=== PATIENT | male | born 1980 | race Caucasian/White ===

== ENCOUNTER 2017-09-12 00:04 | Emergency (ER) | payer MEDICAID, SELFPAY ==
[2017-09-12 00:05] VITALS: BP 145/100; PULSE 90; RESP 15; TEMP 36.8; O2SAT 97; BMI 29.5
--- NOTE | 2017-09-12 00:30 | CT_ITS ---
STUDY: CT ABDOMEN AND PELVIS WITHOUT CONTRAST REASON FOR EXAM: Male, 37 years old. Abdominal pain RADIATION DOSAGE (If Supplied By Facility): CTDIvol = ( . Syncopal episode. ) mGy, DLP = ( 422.67 ) mGycm TECHNIQUE: Transaxial images were obtained from the dome of the diaphragm to the symphysis pubis without oral contrast, and without intravenous contrast. Sagittal and coronal images were reconstructed. Individualized dose optimization techniques were used for this CT. COMPARISON: None. FINDINGS: The visualized lung bases are unremarkable. The visualized portions of the heart are within normal limits. Normal liver. Normal gallbladder and extrahepatic biliary system. Normal spleen. Normal pancreas. Normal bilateral adrenal glands. Normal right kidney. Normal right ureter.. Normal left kidney and ureter. Normal visualized stomach. Normal small intestine. Normal colon. The appendix is visualized and appears normal. Normal abdominal aorta. Normal inferior vena cava. Normal retroperitoneum. Normal urinary bladder. Normal abdominal wall. Normal osseous structures. CT/Abdomen/Pelvis without Cont IMPRESSION: No evidence of an acute intra-abdominal abnormality. Electronically Signed: Tobi Ellis MD at 2:10 EDT Tel , Service support ,
--- NOTE | 2017-09-12 00:30 | EKG12_ITS ---
Test Reason : POSSIBLE SEIZURE Blood Pressure : / mmHG Vent. Rate : 076 BPM Atrial Rate : 076 BPM P-R Int : 134 ms QRS Dur : 078 ms QT Int : 398 ms P-R-T Axes : 007 -22 031 degrees QTc Int : 447 ms Normal sinus rhythm Normal ECG Confirmed by DARRYN SHELDON ([id number]), editorial clerk SRAVAN SORIANO ([id number]) on 09/13/2017 2:15:19 PM Referred By: GENEVIEVE Confirmed By:DARRYN SHELDON
--- NOTE | 2017-09-12 00:35 | ED.VISSUMM ---
- ER Visit Summary Date of Service: 09/12/17 Chief Complaint: Blacked out History of Present Illness: The patient is a 37 M with history of binge drinking and GERD who presents for an episode of blacking out tonight. Patient states for the last 4 days he has been binge drinking a 12 pack a day. He had his last drink at 11 AM yesterday. He has been watching television all day and woke up on the floor. He thinks he was only there approximately 5 minutes as he remembers the beginning of the basketball game he started to watch. He denies any injuries from rolling off the couch. He does not know if he had a seizure. He denies any seizure history. He states he gets shaky if he does not drink and usually will come to the emergency department to get some Ativan which helps it. He denies any urinary incontinence or biting his tongue. He denies drug use. Uses oral tobacco. Physical Examination: Vital signs: afebrile, hemodynamically stable, no hypoxia on room air General: well nourished, well developed, in no distress Skin: warm, dry, no rash, no pallor HEENT: normocephalic and atraumatic; PERRL, EOMI, moist mucous membranes, no bite ortega on the tongue Cardiovascular: Borderline tachycardic rate and rhythm without murmurs, no peripheral edema, 2+ pulses all distal extremities Respiratory: No increased work of breathing, lungs are clear to auscultation bilaterally, no rales, rhonchi or wheezing Abdominal: Abdomen is soft, diffusely tender to light palpation with rebound tenderness, with normoactive bowel sounds, no guarding,, no masses MSK: Moves all extremities, no deformities, normal strength Neuro: Awake and alert, oriented ?4. No facial droop, sensation and motor function intact and symmetric Test Results: Abnormal Lab Results 09/12/17 09/12/17 09/12/17 00:40 00:40 00:40 WBC 6.6 RBC 5.19 Hgb 15.9 Hct 45.1 MCV 86.9 MCH 30.6 MCHC 35.3 RDW 12.1 RDW Differential 38.6 Plt Count 327 MPV 9.4 Immature Gran % (Auto) 0.300 Neut % (Auto) 38.8 L Lymph % (Auto) 52.3 H [place] % (Auto) 7.4 Eos % (Auto) 0.9 Baso % (Auto) 0.3 Absolute Neuts (auto) 2.6 Absolute Lymphs (auto) 3.45 Total Counted Not Reportable Sodium 138 Potassium 3.8 Chloride 100 Carbon Dioxide 24.0 Anion Gap 14 BUN 7 Creatinine 0.99 Estim Creat Clear Calc 87.14 Est GFR (MDRD) Af Amer 108 Est GFR (MDRD) Non-Af 90 BUN/Creatinine Ratio 7.1 L Glucose 100 Calcium 7.9 L Total Bilirubin 0.40 AST 29 ALT 40 Alkaline Phosphatase 79 Troponin I < 0.02 Total Protein 7.5 Albumin 3.7 Globulin 3.8 Albumin/Globulin Ratio 1.0 Lipase 153 Urine Color Urine Clarity Urine pH Ur Specific [place] Urine Protein Urine Glucose (UA) Urine Ketones Urine Occult Blood Urine Nitrite Urine Bilirubin Urine Urobilinogen Ur Leukocyte Esterase Urine RBC Urine WBC Ur Squamous Epith Cells Urine Bacteria Urine Mucus Urine Opiates Screen Urine Methadone Screen Ur Barbiturates Screen Ur Phencyclidine Scrn Ur Amphetamines Screen U Methamphetamin-MDMA U Benzodiazepines Scrn Urine Cocaine Screen U Cannabinoids Screen Ur Drug Screen Comment Ethyl Alcohol 253.0 09/12/17 09/12/17 00:45 00:45 WBC RBC Hgb Hct MCV MCH MCHC RDW RDW Differential Plt Count MPV Immature Gran % (Auto) Neut % (Auto) Lymph % (Auto) [place] % (Auto) Eos % (Auto) Baso % (Auto) Absolute Neuts (auto) Absolute Lymphs (auto) Total Counted Sodium Potassium Chloride Carbon Dioxide Anion Gap BUN Creatinine Estim Creat Clear Calc Est GFR (MDRD) Af Amer Est GFR (MDRD) Non-Af BUN/Creatinine Ratio Glucose Calcium Total Bilirubin AST ALT Alkaline Phosphatase Troponin I Total Protein Albumin Globulin Albumin/Globulin Ratio Lipase Urine Color Yellow Urine Clarity Clear Urine pH 6.5 Ur Specific [place] 1.010 Urine Protein Negative Urine Glucose (UA) Normal Urine Ketones Negative Urine Occult Blood Negative Urine Nitrite Negative Urine Bilirubin Negative Urine Urobilinogen Normal Ur Leukocyte Esterase Negative Urine RBC 0 SEEN Urine WBC 0 SEEN Ur Squamous Epith Cells 0-5 SEEN Urine Bacteria 0 SEEN Urine Mucus RARE Urine Opiates Screen NEGATIVE Urine Methadone Screen NEGATIVE Ur Barbiturates Screen NEGATIVE Ur Phencyclidine Scrn NEGATIVE Ur Amphetamines Screen NEGATIVE U Methamphetamin-MDMA NEGATIVE U Benzodiazepines Scrn NEGATIVE Urine Cocaine Screen NEGATIVE U Cannabinoids Screen NEGATIVE Ur Drug Screen Comment Ethyl Alcohol Clinical Impression(s) from Imaging Studies Abdomen/Pelvis CT 09/12/17 00:30 IMPRESSION: No evidence of an acute intra-abdominal abnormality. Emergency Department Course and Treatment: When discussing goals of patient's care at this visit, he was not interested in being admitted for alcohol detox. He was very tender on abdominal examination, and had the episode of blacking out. Workup was performed showing no derangements on CBC or CMP. Troponin negative. Tox screen negative. Urine negative for infection. Patient had elevated ethanol level at 253, consistent with acute intoxication. This is likely patient's because of blacking out. CT of the abdomen and pelvis had been performed given how tender patient was and it showed no acute process. Patient has a history of gastritis from drinking, and we discussed that since he is actively intoxicated and is having the abdominal pain, it is likely secondary to his heavy alcohol use and he needs to stop drinking. When patient was reevaluated he was sleeping and had no further tremors or complaints upon waking. He had received hydroxyzine and Zofran for symptomatically relief in the beginning and then a GI cocktail for his gastritis once surgical pathology was ruled out by CT and the remainder of his workup. Patient is to continue his home medications for gastritis and a follow-up with his doctor for further management of this condition. Patient agreed and was discharged home with a sober ride. Treatment Plan: [] Disposition: [] Impression: Alcohol intoxication This note was generated with [employer] dictation software. It may contain incorrect words, spelling, and punctuation that were not noted in review of the chart prior to signing ED Disposition - Plan for ED Patient: Disposition: Home or Assisted Living Chief Complaint: Seizure Instructions: ED Alcohol Intoxication Referrals: Wilbert Quiroz MD [Primary Care Provider] - 3-5 Days if not improving Additional Instructions: You blacked out most likely because of alcohol intoxication. Your workup was normal for any injuries or illnesses that would require admission or further treatment. Please do not drink heavily as it will continue to upset your stomach. Take your stomach medicine as prescribed by your doctor.
[2017-09-12] MEDS: hydrOXYzine PAM 25 MG Capsule 50 MG PO (00:46)
[2017-09-12] MEDS: 0.9% Normal Saline 1,000 ML 1000 ML IV (00:46)
[2017-09-12] MEDS: Ondansetron 4 MG/2 ML Vial IV (00:46)
[2017-09-12 00:49] LABS: Absolute Lymphocyte Count 3.45 X10^3/ul (0.83-4.51); Absolute Neutrophil Count 2.6 X10^3/uL (2.0-7.7); Basophil# 0.02 X10^3/uL; Basophil% 0.3 % (0-1); Eosinophil# 0.06 X10^3/uL; Eosinophils% 0.9 % (0-5); Hematocrit 45.1 % (40-54); Hemoglobin 15.9 g/dl (13.0-16.5); Lymphocyte # 3.45 X10^3/ul (4.0); Lymphocyte % 52.3 % (19-41); Mean Corp Hgb Conc 35.3 g/gl (32-36); Mean Corpuscular Hgb 30.6 pg (27.0-32.0); Mean Corpuscular Volume 86.9 fL (80-94); Mean Platelet Vol. 9.4 fl (6.2-12.0); Monocyte# 0.49 X10^3/uL; Monocyte% 7.4 % (0-10); Neutrophil # 2.56 X10^3/uL (2.7-7.7); Neutrophil % 38.8 % (47-70); POSITIVE COUNT NO; POSITIVE DIFFERENTIAL NO; POSITIVE MORPHOLOGY NO; Platelet Count 327 K/mm3 (150-450); RBC Distribution Width CV 12.1 % (11.6-14.6); RBC Distribution Width SD 38.6 fl (35.1-43.9); Red Blood Count 5.19 M/mm3 (4.6-6.2); White Blood Count 6.6 K/mm3 (4.4-11.0)
[2017-09-12 00:56] LABS: Bacteria 0 SEEN /hpf (None Seen); Red Blood Cells-Urine 0 SEEN /hpf (0-5); White Blood Cells 0 SEEN /hpf (0-5)
[2017-09-12 01:13] LABS: Color, Urine Yellow (Yellow); Glucose, Dipstick Normal (Normal); Ketone-Dipstick Negative (Negative); Nitrite-Dipstick Negative (Negative); Protein-Dipstick Negative (Negative); Urine Bilirubin Dipstick Negative (Negative); Urine Clarity Clear (Clear); Urine Urobilinogen Normal (Normal); Urine pH 6.5 (5.0 - 8.0)
[2017-09-12 01:14] LABS: Leukocyte Esterase-Dipstick Negative /ul (Negative); Occult Blood-Urine Negative /ul (Negative)
[2017-09-12 01:21] LABS: Mucous, Urine RARE /hpf (<or=2+); Squamous Epithelial Cells - UA 0-5 SEEN /hpf (0-5)
[2017-09-12 01:23] LABS: Amphetamine Urine VISTA NEGATIVE (<1000 ng/mL); Barbiturate Urine VISTA NEGATIVE (< 200 ng/mL); Benzodiazepine Urine VISTA NEGATIVE (< 200 ng/mL); Cocaine Urine VISTA NEGATIVE (< 300 ng/mL); Ecstacy Urine VISTA NEGATIVE (< 500 ng/mL); Methadone Urine VISTA NEGATIVE (< 300 ng/mL); PCP Urine VISTA NEGATIVE (< 25 ng/mL); THC Urine VISTA NEGATIVE (< 50 ng/mL)
[2017-09-12 01:23] LABS: AST(SGOT) 29 U/L (15-37); Alanine Aminotransfer ALT/SGPT 40 U/L (16-61); Albumin, Serum 3.7 g/dL (3.2-5.0); Alkaline Phosphatase 79 U/L (45-117); Anion Gap 14 (5-15); BUN 7 mg/dL (7-18); BUN/Creat Ratio 7.1 RATIO (10-20); Calcium,Total 7.9 mg/dL (8.5-10.1); Chloride 100 mmol/L (98-107); Creatinine, Serum 0.99 mg/dL (0.70-1.30); EST Glomerular Filtration Rate 90 mL/min (>60); Est Glom Filt Rate - Afr Amer 108 mL/min (>60); Estimated Creatinine Clearance 87.14 ml/min; Globulin 3.8 g/dL (2.2-4.2); Glucose 100 mg/dL (74-106); Lipase 153 U/L (73-393); Potassium 3.8 mmol/L (3.5-5.1); Protein, Total 7.5 g/dL (6.4-8.2); Sodium Level 138 mmol/L (136-145)
[2017-09-12 01:59] LABS: Vista UDS pH Range 6
[2017-09-12 02:14] VITALS: BP 112/81; PULSE 79; RESP 12; O2SAT 97
--- NOTE | 2017-09-12 03:29 | ED.DEP ---
ED Disposition - Plan for ED Patient: Disposition: Home or Assisted Living Chief Complaint: Seizure Instructions: ED Alcohol Intoxication Referrals: Wilbert Quiroz MD [Primary Care Provider] - 3-5 Days if not improving Additional Instructions: You blacked out most likely because of alcohol intoxication. Your workup was normal for any injuries or illnesses that would require admission or further treatment. Please do not drink heavily as it will continue to upset your stomach. Take your stomach medicine as prescribed by your doctor.
[2017-09-12 03:37] VITALS: BP 123/93; PULSE 74; RESP 14; O2SAT 95
== END 2017-09-12 03:38 | disposition home or self-care (01) ==
PROVIDERS: Emergency Provider Emergency Medicine; Family Provider Internal Medicine; PCP Internal Medicine
DX: F10.129 Alcohol abuse with intoxication, unspecified (principal); Y90.8 Blood alcohol level of 240 mg/100 ml or more; K21.9 Gastro-esophageal reflux disease without esophagitis; Z72.0 Tobacco use
CPT/HCPCS: 74176; 80053; 80307; 80320; 81001; 83690; 84484; 85025; 93005; 96361; 96374; 99285; J7030; A4216; G0480; J2405

== ENCOUNTER → 2017-12-18 16:30 | Outpatient (CLI) | payer MEDICAID, SELFPAY ==
--- NOTE | 2017-12-18 16:34 | RAD_ITS ---
STUDY: X-RAY - SACRUM/COCCYX REASON FOR EXAM: Male, 37 years old. Trauma TECHNIQUE: 3 view(s) of the sacrum and coccyx were obtained. COMPARISON: None. FINDINGS: Normal bilateral sacroiliac joints. Normal visualized sacral ala and fused sacral bodies. Normal sacrococcygeal junction with a normal angulation. Normal coccygeal segments. The presacral soft tissue structures are unremarkable. RAD/Sacrum-Coccyx min 2 Views IMPRESSION: Normal x-rays of the sacrum and coccyx. Electronically Signed: Yuan Aguillon MD at 16:50 EDT , Service support ,
== END ==
PROVIDERS: Family Provider Internal Medicine; PCP Internal Medicine; Visit Provider Physician Assistant Surgical
DX: S30.0XXA Contusion of lower back and pelvis, initial encounter (principal)
CPT/HCPCS: 72220

== ENCOUNTER → 2018-05-31 09:32 | Outpatient (CLI) | payer MEDICAID, SELFPAY ==
--- NOTE | 2018-05-31 09:39 | RAD_ITS ---
STUDY: AIR-CONTRAST UPPER GI SERIES. REASON FOR EXAM: Male, 38 years old. History of gastroesophageal reflux disease. FLUOROSCOPY TIME (if supplied): (1:09) minutes/seconds. 22 images were obtained. TECHNIQUE: The patient ingested barium. Multiple images of esophagus, stomach and duodenum were obtained. COMPARISON: None. FINDINGS: The esophagus is unremarkable. There is no evidence of obstruction. No mass lesion is seen. The stomach and duodenum are unremarkable. RAD/Upper GI Series Only IMPRESSION: Unremarkable air-contrast upper GI series. Electronically Signed: Harmeet Rodriguez MD at 8:56 EST Tel [phone], Service support ,
== END ==
PROVIDERS: Family Provider Internal Medicine; PCP Internal Medicine; Referring Provider Nurse Practitioner Adult Health; Visit Provider Nurse Practitioner Adult Health
DX: K21.9 Gastro-esophageal reflux disease without esophagitis (principal); R10.13 Epigastric pain
CPT/HCPCS: 74246

== ENCOUNTER 2019-07-23 22:41 | Emergency (ER) | payer MEDICAID, SELFPAY ==
[2019-07-23 22:44] VITALS: BP 142/110; PULSE 111; RESP 20; TEMP 36.4; O2SAT 96; BMI 31.8
--- NOTE | 2019-07-23 22:48 | EKG12_ITS ---
Test Reason : HR Blood Pressure : / mmHG Vent. Rate : 107 BPM Atrial Rate : 107 BPM P-R Int : 144 ms QRS Dur : 072 ms QT Int : 332 ms P-R-T Axes : 042 -13 054 degrees QTc Int : 443 ms Sinus tachycardia Possible Inferior infarct , age undetermined Abnormal ECG Confirmed by DOMENICO HARDEN, ROSMERY ([id number]), electronic news gathering editor SRAVAN SORIANO ([id number]) on 07/28/2019 10:29:44 AM Referred By: JAXSON Confirmed By:YIN ACUÑA MD
--- NOTE | 2019-07-23 22:58 | ED.DCSUM_ITS ---
History of Present Illness Chief Complaint: Palpitations Informant: Patient Narrative: Stated he started having tachycardia this evening. He stated he felt palpitations. 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 He was seen in the emergency department for that yesterday and started on that medication. Today he has had a 12 pack of beer and is unsure if that is the cause of his symptoms. He drinks beer on the weekends. Denies any fevers or chills or chest pain or shortness of breath. Current severity is mild. States he does have tachycardia and is on a medication to slow his heart rate at baseline. He does not know what medication that is. His medication list shows that he is on propranolol 60 mg daily - Past Medical History (1) Contusion of coccyx Status: Acute Past Medical History - Allergies and Home Meds Allergies/Adverse Reactions: Allergies No Known Allergies Allergy (Verified 07/23/19 22:43) Primary Care Physician: Wilbert Quiroz MD [Primary Care Provider] - Prior records reviewed: Yes Past Medical History: - - See problem list, tachycardia Surgical History: noncontributory Lives: With Family Smoking Status: Current every day smoker Alcohol: Occasional Drugs: None Review of Systems General: Denies: Chills, Fever, Sweats Eyes: Denies: Visual changes - bilaterally, Diplopia ENT: Denies: Rhinorrhea, Sore throat Cardiovascular: Reports: Palpitations, Heart racing. Denies: Chest pain Respiratory: Denies: Dyspnea, Cough, Dyspnea on exertion Gastrointestinal: Denies: Abdominal pain, Nausea, Vomiting, Diarrhea, Melena, H ematochezia Genitourinary: Denies: Dysuria, Hematuria, Frequency Musculoskeletal: Denies: Back pain, Extremity Pain Skin: Denies: Rash, Wounds Neurological: Denies: Headache, Weakness, Numbness Physical Exam Vital Signs/Narrative: Vital Signs Temp Pulse Resp BP Pulse Ox 07/23/19 22:44 97.6 F L 111 H 20 H 142/110 H 96 General: Well nourished, Well developed, No Acute Distress Head: Normocephalic, Atraumatic Eyes: Perrl, EOMI ENT: Moist mucous membranes, No rhinorrhea Neck: Supple, Nontender Cardiovascular: Regular rhythm, No murmurs, Tachycardia. Negative for: Regular rate Respiratory: No distress, CTA bilaterally, Chest nontender Abdomen: Soft, Nontender, Nondistended, Normal bowel sounds Back: Nontender, Normal Inspection Extremities: Nontender, No edema Skin: Normal color, No rash Neurological: Alert, Oriented x3, Cranial nerves II-XII grossly intact, Normal Strength, Normal Sensation Psychological: Normal affect, Normal Mood Diagnostic/Tx/Re-eval - Medical Decision Making Patient resting comfortably. EKG shows sinus tachycardia at a rate of 107. No acute ischemia. Patient reassured. At this time he has a history of tachycardia on propranolol. This could be also related to alcohol and prednisone combination. He was watched on the monitor. Remains in sinus rhythm resting comfortably. Ambulate to the restroom. I suspect the combination is causing him worsening tachycardia. He will avoid alcohol while taking prednisone. Given dose of Benadryl to help him sleep tonight and calm his nerves. I do not feel he needs lab work or imaging. He is nontoxic. Remains in sinus tach ED Disposition - Plan for ED Patient: Disposition: Home or Assisted Living Diagnosis: Sinus tachycardia Instructions: Palpitations Referrals: Wilbert Quiroz MD [Primary Care Provider] -
[2019-07-23 23:47] VITALS: BP 138/103; PULSE 109; RESP 15; O2SAT 98
[2019-07-23] MEDS: DiphenhydrAMINE 25 MG Capsule 50 MG PO (23:48)
[2019-07-24 00:19] VITALS: BP 142/87; PULSE 105; RESP 18; O2SAT 97
== END 2019-07-24 00:19 | disposition home or self-care (01) ==
PROVIDERS: Emergency Provider Emergency Medicine; PCP Internal Medicine
DX: R00.0 Tachycardia, unspecified (principal); F17.200 Nicotine dependence, unspecified, uncomplicated; Z79.899 Other long term (current) drug therapy
CPT/HCPCS: 93005; 99284

== ENCOUNTER 2019-09-20 16:45 | Emergency (ER) | payer MEDICAID, SELFPAY ==
[2019-09-20 16:46] VITALS: BP 136/89; PULSE 125; RESP 18; TEMP 37.2; O2SAT 96; BMI 29.9
[2019-09-20] MEDS: LORazepam 1 MG Tablet PO (17:09)
--- NOTE | 2019-09-20 17:13 | RAD_ITS ---
STUDY: X-RAY CHEST REASON FOR EXAM: Male, 39 years old. fever, cough, SOB x5 days. feels like heart is racing, has history of anxiety but is out of ativan TECHNIQUE: Single AP portable view of the chest. COMPARISON: 08/11/2016. FINDINGS: The lungs are clear and expanded. There is no demonstrated pleural abnormality. Normal size heart. Normal mediastinum and maikel. Normal visualized pulmonary arteries. Normal visualized aortic arch and descending thoracic aorta. Normal visualized thoracic spine. Normal visualized ribs, clavicles, and shoulders. There is no demonstrated abnormality of the visualized soft tissue structures of the upper abdomen. RAD/Chest 1 View (Portable) IMPRESSION: Normal x-ray examination of the chest. Electronically Signed: Brittanie Antonio MD at 17:42 EDT Tel , Service support ,
--- NOTE | 2019-09-20 17:16 | ED.DCSUM_ITS ---
- ER Visit Summary Date of Service: 09/20/19 Chief Complaint: Anxiety and out of his Ativan. Also a cough. History of Present Illness: The patient is a 39 M history of anxiety and asthma. States that he has been out of his Ativan for a while. He has had worse anxiety lately. He is also had a subjective fever and a cough the last several days. Nonproductive. Denies abdominal pain. No dysuria. No rash. No obvious exposure to COVID-19. Physical Examination: Middle-aged male no acute distress vital signs stable afebrile. Pulse ox 96% on room air no signs hypoxia. He is anxious and tachycardic. H EENT exam unremarkable. Posterior pharynx normal. Moist with membranes. Neck nontender no lymphadenopathy. Lungs clear to auscultation bilaterally. Heart tachycardic no murmur. Abdomen soft nontender. Remedies moves all 4. Calves are nontender without edema or cords. Neurologically is awake alert with no focal motor deficits. Test Results: This x-ray portable 1 view read by myself shows no acute abnormality. Normal cardiac silhouette mediastinum. Emergency Department Course and Treatment: Patient treated with 1 p.o. Ativan. Treatment Plan: Follow-up with his primary care physician. Disposition: Discharge Impression: Acute on chronic anxiety with panic attacks Viral URI This note was generated with [employer] dictation software. It may contain incorrect words, spelling, and punctuation that were not noted in review of the chart prior to signing ED Disposition - Plan for ED Patient: Referrals: Wilbert Quiroz MD [Primary Care Provider] -
--- NOTE | 2019-09-20 17:34 | ED.DEP ---
ED Disposition - Plan for ED Patient: Disposition: Home or Assisted Living Instructions: ED URI Viral, ED Panic Attack Prescriptions: Lorazepam [Ativan] 1 mg PO DAILY PRN PRN #7 tab PRN Reason: Anxiety Prescription Printed Referrals: Wilbert Quiroz MD [Primary Care Provider] - As soon as possible Additional Instructions: Use your Ativan sparingly. Follow-up with your doctor for a longer prescription.
[2019-09-20 17:45] VITALS: BP 125/98; PULSE 106; RESP 16; O2SAT 97
== END 2019-09-20 17:45 | disposition home or self-care (01) ==
PROVIDERS: Emergency Provider Emergency Medicine; PCP Internal Medicine
DX: F41.0 Panic disorder [episodic paroxysmal anxiety] (principal); J06.9 Acute upper respiratory infection, unspecified; J45.909 Unspecified asthma, uncomplicated
CPT/HCPCS: 71045; 99283

== ENCOUNTER 2020-07-07 15:26 | Emergency (ER) | payer MEDICAID, SELFPAY ==
[2020-07-07 15:26] VITALS: BP 121/82; PULSE 113; RESP 18; TEMP 35.6; O2SAT 97
[2020-07-07 15:27] VITALS: BP 121/82; PULSE 118; RESP 18; TEMP 35.6; O2SAT 99; BMI 28.9
--- NOTE | 2020-07-07 15:53 | EKG12_ITS ---
Test Reason : WITHDRAWL Blood Pressure : / mmHG Vent. Rate : 098 BPM Atrial Rate : 098 BPM P-R Int : 146 ms QRS Dur : 076 ms QT Int : 368 ms P-R-T Axes : 026 -12 026 degrees QTc Int : 469 ms Normal sinus rhythm Possible Inferior infarct , age undetermined Abnormal ECG Confirmed by DOMENICO HARDEN, ROSMERY ([id number]), technical writer and editor CELIA GAGNON ([id number]) on 07/09/2020 8:44:11 AM Referred By: JOSE L Confirmed By:YIN ACUÑA MD
[2020-07-07] MEDS: 0.9% Normal Saline 1,000 ML 1000 ML IV (16:06)
[2020-07-07] MEDS: LORazepam 2 MG/ML Syringe 1 MG IV (16:06)
--- NOTE | 2020-07-07 16:06 | ED.VIS.GEN ---
History of Present Illness Chief Complaint: ETOH Intox Informant: Patient Narrative: 40-year-old male presenting with epigastric pain. He states this is been a problem on and off. He states he drinks about a sixpack a day but when he tries to cut back he gets the shakes. He denies any seizure activity. He states in order to stop shaking he has to drink but when he drinks he gets epigastric pain. He denies black or bloody stools. He states he is concerned he might be having a heart attack due to his epigastric pain. Patient states he does not want to detox from alcohol. Patient states he vomited today so he decided to drink a few beers before coming in. Past Medical History - Allergies and Home Meds Allergies/Adverse Reactions: Allergies No Known Allergies Allergy (Verified 09/20/19 16:46) Primary Care Physician: Wilbert Quiroz MD [STAFF PHYSICIAN] - Prior records reviewed: Yes Past Medical History: - - Gastric ulcer, anxiety, EtOH abuse Surgical History: noncontributory Smoking Status: Current some day smoker Alcohol: Heavy Drugs: None Review of Systems General: Denies: Chills, Fever, Sweats Eyes: Denies: Visual changes - bilaterally, Diplopia ENT: Denies: Rhinorrhea, Sore throat Cardiovascular: Denies: Chest pain, Palpitations Physical Exam Vital Signs/Narrative: Vital Signs Temp Pulse Resp BP Pulse Ox 07/07/20 15:27 96.0 F L 118 H 18 121/82 H 99 07/07/20 15:26 96.0 F L 113 H 18 121/82 H 97 Diagnostic/Tx/Re-eval Clinical Impression(s) from Imaging Studies Chest X-Ray 07/07/20 16:10 IMPRESSION: Normal x-ray examination of the chest. Electronically Signed: Tai Cali MD at 16:41 EST , Service support , Laboratory Data 07/07/20 07/07/20 07/07/20 16:00 16:00 16:00 WBC 8.4 RBC 5.19 Hgb 15.7 Hct 45.0 MCV 86.7 MCH 30.3 MCHC 34.9 RDW Std Deviation 37.3 RDW Coeff of Lilian 11.7 Plt Count 337 MPV 8.6 Immature Gran % (Auto) 0.400 Neut % (Auto) 54.5 Lymph % (Auto) 36.7 [place] % (Auto) 7.0 Eos % (Auto) 0.7 Baso % (Auto) 0.7 Absolute Neuts (auto) 4.6 Absolute Lymphs (auto) 3.07 Nucleated RBC % 0 Sodium 130 L Potassium 3.3 L Chloride 95 L Carbon Dioxide 28.0 Anion Gap 7 BUN 12 Creatinine 1.18 Estim Creat Clear Calc 70.94 Est GFR (MDRD) Af Amer 87 Est GFR (MDRD) Non-Af 72 BUN/Creatinine Ratio 10.2 Glucose 105 Calcium 8.8 Total Bilirubin 0.80 AST 91 H ALT 84 H Alkaline Phosphatase 71 Troponin I < 0.015 Total Protein 7.5 Albumin 3.7 Globulin 3.8 Albumin/Globulin Ratio 1.0 Lipase 166 Ethyl Alcohol 129.0 - Rhythm Strip Rhythm Strip: Sinus Rhythm Rate: 98 - EKG Initial EKG Interpretation: Sinus Rhythm, No Acute Injury Pattern - Medical Decision Making 40-year-old male presenting for epigastric pain. He states this is an ongoing issue and when he drinks too much it makes it hurt. If he stops drinking he states I get the shakes. He had to leave work today due to his symptoms. Patient states he does have a history of a gastric ulcer. He also wants to make sure this is in his heart. He does not have any cardiac issues that he knows of. EKG performed on arrival shows a sinus rhythm at 98 bpm without signs of ischemic changes or other abnormalities interpreted by myself. Chest x-ray interpreted by myself shows no acute cardiopulmonary process. Lab work is unremarkable. I do believe it is likely that this pain is coming from his ulcer. Patient felt improved after Ativan. I did ask him again if he wanted to stay for detox and he states he does not. He will be discharged home with return precautions. Impression: 1. EtOH abuse 2. EtOH withdrawal 3. Epigastric pain ED Disposition - Plan for ED Patient: Disposition: Home or Assisted Living Instructions: ED Withdrawal Alcohol, ED Alcohol Intoxication, ED Epigastric Pain (Uncertain Cause) Prescriptions: Famotidine [Pepcid] 20 mg PO BID #28 tab Prescription Printed Referrals: Wilbert Quiroz MD [STAFF PHYSICIAN] -
[2020-07-07] MEDS: Famotidine 200 MG/20 ML MDV 20 MG in 0.9% Normal Saline (Pres. free 8 ML 300 MG IV (16:08)
--- NOTE | 2020-07-07 16:10 | RAD_ITS ---
STUDY: X-RAY CHEST REASON FOR EXAM: Male, 40 years old. TRIED TO STOP DRINKING ETOH AND STARTED WITH WITHDRAWAL. TECHNIQUE: Single AP portable view of the chest. COMPARISON: 09/20/2019. FINDINGS: The lungs are clear and expanded. There is no demonstrated pleural abnormality. Normal size heart. Normal mediastinum and maikel. Normal visualized pulmonary arteries. Normal visualized aortic arch and descending thoracic aorta. Normal visualized thoracic spine. Normal visualized ribs, clavicles, and shoulders. There is no demonstrated abnormality of the visualized soft tissue structures of the upper abdomen. RAD/Chest 1 View (Portable) IMPRESSION: Normal x-ray examination of the chest. Electronically Signed: Tai Cali MD at 16:41 EST , Service support ,
[2020-07-07 16:31] LABS: Absolute Lymphocyte Count 3.07 X10^3/uL (0.83-4.51); Absolute Neutrophil Count 4.6 X10^3/uL (2.0-7.7); Basophil# 0.06 X10^3/uL; Basophil% 0.7 % (0-1); Eosinophil# 0.06 X10^3/uL; Eosinophils% 0.7 % (0-5); Hemoglobin 15.7 g/dL (13.0-16.5); Lymphocyte # 3.07 X10^3/ul (4.0); Lymphocyte % 36.7 % (19-41); Mean Corp Hgb Conc 34.9 g/dL (32-36); Mean Corpuscular Hgb 30.3 pg (27.0-32.0); Mean Corpuscular Volume 86.7 fL (80-94); Mean Platelet Vol. 8.6 fl (6.2-12.0); Monocyte# 0.59 X10^3/uL; NRBC Flagged by Analyzer 0 % (0-5); Neutrophil # 4.56 X10^3/uL (2.7-7.7); Neutrophil % 54.5 % (47-70); Platelet Count 337 K/mm3 (150-450); RBC Distribution Width CV 11.7 % (11.6-14.6); RBC Distribution Width SD 37.3 fl (35.1-43.9); Red Blood Count 5.19 M/mm3 (4.6-6.2); White Blood Count 8.4 K/mm3 (4.4-11.0)
[2020-07-07 16:45] LABS: AST(SGOT) 91 U/L (15-37); Alanine Aminotransfer ALT/SGPT 84 U/L (16-61); Albumin, Serum 3.7 g/dL (3.2-5.0); Alkaline Phosphatase 71 U/L (45-117); Anion Gap 7 (5-15); BUN 12 mg/dL (7-18); BUN/Creat Ratio 10.2 RATIO (10-20); Calcium,Total 8.8 mg/dL (8.5-10.1); Chloride 95 mmol/L (98-107); Creatinine, Serum 1.18 mg/dL (0.70-1.30); EST Glomerular Filtration Rate 72 mL/min (>60); Est Glom Filt Rate - Afr Amer 87 mL/min (>60); Estimated Creatinine Clearance 70.94 ml/min; Globulin 3.8 g/dL (2.2-4.2); Glucose 105 mg/dL (74-106); Lipase 166 U/L (73-393); Potassium 3.3 mmol/L (3.5-5.1); Protein, Total 7.5 g/dL (6.4-8.2); Sodium Level 130 mmol/L (136-145)
[2020-07-07 17:09] VITALS: PULSE 81; RESP 16; O2SAT 99
== END 2020-07-07 17:11 | disposition home or self-care (01) ==
PROVIDERS: Emergency Provider Student in an Organized Health Care Education/Training Program
DX: F10.239 Alcohol dependence with withdrawal, unspecified (principal); F10.229 Alcohol dependence with intoxication, unspecified; R10.13 Epigastric pain; Y90.6 Blood alcohol level of 120-199 mg/100 ml
CPT/HCPCS: 71045; 80053; 82077; 83690; 84484; 85025; 93005; 99283; J7030; A4216; J3490

== ENCOUNTER 2020-08-30 16:01 | Emergency (ER) | payer MEDICAID, SELFPAY ==
[2020-08-30 16:02] VITALS: BP 96/48; PULSE 136; RESP 16; TEMP 37.1; O2SAT 97; BMI 29.7
--- NOTE | 2020-08-30 16:13 | CT_ITS ---
INDICATION: RLQ pain EXAMINATION: CT Abdomen And Pelvis W/ Contrast Injection TECHNIQUE: Helically acquired images were obtained of the abdomen and pelvis after IV contrast. A radiation dose optimization technique was used for this scan. IV Contrast dosage and agent: 100 cc [id number] Oral contrast: Yes COMPARISON: None. FINDINGS: Visualized lung bases: Unremarkable Liver: Scattered subcentimeter hypodensities are too small characterize. Gallbladder: Unremarkable Spleen: Unremarkable Pancreas: There is a focal hypodense region within the body of the pancreas with peripancreatic inflammatory changes around the body of the pancreas. Adrenal Glands: Unremarkable Kidneys: Unremarkable GI Tract: Unremarkable Vasculature: Mild scattered aortoiliac atherosclerotic calcifications. Lymphadenopathy: None Peritoneum: No ascites. 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 No focal fluid collection. Electronically Signed: Myron King MD at 18:01 EDT Tel , Service support ,
--- NOTE | 2020-08-30 16:15 | ED.DCSUM_ITS ---
- ER Visit Summary Date of Service: 08/30/20 Chief Complaint: Abdominal pain History of Present Illness: The patient is a 40 M presenting with abdominal pain. Patient states this started on Sunday. He states this has been persistent throughout the weekend. He states the pain is in different areas of his abdomen. It is a sharp stabbing pain. He denies nausea or vomiting. Denies diarrhea or constipation. Denies urinary complaints. Denies fever. He states he also has anxiety and has palpitations. He denies chest pain or shortness of breath. Denies other complaints. Physical Examination: Vitals are stable. Patient is afebrile. Heart rate 130. Alert no acute distress. HEENT exam is unremarkable. Neck is supple. Lungs are clear and equal bilaterally. Heart is regular tachycardic Abdomen is soft right lower quadrant tenderness with no guarding or rebound. Mid abdominal abrasion Extremities are unremarkable. Skin is warm and dry. Remainder of exam is unremarkable. Emergency Department Course and Treatment: Patient was given IV fluids, morphine, Zofran. CBC shows hemoglobin 12.8. Chemistries show sodium 135. ALT 80, AST 51, lipase 537. CT abdomen pelvis shows focal necrotizing pancreatitis involving the body of the pancreas. No focal fluid collection. Blood cultures were sent. Patient given meropenem IV. Discussed Dr. Perez who recommends transfer to tertiary care center. Discussed with Judy dunn for transfer. Disposition: Transfer Impression: Necrotizing pancreatitis This note was generated with [employer] dictation software. It may contain incorrect words, spelling, and punctuation that were not noted in review of the chart prior to signing ED Disposition - Plan for ED Patient: Referrals: Care Physician,No Primary [NON-STAFF] -
[2020-08-30] MEDS: Ondansetron 4 MG/2 ML Vial IV (16:25)
[2020-08-30] MEDS: 0.9% Normal Saline 1,000 ML 1000 ML IV (16:25)
[2020-08-30] MEDS: Morphine 4 MG/ML Syringe IV ×3 (16:26→21:25)
[2020-08-30 16:57] LABS: Absolute Lymphocyte Count 1.49 X10^3/uL (0.83-4.51); Absolute Neutrophil Count 8.4 X10^3/uL (2.0-7.7); Basophil# 0.05 X10^3/uL; Basophil% 0.5 % (0-1); Eosinophil# 0.03 X10^3/uL; Eosinophils% 0.3 % (0-5); Hematocrit 36.2 % (40-54); Hemoglobin 12.8 g/dL (13.0-16.5); Lymphocyte # 1.49 X10^3/ul (4.0); Lymphocyte % 13.9 % (19-41); Mean Corp Hgb Conc 35.4 g/dL (32-36); Mean Corpuscular Hgb 32.1 pg (27.0-32.0); Mean Corpuscular Volume 90.7 fL (80-94); Mean Platelet Vol. 9.8 fl (6.2-12.0); Monocyte# 0.64 X10^3/uL; NRBC Flagged by Analyzer 0 % (0-5); Neutrophil % 78.6 % (47-70); Platelet Count 224 K/mm3 (150-450); RBC Distribution Width CV 13.8 % (11.6-14.6); RBC Distribution Width SD 46.8 fl (35.1-43.9); Red Blood Count 3.99 M/mm3 (4.6-6.2); White Blood Count 10.7 K/mm3 (4.4-11.0)
[2020-08-30 17:08] VITALS: BP 123/74; PULSE 119; RESP 16; O2SAT 96
[2020-08-30 17:17] LABS: ALB/GLOB Ratio 0.7 RATIO (0.9-2.4); AST(SGOT) 51 U/L (15-37); Alanine Aminotransfer ALT/SGPT 80 U/L (16-61); Alkaline Phosphatase 75 U/L (45-117); Anion Gap 7 (5-15); BUN 9 mg/dL (7-18); Calcium,Total 8.9 mg/dL (8.5-10.1); Chloride 100 mmol/L (98-107); Creatinine, Serum 1.28 mg/dL (0.70-1.30); EST Glomerular Filtration Rate 65 mL/min (>60); Est Glom Filt Rate - Afr Amer 79 mL/min (>60); Globulin 4.5 g/dL (2.2-4.2); Glucose 105 mg/dL (74-106); Lipase 537 U/L (73-393); Potassium 3.5 mmol/L (3.5-5.1); Protein, Total 7.5 g/dL (6.4-8.2); Sodium Level 135 mmol/L (136-145)
[2020-08-30 18:42] LABS: Bacteria 0 SEEN /hpf (None Seen); Mucous, Urine 0 SEEN /hpf (<or=2+); Red Blood Cells-Urine 0 SEEN /hpf (0-5); Squamous Epithelial Cells - UA 0 SEEN /hpf (0-5); White Blood Cells 0 SEEN /hpf (0-5)
[2020-08-30 18:43] LABS: Color, Urine Yellow (Yellow); Glucose, Dipstick Normal (Normal); Ketone-Dipstick Negative (Negative); Leukocyte Esterase-Dipstick Negative /ul (Negative); Nitrite-Dipstick Negative (Negative); Occult Blood-Urine Negative /ul (Negative); Protein-Dipstick Negative (Negative); Specific Gravity, Urine 1.005 (1.002-1.030); Urine Bilirubin Dipstick Negative (Negative); Urine Clarity Clear (Clear); Urine Urobilinogen Normal (Normal); Urine pH 6.5 (5.0 - 8.0)
[2020-08-30 19:00] VITALS: BP 125/79; PULSE 97; RESP 18; TEMP 37.4; O2SAT 98
[2020-08-30 20:00] VITALS: BP 126/70; PULSE 98; RESP 18; TEMP 37.4; O2SAT 97
[2020-08-30 21:00] VITALS: BP 130/89; PULSE 97; RESP 18; TEMP 37.3; O2SAT 98
== END 2020-08-30 21:33 | disposition short-term general hospital (02) ==
LOC: ED 16:37
PROVIDERS: Emergency Provider Emergency Medicine; PCP Internal Medicine
DX: K85.91 Acute pancreatitis with uninfected necrosis, unspecified (principal); F41.9 Anxiety disorder, unspecified; S30.811A Abrasion of abdominal wall, initial encounter; X58.XXXA Exposure to other specified factors, initial encounter; Y93.89 Activity, other specified; Y92.9 Unspecified place or not applicable; Y99.9 Unspecified external cause status
CPT/HCPCS: 74177; 80053; 81001; 83690; 85025; 87040; 96361; 96374; 96375; 96376; 99285; J2185; J7030; J7050; Q9967; A4216; J2405

== ENCOUNTER 2020-11-15 17:13 | Emergency (ER) | payer MEDICAID, SELFPAY ==
[2020-11-15 17:14] VITALS: BP 130/77; PULSE 134; RESP 18; TEMP 37.1; O2SAT 97; BMI 29.7
[2020-11-15 17:16] VITALS: O2SAT 98
--- NOTE | 2020-11-15 17:16 | EKG12_ITS ---
Test Reason : CP Blood Pressure : / mmHG Vent. Rate : 128 BPM Atrial Rate : 128 BPM P-R Int : 132 ms QRS Dur : 070 ms QT Int : 310 ms P-R-T Axes : 041 -17 064 degrees QTc Int : 452 ms Sinus tachycardia Possible Inferior infarct , age undetermined Abnormal ECG Confirmed by ELENA HARDEN, SPENCER ([id number]), order editor CELIA GAGNON ([id number]) on 11/17/2020 9:26:02 AM Referred By: JAYASHREE Confirmed By:SPENCER PARKER MD
[2020-11-15 17:39] LABS: Absolute Lymphocyte Count 2.16 X10^3/uL (0.83-4.51); Absolute Neutrophil Count 6.6 X10^3/uL (2.0-7.7); Basophil# 0.06 X10^3/uL; Basophil% 0.6 % (0-1); Eosinophil# 0.03 X10^3/uL; Eosinophils% 0.3 % (0-5); Hematocrit 47.3 % (40-54); Lymphocyte # 2.16 X10^3/ul (0.83-4.51); Lymphocyte % 22.7 % (19-41); Mean Corp Hgb Conc 33.8 g/dL (32-36); Mean Corpuscular Hgb 29.6 pg (27.0-32.0); Mean Corpuscular Volume 87.4 fL (80-94); Mean Platelet Vol. 9.3 fl (6.2-12.0); Monocyte# 0.61 X10^3/uL; Monocyte% 6.4 % (0-10); NRBC Flagged by Analyzer 0 % (0-5); Neutrophil # 6.61 X10^3/uL (2.7-7.7); Neutrophil % 69.5 % (47-70); Platelet Count 337 K/mm3 (150-450); RBC Distribution Width CV 11.6 % (11.6-14.6); RBC Distribution Width SD 37.3 fl (35.1-43.9); Red Blood Count 5.41 M/mm3 (4.6-6.2); White Blood Count 9.5 K/mm3 (4.4-11.0)
--- NOTE | 2020-11-15 17:39 | RAD_ITS ---
INDICATION: chest pain EXAMINATION/TECHNIQUE: X-RAY - XR Chest 1 View COMPARISON: None. FINDINGS: The lungs are clear. The cardiomediastinal silhouette is unremarkable. No pleural effusion or pneumothorax. No acute osseous abnormalities. RAD/Chest 1 View (Portable) IMPRESSION: No acute radiographic abnormalities. Electronically Signed: Myron King MD at 17:47 EDT Tel , Service support ,
[2020-11-15 18:01] LABS: Anion Gap 14 (5-15); BUN 6 mg/dL (7-18); BUN/Creat Ratio 5.2 RATIO (10-20); Calcium,Total 8.8 mg/dL (8.5-10.1); Chloride 99 mmol/L (98-107); Creatinine, Serum 1.16 mg/dL (0.70-1.30); EST Glomerular Filtration Rate 73 mL/min (>60); Est Glom Filt Rate - Afr Amer 88 mL/min (>60); Estimated Creatinine Clearance 72.16 ml/min; Glucose 171 mg/dL (74-106); Potassium 3.5 mmol/L (3.5-5.1); Sodium Level 138 mmol/L (136-145)
--- NOTE | 2020-11-15 18:20 | CT_ITS ---
STUDY: CTA CHEST REASON FOR EXAM: Male, 40 years old. cp, tachycardia RADIATION DOSAGE (If Supplied By Facility): CTDIvol = ( 9.93 ) mGy, DLP = ( 432.09 ) mGycm TECHNIQUE: The examination was performed with the intravenous administration of IV 100mL Isovue-370. Post-processing of the angiographic images was performed, with multiplanar reformation and 3D reconstruction. Individualized dose optimization techniques were used for this CT. COMPARISON: None. FINDINGS: Normal enhancement of the main pulmonary artery and right and left pulmonary arteries. Normal enhancement of the bilateral peripheral pulmonary arteries. There is no demonstrated pulmonary embolism. Normal thoracic aorta and visualized great vessels. There is no demonstrated aortic dissection. Normal heart and pericardium. Normal mediastinum. Normal hilar regions. Normal visualized trachea and bronchi. The lungs are well expanded. Normal pulmonary parenchyma. Normal pleura. Normal chest wall structures. Normal osseous structures. Normal visualized upper abdomen. CT/CTA Chest W/WO Contrast IMPRESSION: Normal CTA chest examination, without a demonstrated pulmonary embolism or arterial dissection. Electronically Signed: Heron Wyatt MD at 19:05 EDT Tel , Service support ,
--- NOTE | 2020-11-15 18:21 | EDS_ITS ---
HPI History of Present Illness Chief Complaint: Chest Pain Informant: patient Onset/Context/Timing Onset: Days Context: Gradual Onset Current Severity: Moderate Maximum Severity: Moderate Narrative Narrative: Patient presents with chest and upper abdominal pain for the past couple days. Patient believes he has pancreatitis. He has a history of the same. He does drink on a regular basis. Patient states he did vomit this morning. PFSH PFS Medical History Abnormal bruising Arthritis Asthma Back pain Bimalleolar ankle fracture Bloody stool Fatigue Generalized anxiety disorder with panic attacks History of patellar fracture Shoulder pain SOB (shortness of breath) Stomach ulcer Home Medications NK 08/30/20 [History Last Taken Unknown] Allergy/AdvReac Type Severity Reaction Status Date / Time No Known Allergies Allergy Verified 11/15/20 17:15 Family History Other Diabetes Heart disease Surgical History History of hernia surgery Social History Smoking Status: Current some day smoker tobacco type: cigarettes alcohol intake: current alcohol intake frequency: 3 or more drinks per day Alcohol type: beer ROS ROS ED Constitutional Constitutional ED: Denies chills or fever(s) Eyes Eyes: Denies change in vision ENT ENT ED: Denies sore throat Cardiovascular Cardiovascular: Reports chest pain Respiratory/Chest Respiratory/Chest: Reports cough and dyspnea Gastrointestinal Gastrointestinal: Reports abdominal pain, nausea and vomiting; Denies diarrhea Genitourinary Genitourinary ED: Denies dysuria Musculoskeletal Musculoskeletal: Denies back pain Integumentary Denies rash Neurologic Neurologic: Denies headache(s) or weakness Psychiatric Psychiatric: Denies anxiety or depression Endocrine Endocrinology: Denies polydipsia or polyuria Allergic/Immunologic Allergic/Immunologic ED: Denies urticaria EXAM Physical Exam Const Vital Signs: 11/15/20 17:14 11/15/20 17:16 11/15/20 18:38 Temperature 98.7 F Temperature Source Temporal Pulse Rate 134 H Respiratory Rate 18 Respiratory Effort Normal Non-Labored Respiratory Pattern Normal Blood Pressure 130/77 H Blood Pressure Mean 94 Pulse Ox 97 98 Oxygen Delivery Method Room Air Room Air 11/15/20 19:05 11/15/20 20:10 11/15/20 21:00 Temperature Temperature Source Pulse Rate 123 H 124 H 119 H Respiratory Rate 15 20 H 18 Respiratory Effort Respiratory Pattern Blood Pressure 123/69 H 123/74 H 125/85 H Blood Pressure Mean 87 90 98 Pulse Ox 90 95 94 Oxygen Delivery Method Room Air Room Air Room Air Positive well nourished and well developed General Appearance ED: well developed HEENT Reports normocephalic and head/scalp atraumatic Eyes PERRL and EOMs intact bilaterally Neck supple Chest Wall inspection of chest normal and palpation of chest normal Resp normal respiratory effort and clear to auscultation bilaterally Cardio regular rhythm Rate: tachycardic GI Auscultation: hypoactive bowel sounds Palpation: tender epigastric; Negative for guarding or rebound tenderness present Extremity normal to inspection Neuro oriented x3 and no sensory deficits noted Sensorium / Orientation: alert Motor Exam: strength 5/5 throughout Psych mental status grossly normal Skin no rashes or lesions noted MDM MDM MDM Narrative Medical decision making narrative: Lab work, EKG, chest x-ray, CTA of the chest are obtained. Lab Data Attestation: I reviewed the patient's lab results. Labs: Laboratory Results - last 24 hr 11/15/20 11/15/20 11/15/20 17:23 17:23 17:23 WBC 9.5 RBC 5.41 Hgb 16.0 Hct 47.3 MCV 87.4 MCH 29.6 MCHC 33.8 RDW Std Deviation 37.3 RDW Coeff of Lilian 11.6 Plt Count 337 MPV 9.3 Immature Gran % (Auto) 0.500 Neut % (Auto) 69.5 Lymph % (Auto) 22.7 [place] % (Auto) 6.4 Eos % (Auto) 0.3 Baso % (Auto) 0.6 Absolute Neuts (auto) 6.6 Absolute Lymphs (auto) 2.16 Nucleated RBC % 0 Sodium 138 Potassium 3.5 Chloride 99 Carbon Dioxide 25.0 Anion Gap 14 BUN 6 L Creatinine 1.16 Estim Creat Clear Calc 72.16 Est GFR (MDRD) Af Amer 88 Est GFR (MDRD) Non-Af 73 BUN/Creatinine Ratio 5.2 L Glucose 171 H Calcium 8.8 Total Bilirubin 0.50 Direct Bilirubin 0.05 AST 55 H ALT 55 Alkaline Phosphatase 86 Troponin I < 0.015 Total Protein 8.2 Albumin 4.0 Globulin 4.2 Lipase 141 Radiography Chest X-Ray - ED: 1 View, Read by ED Physician, Heart, Lungs and Mediastinum Diagnostic Testing: Radiology Impression Chest X-Ray 11/15/20 17:39 IMPRESSION: No acute radiographic abnormalities. Electronically Signed: Myron King MD at 17:47 EDT Tel , Service support , Chest CTA 11/15/20 18:20 IMPRESSION: Normal CTA chest examination, without a demonstrated pulmonary embolism or arterial dissection. Electronically Signed: Heron Wyatt MD at 19:05 EDT Tel , Service support , EKG Initial EKG: Attestation: I personally reviewed and interpreted this EKG as follows: Interpretation: Sinus Tachycardia (Sinus tach at 128. No acute ST change.) Treatment and Re-Evaluation Comments:: Blood work is largely unremarkable. No evidence of pancreatitis. Troponin is negative. Patient did have a CTA obtained secondary to tachycardia and complaints of chest and upper abdominal pain. This reveals no evidence of PE or dissection. On repeat evaluation patient remained tachycardic and sweaty. He states in the past he has had to have Ativan when he gets like this. I asked multiple times i f he felt like he might be withdrawing from alcohol. He states he was drinking today but maybe not as much as normal. He denies having seizures with withdrawal in the past. He states he will tend to get shaky and sweaty. He was offered rehab or detox and he declines at this time. He was given 1 mg of IV Ativan. On repeat evaluation heart rate is between 105 and 110. At this time patient be discharged to home. Encouraged to follow-up with primary care physician as well as 180 if he desires detox. Discharge Plan Triage Chief Complaint: Chest Pain ED Provider: Yusra Castellano Dx/Rx/DC Orders Clinical Impression: Chest pain Instructions: ED Chest Pain, Uncertain Cause Prescriptions: No Action NK RF: 0 Primary Care Provider: Wilbert Quiroz Referrals: Wilbert Quiroz MD [Primary Care Provider] - As soon as possible Disposition Disposition: Home, self care
[2020-11-15 18:51] LABS: AST(SGOT) 55 U/L (15-37); Alanine Aminotransfer ALT/SGPT 55 U/L (16-61); Alkaline Phosphatase 86 U/L (45-117); Bilirubin, Direct 0.05 mg/dL (0.00-0.30); Globulin 4.2 g/dL (2.2-4.2); Lipase 141 U/L (73-393); Protein, Total 8.2 g/dL (6.4-8.2)
[2020-11-15] MEDS: HYDROmorphone 1 MG/ML Syringe 0.5 MG IV (19:02)
[2020-11-15] MEDS: Ondansetron 4 MG/2 ML Vial IV (19:02)
[2020-11-15] MEDS: 0.9% Normal Saline 1,000 ML 1000 ML IV (19:02)
[2020-11-15 19:05] VITALS: BP 123/69; PULSE 123; RESP 15; O2SAT 90
[2020-11-15] MEDS: 0.9% Normal Saline 1,000 ML 150 ML IV (20:09)
[2020-11-15 20:10] VITALS: BP 123/74; PULSE 124; RESP 20; O2SAT 95
[2020-11-15] MEDS: LORazepam 2 MG/ML Syringe 1 MG IV (20:20)
[2020-11-15 21:00] VITALS: BP 125/85; PULSE 119; RESP 18; O2SAT 94
[2020-11-15 22:14] VITALS: BP 129/80; PULSE 112; RESP 15; O2SAT 95
== END 2020-11-15 22:19 | disposition home or self-care (01) ==
PROVIDERS: Emergency Provider Emergency Medicine; PCP Internal Medicine
DX: R07.9 Chest pain, unspecified (principal); J45.909 Unspecified asthma, uncomplicated; F41.1 Generalized anxiety disorder; F17.210 Nicotine dependence, cigarettes, uncomplicated
CPT/HCPCS: 71045; 71275; 80048; 80076; 83690; 84484; 85025; 93005; 96361; 96374; 96375; 99283; J7030; Q9967; A4216; J2405

== ENCOUNTER 2020-12-05 21:09 | Emergency (ER) | payer MEDICAID, SELFPAY ==
[2020-12-05 21:10] VITALS: BP 129/90; PULSE 113; RESP 18; TEMP 37.1; O2SAT 98; BMI 29.1
--- NOTE | 2020-12-05 22:06 | RAD_ITS ---
STUDY: X-RAY - LUMBAR SPINE REASON FOR EXAM: Male, 40 years old. Back pain TECHNIQUE: 3 view(s) of the lumbar spine were obtained. COMPARISON: None FINDINGS: Normal lumbar lordosis. There is no substantial scoliosis. There is a normal alignment of the vertebrae. Normal vertebral bodies with minimal spurring of the endplates. Normal disc space heights. The soft tissue structures are unremarkable. RAD/Lumbar Spine 2 or 3 Views IMPRESSION: Minimal degenerative changes of the lumbar spine. Electronically Signed: Taye Wilkes DO at 23:38 EDT Tel [phone], Service support ,
[2020-12-05] MEDS: Morphine 4 MG/ML Syringe IM (22:28)
[2020-12-05] MEDS: Ketorolac 15 MG/ML Vial IM (22:28)
[2020-12-05] MEDS: oxyCODONE 5 MG Tablet PO (23:42)
[2020-12-05] MEDS: predniSONE 20 MG Tablet 60 MG PO (23:42)
--- NOTE | 2020-12-05 23:42 | EDS_ITS ---
HPI History of Present Illness Chief Complaint: Back Narrative Narrative: Patient presenting with nontraumatic back pain. He states he bent over and started having pain in the right lumbar paraspinal musculature down his leg. He states he can ambulate but it hurts. He denies any loss of bladder or bowel control. He denies urinary retention. He denies saddle paresthesias. Patient has history of back problems but he states he is never had it this bad. PFSH PFS Medical History Abnormal bruising Arthritis Asthma Back pain Bimalleolar ankle fracture Bloody stool Fatigue Generalized anxiety disorder with panic attacks History of patellar fracture Shoulder pain SOB (shortness of breath) Stomach ulcer Home Medications oxycodone-acetaminophen [Percocet] 1 tab PO Q6H PRN 3 Days #12 tab 12/05/20 [Rx Last Taken Unknown] prednisone 50 mg PO DAILY #3 tab 12/05/20 [Rx Last Taken Unknown] Allergy/AdvReac Type Severity Reaction Status Date / Time No Known Allergies Allergy Verified 11/15/20 17:15 Family History Other Diabetes Heart disease Surgical History History of hernia surgery Social History Smoking Status: Current some day smoker tobacco type: cigarettes alcohol intake: current alcohol intake frequency: 3 or more drinks per day Alcohol type: beer ROS ROS ED Constitutional Constitutional ED: Denies chills, fever(s) or sweats Eyes Eyes: Denies blurry vision or change in vision ENT ENT ED: Denies ear pain, rhinorrhea or sore throat Cardiovascular Cardiovascular: Denies chest pain, palpitations or racing heartbeat Respiratory/Chest Respiratory/Chest: Denies cough, dyspnea or sputum Gastrointestinal Gastrointestinal: Denies abdominal pain, constipation, diarrhea or vomiting Genitourinary Genitourinary ED: Denies dysuria, hematuria or urinary frequency Musculoskeletal Musculoskeletal: Reports back pain; Denies arthralgias, myalgias or neck pain Integumentary Denies abscess, Abrasions or rash Neurologic Neurologic: Denies headache(s), paresthesias or weakness Psychiatric Psychiatric: Denies anxiety, depression, suicidal ideation or suicidal thoughts Endocrine Endocrinology: Denies polydipsia or polyuria EXAM Physical Exam Const Vital Signs: 12/05/20 21:10 Temperature 98.7 F Temperature Source Temporal Pulse Rate 113 H Respiratory Rate 18 Blood Pressure 129/90 H Blood Pressure Mean 103 Pulse Ox 98 Oxygen Delivery Method Room Air Positive well nourished General Appearance ED: NAD; Negative for pallor HEENT Reports normocephalic, head/scalp atraumatic and moist mucous membranes atraumatic Eyes PERRL and EOMs intact bilaterally Neck no lymphadenopathy and supple Chest Wall inspection of chest normal and palpation of chest normal Resp normal respiratory effort and clear to auscultation bilaterally Auscultation: Negative for rales, rhonchi or wheezes Cardio regular rate and regular rhythm GI normal to inspection, nondistended, normoactive bowel sounds and non-distended Auscultation: normoactive bowel sounds Palpation: soft Narrative: Deferred Back/Spine no CVA tenderness General Back: Negative for CVA tenderness Cervical Spine: Negative for cervical spine tenderness Extremity normal to inspection General Extremety ED: Yes edema and tenderness General Extremity: edema Neuro oriented x3 and CN's II-XII intact bilaterally Sensorium / Orientation: alert Motor Exam: strength 5/5 throughout Psych mental status grossly normal Attitude: No agitated Skin no rashes or lesions noted and no wounds General Skin Exam: Negative for jaundice or pallor MDM MDM MDM Narrative Medical decision making narrative: Patient presenting with nontraumatic back pain. He states it started hurting after he bent over. He does have radiculopathy symptoms. I obtained an x-ray of the lumbar spine which shows min imal degenerative changes. He was given IM morphine and Toradol in the ED and still complained of pain at this point I gave him oxycodone. X-ray of the lumbar spine on my impression shows mild degenerative changes without acute pathology. Patient states he was having trouble getting follow-up with his primary care provider and I tried to call him prior to coming. I will refer him to Dr. Arrieta. He was given a prescription for Percocet and prednisone. Patient amenable to this plan. Impression: 1. Lumbar radiculopathy Radiography Diagnostic Testing: Radiology Impression Lumbar Spine X-Ray 12/05/20 22:06 IMPRESSION: Minimal degenerative changes of the lumbar spine. Electronically Signed: Taye Wilkes DO at 23:38 EDT Tel [phone], Service support , Discharge Plan Triage Chief Complaint: Back ED Provider: Edi Hassan Dx/Rx/DC Orders Instructions: ED Back Sprain/Strain Prescriptions: New prednisone 50 mg tablet 50 mg PO DAILY Qty: 3 RF: 0 oxycodone-acetaminophen [Percocet] 5-325 mg tablet 1 tab PO Q6H PRN (Reason: pain) 3 Days Qty: 12 RF: 0 Primary Care Provider: Wilbert Quiroz Referrals: Yuan Arrieta DO [STAFF PHYSICIAN] - As soon as possible Wilbert Quiroz MD [Primary Care Provider] - Disposition Disposition: Home, Self Care Discharge Date/Time: 12/05/20 23:44
== END 2020-12-05 23:44 | disposition home or self-care (01) ==
PROVIDERS: Emergency Provider Student in an Organized Health Care Education/Training Program; PCP Internal Medicine
DX: M54.16 Radiculopathy, lumbar region (principal); F17.210 Nicotine dependence, cigarettes, uncomplicated
CPT/HCPCS: 72100; 96372; 99283

== ENCOUNTER 2021-06-01 09:15 | Outpatient (CLI) | payer MEDICAID, SELFPAY ==
--- NOTE | 2021-06-01 | ASPOS_PTH ---
PATIENT: IDA HOLLINGSWORTH LOC: [facility] U#:[id number] AGE/SX: 41/M ROOM: RE06/01/[address]: Dr. Milan Velasquez MD : 1980 BED: DIS: 06/01/2021 SPEC #: [id number] RECD: 06/01/21 10:00 STATUS: JOVON JANKI #: [id number] JAVIER: 06/01/21 00:[address]: Milan Velasquez DEPT: CYTOLOGY RECD BY: Andreas Quarles ENTERED: 06/01/21 13:10 SP TYPE: ASP HERE OTHR DR: No Primary Care Phys Tissues: Salivary gland, NOS Procedures: Surgery Specimen Level IV Surgery Specimen Level V Cytology Other Fine Needle Asp on Site HEADER OPERATION: Left submandibular fine needle aspiration PRE-OP DIAGNOSIS: Left submandibular mass TISSUE SUBMITTED: Left submandibular mass DIAGNOSIS CYTOLOGY Fine needle aspiration, left submandibular gland (smears and cell block): Consistent with atypical epithelial lesion of salivary gland origin. AM:viet 06/06/2021 COMMENT The specimen is evaluated at the time of FNA by Dr. Seth. Immediate Evaluation = Epithelial lesion of salivary gland origin. Case has been reviewed in consultation with Dr. Singleton who concurs with the above diagnosis. IDC:SJ CYTOLOGY STUDY Slides are reviewed. CYTOLOGY GROSS Received is 0.25 ml of reddish fluid labeled with the patient's name, and designated left mandibular mass. Three imprints and two paps are made from the submitted fluid and the rest is added to CytoLyt for cell block preparation. Submitted for cytology study. / AM:viet 06/01/2021 TC:? CPT: 75032, 53631, 19024, 25278
== END 2021-06-01 23:59 | disposition short-term general hospital (02) ==
LOC: LAB 09:21
PROVIDERS: Referring Provider Otolaryngology; Visit Provider Otolaryngology
DX: D37.032 Neoplasm of uncertain behavior of the submandibular salivary glands (principal)
CPT/HCPCS: 10021; 88161; 88305; 88307

== ENCOUNTER 2021-12-19 13:51 | Emergency (ER) | payer MEDICAID, SELFPAY ==
[2021-12-19 13:51] VITALS: BP 122/90; PULSE 102; RESP 18; TEMP 36.6; O2SAT 100; BMI 31.6
--- NOTE | 2021-12-19 14:00 | RAD_ITS ---
STUDY: X-RAY - RIGHT SHOULDER REASON FOR EXAM: Male, 41 years old. Trauma TECHNIQUE: 4 view(s) of the shoulder. COMPARISON: None. FINDINGS: Normal glenohumeral articulation. There is degenerative arthrosis of the acromioclavicular joint without inferior osseous spur formation. Normal acromion. Normal humeral head and visualized proximal humerus. The soft tissue structures are unremarkable. Normal visualized pulmonary apex. RAD/Shoulder min 2 Views IMPRESSION: Degenerative arthrosis of the acromioclavicular joint. Electronically Signed: Harmeet Rodriguez MD at 14:50 EDT ,
--- NOTE | 2021-12-19 14:00 | RAD_ITS ---
STUDY: X-RAY - RIGHT WRIST REASON FOR EXAM: Male, 41 years old. Trauma TECHNIQUE: 3 view(s) of the wrist were obtained. COMPARISON: None. FINDINGS: Normal visualized distal radius and ulna. Normal radiocarpal articulation. Normal distal radioulnar articulation. Normal carpal bones. Normal carpal articulations. Normal carpometacarpal articulation of the thumb. Normal second through fifth carpometacarpal articulations. Normal visualized metacarpal bones. Soft tissue swelling. RAD/Wrist min 3 Views IMPRESSION: Soft tissue swelling. Electronically Signed: Harmeet Rodriguez MD at 14:49 EDT ,
--- NOTE | 2021-12-19 14:02 | EDS_ITS ---
HPI History of Present Illness Chief Complaint: Upper Extremity Injury Informant: patient Occured/Mechanism Comment: R shoulder--throwing toilet into dumpster R wrist--turned and hit it into a wall Onset/Context/Timing Onset: - (R shoulder--3 weeks ago, R wrist--several days ago) Location: R shoulder--proximal humerus, R wrist--distal radius Maximum Severity: Severe Worsened by: use and movement Associated Symptoms Associated Symptoms: Positive for - (swelling especially to R hand) Narrative Narrative: As above. No prior surgeries to the area. No history of gout or septic joints. No other trauma. No neuro symptoms or neck/back pain. R hand dominant. Prior similar symptoms: No Recent Illness/Hospitalization: No PFSH PFSH Medical History Abnormal bruising Arthritis Asthma Back pain Bimalleolar ankle fracture Bloody stool Fatigue Generalized anxiety disorder with panic attacks History of patellar fracture Shoulder pain SOB (shortness of breath) Stomach ulcer Home Medications oxycodone-acetaminophen 5 mg-325 mg tablet (Percocet) 1 tab PO Q6H PRN pain 3 days #12 tabs 12/05/20 [Rx Last Taken Unknown] prednisone 50 mg tablet 50 mg PO DAILY #3 tabs 12/05/20 [Rx Last Taken Unknown] Allergy/AdvReac Type Severity Reaction Status Date / Time No Known Allergies Allergy Verified 12/19/21 13:52 Family History Other Diabetes Heart disease Surgical History History of hernia surgery Social History Smoking Status: Current some day smoker tobacco type: cigarettes alcohol intake: current alcohol intake frequency: 3 or more drinks per day Alcohol type: beer ROS ROS ED Constitutional Constitutional ED: Denies chills or fever(s) Eyes Eyes: Denies blurry vision ENT ENT ED: Denies ear pain Cardiovascular Cardiovascular: Denies chest pain Respiratory/Chest Respiratory/Chest: Denies dyspnea Gastrointestinal Gastrointestinal: Denies abdominal pain Genitourinary Genitourinary ED: Denies dysuria Musculoskeletal Musculoskeletal: Reports myalgias; Denies back pain or neck pain Integumentary Denies Abrasions Neurologic Neurologic: Denies headache(s), paresthesias or weakness Psychiatric Psychiatric: Denies anxiety Endocrine Endocrinology: Denies cold intolerance Hematologic/Lymphatic Hematologic/Lymphatic: Denies easy bleeding Allergic/Immunologic Allergic/Immunologic ED: Denies mouth swelling EXAM Physical Exam Const Vital Signs: 12/19/21 13:51 Temperature 97.8 F Temperature Source Temporal Pulse Rate 102 H Respiratory Rate 18 Blood Pressure 122/90 H Blood Pressure Mean 100 Pulse Ox 100 Oxygen Delivery Method Room Air Positive well nourished and well developed General Appearance ED: well developed HEENT normocephalic Eyes EOMs intact bilaterally Neck full ROM and supple General: Negative for tenderness Resp normal respiratory effort Cardio regular rate Extremity normal to inspection and full ROM Extremity Narrative: TTP over distal R humerus and R distal radius Neuro oriented x3, moves all extremities, no focal motor deficits and no sensory deficits noted Sensorium / Orientation: alert and oriented to person Psych mental status grossly normal MDM MDM MDM Narrative Medical decision making narrative: X-rays of the right shoulder, right humerus, right wrist were reviewed by the radiologist and myself. They show chronic and degenerative changes. Nothing a cute. No fracture or dislocation. Suspect these are sprains and contusions, soft tissue injuries. Nothing to suggest crystal or septic arthropathy. No neurologic findings or complaints. Patient will be placed in a Velcro wrist splint. Rest, ice, elevate. [id number] remedies for pain. Follow-up with primary care for recheck and further referral if symptoms persist. Disposition is discharged home Impression #1 right shoulder sprain Impression #2 right wrist sprain Discharge Plan Triage Chief Complaint: Upper Extremity Injury ED Provider: Xavier Collazo Dx/Rx/DC Orders Instructions: ED Shoulder Sprain, ED Wrist Sprain Prescriptions: No Action prednisone 50 mg tablet 50 mg PO DAILY Qty: 3 0RF oxycodone-acetaminophen [Percocet] 5-325 mg tablet 1 tab PO Q6H PRN (Reason: pain) 3 Days Qty: 12 0RF Primary Care Provider: Care Physician,No Primary Referrals: Wilbert Quiroz MD [STAFF PHYSICIAN] - Disposition Disposition: Home, Self Care
--- NOTE | 2021-12-19 14:25 | RAD_ITS ---
STUDY: X-RAY - RIGHT HUMERUS REASON FOR EXAM: Male, 41 years old. Trauma TECHNIQUE: 4 view(s) of the humerus. COMPARISON: None. FINDINGS: Normal visualized humerus. There is no demonstrated fracture or osseous destructive process. There is no demonstrated soft tissue abnormality. RAD/Humerus min 2 Views IMPRESSION: Degenerative changes of the common clavicular joint. Electronically Signed: Harmeet Rodriguez MD at 14:49 EDT ,
[2021-12-19] MEDS: HYDROcodone Bitartrate/Apap 5/325 Tablet PO (14:36)
--- NOTE | 2021-12-19 14:46 | CM.ED ---
SW Note Referral Source: Case Find Referral Reason: No Primary Care Physician (PCP) SW reviewed chart and noted that patient has no PCP. SW provided patient with list of [facility] Physician List for reference. No other issues or concerns voiced at this time. SW remains available for any additional needs. Plan: Provided patient with PCP information Brie SILVA
== END 2021-12-19 15:14 | disposition home or self-care (01) ==
PROVIDERS: Emergency Provider Emergency Medicine; Visit Provider Emergency Medicine
DX: S63.91XA Sprain of unspecified part of right wrist and hand, initial encounter (principal); S43.401A Unspecified sprain of right shoulder joint, initial encounter; W22.09XA Striking against other stationary object, initial encounter; F17.210 Nicotine dependence, cigarettes, uncomplicated
CPT/HCPCS: 73030; 73060; 73110; 99283

== ENCOUNTER 2022-05-15 19:14 | Emergency (ER) | payer MEDICAID, SELFPAY ==
[2022-05-15 19:14] VITALS: BP 147/101; PULSE 107; RESP 18; TEMP 35.9; O2SAT 92; BMI 29.9
--- NOTE | 2022-05-15 19:27 | EKG12_ITS ---
Test Reason : CP Blood Pressure : / mmHG Vent. Rate : 095 BPM Atrial Rate : 095 BPM P-R Int : 154 ms QRS Dur : 080 ms QT Int : 366 ms P-R-T Axes : 034 -09 041 degrees QTc Int : 459 ms Normal sinus rhythm Normal ECG Confirmed by ELENA HARDEN, SPENCER ([id number]), assistant film editor CELIA GAGNON ([id number]) on 05/17/2022 10:41:49 AM Referred By: JAYASHREE Confirmed By:SPENCER PARKER MD
[2022-05-15 19:30] VITALS: BP 126/89; PULSE 92; RESP 17; O2SAT 99
[2022-05-15 19:31] VITALS: O2SAT 99
--- NOTE | 2022-05-15 19:31 | EDS_ITS ---
HPI History of Present Illness Chief Complaint: Chest Pain Informant: patient Onset/Context/Timing Onset: Today Current Severity: Mild Maximum Severity: Moderate Narrative Narrative: Patient complains of chest pressure that been present throughout the day. He will get intermittent episodes of feel like his heart is racing. He states he had this in the past and was given Ativan. He denies any significant cardiac history. [facility] Medical History Abnormal bruising Arthritis Asthma Back pain Bimalleolar ankle fracture Bloody stool Fatigue Generalized anxiety disorder with panic attacks History of patellar fracture Shoulder pain SOB (shortness of breath) Stomach ulcer Home Medications lorazepam 1 mg tablet (Ativan) 1 mg PO BID PRN anxiety #10 tabs 05/15/22 [Rx Last Taken Unknown] Allergy/AdvReac Type Severity Reaction Status Date / Time No Known Allergies Allergy Verified 05/15/22 19:30 Family History Other Diabetes Heart disease Surgical History History of hernia surgery Social History Smoking Status: Current some day smoker tobacco type: cigarettes alcohol intake: current alcohol intake frequency: 3 or more drinks per day Alcohol type: beer ROS ROS ED Constitutional Constitutional ED: Denies chills or fever(s) Eyes Eyes: Denies change in vision or discharge from eye(s) ENT ENT ED: Denies discharge from eye(s), rhinorrhea or sore throat Cardiovascular Cardiovascular: Reports chest pain and racing heartbeat Respiratory/Chest Respiratory/Chest: Reports dyspnea; Denies cough Gastrointestinal Gastrointestinal: Denies abdominal pain, nausea or vomiting Genitourinary Genitourinary ED: Denies dysuria Musculoskeletal Musculoskeletal: Denies back pain or extremity pain Integumentary Denies Abrasions or rash Neurologic Neurologic: Denies headache(s) or weakness Psychiatric Psychiatric: Denies anxiety or depression Allergic/Immunologic Allergic/Immunologic ED: Denies lip swelling or urticaria EXAM Physical Exam Const Vital Signs: 05/15/22 19:14 05/15/22 19:30 05/15/22 19:31 Temperature 96.6 F L Temperature Source Temporal Pulse Rate 107 H 92 Respiratory Rate 18 17 Respiratory Effort Blood Pressure 147/101 H 126/89 H Blood Pressure Mean 116 101 Pulse Ox 92 99 99 Oxygen Delivery Method Room Air Room Air Room Air 05/15/22 19:31 Temperature Temperature Source Pulse Rate Respiratory Rate Respiratory Effort Normal Non-Labored Blood Pressure Blood Pressure Mean Pulse Ox Oxygen Delivery Method Positive well nourished and well developed General Appearance ED: well developed HEENT Reports normocephalic and head/scalp atraumatic Eyes PERRL and EOMs intact bilaterally Neck supple Chest Wall inspection of chest normal and palpation of chest normal Resp normal respiratory effort and clear to auscultation bilaterally Cardio regular rate and regular rhythm GI normal to inspection, nondistended, normoactive bowel sounds Palpation: soft Extremity normal to inspection Neuro oriented x3 and no sensory deficits noted Sensorium / Orientation: alert Motor Exam: strength 5/5 throughout Psych mental status grossly normal Skin no rashes or lesions noted MDM MDM MDM Narrative Medical decision making narrative: Patient given a dose of Ativan. EKG, chest x-ray, lab work obtained. Lab Data Attestation: I reviewed the patient's lab results. Labs: Laboratory Results - last 24 hr 05/15/22 05/15/22 19:40 19:40 WBC 6.4 RBC 4.78 Hgb 15.1 Hct 44.6 MCV 93.3 MCH 31.6 MCHC 33.9 RDW Std Deviation 41.7 RDW Coeff of Lilian 12.0 Plt Count 284 MPV 8.5 Immature Gran % (Auto) 0.500 Neut % (Auto) 47.6 Lymph % (Auto) 43.5 H [place] % (Auto) 6.7 Eos % (Auto) 0.6 Baso % (Auto) 1.1 H Absolute Neuts (auto) 3.1 Absolute Lymphs (auto) 2.80 Nucleated RBC % 0 Sodium 135 L Potassium 3.5 Chloride 95 L Carbon Dioxide 27.0 Anion Gap 13 BUN 5 L Creatinine 0.86 Estim Creat Clear Calc 95.35 Est GFR (MDRD) Af Amer 123 Est GFR (MDRD) Non-Af 102 BUN/Creatinine Ratio 5.8 L Glucose 108 H Calcium 9.1 Troponin I High Sens 8 Radiography Chest X-Ray - ED: 1 View, Read by ED Physician, Normal, Heart, Lungs and Mediastinum Diagnostic Testing: Clinical Impression(s) from Imaging Studies Chest X-Ray 05/15/22 19:41 IMPRESSION: Normal x-ray examination of the chest. Electronically Signed: Heron Wyatt MD at 20:05 EST , EKG Initial EKG: Attestation: I personally reviewed and interpreted this EKG as follows: Interpretation: Sinus Rhythm (Sinus at 95 with no acute ischemia.) Treatment and Re-Evaluation Narrative: CBC and chemistry studies unremarkable. Troponin is negative. Portable chest x-ray is unremarkable per my interpretation. Radiology interpretation is reviewed and agrees. EKG is sinus rhythm with no ischemia. On repeat evaluation patient feels improved after receiving Ativan. I will write him a short prescription for Ativan and refer him to counseling center for follow-up. Discharge Plan Triage Chief Complaint: Chest Pain ED Provider: Yusra Castellano Dx/Rx/DC Orders Clinical Impression: Chest pain, Anxiety Instructions: ED Anxiety Reaction, ED Chest Pain, Noncardiac Prescriptions: New lorazepam [Ativan] 1 mg tablet 1 mg PO BID PRN (Reason: anxiety) Qty: 10 0RF Primary Care Provider: Care Physician,No Primary Referrals: Counseling,Center [Group of Physicians] - As soon as possible Care Physician,No Primary [Primary Care Provider] - Disposition Disposition: Home, Self Care
--- NOTE | 2022-05-15 19:41 | RAD_ITS ---
STUDY: X-RAY CHEST REASON FOR EXAM: Male, 42 years old. chest pain TECHNIQUE: Single AP portable view of the chest. COMPARISON: 11/15/2020 FINDINGS: The lungs are clear and expanded. There is no demonstrated pleural abnormality. Normal size heart. Normal mediastinum and maikel. Normal visualized pulmonary arteries. Normal visualized aortic arch and descending thoracic aorta. Normal visualized thoracic spine. Normal visualized ribs, clavicles, and shoulders. There is no demonstrated abnormality of the visualized soft tissue structures of the upper abdomen. RAD/Chest 1 View (Portable) IMPRESSION: Normal x-ray examination of the chest. Electronically Signed: Heron Wyatt MD at 20:05 EST ,
[2022-05-15 19:45] LABS: Absolute Neutrophil Count 3.1 X10^3/uL (2.0-7.7); Basophil# 0.07 X10^3/uL; Basophil% 1.1 % (0-1); Eosinophil# 0.04 X10^3/uL; Eosinophils% 0.6 % (0-5); Hematocrit 44.6 % (40-54); Hemoglobin 15.1 g/dL (13.0-16.5); Lymphocyte % 43.5 % (19-41); Mean Corp Hgb Conc 33.9 g/dL (32-36); Mean Corpuscular Hgb 31.6 pg (27.0-32.0); Mean Corpuscular Volume 93.3 fL (80-94); Mean Platelet Vol. 8.5 fl (6.2-12.0); Monocyte# 0.43 X10^3/uL; Monocyte% 6.7 % (0-10); NRBC Flagged by Analyzer 0 % (0-5); Neutrophil # 3.06 X10^3/uL (2.7-7.7); Neutrophil % 47.6 % (47-70); Platelet Count 284 K/mm3 (150-450); RBC Distribution Width SD 41.7 fl (35.1-43.9); Red Blood Count 4.78 M/mm3 (4.6-6.2); White Blood Count 6.4 K/mm3 (4.4-11.0)
[2022-05-15 20:03] LABS: Anion Gap 13 (5-15); BUN 5 mg/dL (7-18); BUN/Creat Ratio 5.8 RATIO (10-20); Calcium,Total 9.1 mg/dL (8.5-10.1); Chloride 95 mmol/L (98-107); Creatinine, Serum 0.86 mg/dL (0.70-1.30); EST Glomerular Filtration Rate 102 mL/min (>60); Est Glom Filt Rate - Afr Amer 123 mL/min (>60); Estimated Creatinine Clearance 95.35 ml/min; Glucose 108 mg/dL (74-106); Potassium 3.5 mmol/L (3.5-5.1); Sodium Level 135 mmol/L (136-145); Troponin-I HS 8 pg/mL (3.0-78.0)
[2022-05-15] MEDS: LORazepam 2 MG/ML Syringe 0.5 MG IV (21:02)
== END 2022-05-15 21:40 | disposition home or self-care (01) ==
PROVIDERS: Emergency Provider Emergency Medicine; Visit Provider Emergency Medicine
DX: R07.9 Chest pain, unspecified (principal); F41.9 Anxiety disorder, unspecified; J45.909 Unspecified asthma, uncomplicated; F17.210 Nicotine dependence, cigarettes, uncomplicated; R06.00 Dyspnea, unspecified
CPT/HCPCS: 71045; 80048; 84484; 85025; 93005; 96374; 99284; A4216

== ENCOUNTER 2022-07-28 22:35 | Emergency (ER) | payer MEDICAID, SELFPAY ==
[2022-07-28 22:36] VITALS: BP 106/84; PULSE 93; RESP 18; TEMP 36.6; O2SAT 97; BMI 29.7
--- NOTE | 2022-07-28 22:42 | EKG12_ITS ---
Test Reason : DYSRHYTHMIA Blood Pressure : / mmHG Vent. Rate : 090 BPM Atrial Rate : 090 BPM P-R Int : 158 ms QRS Dur : 080 ms QT Int : 372 ms P-R-T Axes : 036 -02 014 degrees QTc Int : 455 ms Normal sinus rhythm Normal ECG Confirmed by ELENA HARDEN, SPENCER ([id number]), newspaper or periodical editor CELIA GAGNON ([id number]) on 07/31/2022 1:53:23 PM Referred By: ANNAMARIE Confirmed By:SPENCER PARKER MD
--- NOTE | 2022-07-28 22:44 | EDS_ITS ---
HPI History of Present Illness Chief Complaint: Palpitations Narrative Narrative: 42-year-old male states has had problems with palpitations for at least 10 years. They are intermittent. He has not followed up with cardiology. He states that he was drinking a few beers this evening and felt a rapid heart rate. He states his heart rate goes crazy. He denies any exacerbating or alleviating factors. He states the only thing that makes it better is Ativan. He denies any nausea or vomiting. No sweating. He states that he also has high blood sugar, but he is not on medication for diabetes. Additionally, he states when he follows up with his primary doctor, he does not do anything about it. He presents because he had palpitations this evening. [facility] Medical History Abnormal bruising Arthritis Asthma Back pain Bimalleolar ankle fracture Bloody stool Fatigue Generalized anxiety disorder with panic attacks History of patellar fracture Shoulder pain SOB (shortness of breath) Stomach ulcer Home Medications lorazepam 1 mg tablet (Ativan) 1 mg PO BID PRN anxiety #10 tabs 05/15/22 [Rx Las t Taken Unknown] Allergy/AdvReac Type Severity Reaction Status Date / Time No Known Allergies Allergy Verified 05/15/22 19:30 Family History Other Diabetes Heart disease Surgical History History of hernia surgery Social History Smoking Status: Current some day smoker tobacco type: cigarettes alcohol intake: current alcohol intake frequency: 3 or more drinks per day Alcohol type: beer ROS ROS ED ROS Narrative Constitutional: No fever, no chills. HEENT: No sore throat. No neck pain. No loss of vision. No rhinorrhea. Cardiovascular: No chest pain. Positive palpitations. No pedal edema. Respiratory: No cough, no shortness of breath. Abdominal: No abdominal pain. No nausea. No vomiting. Genitourinary: No dysuria. No hematuria. Musculoskeletal: No myalgias. No arthralgias. Neurologic: No headaches. No dizziness. No lightheadedness. Skin: No rash. No change in color. Psychiatric: No depression. No anxiety. EXAM Physical Exam Narrative Exam Narrative: Afebrile. Vital signs noted. HEENT: Normocephalic. Atraumatic. PERRL, EOMI. Neck soft and supple. No point tenderness or step off. Cardiovascular: Regular rate and rhythm. No murmurs, rubs, or gallops appreciated. Respiratory: No tachypnea. Lungs clear to auscultation bilaterally. Gastrointestinal: Abdomen soft, nontender, with normoactive bowel sounds. No rebound or guarding. Neurological: Awake. Alert. Nonfocal, nonlateralizing. Skin: No rash. Normal color. No pallor. Musculoskeletal: No pedal edema. Full range of motion extremities. Const Vital Signs: 07/28/22 22:36 07/28/22 22:39 07/29/22 00:01 Temperature 97.9 F Temperature Source Oral Pulse Rate 93 91 Respiratory Rate 18 16 Respiratory Effort Normal Non-Labored Respiratory Pattern Normal Blood Pressure 106/84 H 101/64 Blood Pressure Mean 91 76 Pulse Ox 97 94 Oxygen Delivery Method Room Air Room Air MDM MDM MDM Narrative Medical decision making narrative: Patient has a normal heart rate currently. There is no evidence of SVT. I will obtain an EKG and laboratory work including alcohol level. He will be bolused normal saline 1 L intravenously. EKG was obtained and interpreted by myself which demonstrates normal sinus rhythm at 90 bpm without ectopy or acute ST changes. No STEMI. I reviewed the patient's laboratory work, he has a normal white count of 6.7, hemoglobin normal at 14 with platelet count normal at 264. Electrolyte panel shows potassium low at 2.9 which was replaced orally with 60 mill equivalents. He has a normal anion gap of 10. Glucose appropriately e levated at 107 with a normal anion gap of 10. LFTs are within normal limits with a normal AST of 37, ALT 61. Lipase normal at 247. Ethyl alcohol is elevated at 342. Upon repeat examination, patient is resting comfortably. He did receive 1 L of normal saline intravenously. He is able to ambulate without difficulty. I do not feel that he requires admission for his palpitations. In review of his EMR, he has had SVT in the past. Currently he does not have this rhythm. He was referred to cardiology. He will call his mother for a ride home. I feel he can be discharged safely home with follow-up. Return instructions to the emergency department were reviewed. Disposition is discharged home in stable condition. History & Record Review Additional record(s) reviewed:: Prior ED visit and Prior labs Lab Data Attestation: I reviewed the patient's lab results. Labs: Laboratory Results - last 24 hr 07/28/22 07/28/22 07/28/22 23:00 23:00 23:00 WBC 6.7 RBC 4.53 L Hgb 14.0 Hct 42.5 MCV 93.8 MCH 30.9 MCHC 32.9 RDW Std Deviation 40.7 RDW Coeff of Lilian 11.8 Plt Count 264 MPV 8.8 Immature Gran % (Auto) 1.000 H Neut % (Auto) 44.2 L Lymph % (Auto) 44.2 H [place] % (Auto) 7.3 Eos % (Auto) 2.7 Baso % (Auto) 0.6 Absolute Neuts (auto) 3.0 Absolute Lymphs (auto) 2.96 Nucleated RBC % 0 Sodium 138 Potassium 2.9 L Chloride 101 Carbon Dioxide 27.0 Anion Gap 10 BUN 6 L Creatinine 0.91 Estim Creat Clear Calc 90.11 Est GFR (MDRD) Af Amer 116 Est GFR (MDRD) Non-Af 96 BUN/Creatinine Ratio 6.6 L Glucose 107 H Calcium 8.5 Total Bilirubin 0.10 L AST 37 ALT 61 Alkaline Phosphatase 64 Total Protein 7.7 Albumin 3.7 Globulin 4.0 Albumin/Globulin Ratio 0.9 Lipase 247 Ethyl Alcohol 342.0 H* Discharge Plan Triage Chief Complaint: Palpitations ED Provider: Kalyan Madsen Dx/Rx/DC Orders Clinical Impression: Palpitations, Hypokalemia, Acute alcohol intoxication Instructions: ED Alcohol Intoxication, ED Hypokalemia, ED Palpitations Prescriptions: No Action lorazepam [Ativan] 1 mg tablet 1 mg PO BID PRN (Reason: anxiety) Qty: 10 0RF Primary Care Provider: Care Physician,No Primary Referrals: Angelo Cooper MD [Med Staff - Active Staff] - As soon as possible Care Physician,No Primary [Primary Care Provider] - Disposition Disposition: Home, Self Care
[2022-07-28] MEDS: 0.9% Normal Saline 1,000 ML 1000 ML IV (23:13)
[2022-07-28 23:21] LABS: Absolute Lymphocyte Count 2.96 X10^3/uL (0.83-4.51); Basophil# 0.04 X10^3/uL; Basophil% 0.6 % (0-1); Eosinophil# 0.18 X10^3/uL; Eosinophils% 2.7 % (0-5); Hematocrit 42.5 % (40-54); Lymphocyte # 2.96 X10^3/ul (0.83-4.51); Lymphocyte % 44.2 % (19-41); Mean Corp Hgb Conc 32.9 g/dL (32-36); Mean Corpuscular Hgb 30.9 pg (27.0-32.0); Mean Corpuscular Volume 93.8 fL (80-94); Mean Platelet Vol. 8.8 fl (6.2-12.0); Monocyte# 0.49 X10^3/uL; Monocyte% 7.3 % (0-10); NRBC Flagged by Analyzer 0 % (0-5); Neutrophil # 2.95 X10^3/uL (2.7-7.7); Neutrophil % 44.2 % (47-70); Platelet Count 264 K/mm3 (150-450); RBC Distribution Width CV 11.8 % (11.6-14.6); RBC Distribution Width SD 40.7 fl (35.1-43.9); Red Blood Count 4.53 M/mm3 (4.6-6.2); White Blood Count 6.7 K/mm3 (4.4-11.0)
[2022-07-28 23:40] LABS: ALB/GLOB Ratio 0.9 RATIO (0.9-2.4); AST(SGOT) 37 U/L (15-37); Alanine Aminotransfer ALT/SGPT 61 U/L (16-61); Albumin, Serum 3.7 g/dL (3.2-5.0); Alkaline Phosphatase 64 U/L (45-117); Anion Gap 10 (5-15); BUN 6 mg/dL (7-18); BUN/Creat Ratio 6.6 RATIO (10-20); Calcium,Total 8.5 mg/dL (8.5-10.1); Chloride 101 mmol/L (98-107); Creatinine, Serum 0.91 mg/dL (0.70-1.30); EST Glomerular Filtration Rate 96 mL/min (>60); Est Glom Filt Rate - Afr Amer 116 mL/min (>60); Estimated Creatinine Clearance 90.11 ml/min; Glucose 107 mg/dL (74-106); Lipase 247 U/L (73-393); Potassium 2.9 mmol/L (3.5-5.1); Protein, Total 7.7 g/dL (6.4-8.2); Sodium Level 138 mmol/L (136-145)
[2022-07-29 00:01] VITALS: BP 101/64; PULSE 91; RESP 16; O2SAT 94
[2022-07-29] MEDS: Potassium Chloride Oral Tablet 20 MEQ 60 MEQ PO (00:03)
== END 2022-07-29 01:03 | disposition home or self-care (01) ==
PROVIDERS: Emergency Provider Emergency Medicine; Visit Provider Emergency Medicine
DX: R00.2 Palpitations (principal); F10.129 Alcohol abuse with intoxication, unspecified; E87.6 Hypokalemia; Y90.8 Blood alcohol level of 240 mg/100 ml or more
CPT/HCPCS: 80053; 82077; 83690; 85025; 93005; 96360; 99284; J7030; A4216

== ENCOUNTER 2023-05-29 09:39 | Emergency (ER) | payer SELFPAY ==
[2023-05-29 09:40] VITALS: BP 159/104; PULSE 99; RESP 20; TEMP 37.9; O2SAT 100; BMI 29.9
--- NOTE | 2023-05-29 09:55 | RAD_ITS ---
STUDY: X-RAY CHEST REASON FOR EXAM: Male, 43 years old. Chest pain. TECHNIQUE: Single frontal view of the chest. COMPARISON: May 15, 2022 FINDINGS: The lungs are clear and expanded. There is no demonstrated pleural abnormality. Normal size heart. Normal mediastinum and maikel. Normal visualized pulmonary arteries. Normal visualized aortic arch and descending thoracic aorta. Normal visualized thoracic spine. Normal visualized ribs, clavicles, and shoulders. There is no demonstrated abnormality of the visualized soft tissue structures of the upper abdomen. RAD/Chest 1 View (Portable) IMPRESSION: No interval change and no acute or active cardiopulmonary disease. Electronically Signed: Joel Caballero MD at 10:27 EST ,
--- NOTE | 2023-05-29 09:56 | EX.ED.DYSGE1 ---
HPI History of Present Illness Chief Complaint: Palpitations Informant: patient Onset/Context/Timing Onset: Today Narrative Narrative: Patient states he was at work this morning and started feeling nauseated, he vomited, and since he was not feeling well he left, and subsequently started feeling lightheaded and felt like his heart was racing which is still the way he feels now. Denies any chest pain, but states feels like butterflies , denies dyspnea, abdominal pain, no diarrhea. No coughing. No leg pain or swelling. He does not use any drugs. States he is healthy otherwise except for high cholesterol. [facility] Medical History (Updated 05/29/23 @ 11:[address] Carter Patrick MD) Abnormal bruising Arthritis Asthma Back pain Bimalleolar ankle fracture Bloody stool Dyslipidemia Fatigue Generalized anxiety disorder with panic attacks History of patellar fracture Shoulder pain SOB (shortness of breath) Stomach ulcer Home Medications omeprazole 40 mg capsule,delayed release 40 mg PO DAILY 09/11/22 [History Last Taken Unknown] ondansetron 4 mg disintegrating tablet 8 mg (2 x 4 mg) PO Q8H PRN PRN Nausea #20 tabs 05/29/23 [Rx Last Taken Unknown] Allergy/AdvReac Type Severity Reaction Status Date / Time No Known Allergies Allergy Verified 09/11/22 14:09 Family History Other Diabetes Heart disease Surgical History History of hernia surgery Social History Smoking Status: Current some day smoker tobacco type: cigarettes alcohol intake: current alcohol intake frequency: 3 or more drinks per day Alcohol type: beer ROS ROS ED Constitutional Constitutional ED: Denies chills or fever(s) Eyes Eyes: Denies change in vision or diplopia ENT ENT ED: Denies rhinorrhea or sore throat Cardiovascular Cardiovascular: Reports lightheadedness and racing heartbeat; Denies chest pain or leg edema Respiratory/Chest Respiratory/Chest: Denies cough or dyspnea Gastrointestinal Gastrointestinal: Reports nausea and vomiting; Denies abdominal pain or diarrhea Genitourinary Genitourinary ED: Denies dysuria or hematuria Musculoskeletal Musculoskeletal: Denies back pain or neck pain Integumentary Denies abscess or rash Neurologic Neurologic: Denies headache(s), paresthesias or weakness Psychiatric Psychiatric: Denies suicidal ideation or suicidal thoughts EXAM Physical Exam Const Vital Signs: 05/29/23 09:40 Temperature 100.2 F H Temperature Source Temporal Pulse Rate 99 Respiratory Rate 20 H Blood Pressure 159/104 H Blood Pressure Mean 122 Pulse Ox 100 Oxygen Delivery Method Room Air Positive well nourished and well developed General Appearance ED: well developed and NAD HEENT Reports moist mucous membranes normocephalic and atraumatic Eyes PERRL and EOMs intact bilaterally Neck full ROM and supple Resp normal respiratory effort and clear to auscultation bilaterally Cardio regular rate, regular rhythm and no murmurs Rate: Negative for tachycardic GI non-tender and non-distended Auscultation: normoactive bowel sounds Palpation: soft Back/Spine no CVA tenderness General Back: other FROM Extremity normal to inspection General Extremety ED: Negative for edema, pulses abnormal or tenderness General Extremity: Negative for edema or pulses abnormal Neuro oriented x3, CN's II-XII intact bilaterally and no sensory deficits noted Sensorium / Orientation: awake and alert Motor Exam: strength 5/5 throughout Psych Mood & Affect: anxious Skin no rashes or lesions noted and no wounds MDM MDM MDM Narrative Medical decision making narrative: Triage temperature is 100.2. He states he feels shaky. He is given Tylenol for this as well as some IV fluids with IV Zofran he feels better after that. Because of his fever I sent a COVID rapid, it is negative. 2 view chest x-ray my interpretation normal without any infiltrate/pneumonia. I think the patient was probably feeling this way because he was mounting a fever. He has had no diarrhea yet but he just darted having this illness. Likely viral, there is high prevalence of this in the area right now. Given supportive care instructions along with a prescription for Zofran and a work note he is comfortable with that plan. Lab Data Attestation: I reviewed the patient's lab results. Labs: Laboratory Results - last 24 hr 05/29/23 10:00 WBC 5.9 RBC 4.16 L Hgb 13.3 Hct 38.2 L MCV 91.8 MCH 32.0 MCHC 34.8 RDW Std Deviation 43.1 RDW Coeff of Lilian 12.9 Plt Count 243 MPV 8.6 Immature Gran % (Auto) 0.500 Neut % (Auto) 80.1 H Lymph % (Auto) 14.0 L [place] % (Auto) 4.4 Eos % (Auto) 0.5 Baso % (Auto) 0.5 Absolute Neuts (auto) 4.7 Absolute Lymphs (auto) 0.83 Nucleated RBC % 0 Sodium 135 L Potassium 3.0 L Chloride 97 L Carbon Dioxide 25.0 Anion Gap 13 BUN 5 L Creatinine 0.96 Estim Creat Clear Calc 84.53 Est GFR (MDRD) Af Amer 109 Est GFR (MDRD) Non-Af 90 BUN/Creatinine Ratio 5.2 L Glucose 94 Calcium 9.2 Troponin I High Sens 10 Radiography Diagnostic Testing: Clinical Impression(s) from Imaging Studies Chest X-Ray 05/29/23 09:55 IMPRESSION: No interval change and no acute or active cardiopulmonary disease. Electronically Signed: Joel Caballero MD at 10:27 EST Reading Location ID and State: [address] [place] [address] , Service support , Rhythm Strip Rhythm Strip: Sinus Rhythm Rate: 95 Ectopy: None EKG Initial EKG: Attestation: I personally reviewed and interpreted this EKG as follows: Interpretation: Sinus Rhythm and No Acute Injury Pattern Comments: Normal EKG with artifact in V1 Discharge Plan Triage Chief Complaint: Palpitations ED Provider: Carter Patrick Dx/Rx/DC Orders Clinical Impression: Viral gastritis, Palpitations Instructions: ED Gastritis (Adult) Prescriptions: New ondansetron [ondansetron] 4 mg tablet,disintegrating 8 mg PO Q8H PRN PRN (Reason: Nausea) Qty: 20 0RF No Action omeprazole 40 mg capsule,delayed release(DR/EC) 40 mg PO DAILY Stand Alone Forms: ED Work / School Excuse Primary Care Provider: Care Physician,No Primary Referrals: Care Physician,No Primary [Primary Care Provider] - Doctor,Your [Non-Staff] - 3-5 Days if not improving Disposition Disposition: Home, Self Care
[2023-05-29] MEDS: 0.9% Normal Saline (1000mL) 1,000 ML 999 ML IV (10:09)
[2023-05-29] MEDS: Ondansetron 4 MG/2 ML Vial IV (10:09)
[2023-05-29 10:10] LABS: Absolute Lymphocyte Count 0.83 X10^3/uL (0.83-4.51); Absolute Neutrophil Count 4.7 X10^3/uL (2.0-7.7); Basophil# 0.03 X10^3/uL; Basophil% 0.5 % (0-1); Eosinophil# 0.03 X10^3/uL; Eosinophils% 0.5 % (0-5); Hematocrit 38.2 % (40-54); Hemoglobin 13.3 g/dL (13.0-16.5); Lymphocyte # 0.83 X10^3/ul (0.83-4.51); Mean Corp Hgb Conc 34.8 g/dL (32-36); Mean Corpuscular Volume 91.8 fL (80-94); Mean Platelet Vol. 8.6 fl (6.2-12.0); Monocyte# 0.26 X10^3/uL; Monocyte% 4.4 % (0-10); NRBC Flagged by Analyzer 0 % (0-5); Neutrophil # 4.74 X10^3/uL (2.7-7.7); Neutrophil % 80.1 % (47-70); Platelet Count 243 K/mm3 (150-450); RBC Distribution Width CV 12.9 % (11.6-14.6); RBC Distribution Width SD 43.1 fl (35.1-43.9); Red Blood Count 4.16 M/mm3 (4.6-6.2); White Blood Count 5.9 K/mm3 (4.4-11.0)
[2023-05-29 10:30] LABS: Anion Gap 13 (5-15); BUN 5 mg/dL (7-18); BUN/Creat Ratio 5.2 RATIO (10-20); Calcium,Total 9.2 mg/dL (8.5-10.1); Chloride 97 mmol/L (98-107); Creatinine, Serum 0.96 mg/dL (0.70-1.30); EST Glomerular Filtration Rate 90 mL/min (>60); Est Glom Filt Rate - Afr Amer 109 mL/min (>60); Estimated Creatinine Clearance 84.53 ml/min; Glucose 94 mg/dL (74-106); Sodium Level 135 mmol/L (136-145); Troponin-I HS (w/2H Reflex) 10 pg/mL (3.0-78.0)
[2023-05-29 12:06] LABS: Reflex Troponin-HS? (from REC) Y
== END 2023-05-29 11:59 | disposition home or self-care (01) ==
PROVIDERS: Emergency Provider Emergency Medicine; Visit Provider Emergency Medicine
DX: R00.2 Palpitations (principal); A08.4 Viral intestinal infection, unspecified; E78.5 Hyperlipidemia, unspecified; F17.210 Nicotine dependence, cigarettes, uncomplicated; R50.9 Fever, unspecified
CPT/HCPCS: 71045; 80048; 84484; 85025; 87428; 93005; 96361; 96374; 99283; J7030; J2405

== ENCOUNTER 2023-07-05 17:41 | Emergency (ER) | payer MEDICAID, SELFPAY ==
[2023-07-05 17:42] VITALS: BP 125/99; PULSE 104; RESP 18; TEMP 36.6; O2SAT 98; BMI 27.4
[2023-07-05 18:11] LABS: Absolute Lymphocyte Count 1.29 X10^3/uL (0.83-4.51); Absolute Neutrophil Count 1.9 X10^3/uL (2.0-7.7); Basophil# 0.04 X10^3/uL; Basophil% 1.1 % (0-1); Eosinophil# 0.03 X10^3/uL; Eosinophils% 0.8 % (0-5); Hematocrit 43.8 % (40-54); Hemoglobin 14.7 g/dL (13.0-16.5); Lymphocyte # 1.29 X10^3/ul (0.83-4.51); Lymphocyte % 36.3 % (19-41); Mean Corp Hgb Conc 33.6 g/dL (32-36); Mean Corpuscular Hgb 30.8 pg (27.0-32.0); Mean Corpuscular Volume 91.8 fL (80-94); Mean Platelet Vol. 9.2 fl (6.2-12.0); Monocyte# 0.25 X10^3/uL; NRBC Flagged by Analyzer 0 % (0-5); Neutrophil # 1.93 X10^3/uL (2.7-7.7); Neutrophil % 54.5 % (47-70); Platelet Count 156 K/mm3 (150-450); RBC Distribution Width CV 12.3 % (11.6-14.6); RBC Distribution Width SD 41.8 fl (35.1-43.9); Red Blood Count 4.77 M/mm3 (4.6-6.2); White Blood Count 3.6 K/mm3 (4.4-11.0)
--- NOTE | 2023-07-05 18:11 | EX.ED.DYSGE1 ---
HPI History of Present Illness Chief Complaint: Dizziness Narrative Narrative: 43-year-old male presenting with dizziness. He states has been present for the last 4 days. He denies headache. He describes the headache as vertiginous in nature. He states that a couple of days ago he was stopped while walking in a parking lot by the police because they were concerned he was falling and they did a sobriety test on him and he was normal. They told him to relax until he felt better. Patient states he was laid off at work and has been at home more. He admits to drinking about 15 beers a day. Patient states he does not drink water and he said he has not had any for a couple days. He does not eat much food. He has a history of hyponatremia. He also states that his feet have numbness and tingling to them which has been present recently for the last couple of weeks. He is never been diagnosed with peripheral neuropathy. Denies any trauma. [facility], [facility] Medical History Abnormal bruising Arthritis Asthma Back pain Bimalleolar ankle fracture Bloody stool Dyslipidemia Fatigue Generalized anxiety disorder with panic attacks History of patellar fracture Shoulder pain SOB (shortness of breath) Stomach ulcer Home Medications omeprazole 40 mg capsule,delayed release 40 mg PO DAILY 09/11/22 [History Last Taken Unknown] ondansetron 4 mg disintegrating tablet 8 mg (2 x 4 mg) PO Q8H PRN PRN Nausea #20 tabs 05/29/23 [Rx Last Taken Unknown] Allergy/AdvReac Type Severity Reaction Status Date / Time No Known Allergies Allergy Verified 07/05/23 17:42 Family History Other Diabetes Heart disease Surgical History History of hernia surgery Social History Smoking Status: Current some day smoker tobacco type: cigarettes alcohol intake: current alcohol intake frequency: 3 or more drinks per day Alcohol type: beer ROS ROS ED Constitutional Constitutional ED: Denies chills, fever(s) or sweats Eyes Eyes: Reports other Details: Dizziness ; Denies blurry vision or change in vision ENT ENT ED: Denies ear pain or sore throat Cardiovascular Cardiovascular: Denies chest pain, palpitations or racing heartbeat Respiratory/Chest Respiratory/Chest: Denies cough, dyspnea or sputum Gastrointestinal Gastrointestinal: Denies abdominal pain, constipation, diarrhea, nausea or vomiting Genitourinary Genitourinary ED: Denies dysuria, hematuria or urinary frequency Musculoskeletal Musculoskeletal: Denies arthralgias, myalgias or neck pain Integumentary Denies abscess, Abrasions or rash Neurologic Neurologic: Reports other Details: Numbness and tingling bilateral feet ; Denies headache(s), paresthesias or weakness Psychiatric Psychiatric: Denies anxiety, depression, suicidal ideation or suicidal thoughts Endocrine Endocrinology: Denies polydipsia or polyuria EXAM Physical Exam Const Vital Signs: 07/05/23 17:42 07/05/23 18:20 07/05/23 20:20 Temperature 97.8 F Temperature Source Temporal Pulse Rate 104 H 82 148 H Respiratory Rate 18 14 16 Blood Pressure 125/99 H 128/92 H 130/86 H Blood Pressure Mean 107 104 100 Pulse Ox 98 97 98 Oxygen Delivery Method Room Air Room Air 07/05/23 20:37 Temperature Temperature Source Pulse Rate 102 H Respiratory Rate Blood Pressure Blood Pressure Mean Pulse Ox Oxygen Delivery Method Positive well nourished General Appearance ED: NAD; Negative for pallor HEENT Reports moist mucous membranes Eyes PERRL and EOMs intact bilaterally Neck no lymphadenopathy Chest Wall inspection of chest normal Resp normal respiratory effort and clear to auscultation bilaterally Auscultation: Negative for rales, rhonchi or wheezes Cardio regular rate and regular rhythm GI normal to inspection, nondistended, normoactive bowel sounds Neuro oriented x3, CN's II-XII intact bilaterally and no sensory deficits noted Sensorium / Orientation: alert and orientation impaired Coordination / Balance: [id number] test normal and sways with eyes open Speech: speech normal Gait (Neuro): shuffling and staggering Motor Exam: strength 5/5 throughout Psych mental status grossly normal Skin no rashes or lesions noted General Skin Exam: Negative for jaundice or pallor MDM MDM MDM Narrative Medical decision making narrative: Patient presenting with dizziness. He states he has been drinking today. Differential includes EtOH intoxication, EtOH withdrawal, dehydration, anemia, hyponatremia, hypernatremia, hypokalemia, stroke, ACS, dysrhythmia, UTI, drug use. CBC was obtained to assess white blood cell count, hemoglobin, platelets. CMP to assess liver function, renal function electrolytes, glucose. High-sensitivity troponin EKG to assess for ischemia/dysrhythmia. Urinalysis obtained to assess for UTI. CT brain will be obtained as concern for possible stroke or intracranial abnormality. He feels great CBC shows leukopenia. Hemoglobin 14.7. Platelets are 160. Electrolytes unremarkable with exception of sodium 131 potassium 3.3. Renal function is stable. LFTs show an AST 177 ALT of 272. Bilirubin is normal. Ammonia level is 29. Urinalysis is negative. CT brain is negative. Patient was medicated with meclizine and I attempted to give him Phenergan however he declines. He states he does not want a shot. He was able to ambulate to the bathroom but still said he was significantly dizzy. Nursing staff came to me and stated that his heart rate is sometimes in the 140s. Alcohol level came back at 305. Patient does not appear to be intoxicated. He is alert and oriented x 3 and awake. He states he does not feel like he is intoxicated. He does not want to stay in the hospital for further workup. I do believe at this point even though his alcohol level is 305 he does not appear to be intoxicated and he has a capacity to make this decision. I did eap counselor him that he was severe disability, injury, given that he is unstable on his feet and that he may have a dysrhythmia given his heart rate of 140. Patient is adamant that he does not want to stay. I offered him admission and a full workup as well as detox. He still declines. Appropriate paperwork was signed. Patient signed out AGAINST MEDICAL ADVICE. Impression: 1. Dizziness 2. Alcohol intoxication 3. History of alcohol abuse 4. Hypokalemia 5. Hyponatremia Lab Data Attestation: I reviewed the patient's lab results. Labs: Laboratory Results - last 24 hr 07/05/23 07/05/23 07/05/23 17:47 18:00 18:50 WBC 3.6 L RBC 4.77 Hgb 14.7 Hct 43.8 MCV 91.8 MCH 30.8 MCHC 33.6 RDW Std Deviation 41.8 RDW Coeff of Lilian 12.3 Plt Count 156 MPV 9.2 Immature Gran % (Auto) 0.300 Neut % (Auto) 54.5 Lymph % (Auto) 36.3 Warren % (Auto) 7.0 Eos % (Auto) 0.8 Baso % (Auto) 1.1 H Absolute Neuts (auto) 1.9 L Absolute Lymphs (auto) 1.29 Nucleated RBC % 0 Sodium 131 L Potassium 3.3 L Chloride 92 L Carbon Dioxide 26.0 Anion Gap 13 BUN 5 L Creatinine 0.85 Estim Creat Clear Calc 103.75 Est GFR (MDRD) Af Amer 125 Est GFR (MDRD) Non-Af 103 BUN/Creatinine Ratio 5.9 L Glucose 104 Calcium 8.9 Total Bilirubin 0.60 Direct Bilirubin 0.23 AST 177 H ALT 272 H Alkaline Phosphatase 85 Ammonia 29.0 Troponin I High Sens 10 Total Protein 8.2 Albumin 4.1 Globulin 4.1 Urine Color Yellow Urine Clarity Clear Urine pH 6.5 Ur Specific Gibson 1.010 Urine Protein 15 H Urine Glucose (UA) Normal Urine Ketones 15 H Urine Occult Blood Negative Urine Nitrite Negative Urine Bilirubin Negative Urine Urobilinogen Normal Ur Leukocyte Esterase Negative Urine RBC 0 SEEN Urine WBC 0 SEEN Ur Squamous Epith Cells 0 SEEN Urine Bacteria 0 SEEN Urine Mucus 0 SEEN Urine Opiates Screen NEGATIVE Urine Methadone Screen NEGATIVE Ur Barbiturates Screen NEGATIVE Ur Phencyclidine Scrn NEGATIVE Ur Amphetamines Screen NEGATIVE MDMA (Ecstasy) Screen NEGATIVE U Benzodiazepines Scrn NEGATIVE Urine Cocaine Screen NEGATIVE U Cannabinoids Screen NEGATIVE Ur Drug Screen Comment Ethyl Alcohol 305.0 H* POC Glucose 106 Radiography Diagnostic Testing: Clinical Impression(s) from Imaging Studies Brain CT 07/05/23 18:43 IMPRESSION: Normal unenhanced CT scan of the brain. Electronically Signed: Milan Ramos MD at 18:56 EST , Discharge Plan Triage Chief Complaint: Dizziness ED Provider: Edi Hassan Dx/Rx/DC Orders Prescriptions: No Action omeprazole 40 mg capsule,delayed release(DR/EC) 40 mg PO DAILY ondansetron [ondansetron] 4 mg tablet,disintegrating 8 mg PO Q8H PRN PRN (Reason: Nausea) Qty: 20 0RF Primary Care Provider: Care Physician,No Primary Referrals: Care Physician,No Primary [Primary Care Provider] -
[2023-07-05 18:12] LABS: Bedside Glucose 106 mg/dL (74-106)
[2023-07-05 18:20] VITALS: BP 128/92; PULSE 82; RESP 14; O2SAT 97
[2023-07-05 18:31] LABS: AST(SGOT) 177 U/L (15-37); Alanine Aminotransfer ALT/SGPT 272 U/L (16-61); Albumin, Serum 4.1 g/dL (3.2-5.0); Alkaline Phosphatase 85 U/L (45-117); Anion Gap 13 (5-15); BUN 5 mg/dL (7-18); BUN/Creat Ratio 5.9 RATIO (10-20); Bilirubin, Direct 0.23 mg/dL (0.00-0.30); Calcium,Total 8.9 mg/dL (8.5-10.1); Chloride 92 mmol/L (98-107); Creatinine, Serum 0.85 mg/dL (0.70-1.30); EST Glomerular Filtration Rate 103 mL/min (>60); Est Glom Filt Rate - Afr Amer 125 mL/min (>60); Estimated Creatinine Clearance 103.75 ml/min; Globulin 4.1 g/dL (2.2-4.2); Glucose 104 mg/dL (74-106); Potassium 3.3 mmol/L (3.5-5.1); Protein, Total 8.2 g/dL (6.4-8.2); Sodium Level 131 mmol/L (136-145); Troponin-I HS 10 pg/mL (3.0-78.0)
--- NOTE | 2023-07-05 18:43 | CT_ITS ---
STUDY: CT BRAIN WITHOUT CONTRAST REASON FOR EXAM: Male, 43 years old. altered mental status RADIATION DOSAGE (If Supplied By Facility): CTDIvol = ( 44.99 ) mGy, DLP = ( 846.73 ) mGycm TECHNIQUE: Transaxial CT imaging of the brain was performed without administration of intravenous contrast material. Individualized dose optimization techniques were used for this CT. COMPARISON: No relevant priors. FINDINGS: Normal soft tissue structures. Normal calvarium. Normal size ventricles and extra-axial spaces for the patient''s age. Normal white matter tracts of the cerebral hemispheres. Normal basal ganglia and thalami. Normal brainstem. Normal cerebellum. There is no intracranial hemorrhage. There are no findings of an acute ischemic infarction. Normal visualized paranasal sinuses. CT/Brain/Head without Contrast IMPRESSION: Normal unenhanced CT scan of the brain. Electronically Signed: Milan Ramos MD at 18:56 EST ,
[2023-07-05] MEDS: Meclizine HCl 25 MG Tablet PO (19:02)
[2023-07-05 19:05] LABS: Bacteria 0 SEEN /hpf (None Seen); Mucous, Urine 0 SEEN /hpf (<or=2+); Red Blood Cells-Urine 0 SEEN /hpf (0-5); Squamous Epithelial Cells - UA 0 SEEN /hpf (0-5); White Blood Cells 0 SEEN /hpf (0-5)
--- OUTSIDE RECORDS SUMMARY | 2023-07-05 19:06 | XMS RPT_ITS | CCD ---
Author Name Unknown Address [address] [place] [address] Organization [facility] Care Team Providers Care Employee Benefits Director Name Role Phone Unknown, Unknown Unavailable Unavailable Unavailable Unavailable Pending Provider Unavailable Unavailable Wilbert Pritchett MD Primary Care Provider [phone] Wilbert Pritchett MD Primary Care Provider [phone] Wilbert Pritchett MD Primary Care Provider [phone] PHYSICIAN, NONE Primary Care Physician Unavailab efra EGAN DO, DR ROXIE Rojas Attending Unavailable PHYSICIAN, NONE Primary Care Unavailable RIDER , DR ROXIE Rojas Attending Unavailable PHYSICIAN, NONE Primary Care Unavailable PHYSICIAN, NONE Primary Care Unavailable TRICIA HARDEN, DR DAVID Scales Attending WILBERT Malik Primary Care Unavailable RUBI WASHINGTON Referring Unavailable WILBERT PRITCHETT Primary Care Unavailable RUBI WASHINGTON Attending Unavailable WILBERT PRITCHETT Attending Unavailable WILBERT PRITCHETT Primary Care Unavailable WILBERT PRITCHETT Primary Care Unavailable WILBERT PRITCHETT Attending Unavailable WILBERT PRITCHETT Primary Care Unavailable WILBERT PRITCHETT Primary Care Unavailable RUBI WASHINGTON Referring Unavailable Medications Current Medications Medication Drug Class(es) Dates Sig (Normalized) Sig (Original) cephalexin 500 mg oral tablet (2 sources) Cephalosporin Antibacterial Start: 06-09-2023 End: 06-19-2023 take 1 capsule by mouth twice daily Keflex use cephalexin Dose : 500 mg =, Oral, BID, X 10 day(s), # 20 cap(s), 0 Refill(s), 06/19/23 4:48:00 PM EST, 79.5 Start Date: 06/09/23 Stop Date: 06/19/23 Status: Ordered omeprazole 40 mg delayed release oral capsule (20 sources) Proton Pump Inhibitor Start: 06-09-2023 omeprazole 40 mg oral delayed release capsule Dose : 40 mg = 1 cap(s), Oral, qDay, # 30 cap(s), 0 Refill(s) Start Date: 06/09/23 Status: Ordered Completed/Discontinued Medications Medication Drug Class(es) Dates Sig (Normalized) Sig (Original) etodolac 300 mg oral capsule (5 sources) Nonsteroidal Anti-inflammatory Drug Start: 01-13-2022 End: 10-06-2022 take 1 capsule by mouth every eight hours etodolac (LODINE) 300 mg capsule Take 1 capsule by mouth every 8 hours. 30 capsule 1 01/13/2022 10/06/2022 Discontinued Problems Active Problems Problem Classification Problem Date Documented Date Episodic/Chronic Alcohol-related disorders (17 sources) Alcohol dependence; Translations: [Alcohol dependence, uncomplicated] Onset: 09-22-2008 Chronic Anxiety disorders (17 sources) Anxiety disorder; Translations: [Anxiety disorder, unspecified] Onset: 11-19-2015 11-19-2015 Chronic Asthma (3 sources) Asthma 04-01-2015 Chronic Disorders of lipid metabolism (17 sources) Hyperlipidemia; Translations: [Hyperlipidemia, unspecified] Onset: 09-28-2011 09-28-2011 Chronic Esophageal disorders (18 sources) Gastroesophageal reflux disease; Translations: [Gastro-esophageal reflux disease without esophagitis] Onset: 08-13-2015 11-19-2015 Chronic Mycoses (2 sources) Candidiasis of mouth; Translations: [Candidal stomatitis] Episodic Other connective tissue disease (2 sources) Impingement syndrome of right shoulder region; Translations: [Impingement syndrome of right shoulder] Episodic Other inflammatory condition of skin (1 source) Rosacea; Translations: [Rosacea, unspecified] Chronic Other inflammatory condition of skin (1 source) Rosacea, unspecified; Translations: [Rosacea] Onset: 10-06-2022 Chronic Other male genital disorders (5 sources) Male erectile dysfunction, unspecified; Translations: [Impotence of organic origin] Onset: 03-09-2023 Chronic Other nervous system disorders (2 sources) Paresthesia of foot ; Translations: [Anesthesia of skin] 03-09-2023 Episodic Other non-traumatic joint disorders (1 source) Shoulder pain; Translations: [Pain in right shoulder] Episodic Other nutritional; endocrine; and metabolic disorders (15 sources) Metabolic syndrome X; Translations: [Metabolic syndrome] Onset: 12-29-2009 12-29-2009 Chronic Other nutritional; endocrine; and metabolic disorders (14 sources) Obese class I; Translations: [Obesity, unspecified] Onset: 06-09-2019 06-09-2019 Chronic Other nutritional; endocrine; and metabolic disorders (1 source) Metabolic syndrome; Translations: [Dysmetabolic syndrome] Onset: 12-29-2009 Chronic Other screening for suspected conditions (not mental disorders or infectious disease) (3 sources) Other specified abnormal findings of blood chemistry; Translations: [Other abnormal blood chemistry] Onset: 04-02-2023 03-23-2023 Episodic Other skin disorders (5 sources) Mass of neck; Translations: [Swelling, mass, or lump in head and neck] Episodic Substance-related disorders (20 sources) Tobacco user; Translations: [Nicotine dependence, unspecified, uncomplicated] Onset: 09-29-2008 09-29-2008 Chronic Past or Other Problems Problem Classification Problem Date Documented Date Episodic/Chronic Diseases of mouth; excluding dental (6 sources) Submandibular sialolithiasis; Translations: [Sialolithiasis] Onset: 10-06-2022 Episodic Other nervous system disorders (1 source) Anesthesia of skin; Translations: [Numbness and tingling of both feet] Onset: 03-16-2023 Episodic Other nervous system disorders (1 source) Paresthesia of skin; Translations: [Numbness and tingling of both feet] Onset: 03-16-2023 Episodic Other upper respiratory disease (14 sources) Bronchospasm; Translations: [Acute bronchospasm] Onset: 06-09-2019 06-09-2019 Episodic Pancreatic disorders (not diabetes) (14 sources) Acute pancreatitis; Translations: [Acute pancreatitis without necrosis or infection, unspecified] Onset: 08-31-2020 08-31-2020 Episodic Sprains and strains (14 sources) Sprain of medial collateral ligament of right knee, initial encounter; Translations: [Sprain of medial collateral ligament of knee] Onset: 02-02-2016 02-02-2016 Episodic Results Test Name Value Interpretation Reference Range Facil ity Vital Signs Date Time Vital Sign Value Performing Clinician Facility 06-11-2023 17:58-0500 Diastolic Blood Pressure Non-Invasive 92 mm[Hg] DR ROXIE EGAN DO [facility] 06-11-2023 17:58-0500 Heart rate 87 /min DR ROXIE EGAN DO [facility] 06-11-2023 17:58-0500 Reason For Taking VItal Signs DR ROXIE EGAN DO [facility] 06-11-2023 17:58-0500 Respiratory rate 18 /min DR ROXIE EGAN DO [facility] 06-11-2023 17:58-0500 Systolic Blood Pressure Non-Invasive 128 mm[Hg] DR ROXIE EGAN DO [facility] 06-11-2023 15:53-0500 Body temperature 98.24 [degF] DR ROXIE EGAN DO [facility] 06-11-2023 15:53-0500 Diastolic Blood Pressure Non-Invasive 81 mm[Hg] DR ROXIE EGAN DO [facility] 06-11-2023 15:53-0500 Heart rate 97 /min DR ROXIE EGAN DO [facility] 06-11-2023 15:53-0500 Respiratory rate 18 /min DR ROXIE EGAN DO [facility] 06-11-2023 15:53-0500 Systolic Blood Pressure Non-Invasive 140 mm[Hg] DR ROXIE EGAN DO [facility] 06-09-2023 16:20-0500 Body height [address] DAVID CLARKE MD [facility] 06-09-2023 16:20-0500 Body temperature 97.34 [degF] DR DAVID CLARKE MD [facility] 06-09-2023 16:20-0500 Body weight 79.[address] DAVID CLARKE MD [facility] 06-09-2023 16:20-0500 Diastolic Blood Pressure Non-Invasive 81 mm[Hg] DR DAVID CLARKE MD [facility] 06-09-2023 16:20-0500 Heart rate 106 /min DR DAVID CLARKE MD [facility] 06-09-2023 16:20-0500 Respiratory rate 18 /min DR DAVID CLARKE MD [facility] 06-09-2023 16:20-0500 Systolic Blood Pressure Non-Invasive 128 mm[Hg] DR DAVID CLARKE MD [facility] 04-12-2023 22:14-0500 Body temperature 98.6 [degF] DR ROXIE EGAN DO [facility] 04-12-2023 22:14-0500 Diastolic Blood Pressure Non-Invasive 88 mm[Hg] DR ROXIE EGAN DO [facility] 04-12-2023 22:14-0500 Heart rate 102 /min DR ROXIE EGAN DO [facility] 04-12-2023 22:14-0500 Respiratory rate 18 /min DR ROXIE EGAN DO [facility] 04-12-2023 22:14-0500 Systolic Blood Pressure Non-Invasive 147 mm[Hg] DR ROXIE EGAN DO [facility] 03-09-2023 12:49-0400 Body weight 80.29 kg Rubi Older TEAM SUPERVISOR.NETWORKS SOFTWARE CONSULTANT Work Phone: [facility] 03-09-2023 12:49-0400 Diastolic blood pressure 72 mm[Hg] Rubi Older TEAM SUPERVISOR.NETWORKS SOFTWARE CONSULTANT Work Phone: [facility] 03-09-2023 12:49-0400 Heart rate 104 /min Rubi Older TEAM SUPERVISOR.NETWORKS SOFTWARE CONSULTANT Work Phone: [facility] 03-09-2023 12:49-0400 Respiratory rate 18 /min Rubi Older TEAM SUPERVISOR.NETWORKS SOFTWARE CONSULTANT Work Phone: [facility] 03-09-2023 12:49-0400 SaO2% (BldA) [Mass fraction] 94 % Rubi Older TEAM SUPERVISOR.NETWORKS SOFTWARE CONSULTANT Work Phone: [facility] 03-09-2023 12:49-0400 Systolic blood pressure 116 mm[Hg] Rubi Older TEAM SUPERVISOR.NETWORKS SOFTWARE CONSULTANT Work Phone: [facility] 10-06-2022 16:54-0400 Body weight 78.47 kg Wilbert Pritchett MD Work Phone: [facility] 10-06-2022 16:54-0400 Diastolic blood pressure 62 mm[Hg] Wilbert Pritchett MD Work Phone: [facility] 10-06-2022 16:54-0400 Heart rate 95 /min Wilbert Pritchett MD Work Phone: [facility] 10-06-2022 16:54-0400 Respiratory rate 16 /min Wilbert Pritchett MD Work Phone: [facility] 10-06-2022 16:54-0400 SaO2% (BldA) [Mass fraction] 96 % Wilbert Pritchett MD Work Phone: [facility] 10-06-2022 16:54-0400 Systolic blood pressure 110 mm[Hg] Wilbert Pritchett MD Work Phone: [facility] 12-27-2021 14:41-0400 Body temperature 97.2 [degF] [facility] TEAM SUPERVISOR.NETWORKS SOFTWARE CONSULTANT Work Phone: [facility] 12-27-2021 14:41-0400 [facility]VIS[facility].NETWORKS SOFTWARE CONSULTANT Work Phone: [facility] 12-27-2021 14:41-0400 Diastolic blood pressure 70 mm[Hg] [facility] TEAM SUPERVISOR.NETWORKS SOFTWARE CONSULTANT Work Phone: [facility] 12-27-2021 14:41-0400 Heart rate 90 /min Yuan [facility] TEAM SUPERVISOR.NETWORKS SOFTWARE CONSULTANT Work Phone: [facility] 12-27-2021 14:41-0400 Respiratory rate 16 /min Yuan [facility] TEAM SUPERVISOR.NETWORKS SOFTWARE CONSULTANT Work Phone: [facility] 12-27-2021 14:41-0400 SaO2% (BldA) [Mass fraction] 99 % [facility] TEAM SUPERVISOR.NETWORKS SOFTWARE CONSULTANT Work Phone: [facility] 12-27-2021 14:41-0400 Systolic blood pressure 126 mm[Hg] [facility] TEAM SUPERVISOR.NETWORKS SOFTWARE CONSULTANT Work Phone: [facility] 10-14-2021 16:30-0400 Body weight 81.19 kg Saniya Simental MD Work Phone: [facility] 10-14-2021 16:30-0400 Diastolic blood pressure 80 mm[Hg] Saniya Simental MD Work Phone: [facility] 10-14-2021 16:30-0400 Heart rate 94 /min Saniya Simental MD Work Phone: [facility] 10-14-2021 16:30-0400 SaO2% (BldA) [Mass fraction] 98 % Saniya Simental MD Work Phone: [facility] 10-14-2021 16:30-0400 Systolic blood pressure 118 mm[Hg] Saniya Simental MD Work Phone: [facility] 07-26-2021 17:09-0500 Body height 165.1 cm Unknown Unknown [facility] Work Phone: 07-26-2021 17:09-0500 Body mass index (BMI) [Ratio] 31.87 kg/m2 Unknown Unknown [facility] Work Phone: 07-26-2021 17:09-0500 Body surface area Derived from formula 1.94 m2 Unknown Unknown [facility] Work Phone: 07-26-2021 17:09-0500 Body temperature 97.9 [degF] Unknown Unknown [facility] Work Phone: 07-26-2021 17:09-0500 Body weight 86.86 kg Unknown Unknown [facility] Work Phone: 06-28-2021 16:19-0500 Body height 165.1 cm Unknown Unknown [facility] [place] Work Phone: 06-28-2021 16:19-0500 Body mass index (BMI) [Ratio] 32.82 kg/m2 Unknown Unknown [facility] [place] Work Phone: 06-28-2021 16:19-0500 Body surface area Derived from formula 1.97 m2 Unknown Unknown [facility] [place] Work Phone: 06-28-2021 16:19-0500 Body temperature 97.9 [degF] Unknown Unknown [facility] [place] Work Phone: 06-28-2021 16:19-0500 Body weight 89.45 kg Unknown Unknown [facility] [place] Work Phone: Encounters Encounter Date Encounter Type Care Provider Facility Start: 06-22-2023 End: 06-22-2023 ambulatory WILBERT PRITCHETT Facility:[facility] Start: 06-11-2023 End: 06-11-2023 Emergency department patient visit DR ROXIE EGAN DO Facility:[facility] Start: 06-11-2023 End: 06-11-2023 Emergency department patient visit DR ROXIE EGAN DO [facility] Start: 06-09-2023 End: 06-09-2023 Emergency department patient visit NONE PHYSICIAN Facility:[facility] Start: 06-09-2023 End: 06-09-2023 Emergency department patient visit DR DAVID CLARKE MD [facility] Start: 06-09-2023 End: 06-09-2023 ambulatory WILBERT PRITCHETT Facility:[facility] Start: 04-13-2023 End: 04-13-2023 Emergency department patient visit DR ROXIE EGAN DO Facility:[facility] Start: 04-12-2023 End: 04-12-2023 Emergency department patient visit DR ROXIE EGAN DO [facility] Start: 04-06-2023 Refill Rubi Older TEAM SUPERVISOR .NETWORKS SOFTWARE CONSULTANT Work Phone: [facility] [place] Procedures Date Procedure Procedure Detail Performing Clinician Start: 04-02-2023 Us abdominal real ti me w/image limited Rubi Older TEAM SUPERVISOR.NETWORKS SOFTWARE CONSULTANT Work Phone: Start: 03-16-2023 Lipid 1996 panel - S patricia or Plasma Wilbert Pritchett MD Work Phone: Start: 03-09-2023 Hemoglobin A1c/Hemoglobin.total in Blood Rubi Older TEAM SUPERVISOR.NETWORKS SOFTWARE CONSULTANT Work Phone: Start: 12-27-2020 Adult depression screening assessment Saniya Simental MD Work Phone: Start: 08-13-2015 Lipid 1996 panel - S patricia or Plasma Rubi Older TEAM SUPERVISOR.NETWORKS SOFTWARE CONSULTANT Work Phone: Plan of Treatment Date Care Activity Detail Author Start: 03-16-2028 Lipid 1996 panel - S patricia or Plasma Lipid Screening [facility] Start: 03-16-2026 Diabetes Screening Diabetes Screenin g [facility] Start: 03-09-2026 Diabetes Screening Diabetes Screenin g [facility] Start: 09-01-2023 DIABETES SCREEN DIABETES SCREEN [facility] Start: 03-09-2023 End: 05-09-2023 CBC W Auto Differential panel - Blood CBC + DIFF Lab Routine Numbness and tingling of both feet Expected: 03/09/2023, Expires: 05/09/2023 [facility] Work Phone: Immunizations Immunization Date Immunization Notes Care Provider Fa bettie 04-27-2007 tetanus and diphther ia toxoids, not adsorbed, for adult use Saniya Simental MD Work Phone: [facility] Work Phone: Payers Date Payer Category Payer Unknown [id number] 2023 Self-pay 2023 Unknown [id number] 2022 Unknown [id number] 2019 Medicaid [place] [employer] [employer] [id number] 2019-Present [phone] [place] [id number] Medicaid [id number] 2019 Medicaid [id number] 1978 Unknown [id number] 1978 Unknown [id number] 1978 Unknown [id number] Unknown [facility] Social History Date Type Detail Facility Start: 05-16-2018 End: 05-12-2023 Tobacco smoking status NHIS Light tobacco smoker [facility] History of tobacco use Cigarette Smoker C [facility] Start: 05-16-2018 End: 03-09-2023 Cigarettes smoked current (pack per day) - Reported 0.5 [facility] Start: 05-16-2018 End: 10-06-2022 Tobacco use and exposure User of smokeless tobacco [facility] History of tobacco use Snuff User [facility] Start: 12-28-2020 End: 10-06-2022 Alcohol intake Current drinker of alcohol (finding) [facility] Start: 12-27-2020 History SDOH Alcohol Frequency 5 [facility] Start: 12-27-2020 History SDOH Alcohol Std Drinks 4 [facility] Start: 08-13-2015 History SDOH Alcohol Comment 6-12 on weekends [facility] Start: 12-27-2020 History SDOH Social Connections Phone 3 [facility] Start: 12-27-2020 History SDOH Social Connections Get Together 2 [facility] Start: 12-27-2020 History SDOH Social Connections [employer] 1 [facility] Start: 12-27-2020 History SDOH Social Connections Living 7 [facility] Start: 12-27-2020 Education 16 [facility] Start: 01-21-2016 Tobacco Comment 1 tin chew per day/ 1 pack of cigs a week [facility] Start: 1980 Sex Assigned At Not on file C [facility] Start: 10-04-2021 End: 02-03-2022 Exposure to SARS-CoV-2 (event) Not sure [facility] Start: 01-13-2022 History SDOH Alcohol Comment Daily [facility] Start: 10-06-2022 Tobacco Comment 1 tin chew AZRA RY COUPLE DAYS/ 1 pack of cigs a week [facility] Start: 10-06-2022 Alcohol Comment weekends [facility] Start: 12-27-2020 End: 03-09-2023 Social connection and isolation panel [facility] Do you belong to any clubs or organizations such as yazidi groups, unions, fraternal or athletic groups, or school groups? No [facility] Are you now , , , , never or living with a partner? Never [facility] How often to you hav e a drink containing alcohol? 4 or more times a week [facility] How many standard dr inks containing alcohol do you have on a typical day? 7 to 9 [facility] How often do you hav e 6 or more drinks on 1 occasion? Daily or almost daily [facility] How hard is it for y ou to pay for the very basics like food, housing, medical care, and heating Somewhat hard [facility] Adult Depression Scr eening Assessment 0 [facility] Work Phone: Do you feel stress - tense, restless, nervous, or anxious, or unable to sleep at night because your mind is troubled all the time - these days [OSQ] Rather much [facility] (I/We) worried tram er (my/our) food would run out before (I/we) got money to buy more. Often true [facility] The food that (I/we) bought just didn't last, and (I/we) didn't have money to get more. Sometimes true [facility] At any time in the p ast 12 months, were you homeless or living in retirement [including now]? Yes [facility] Start: 03-09-2023 Alcohol intake Ex-drinker (finding) [facility] Start: 03-09-2023 Alcohol Comment 6 beers a day after work, 24 a day on the weekends [facility] Tobacco smoking status Ex-smoker (finding ) [facility] Sex Assigned At Sex [facility] Start: 06-09-2023 Tobacco smoking status Smoker (findi ng) [facility] Start: 06-11-2023 Tobacco smoking status Heavy t obacco smoker (finding) [facility] Medical Equipment Procedure Code Equipment Code Equipment Origin al Text Equipment Identifier Dates Patch Srg Vntrlx St 1.7in [facility] - [id number] Start: 07-21-2014 Functional Status Date Assessment Result Facility 06-11-2023 Functional Status Standard Safet y ID band on, Call device within reach, Bed in low position, Wheels locked, Upper/Half-Length side-rails up, Bedside Cart Locked, Safety level maintained [facility] 06-09-2023 Functional Status Up ad adrian Lorraine Erich bradshaw [facility] 04-12-2023 Functional Status Awake, Resting [facility] Mental Status Date Assessment Result Facility 06-11-2023 Mental Status Orientation Oriented x 4 [facility] 06-11-2023 Mental Status [facility] 06-09-2023 Mental Status Orientation Oriented x 4 [facility] 04-12-2023 Mental Status Orientation Oriented x 4 [facility] Clinical Notes 04-07-2014 to 06-22-2023 Telephone Encounter - Wilmar Taveras Ma - 04/06/2023 3:53 PM ESTRacquel Rodriguez RDMS - 04/02/2023 3:15 PM ESTTelephone Encounter - Robyn Aguilar PSS - 03/24/2023 12:53 PM EDTPatient Instructions Note Date & Type Note Facility 06-22-2023 Note HNO ID: [id number] Author: WILBERT PRITCHETT MD Service: ? Author Type: Physician Type: Progress Notes Filed: 06/23/2023 19:27 Note Text: This note was created using WiNetworksriter. Subjective Patient presents with: Recheck: ER left arm injury Ida Nicholas is a 43 year old male who developed pain, redness, and swelling of the left elbow from a welding burn 2 weeks ago. He was in the ER twice and treated with IV antibiotics. ER reports were limited but it seemed he had imaging done, and a referral for surgery or orthopedics was not recommended. His arm was getting better. Review of Systems Constitutional: Negative for chills, fatigue and fever. Respiratory: Negative. Cardiovascular: Negative. Gastrointestinal: Negative for diarrhea, nausea and vomiting. Musculoskeletal: Positive for arthralgias. Skin: Positive for wound. ACTIVE PROBLEM LIST Alcohol abuse, episodic Tobacco Use Disorder Dysmetabolic Syndrome Hyperlipidemia H/O: Substance Abuse (Hcc) Gerd (Gastroesophageal Reflux Disease) Anxiety Disorder Sprain of Medial Collateral Ligament of Right Knee Bronchospasm Obesity, Class I, Bmi 30-34.9 Acute Pancreatitis Social History Tobacco Use Smoking status: Light Smoker Packs/day: 0.50 Years: 20.00 Additional pack years: 0.00 Total pack years: 10.00 Types: Cigarettes Smokeless tobacco: Current Types: Snuff Tobacco comments: 1 tin chew EVERY COUPLE DAYS/ 1 pack of cigs a week Vaping Use Vaping Use: Never used Substance Use Topics Alcohol use: Not Currently Alcohol/week: 60.0 standard drinks of alcohol Types: 60 Cans of Beer (12oz) per week Comment: 6 beers a day after work, 24 a day on the weekends Drug use: No Types: IV, Cocaine Comment: history of cocaine 2006 Current Outpatient Medications Medication Sig omeprazole (PRILOSEC) 40 mg capsule Take 1 capsule by mouth once daily. sildenafil (VIAGRA) 50 mg tablet Take 1 tablet by mouth once daily as needed. No current facility-administered medications for this visit. Objective BP (P) 136/80 (BP Site: Right Arm, BP Position: Sitting, BP Cuff Size: Regular Adult) Pulse (P) 84 Wt (P) 77.6 kg (171 lb) BMI (P) 28.46 kg/m? Physical Exam Constitutional: Appearance: He is not ill-appearing. Pulmonary: Effort: No respiratory distress. Musculoskeletal: Left upper arm: Normal. Left elbow: Swelling present. No effusion. Normal range of motion. No tenderness. Left forearm: No swelling. Comments: Crusted small burn wound left olecranon process, with residual surrounding erythema 2 inch diameter. No drainage, no abscess, minimal tenderness. Assessment and Plan 1. Cellulitis of left elbow - ICD9: 682.3, ICD10: L03.114 Extend antibiotic treatment. Return if not better, or go to ER if worse. - CEPHALEXIN 500 MG CAPSULE Wilbert Pritchett MD [facility] 06-17-2023 Note . MICRO - Microbiology PROCEDURE: Blood Culture (bacterial) [*1] SOURCE: Blood BODY SITE: COLLECTED DATE/TIME: 06/11/2023 18:03 EST RECEIVED DATE/TIME: 06/12/2023 16:08 EST START DATE/TIME: 06/12/2023 16:08 EST FREE TEXT SOURCE: FINAL REPORTS Final Report [] Verified Date/Time/Personnel: 06/17/2023 16:59 EST Blood Culture: No Growth at 5 days. PRELIMINARY REPORTS Preliminary Report [] Verified Date/Time/Personnel: 06/12/2023 16:59 EST Culture has been received in lab and is no growth to date. Routine cultures are held for 5 days. Performing Locations *1: This test was performed at: [address], [address] [place] [address] ([place]) 06-16-2023 Note . MICRO - Microbiology PROCEDURE: Blood Culture (bacterial) [*1] SOURCE: Blood BODY SITE: COLLECTED DATE/TIME: 06/11/2023 16:21 EST RECEIVED DATE/TIME: 06/11/2023 20:19 EST START DATE/TIME: 06/11/2023 20:20 EST FREE TEXT SOURCE: FINAL REPORTS Final Report [] Verified Date/Time/Personnel: 06/16/2023 20:59 EST Blood Culture: No Growth at 5 days. PRELIMINARY REPORTS Preliminary Report [] Verified Date/Time/Personnel: 06/11/2023 20:59 EST Culture has been received in lab and is no growth to date. Routine cultures are held for 5 days. Performing Locations *1: This test was performed at: [address], [facility] , [facility] ([place]) 06-11-2023 Hospital Discharg e instructions Patient Education 06/11/2023 17:58:09 Cellulitis Skin Infection Cellulitis Cellulitis is an infection of the deep layers of skin. A break in the skin, such as a cut or scratch, can let bacteria under the skin. If the bacteria get to deep layers of the skin, it can be serious. If not treated, cellulitis can get into the bloodstream and lymph nodes. The infection can then spread throughout the body. This causes serious illness. Cellulitis causes the affected skin to become red, swollen, warm, and sore. The reddened areas have a visible border. An open sore may leak fluid (pus). You may have a fever, chills, and pain. Cellulitis is treated with antibiotics taken for 7 to 10 days. An open sore may be cleaned and covered with cool wet gauze. Symptoms should get better 1 to 2 days after treatment is started. Make sure to take all the antibiotics for the full number of days until they are gone. Keep taking the medicine even if your symptoms go away. Home care Follow these tips: Limit the use of the part of your body with cellulitis. If the infection is on your leg, keep your leg raised while sitting. This will help to reduce swelling. Take all of the antibiotic medicine exactly as directed until it is gone. Do not miss any doses, especially during the first 7 days. Don t stop taking the medicine when your symptoms get better. Keep the affected area clean and dry. Wash your hands with soap and warm water before and after touching your skin. Anyone else who touches your skin should also wash his or her hands. Don't share towels. Follow-up care Follow up with your healthcare provider, or as advised. If your infection does not go away on the first antibiotic, your healthcare provider will prescribe a different one. When to seek medical advice Call your healthcare provider right away if any of these occur: Red areas that spread Swelling or pain that gets worse Fluid leaking from the skin (pus) Fever higher of 100.4 F (38.0 C) or higher after 2 days on antibiotics [id number] [employer]. [address] [place] [address]. All rights reserved. This information is not intended as a substitute for professional medical care. Always follow your healthcare professional's instructions. Follow Up Care 06/11/2023 15:51:39 With:Follow up with primary care provider Address:Unknown When:2-4 days [facility] 06-11-2023 Emergency department Discharge summary Discharge Instructions Thank you for allowing [facility] to assist you with your healthcare needs. The following is important discharge information regarding your hospital visit. Diagnosis from Today's Visit Arm pain-swelling What to Do Next Instructions from Your Care Team No qualifying data available. Post Acute Orders No qualifying data available. You Need to Schedule the Following Appointments Follow Up with Follow up with primary care provider When Within 2-4 days Allergies NKA Medications Please ask your primary doctor or pharmacist before taking any other medication not listed, including over the counter drugs, herbal medications, vitamins and or supplements as they may interact with your home medications. What How Much When Why Instructions Last Dose Unchanged cephalexin (Keflex use cephalexin ) 500 Milligram by mouth Two (2) times a day Duration: 10 Days Unchanged famotidine (Pepcid 40 mg oral tablet) 1 tab(s) by mouth Two (2) times a day Duration: 14 Days Unchanged omeprazole (omeprazole 40 mg oral delayed release capsule) 1 cap by mouth Once a day Unchanged predniSONE (predniSONE 20 mg oral tablet) 2 tab(s) by mouth Every day Numbness of lower limb Duration: 5 Days Unchanged sulfamethoxazole-trimethoprim (Bactrim DS 800 mg-160 mg oral tablet) 1 tab(s) by mouth Two (2) times a day Duration: 10 Days Please take this list to your next doctor s visit. Bring all medications you take, including over the counter medications, herbals and other supplements with you to your doctor s visit. Patients and families are reminded to discard old lists and to update any records with all medication providers or retail pharmacies. Education Materials Cellulitis Cellulitis is an infection of the deep layers of skin. A break in the skin, such as a cut or scratch, can let bacteria under the skin. If the bacteria get to deep layers of the skin, it can be serious. If not treated, cellulitis can get into the bloodstream and lymph nodes. The infection can then spread throughout the body. This causes serious illness. Cellulitis causes the affected skin to become red, swollen, warm, and sore. The reddened areas have a visible border. An open sore may leak fluid (pus). You may have a fever, chills, and pain. Cellulitis is treated with antibiotics taken for 7 to 10 days. An open sore may be cleaned and covered with cool wet gauze. Symptoms should get better 1 to 2 days after treatment is started. Make sure to take all the antibiotics for the full number of days until they are gone. Keep taking the medicine even if your symptoms go away. Home care Follow these tips: Limit the use of the part of your body with cellulitis. If the infection is on your leg, keep your leg raised while sitting. This will help to reduce swelling. Take all of the antibiotic medicine exactly as directed until it is gone. Do not miss any doses, especially during the first 7 days. Don t stop taking the medicine when your symptoms get better. Keep the affected area clean and dry. Wash your hands with soap and warm water before and after touching your skin. Anyone else who touches your skin should also wash his or her hands. Don't share towels. Follow-up care Follow up with your healthcare provider, or as advised. If your infection does not go away on the first antibiotic, your healthcare provider will prescribe a different one. When to seek medical advice Call your healthcare provider right away if any of these occur: Red areas that spread Swelling or pain that gets worse Fluid leaking from the skin (pus) Fever higher of 100.4 F (38.0 C) or higher after 2 days on antibiotics [id number] [employer]. [address] [place] [address]. All rights reserved. This information is not intended as a substitute for professional medical care. Always follow your healthcare professional's instructions. Additional Information VACCINATE! IT SAVES LIVES! Members of the community who have not yet received the COVID-19 vaccine and would like to receive it can visit one of [facility] vaccine clinics. There are many vaccine clinic locations within the [facility]. For locations and available times, please visit [email or web address] .gov/. It is important to note that some COVID mobile vaccine clinics are held outdoors and may be canceled in rainy or stormy conditions. To learn more about pediatric vaccinations (ages 5-11), we invite you to visit the [facility] webpage. [email or web address].[email or web address]/ pages/[email or web address]-Wbliz-Jvoxbctssbt-Fr vwkvxenn-Stzxk-Yqgnqkpya.html To learn more about the COVID-19 vaccine, we invite you to visit the CDC website for a list of frequently asked questions. https://www.cdc.gov/coronavirus /2019-ncov/vaccines/faq.html [facility] Patient [facility] Access Instructions: Stay connected with your healthcare team and access your personal medical information anytime with the [facility] Patient Portal. If you would like a full copy of your medical records please contact the [facility] Medical Records Department Sunday through Sunday between 8a.m. and 4:30p.m. Please follow the directions below to access the portal: 1.Access the email account you provided upon registration to the [facility].2.Look for an invitation email from [facility].3.Open the email and access the invitation link: Accept Invitation to [facility].Fill in the required lawrence to create your account. Sign into www.[employer] with your username and password that you created in the above steps to stay up to date. You can then view a summary of results, a summary of your visits, and the ability to download your summaries to your computer or send the information securely to a physician. Remember that your healthcare information is confidential, so carefully consider who you will allow to register on the [facility] Patient Portal for access to your information. You can also access the [facility] Patient Portal on the [employer]. Simply click on Health Records under Health Data and then click on the [employer] logo. HOW TO SAFELY DISPOSE OF PRESCRIPTION MEDICATIONS Please use one of the following methods to safely dispose of your unused medications. 1.Use a drug disposal kit: the drug disposal pouch allows you to safely discard your old and unused drugs. Ask your nurse to give you one when you are discharged.2.Visit a local take-back location: Many local pharmacies and police departments have programs that collect old and unwanted prescription drugs. Call your local pharmacy or go to http://Sifteo/7Z6Il2k to find one close to you.3.Make use of household items: Use cat litter or old coffee grounds to dispose medications if other options are not available. Mix your drugs with these household products, seal them in an airtight container and throw it into the garbage. Call [facility]: [phone] to be sure your drugs can be disposed of in this way. Some medicines may require a different approach.4.Never flush your medications down the toilet. IF YOU HAVE BEEN PRESCRIBED AN OPIOIDS FOR PAIN If you have been prescribed an opioid (such as hydrocodone, oxycodone or morphine), it is critical to understand the possible side effects and risks of opioid pain medications. Even when taken as directed, opioids can have several side effects including: Tolerance, meaning you might need to take more of a medication for the same pain relief. Nausea, vomiting and/or constipation. Sleepiness, dizziness, dry mouth, confusion, depression or itching. Physical dependence, meaning you have withdrawal symptoms when a medication is stopped ? this can develop within a few days. KNOW YOUR RESPONSIBILITIES It is important to know exactly how much and how often to take the opioid pain medications you are prescribed. Never take opioids in higher amounts or more often than prescribed. Do not combine opioids with alcohol or other drugs that cause drowsiness, such as benzodiazepines, also known as benzos, including diazepam and alprazolam, muscle relaxants or sleep aids. Never sell or share prescription opioids. This is illegal. Store opioids in a secure place and out of reach of others (including children, family, friends and visitors). The last page(s) of this document has been signed and retained as a CHART COPY Signatures Patient Education Materials Cellulitis Skin Infection Medication Leaflets My discharge plan and instructions have been reviewed and explained to me and IEDEL AARON J understand my current condition and have read and understand these discharge instructions. I have received a written copy of the plan/instructions. If I have questions, I am aware that I should contact my doctor. 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 A break in the skin, such as a cut or scratch, can let bacteria under the skin. If the bacteria get to deep layers of the skin, it can be serious. If not treated, cellulitis can get into the bloodstream and lymph nodes. The infection can then spread throughout the body. This causes serious illness. Cellulitis causes the affected skin to become red, swollen, warm, and sore. The reddened areas have a visible border. An open sore may leak fluid (pus). You may have a fever, chills, and pain. Cellulitis is treated with antibiotics taken for 7 to 10 days. An open sore may be cleaned and covered with cool wet gauze. Symptoms should get better 1 to 2 days after treatment is started. Make sure to take all the antibiotics for the full number of days until they are gone. Keep taking the medicine even if your symptoms go away. Home care Follow these tips: Limit the use of the part of your body with cellulitis. If the infection is on your leg, keep your leg raised while sitting. This will help to reduce swelling. Take all of the antibiotic medicine exactly as directed until it is gone. Do not miss any doses, especially during the first 7 days. Don t stop taking the medicine when your symptoms get better. Keep the affected area clean and dry. Wash your hands with soap and warm water before and after touching your skin. Anyone else who touches your skin should also wash his or her hands. Don't share towels. Follow-up care Follow up with your healthcare provider, or as advised. If your infection does not go away on the first antibiotic, your healthcare provider will prescribe a different one. When to seek medical advice Call your healthcare provider right away if any of these occur: Red areas that spread Swelling or pain that gets worse Fluid leaking from the skin (pus) Fever higher of 100.4 F (38.0 C) or higher after 2 days on antibiotics 6547-6003 [employer]. [address] [place] [address]. All rights reserved. This information is not intended as a substitute for professional medical care. Always follow your healthcare professional's instructions. Follow Up Care 06/09/2023 16:19:03 With:[facility] Address: [address] [place] [phone] When:2-4 days [facility] 06-09-2023 Note Discharge Instructions Thank you for allowing [facility] to assist you with your healthcare needs. The following is important discharge information regarding your hospital visit. Diagnosis from Today's Visit Elbow pain-swelling What to Do Next Instructions from Your Care Team Follow-up with your PCP in the next 2 to 4 days. Please return to the emergency department if you start experiencing high fevers or if you notice that the area of redness has gone past our markings. Please return to the emergency department if you start experiencing worsening pain or decreased ability for movement in your elbow No qualifying data available. Post Acute Orders No qualifying data available. You Need to Schedule the Following Appointments Follow Up with [facility], [facility] When Within 2-4 days Where: [address] [place] [phone] Allergies NKA Medications Please ask your primary doctor or pharmacist before taking any other medication not listed, including over the counter drugs, herbal medications, vitamins and or supplements as they may interact with your home medications. What How Much When Why Instructions Last Dose New cephalexin (Keflex use cephalexin ) 500 Milligram by mouth Two (2) times a day Duration: 10 Days Printed Prescription New sulfamethoxazole-trimethoprim (Bactrim DS 800 mg-160 mg oral tablet) 1 tab(s) by mouth Two (2) times a day Duration: 10 Days Printed Prescription Unchanged famotidine (Pepcid 40 mg oral tablet) 1 tab(s) by mouth Two (2) times a day Duration: 14 Days Unchanged omeprazole (omeprazole 40 mg oral delayed release capsule) 1 cap by mouth Once a day Unchanged predniSONE (predniSONE 20 mg oral tablet) 2 tab(s) by mouth Every day Numbness of lower limb Duration: 5 Days Please take this list to your next doctor s visit. Bring all medications you take, including over the counter medications, herbals and other supplements with you to your doctor s visit. Patients and families are reminded to discard old lists and to update any records with all medication providers or retail pharmacies. Medication Leaflets cephalexin (sef a NAY in) What is the most important information I should know about cephalexin? You should not use this medicine if you are allergic to cephalexin or to similar antibiotics, such as Ceftin, Cefzil, Omnicef, and others. Tell your doctor if you are allergic to any drugs, especially penicillins or other antibiotics. What is cephalexin? Cephalexin is a cephalosporin (SEF a low spor in) antibiotic that is used to treat bacterial infections of the lungs, ear, skin, bones, bladder, and kidneys. Cephalexin is used to treat infections in adults and children who are at least 1 year old. Cephalexin may also be used for purposes not listed in this medication guide. What should I discuss with my healthcare provider before taking cephalexin? You should not use this medicine if you are allergic to cephalexin or any other cephalosporin antibiotic (cefdinir, cefadroxil, cefoxitin, cefprozil, ceftriaxone, cefuroxime, Omnicef, and others). Tell your doctor if you have ever had: an allergy to any drug (especially penicillin); liver or kidney disease; or intestinal problems, such as colitis. The liquid form of cephalexin may contain sugar. This may affect you if you have diabetes. Tell your doctor if you are or breast-feeding. How should I take cephalexin? Follow all directions on your prescription label and read all medication guides or instruction sheets. Use the medicine exactly as directed. Do not use cephalexin to treat any condition that has not been checked by your doctor. Measure liquid medicine carefully. Use the dosing syringe provided, or use a medicine dose-measuring device (not a kitchen spoon). Use this medicine for the full prescribed length of time, even if your symptoms quickly improve. Skipping doses can increase your risk of infection that is resistant to medication. Cephalexin will not treat a viral infection such as the flu or a common cold. Do not share cephalexin with another person, even if they have the same symptoms you have. This medicine can affect the results of certain medical tests. Tell any doctor who treats you that you are using cephalexin. Store the tablets and capsules at room temperature away from moisture, heat, and light. Store the liquid medicine in the refrigerator. Throw away any unused liquid after 14 days. What happens if I miss a dose? Take the medicine as soon as you can, but skip the missed dose if it is almost time for your next dose. Do not take two doses at one time. What happens if I overdose? Seek emergency medical attention or call the Poison Help line at . Overdose symptoms may include nausea, vomiting, stomach pain, diarrhea, and blood in your urine. What should I avoid while taking cephalexin? Antibiotic medicines can cause diarrhea, which may be a sign of a new infection. If you have diarrhea that is watery or bloody, call your doctor before using anti-diarrhea medicine. What are the possible side effects of cephalexin? Get emergency medical help if you have signs of an allergic reaction (hives, difficult breathing, swelling in your face or throat) or a severe skin reaction (fever, sore throat, burning eyes, skin pain, red or purple skin rash with blistering and peeling). Call your doctor at once if you have: severe stomach pain, diarrhea that is watery or bloody (even if it occurs months after your last dose); unusual tiredness, feeling light-headed or short of breath; easy bruising, unusual bleeding, purple or red spots under your skin; a seizure; pale skin, cold hands and feet; yellowed skin, dark colored urine; fever, weakness; or pain in your side or lower back, painful urination. Common side effects may include: diarrhea; nausea, vomiting; indigestion, stomach pain; or vaginal itching or discharge. This is not a complete list of side effects and others may occur. Call your doctor for medical advice about side effects. You may report side effects to FDA at 9-200-ISO-2013. What other drugs will affect cephalexin? Tell your doctor about all your other medicines, especially: metformin; or probenecid. This list is not complete. Other drugs may affect cephalexin, including prescription and vbjk-ugk-crpfgzm medicines, vitamins, and herbal products. Not all possible drug interactions are listed here. Where can I get more information? Your pharmacist can provide more information about cephalexin. Remember, keep this and all other medicines out of the reach of children, never share your medicines with others, and use this medication only for the indication prescribed. Every effort has been made to ensure that the information provided by [employer]. ('[employer]') is accurate, up-to-date, and complete, but no guarantee is made to that effect. Drug information contained herein may be time sensitive. [employer] information has been compiled for use by healthcare practitioners and consumers in the [place] and therefore [employer] does not warrant that uses outside of the [place] are appropriate, unless specifically indicated otherwise. [employer] drug information does not endorse drugs, diagnose patients or recommend therapy. [employer] drug information is an informational resource designed to assist licensed healthcare practitioners in caring for their patients and/or to serve consumers viewing this service as a supplement to, and not a substitute for, the expertise, skill, knowledge and judgment of healthcare practitioners. The absence of a warning for a given drug or drug combination in no way should be construed to indicate that the drug or drug combination is safe, effective or appropriate for any given patient. [facility] does not assume any responsibility for any aspect of healthcare administered with the aid of information [facility] provides. The information contained herein is not intended to cover all possible uses, directions, precautions, warnings, drug interactions, allergic reactions, or adverse effects. If you have questions about the drugs you are taking, check with your doctor, nurse or pharmacist. Copyright 4494-4333 [facility] Hospital[facility] Solutions[employer]Med[employer].com. Version: 04.27. Revision Date: 12/27/2022. sulfamethoxazole and trimethoprim (oral/injection) (SUL fa meth OX a zole and trye METH oh prim) Bactrim, Bactrim DS, Sulfatrim Pediatric What is the most important information I should know about sulfamethoxazole and trimethoprim? Use only as directed. Tell your doctor if you use other medicines or have other medical conditions or allergies. What is sulfamethoxazole and trimethoprim? Sulfamethoxazole and trimethoprim is a combination antibiotic used to treat ear infections, urinary tract infections, bronchitis, traveler's diarrhea, shigellosis, and Pneumocystis jiroveci pneumonia. Sulfamethoxazole and trimethoprim may also be used for purposes not listed in this medication guide. What should I discuss with my healthcare provider before using sulfamethoxazole and trimethoprim? You should not use this medicine if you are allergic to sulfamethoxazole or trimethoprim, or if you have: severe liver disease; kidney disease that is not being treated or monitored; anemia (low red blood cells) caused by folic acid deficiency; a history of low blood platelets after taking trimethoprim or any sulfa drug; or if you take dofetilide. May cause defects. Do not use if you are . Tell your doctor if you become . Do not breastfeed. This medicine should not be given to a child younger than 2 months old. Tell your doctor if you have ever had: kidney or liver disease; a folate (folic acid) deficiency; asthma or severe allergies; HIV or AIDS; a thyroid disorder; malnourishment; alcoholism; an electrolyte imbalance (such as low blood sodium or high potassium); porphyria, or kregeux-3-lidumwqpp dehydrogenase (G6PD) deficiency; or if you use a blood thinner (such as warfarin) and you have routine 'INR' or prothrombin time tests. How should I use sulfamethoxazole and trimethoprim? Follow all directions on your prescription label and read all medication guides or instruction sheets. Use the medicine exactly as directed. Sulfamethoxazole and trimethoprim oral is taken by mouth. Shake the oral suspension (liquid). Measure a dose with the supplied measuring device (not a kitchen spoon). Sulfamethoxazole and trimethoprim injection is given in a vein. Be sure you understand how to properly mix this medicine with a liquid (diluent) and how to store the mixture. Ask your doctor or pharmacist if you don't understand how to use an injection. Prepare an injection only when you are ready to give it. Call your pharmacist if the medicine looks cloudy, has changed colors, or has particles in it. Mixed medicine must be used within 2 to 6 hours depending on the amount of diluent in the mixture. Follow your doctor's instructions. Do not refrigerate mixed medicine. Do not reuse a needle or syringe. Place them in a puncture-proof 'sharps' container and dispose of it following state or local laws. Keep out of the reach of children and pets. Drink plenty of fluids to prevent kidney stones. Antibiotic medicines can cause diarrhea. Tell your doctor if you have diarrhea that is watery or bloody. Keep using this medicine even if your symptoms quickly improve. Skipping doses could make your infection resistant to medication. Sulfamethoxazole and trimethoprim will not treat a viral infection (flu or a common cold). You may need blood and urine tests, and this medicine may be stopped based on the results. Store at room temperature away from moisture, heat, and light. Do not refrigerate. What happens if I miss a dose? Use the medicine as soon as you can, but skip the missed dose if it is almost time for your next dose. Do not use two doses at one time. What happens if I overdose? Seek emergency medical attention or call the Poison Help line at . Overdose symptoms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 Note Completion Rani Ferreira (DO (Resident)) (Signed 18-Aug-2021 05:50) Authored: History & Physical Reviewed, ERAS, Consent, Note Completion Last Updated: 18-Aug-2021 16:50 by Brigido Douglass) [facility] 11-25-2020 History of Presen t illness Narrative This 41-year-old gentleman is seen at the request of a local colleague. Since November 2020 he has had recurrent swelling in his left upper neck. It seems to happen every 3 to 4 weeks or so. He had some scanning done but unfortunately I have no access to those scans. The patient left the disc at home. He also had a biopsy done that did not seem to offer any answer to the problem. PL-Ibaehlduzzrduk-Gbdzjzq e Work Phone: 11-25-2020 History of Presen t illness Narrative This gentleman was seen at the request of a local colleague. Since November 2020 he has had recurrent swelling in his left submandibular gland. It seems to happen every 3 to 4 weeks or so. I saw him recently but I did not have the scans. I have since had a chance to review them. It shows a fairly large stone midway along the left submandibular duct. Over the past week the patient has had more discomfort. BP-Sbegbivmqfvrpd-Dtqntwo Work Phone: documented as of this encounter (statuses as of 12/09/2021) [facility] History of Past illness Narrative* Problem Noted Date Resolved Date Need for lipid screening 04/07/2014 016 Screening for diabetes mellitus (DM) 04/07/2014 08/13/2015 Nonunion of fracture 10/16/2011 08/13/2015 Overview: Right ankle. Elevated LFTs 04/27/2011 09/28/2011 Anxiety 12/29/2009 08/13/2015 LFT's abnormal 06/16/2009 04/28/2011 documented as of this encounter (statuses as of 12/27/2021) [facility] History of Past illness Narrative* Problem Noted Date Resolved Date Need for lipid screening 04/07/2014 016 Screening for diabetes mellitus (DM) 04/07/2014 08/13/2015 Nonunion of fracture 10/16/2011 08/13/2015 Overview: Right ankle. Elevated LFTs 04/27/2011 09/28/2011 Anxiety 12/29/2009 08/13/2015 LFT's abnormal 06/16/2009 04/28/2011 documented as of this encounter (statuses as of 01/05/2022) [facility] History of Past illness Narrative* Problem Noted Date Resolved Date Need for lipid screening 04/07/2014 016 Screening for diabetes mellitus (DM) 04/07/2014 08/13/2015 Nonunion of fracture 10/16/2011 08/13/2015 Overview: Right ankle. Elevated LFTs 04/27/2011 09/28/2011 Anxiety 12/29/2009 08/13/2015 LFT's abnormal 06/16/2009 04/28/2011 documented as of this encounter (statuses as of 01/13/2022) [facility] History of Past illness Narrative* Problem Noted Date Resolved Date Need for lipid screening 04/07/2014 016 Screening for diabetes mellitus (DM) 04/07/2014 08/13/2015 Nonunion of fracture 10/16/2011 08/13/2015 Overview: Right ankle. Elevated LFTs 04/27/2011 09/28/2011 Anxiety 12/29/2009 08/13/2015 LFT's abnormal 06/16/2009 04/28/2011 documented as of this encounter (statuses as of 02/01/2022) [facility] History of Past illness Narrative* Problem Noted Date Resolved Date Need for lipid screening 04/07/2014 016 Screening for diabetes mellitus (DM) 04/07/2014 08/13/2015 Nonunion of fracture 10/16/2011 08/13/2015 Overview: Right ankle. Elevated LFTs 04/27/2011 09/28/2011 Anxiety 12/29/2009 08/13/2015 LFT's abnormal 06/16/2009 04/28/2011 documented as of this encounter (statuses as of 02/03/2022) [facility] of Past illness Narrative* Problem Noted Date Resolved Date Need for lipid screening 04/07/2014 016 Screening for diabetes mellitus (DM) 04/07/2014 08/13/2015 Nonunion of fracture 10/16/2011 08/13/2015 Overview: Right ankle. Elevated LFTs 04/27/2011 09/28/2011 Anxiety 12/29/2009 08/13/2015 LFT's abnormal 06/16/2009 04/28/2011 documented as of this encounter (statuses as of 05/19/2022) [facility] of Past illness Narrative* Problem Noted Date Resolved Date Need for lipid screening 04/07/2014 016 Screening for diabetes mellitus (DM) 04/07/2014 08/13/2015 Nonunion of fracture 10/16/2011 08/13/2015 Overview: Right ankle. Elevated LFTs 04/27/2011 09/28/2011 Anxiety 12/29/2009 08/13/2015 LFT's abnormal 06/16/2009 04/28/2011 documented as of this encounter (statuses as of 10/07/2022) [facility] History of Past illness Narrative* Problem Noted Date Diagnosed Date Resolved Date Need for lipid screening 04/07/2014 Screening for diabetes mellitus (DM) 04/07/2014 08/13/2015 Nonunion of fracture 10/16/2011 016 Overview: Right ankle. Elevated LFTs 04/27/2011 09/28/2011 Anxiety 12/29/2009 08/13/2015 LFT's abnormal 06/16/2009 04/28/2011 documented as of this encounter (statuses as of 01/19/2023) [facility] History of Past illness Narrative* Problem Noted Date Diagnosed Date Resolved Date Need for lipid screening 04/07/2014 Screening for diabetes mellitus (DM) 04/07/2014 08/13/2015 Nonunion of fracture 10/16/2011 016 Overview: Right ankle. Elevated LFTs 04/27/2011 09/28/2011 Anxiety 12/29/2009 08/13/2015 LFT's abnormal 06/16/2009 04/28/2011 documented as of this encounter (statuses as of 01/19/2023) [facility] History of Past illness Narrative* Problem Noted Date Diagnosed Date Resolved Date Need for lipid screening 04/07/2014 Screening for diabetes mellitus (DM) 04/07/2014 08/13/2015 Nonunion of fracture 10/16/2011 016 Overview: Right ankle. Elevated LFTs 04/27/2011 09/28/2011 Anxiety 12/29/2009 08/13/2015 LFT's abnormal 06/16/2009 04/28/2011 documented as of this encounter (statuses as of 03/09/2023) [facility] of Past illness Narrative* Problem Noted Date Diagnosed Date Resolved Date Need for lipid screening 04/07/2014 Screening for diabetes mellitus (DM) 04/07/2014 08/13/2015 Nonunion of fracture 10/16/2011 016 Overview: Right ankle. Elevated LFTs 04/27/2011 09/28/2011 Anxiety 12/29/2009 08/13/2015 LFT's abnormal 06/16/2009 04/28/2011 documented as of this encounter (statuses as of 03/28/2023) [facility] of Past illness Narrative* Problem Noted Date Diagnosed Date Resolved Date Need for lipid screening 04/07/2014 Screening for diabetes mellitus (DM) 04/07/2014 08/13/2015 Nonunion of fracture 10/16/2011 016 Overview: Right ankle. Elevated LFTs 04/27/2011 09/28/2011 Anxiety 12/29/2009 08/13/2015 LFT's abnormal 06/16/2009 04/28/2011 documented as of this encounter (statuses as of 04/04/2023) [facility] of Past illness Narrative* Problem Noted Date Diagnosed Date Resolved Date Need for lipid screening 04/07/2014 Screening for diabetes mellitus (DM) 04/07/2014 08/13/2015 Nonunion of fracture 10/16/2011 016 Overview: Right ankle. Elevated LFTs 04/27/2011 09/28/2011 Anxiety 12/29/2009 08/13/2015 LFT's abnormal 06/16/2009 04/28/2011 documented as of this encounter (statuses as of 04/07/2023) [facility] N[facility] - ReportedConsultation for a left neck tbhsHB-Zqikkfwtjuqpje-Emiuzkfo Work Phone: Evaluation + Plan note No data available for this section [facility] Evaluation note* Diagnosis Oral thrush- Primary Candidiasis of mouth Perleche with candidiasis Candidiasis of mouth Tongue lesion Other specified conditions of the tongue Uncomplicated alcohol dependence (HCC) Other and unspecified alcohol dependence, unspecified drinking behavior [facility] Diagnosis Acute pain of right shoulder- Primary [facility] Diagnosis Impingement syndrome of right shoulder region- Primary [facility] Diagnosis Impingement syndrome of right shoulder region- Primary [facility]* Diagnosis Rosacea- Primary Cracked lips Diseases of lips Erectile dysfunction, unspecified erectile dysfunction type Hyperlipidemia, unspecified hyperlipidemia type Dysmetabolic syndrome Dysmetabolic Syndrome X Gastroesophageal reflux disease, unspecified whether esophagitis present [facility]* Diagnosis Erectile dysfunction, unspecified erectile dysfunction type [facility]* Diagnosis Gastroesophageal reflux disease, unspecified whether esophagitis present documented in this encounter [facility] note* Diagnosis Numbness and tingling of both feet- Primary Excessive drinking of alcohol Alcohol abuse, unspecified Hyperlipidemia, unspecified hyperlipidemia type Erectile dysfunction, unspecified erectile dysfunction type [facility]* Diagnosis Numbness and tingling of both feet- Primary Elevated LFTs Other abnormal blood chemistry [facility]* Diagnosis Elevated LFTs Other abnormal blood chemistry [facility]* Diagnosis Gastroesophageal reflux disease, unspecified whether esophagitis present Erectile dysfunction, unspecified erectile dysfunction type [facility] Diagnostic Procedure Only (Routine) - Authorized Specialty Diagnoses / Procedures Referred By Yaniv king Referred To Contact US IMAGING Diagnoses Elevated LFTs Procedures US ABD RIGHT UPPER QUADRANT US ABDOMINAL REAL TIME W/IMAGE LIMITED Rubi Wynn APRN.NETWORKS SOFTWARE CONSULTANT [address] [place] [address] [facility] [place] [address] Referral ID Status Reason Start Date Expiration Date Visits Requested Visits Authorized [id number] Authorized Auto-Generat ed Referral 04/21/2024 1 1 * Outpatient Procedure (Routine) - Pending Review Specialty Diagnoses / Procedures Referred By Yaniv king Referred To Contact [facility] Diagnoses Numbness and tingling of both feet Procedures EMG(NEURO/NI) NERVE CONDUCTION STUDIES 9-10 STUDIES Rubi Wynn APRN.NETWORKS SOFTWARE CONSULTANT [address] [place] [address] [facility] [place] [address] [place] [address] Referral ID Status Reason Start Date Expiration Date Visits Requested Visits Authorized [id number] Pending Review Auto-Generat ed Referral 3 03/23/2024 1 1 [facility]* Diagnostic Procedure Only (Routine) - Closed Specialty Diagnoses / Procedures Referred By Yaniv t Referred To Contact US IMAGING Diagnoses Elevated LFTs Procedures US ABD RIGHT UPPER QUADRANT US ABDOMINAL REAL TIME W/IMAGE LIMITED Rubi Wynn APRN.[employer] [address] [place] [address] [place] [address] Referral ID Status Reason Start Date Expiration Date V isits Requested Visits Authorized [id number] Closed Auto-Generate d Referral 03/23/2023 04/21/2024 1 1 [facility] Summary Purpose Family History No Family History Records FoundNo Family History Records FoundNo Family History Records Found No data available for this section No data available for this section No data available for this section No Family History Records FoundNo Family History Records Found Advance Directives No Advanced Directives Records FoundDocuments on File Type Date Recorded Patient Track Manager Expl anation Advance Directive(s) 08/30/2020 11:33 PM Documents on File Type Date Recorded Patient Track Manager Expl anation Advance Directive(s) 08/30/2020 11:33 PM Hospital Course Note HNO ID: [id number] Author: Nichole Serna MD Service: General Internal Medicine Author Type: Physician Type: Discharge Summary Filed: 09/01/2020 2:17 PM Note Text: DISCHARGE SUMMARY PATIENT NAME: Ida Nicholas ADMISSION DATE: 08/30/2020 DISCHARGE DATE: 09/01/2020 ATTENDING PHYSICIAN: Michaela Serna MD Code Status: Not on file Highest Readmission Risk Score: 16 The 30 day readmissions risk score is derived from an internally validated risk model which evaluates patient level characteristics, utilization history, medication orders and lab results up until the day of discharge. Patients with a score of 40 or above are considered highest risk for readmission. Specific patient level drivers will be listed at the bottom of the summary. CONSULTING TEAMS DURING HOSPITALIZATION: None Treatment Team: Attending Provider: Michaela Serna MD Consulting: Bethel Garrett Primary Service: Santosh Amaya REASON FOR HOSPITALIZATION: Necrotizing pancreatitis DIAGNOSIS: 1. Necrotizing pancreati (more content not included)... Chief Complaint Follow-up regarding a sialolithiasis of the left submandibular duct. Reason for Referral Specialty Diagnoses / Procedures Referred By Contac christine Referred To Contact Orthopedics Diagnoses Acute pain of right shoulder Procedures CONSULT TO ORTHOPAEDICS OFFICE/OUTPATIENT [facility] 60-74 MINUTES Yuan Celis APRN.NETWORKS SOFTWARE CONSULTANT [address] [place] [address] Referral ID Status Reason Start Date Expiration Date Visits Requested Visits Authorized [id number] Authorized PCP Requested Referral 12/27/2021 12/27/2022 1 1 Specialty Diagnoses / Procedures Referred By Contanahi king Referred To Contact Dermatology Diagnoses Rosacea Cracked lips Procedures CONSULT TO DERMATOLOGY Wilbert Pritchett MD [address] [place] [address] Referral ID Status Reason Start Date Expiration Date Visits Requested Visits Authorized [id number] Ref Not Required PCP Requested Referral 10/06/2022 10/06/2023 1 1 Additional Source Comments (unrecognized sect ion and content) No Status Records FoundNo Status Records FoundNo Status Records FoundNo Status Records FoundNo Status Records Found INFORMATION SOURCE (unrecogn ized section and content) DATE CREATED AUTHOR AUTHOR'S ORGANIZ ATION 09/01/2021 [employer] DATE CREATED AUTHOR AUTHOR'S ORGANIZ ATION 09/01/2021 [facility] DATE CREATED AUTHOR AUTHOR'S ORGANIZ ATION 06/17/2023 [facility] ([place]) DATE CREATED AUTHOR AUTHOR'S ORGANIZ ATION 06/24/2023 [facility] Source Comments (unrecognize d section and content) In the event this informatio n is protected by the Federal Confidentiality of Alcohol and Drug Abuse Patient Records regulations: The Federal rules restrict any use of the information to criminally investigate or prosecute any alcohol or drug abuse patient.[facility] the event this information is protected by the Federal Confidentiality of Alcohol and Drug Abuse Patient Records regulations: The Federal rules restrict any use of the information to criminally investigate or prosecute any alcohol or drug abuse patient.[facility] Institute[facility] the event this information is protected by the Federal Confidentiality of Alcohol and Drug Abuse Patient Records regulations: The Federal rules restrict any use of the information to criminally investigate or prosecute any alcohol or drug abuse patient.[facility] Institute[facility] the event this information is protected by the Federal Confidentiality of Alcohol and Drug Abuse Patient Records regulations: The Federal rules restrict any use of the information to criminally investigate or prosecute any alcohol or drug abuse patient.[facility] Institute[facility] the event this information is protected by the Federal Confidentiality of Alcohol and Drug Abuse Patient Records regulations: The Federal rules restrict any use of the information to criminally investigate or prosecute any alcohol or drug abuse patient.[facility] Institute[facility] the event this information is protected by the Federal Confidentiality of Alcohol and Drug Abuse Patient Records regulations: The Federal rules restrict any use of the information to criminally investigate or prosecute any alcohol or drug abuse patient.[facility] Institute[facility] the event this information is protected by the Federal Confidentiality of Alcohol and Drug Abuse Patient Records regulations: The Federal rules restrict any use of the information to criminally investigate or prosecute any alcohol or drug abuse patient.[facility] Institute[facility] the event this information is protected by the Federal Confidentiality of Alcohol and Drug Abuse Patient Records regulations: The Federal rules restrict any use of the information to criminally investigate or prosecute any alcohol or drug abuse patient.[facility] Institute[facility] the event this information is protected by the Federal Confidentiality of Alcohol and Drug Abuse Patient Records regulations: The Federal rules restrict any use of the information to criminally investigate or prosecute any alcohol or drug abuse patient.[facility] InstituteIn the event this information is protected by the Federal Confidentiality of Alcohol and Drug Abuse Patient Records regulations: The Federal rules restrict any use of the information to criminally investigate or prosecute any alcohol or drug abuse patient.[facility] Institute[facility] the event this information is protected by the Federal Confidentiality of Alcohol and Drug Abuse Patient Records regulations: The Federal rules restrict any use of the information to criminally investigate or prosecute any alcohol or drug abuse patient.[facility] Institute[facility] the event this information is protected by the Federal Confidentiality of Alcohol and Drug Abuse Patient Records regulations: The Federal rules restrict any use of the information to criminally investigate or prosecute any alcohol or drug abuse patient.[facility] Institute[facility] the event this information is protected by the Federal Confidentiality of Alcohol and Drug Abuse Patient Records regulations: The Federal rules restrict any use of the information to criminally investigate or prosecute any alcohol or drug abuse patient.[facility] Institute[facility] the event this information is protected by the Federal Confidentiality of Alcohol and Drug Abuse Patient Records regulations: The Federal rules restrict any use of the information to criminally investigate or prosecute any alcohol or drug abuse patient.[facility] Reason for Visit (unrecogn ed section and content) Reason Comments Pain (RT) shoulder injury helping move furniture pain rated 9, [facility] xray wrist, (RT) shoulder pt reported negative Reason Comments right shoulder pain REF: Cam Celis - [facility] ED 12/19/2021 Reason Comments Patient Update Reason Comments Follow-up Shoulder Pain Reason Comments Derm Problem EYELIDS ARE DRY AND FLAKY, LIPS ARE CHAPPED Erectile Dysfunction Reason Onset Date Comments Refill Request 01/19/2023 Reason Comments feet going numb X4 weeks Reason Comments Results Reason Onset Date Comments Refill Request 04/06/2023 Care Teams (unrecognized sec tion and content) Employee Benefits Director Relationship Specialty Start Date End Date Wilbert Pritchett MD [address] [place], [place] [id number] PCP - General 12/23/09 Employee Benefits Director Relationship Specialty Start Date End Date Wilbert Pritchett MD [address] [place], [place] [id number] PCP - General 12/23/09 Employee Benefits Director Relationship Specialty Start Date End Date Wilbert Pritchett MD [address] [place], [place] [id number] PCP - General 12/23/09 Employee Benefits Director Relationship Specialty Start Date End Date Wilbert Pritchett MD [address] [facility] [place] [address] PCP - General 12/23/09 Employee Benefits Director Relationship Specialty Start Date End Date Wilbert Pritchett MD [address] [facility] [place] [address] PCP - General 12/23/09 Employee Benefits Director Relationship Specialty Start Date End Date Wilbert Pritchett MD [address] [facility] [place] [address] PCP - General 12/23/09 Employee Benefits Director Relationship Specialty Start Date End Date Wilbert Pritchett MD [address] [facility] [place] [address] PCP - General 12/23/09 Employee Benefits Director Relationship Specialty Start Date End Date Wilbert Pritchett MD [address] [place] [address] PCP - General 12/23/09 Employee Benefits Director Relationship Specialty Start Date End Date Wilbert Pritchett MD [address] [facility] [place] [address] PCP - General 12/23/09 Employee Benefits Director Relationship Specialty Start Date End Date Wilbert Pritchett MD [address] [facility] [place] [address] PCP - General 12/23/09 Employee Benefits Director Relationship Specialty Start Date End Date Wilbert Pritchett MD [address] [facility] [place] [place] [address] PCP - General 12/23/09 Employee Benefits Director Relationship Specialty Start Date End Date Wilbert Pritchett MD [address] [place] [address] PCP - General 12/23/09 Employee Benefits Director Relationship Specialty Start Date End Date Wilbert Pritchett MD [address] [place], [place] [address] PCP - General 12/23/09 FOR RECORDS PERTAINING TO PATIENTS WHO ARE OR HAVE BEEN ENROLLED IN A CHEMICAL DEPENDENCY/SUBSTANCEABUSE PROGRAM, SOME INFORMATION MAY BE OMITTED. This clinical summary was aggregated from multiple sources. Caution should be exercised in using it in the provision of clinical care. This summary normalizes information from multiple sources, and as a consequence, information in this document may materially change the coding, format and clinical context of patient data. In addition, data may be omitted in some cases. CLINICAL DECISIONS SHOULD BE BASED ON THE PRIMARY CLINICAL RECORDS. [facility] provides no warranty or guarantee of the accuracy or completeness of information in this document.
[2023-07-05 19:15] LABS: Color, Urine Yellow (Yellow); Glucose, Dipstick Normal (Normal); Ketone-Dipstick 15 mg/dl (Negative); Leukocyte Esterase-Dipstick Negative /ul (Negative); Nitrite-Dipstick Negative (Negative); Occult Blood-Urine Negative /ul (Negative); Protein-Dipstick 15 mg/dl (Negative); Urine Bilirubin Dipstick Negative (Negative); Urine Clarity Clear (Clear); Urine Urobilinogen Normal (Normal); Urine pH 6.5 (5.0 - 8.0)
[2023-07-05 19:24] LABS: Amphetamine Urine VISTA NEGATIVE (<1000 ng/mL); Barbiturate Urine VISTA NEGATIVE (< 200 ng/mL); Benzodiazepine Urine VISTA NEGATIVE (< 200 ng/mL); Cocaine Urine VISTA NEGATIVE (< 300 ng/mL); Ecstacy Urine VISTA NEGATIVE (< 500 ng/mL); Methadone Urine VISTA NEGATIVE (< 300 ng/mL); PCP Urine VISTA NEGATIVE (< 25 ng/mL); THC Urine VISTA NEGATIVE (< 50 ng/mL); Vista UDS pH Range 6
[2023-07-05 20:20] VITALS: BP 130/86; PULSE 148; RESP 16; O2SAT 98
[2023-07-05 20:37] VITALS: PULSE 102
--- NOTE | 2023-07-05 21:52 | ED.RN ---
Pt adamant to this RN that he will not stay any longer, states I'm still dizzy but I'm fine . Pt advised on risks of leaving with continued symptoms of dizziness, increased heart rate up to and including . Pt states my heart always does that . Pt's mother coming to transport pt home. Pt signed AMA papers, ambulated to waiting room without difficulty.
[2023-07-05 21:55] VITALS: BP 138/79; PULSE 112; RESP 18; O2SAT 99
== END 2023-07-05 21:56 | disposition left against medical advice (07) ==
PROVIDERS: Emergency Provider Student in an Organized Health Care Education/Training Program; Visit Provider Student in an Organized Health Care Education/Training Program
DX: R42 Dizziness and giddiness (principal); F10.129 Alcohol abuse with intoxication, unspecified; E87.1 Hypo-osmolality and hyponatremia; E87.6 Hypokalemia; Y90.8 Blood alcohol level of 240 mg/100 ml or more; E78.5 Hyperlipidemia, unspecified; F17.210 Nicotine dependence, cigarettes, uncomplicated; Z53.29 Procedure and treatment not carried out because of patient's decision for other reasons
CPT/HCPCS: 70450; 80048; 80076; 80307; 80320; 81001; 82140; 82962; 84484; 85025; 93005; 99284; A4216; G0480

== ENCOUNTER 2023-07-15 16:52 | Inpatient (IN) | payer MEDICAID, SELFPAY ==
[2023-07-15 16:53] VITALS: BP 138/107; PULSE 96; RESP 18; TEMP 36.1; O2SAT 99; BMI 27.8
--- NOTE | 2023-07-15 17:15 | CT_ITS ---
STUDY: CTA OF THE BRAIN REASON FOR EXAM: Male, 43 years old. Vertigo RADIATION DOSAGE (If Supplied By Facility): CTDIvol = ( 29.35 ) mGy, DLP = ( 1531.90 ) mGycm TECHNIQUE: CT angiography was performed with a multi-detector CT scanner. Data acquisition was obtained from the skull base through the vertex following intravenous administration of 100 ml of Iso 370. MIP images were reconstructed from the axial data set. Post-processing of the angiographic images was performed, with multiplanar reformation and 3D reconstruction. Analyzed with Viz. Individualized dose optimization techniques were used for this CT. COMPARISON: None. FINDINGS: Normal bilateral petrous carotid arteries. Normal right cavernous carotid artery with a normal supraclinoid bifurcation. Normal left cavernous carotid artery with a normal supraclinoid bifurcation. Normal right A1 segments of the anterior cerebral artery. Normal left A1 segments of the anterior cerebral artery. Normal intact anterior communicating artery (ACOM). Normal bilateral A2 segments of the anterior cerebral arteries. Normal right M1 and M2 segments of the middle cerebral arteries, with a normal M1 bifurcation. Normal left M1 and M2 segments of the middle cerebral arteries, with a normal M1 bifurcation. Normal right posterior communicating artery (PCOM). Normal left posterior communicating artery (PCOM). There is a small atretic right vertebral artery with a dominant left vertebral artery. Normal basilar artery with a normal basilar bifurcation. The visualized bilateral superior cerebellar (SCA) arteries are normal. Normal bilateral P1, P2 and visualized P3 segments of the posterior cerebral arteries. There is no demonstrated aneurysm of the [place]. There is no demonstrated abnormality of the visualized brain. IMPRESSION: No acute findings. No critical stenosis. ALL ABOVE CRITERIA BY NASCET. STUDY: CTA NECK WITH CONTRAST REASON FOR EXAM: Male, 43 years old. vertigo Individualized dose optimization techniques were used for this CT. TECHNIQUE: CT angiography with multi-detector data acquisition was performed from the aortic arch to the skull base following intravenous administration of IV 100mL Isovue-370 contrast. MIP images were reconstructed from the axial data set. Post-processing of the angiographic images was performed, with multiplanar reformation and 3D reconstruction. Analyzed with [email or web address] COMPARISON: None. FINDINGS: AORTIC ARCH: Normal visualized aortic arch. Normal origins of the brachiocephalic, left common carotid, and left subclavian arteries. RIGHT CAROTID ARTERIES: Normal right common carotid artery (CCA). Normal right common carotid bulb. Normal origin of the right internal carotid (ICA) artery without a hemodynamically significant stenosis. Normal visualized cervical portion of the right internal carotid artery. Normal origin of the right external carotid artery (ECA). LEFT CAROTID ARTERIES: Normal left common carotid artery (CCA). Normal left common carotid bulb. Normal origin of the left internal carotid (ICA) artery without a hemodynamically significant stenosis. Normal visualized cervical portion of the left internal carotid artery. Normal origin of the left external carotid artery (ECA). VERTEBRAL ARTERIES: There is enhancement within the bilateral vertebral arteries with a small right vertebral artery, and a dominant left vertebral artery. CT/CTA Head AND Neck W/ Contrast IMPRESSION: Normal bilateral cervical carotid and vertebral arteries. ALL ABOVE CRITERIA BY NASCET. Electronically Signed: Saulo Henry MD at 18:40 EST ,
--- NOTE | 2023-07-15 17:16 | EKG12_ITS ---
Test Reason : DIZZINESS Blood Pressure : / mmHG Vent. Rate : 093 BPM Atrial Rate : 093 BPM P-R Int : 160 ms QRS Dur : 078 ms QT Int : 360 ms P-R-T Axes : 027 -22 027 degrees QTc Int : 447 ms Normal sinus rhythm Possible Inferior infarct , age undetermined Abnormal ECG Confirmed by LILIANA HARDEN, STEW ([id number]), metropolitan editor CELIA GAGNON ([id number]) on 07/16/2023 10:23:00 AM Referred By: Confirmed By:STEW FORD MD
--- NOTE | 2023-07-15 17:19 | EDS_ITS ---
HPI History of Present Illness Chief Complaint: Dizziness Informant: patient Onset/Context/Timing Onset: Month(s) Narrative Narrative: Patient presents secondary to dizziness and paresthesias of his feet. Patient w as seen here on July 05 for the same. He states they wanted to admit him at that time but he declined. He is now back stating that he is still dizzy, still frequently falling, and wants to be admitted. Patient describes vertigo and discussing his dizziness. He denies headache or recent head injury. He does state that he has fallen multiple times since he was here in the emergency room last. He reports paresthesias to his feet bilaterally for the past month as well. He denies altered sensation of his thighs or lower legs, but states it only seems to affect his feet. He does admit to alcohol use. His last drink was today. He states he is not interested in detox. [facility] Medical History Abnormal bruising Arthritis Asthma Back pain Bimalleolar ankle fracture Bloody stool Dyslipidemia Fatigue Generalized anxiety disorder with panic attacks History of patellar fracture Shoulder pain SOB (shortness of breath) Stomach ulcer Home Medications omeprazole 40 mg capsule,delayed release 40 mg PO DAILY 09/11/22 [History Last Taken Unknown] Allergy/AdvReac Type Severity Reaction Status Date / Time No Known Allergies Allergy Verified 07/15/23 16:53 Family History Other Diabetes Heart disease Surgical History History of hernia surgery Social History Smoking Status: Current some day smoker tobacco type: cigarettes alcohol intake: current alcohol intake frequency: 3 or more drinks per day Alcohol type: beer ROS ROS ED Constitutional Constitutional ED: Denies chills or fever(s) Eyes Eyes: Denies change in vision or discharge from eye(s) ENT ENT ED: Denies discharge from eye(s), rhinorrhea or sore throat Cardiovascular Cardiovascular: Denies chest pain or palpitations Respiratory/Chest Respiratory/Chest: Denies cough or dyspnea Gastrointestinal Gastrointestinal: Denies abdominal pain, nausea or vomiting Genitourinary Genitourinary ED: Denies dysuria Musculoskeletal Musculoskeletal: Denies back pain or extremity pain Integumentary Denies Abrasions or rash Neurologic Neurologic: Reports paresthesias and weakness; Denies headache(s) Psychiatric Psychiatric: Denies anxiety or depression Allergic/Immunologic Allergic/Immunologic ED: Denies lip swelling or urticaria EXAM Physical Exam Const Vital Signs: 07/15/23 16:53 07/15/23 17:19 07/15/23 18:12 Temperature 96.9 F L Temperature Source Temporal Pulse Rate 96 85 Respiratory Rate 18 16 Respiratory Effort Normal Respiratory Pattern Normal Blood Pressure 138/107 H 120/93 H Blood Pressure Mean 117 102 Pulse Ox 99 82 Oxygen Delivery Method Room Air Room Air Oxygen Flow Rate (L/min) 07/15/23 18:14 07/15/23 20:00 07/15/23 22:00 Temperature Temperature Source Pulse Rate 78 82 Respiratory Rate 16 16 Respiratory Effort Respiratory Pattern Blood Pressure 111/87 H 113/81 H Blood Pressure Mean 95 91 Pulse Ox 96 98 92 Oxygen Delivery Method Nasal Cannula Room Air Nasal Cannula Oxygen Flow Rate (L/min) 2 2 Positive well nourished and well developed General Appearance ED: well developed HEENT Reports moist mucous membranes Eyes EOMs intact bilaterally Neck no lymphadenopathy Chest Wall inspection of chest normal and palpation of chest normal Resp normal respiratory effort and clear to auscultation bilaterally Cardio regular rate and regular rhythm GI non-tender Auscultation: hypoactive bowel sounds Palpation: soft Extremity normal to inspection Extremity Narrative: Patient reports decreased sensation to light touch over both feet. He does feel pressure. He reports normal sensation to touch over the shins and thighs. Neuro oriented x3 Neuro Narrative: NIH score 1 for decreased sensation to light touch. [id number] testing is unremarkable. Psych mental status grossly normal Skin no rashes or lesions noted MDM MDM MDM Narrative Medical decision making narrative: Patient's previous workup from the eighth is reviewed. At that time he was having intermittent heart rates to the 140s. In light of this he is placed on director of cardiac rehabilitation and EKG is ordered today. IV line is established. Labwork obtained to evaluate for leukocytosis, anemia, and electrolyte derangement. Urinalysis obtained to evaluate for infection/hematuria. EtOH level and urine tox screen also obtained. Given his continued vertigo CTA of the head and neck obtained to evaluate for neurologic cause. He had been treated with Antivert previously without improvement of his symptoms. I did give him a dose of Valium here. History & Record Review Discussion w/independent historian: Patient Lab Data Attestation: I reviewed the patient's lab results. Labs: Laboratory Results - last 24 hr 07/15/23 07/15/23 07/15/23 17:25 17:26 17:30 WBC 4.0 L RBC 4.52 L Hgb 14.0 Hct 42.1 MCV 93.1 MCH 31.0 MCHC 33.3 RDW Std Deviation 42.6 RDW Coeff of Lilian 12.5 Plt Count 206 MPV 8.9 Immature Gran % (Auto) 0.500 Neut % (Auto) 49.3 Lymph % (Auto) 35.8 [place] % (Auto) 12.7 H Eos % (Auto) 0.7 Baso % (Auto) 1.0 Absolute Neuts (auto) 2.0 Absolute Lymphs (auto) 1.44 Nucleated RBC % 0 Sodium 134 L Potassium 3.5 Chloride 96 L Carbon Dioxide 28.0 Anion Gap 10 BUN 5 L Creatinine 0.73 Estim Creat Clear Calc 121.53 Est GFR (MDRD) Af Amer 149 Est GFR (MDRD) Non-Af 123 BUN/Creatinine Ratio 6.8 L Glucose 119 H Hemoglobin A1c Calcium 8.4 L Magnesium 2.2 Total Bilirubin 0.30 Direct Bilirubin 0.12 AST 170 H ALT 167 H Alkaline Phosphatase 76 Total Protein 7.6 Albumin 3.8 Globulin 3.8 Folate TSH Urine Color Yellow Urine Clarity Clear Urine pH 7.0 Ur Specific [place] 1.005 Urine Protein 15 H Urine Glucose (UA) Normal Urine Ketones Negative Urine Occult Blood Negative Urine Nitrite Negative Urine Bilirubin Negative Urine Urobilinogen Normal Ur Leukocyte Esterase Negative Urine RBC 0 SEEN Urine WBC 0 SEEN Ur Squamous Epith Cells 0-5 SEEN Urine Bacteria 0 SEEN Urine Mucus 0 SEEN Urine Opiates Screen NEGATIVE Urine Methadone Screen NEGATIVE Ur Barbiturates Screen NEGATIVE Ur Phencyclidine Scrn NEGATIVE Ur Amphetamines Screen NEGATIVE MDMA (Ecstasy) Screen NEGATIVE U Benzodiazepines Scrn NEGATIVE Urine Cocaine Screen NEGATIVE U Cannabinoids Screen NEGATIVE Ur Drug Screen Comment Ethyl Alcohol 392.0 H* 07/15/23 19:55 WBC RBC Hgb Hct MCV MCH MCHC RDW Std Deviation RDW Coeff of Lilian Plt Count MPV Immature Gran % (Auto) Neut % (Auto) Lymph % (Auto) [place] % (Auto) Eos % (Auto) Baso % (Auto) Absolute Neuts (auto) Absolute Lymphs (auto) Nucleated RBC % Sodium Potassium Chloride Carbon Dioxide Anion Gap BUN Creatinine Estim Creat Clear Calc Est GFR (MDRD) Af Amer Est GFR (MDRD) Non-Af BUN/Creatinine Ratio Glucose Hemoglobin A1c 5.3 Calcium Magnesium Total Bilirubin Direct Bilirubin AST ALT Alkaline Phosphatase Total Protein Albumin Globulin Folate 6.60 TSH 1.32 Urine Color Urine Clarity Urine pH Ur Specific [place] Urine Protein Urine Glucose (UA) Urine Ketones Urine Occult Blood Urine Nitrite Urine Bilirubin Urine Urobilinogen Ur Leukocyte Esterase Urine RBC Urine WBC Ur Squamous Epith Cells Urine Bacteria Urine Mucus Urine Opiates Screen Urine Methadone Screen Ur Barbiturates Screen Ur Phencyclidine Scrn Ur Amphetamines Screen MDMA (Ecstasy) Screen U Benzodiazepines Scrn Urine Cocaine Screen U Cannabinoids Screen Ur Drug Screen Comment Ethyl Alcohol Radiography Diagnostic Testing: Clinical Impression(s) from Imaging Studies Head/Neck CTA 07/15/23 17:15 IMPRESSION: Normal bilateral cervical carotid and vertebral arteries. ALL ABOVE CRITERIA BY NASCET. Electronically Signed: Saulo Henry MD at 18:40 EST Reading Location ID and State: [facility] / [place] , Service support , EKG Initial EKG: Attestation: I personally reviewed and interpreted this EKG as follows: Interpretation: Sinus Rhythm (Sinus rhythm at 93 bpm with no acute ischemia.) Treatment and Re-Evaluation :: CBC was a white count of 4.0 with a hemoglobin of 14. Chemistry studies unremarkable other than a slightly low sodium at 134. Renal function is normal. Glucose is 119. Magnesium is normal at 2.2. LFTs significant for AST of 170 and an ALT of 167. Urinalysis reveals no evidence of infection. Urine tox screen is negative. EtOH is 392. EKG is sinus rhythm with no acute ischemia. On his previous visit he would have heart rates jump into the 140s periodically but that has not been observed on this visit. Nursing staff did note that when he falls asleep his oxygen will drop as low as 82%. He is placed on nasal cannula while sleeping. CTA of the head and neck reveals no acute findings. I did go back and discussed test results with the patient. He previously was considered for admission given hyponatremia and hypokalemia which are not present currently. Patient states that he feels he needs to be admitted because his feet are numb bilaterally and he has vertigo. I did advise him that his alcohol level is nearly 5 times legal limit and this could certainly be causing his difficulty with ambulation. He is very adamant that alcohol is not causing him to be dizzy and fall frequently. I will speak with hospitalist regarding potential observation and further workup. Discharge Plan Triage Chief Complaint: Dizziness ED Provider: Yusra Castellano Dx/Rx/DC Orders Clinical Impression: Paresthesias, Vertigo Prescriptions: No Action omeprazole 40 mg capsule,delayed release(DR/EC) 40 mg PO DAILY Primary Care Provider: Care Physician,No Primary Referrals: Care Physician,No Primary [Primary Care Provider] -
--- NOTE | 2023-07-15 17:20 | ED.RN ---
patient c/o severe dizziness causing him to fall several times over the last few days. also c/o numbness/tingling and loss of sensation of bilateral feet. stated he noticed these symptoms after an arm infection
[2023-07-15 17:32] LABS: Bacteria 0 SEEN /hpf (None Seen); Mucous, Urine 0 SEEN /hpf (<or=2+); Red Blood Cells-Urine 0 SEEN /hpf (0-5); White Blood Cells 0 SEEN /hpf (0-5)
[2023-07-15 17:34] LABS: Color, Urine Yellow (Yellow); Glucose, Dipstick Normal (Normal); Ketone-Dipstick Negative (Negative); Leukocyte Esterase-Dipstick Negative /ul (Negative); Nitrite-Dipstick Negative (Negative); Occult Blood-Urine Negative /ul (Negative); Protein-Dipstick 15 mg/dl (Negative); Specific Gravity, Urine 1.005 (1.002-1.030); Urine Bilirubin Dipstick Negative (Negative); Urine Clarity Clear (Clear); Urine Urobilinogen Normal (Normal)
[2023-07-15] MEDS: diazePAM 5 MG Tablet 2.5 MG PO (17:36)
[2023-07-15] MEDS: 0.9% Normal Saline (1000mL) 1,000 ML 150 ML IV (17:36)
[2023-07-15 17:46] LABS: Absolute Lymphocyte Count 1.44 X10^3/uL (0.83-4.51); Basophil# 0.04 X10^3/uL; Eosinophil# 0.03 X10^3/uL; Eosinophils% 0.7 % (0-5); Hematocrit 42.1 % (40-54); Lymphocyte # 1.44 X10^3/ul (0.83-4.51); Lymphocyte % 35.8 % (19-41); Mean Corp Hgb Conc 33.3 g/dL (32-36); Mean Corpuscular Volume 93.1 fL (80-94); Mean Platelet Vol. 8.9 fl (6.2-12.0); Monocyte# 0.51 X10^3/uL; Monocyte% 12.7 % (0-10); NRBC Flagged by Analyzer 0 % (0-5); Neutrophil # 1.98 X10^3/uL (2.7-7.7); Neutrophil % 49.3 % (47-70); Platelet Count 206 K/mm3 (150-450); RBC Distribution Width CV 12.5 % (11.6-14.6); RBC Distribution Width SD 42.6 fl (35.1-43.9); Red Blood Count 4.52 M/mm3 (4.6-6.2)
[2023-07-15 17:48] LABS: Squamous Epithelial Cells - UA 0-5 SEEN /hpf (0-5)
[2023-07-15 17:58] LABS: Amphetamine Urine VISTA NEGATIVE (<1000 ng/mL); Barbiturate Urine VISTA NEGATIVE (< 200 ng/mL); Benzodiazepine Urine VISTA NEGATIVE (< 200 ng/mL); Cocaine Urine VISTA NEGATIVE (< 300 ng/mL); Ecstacy Urine VISTA NEGATIVE (< 500 ng/mL); Methadone Urine VISTA NEGATIVE (< 300 ng/mL); PCP Urine VISTA NEGATIVE (< 25 ng/mL); THC Urine VISTA NEGATIVE (< 50 ng/mL); Vista UDS pH Range 6
[2023-07-15 18:11] LABS: AST(SGOT) 170 U/L (15-37); Alanine Aminotransfer ALT/SGPT 167 U/L (16-61); Albumin, Serum 3.8 g/dL (3.2-5.0); Alkaline Phosphatase 76 U/L (45-117); Anion Gap 10 (5-15); BUN 5 mg/dL (7-18); BUN/Creat Ratio 6.8 RATIO (10-20); Bilirubin, Direct 0.12 mg/dL (0.00-0.30); Calcium,Total 8.4 mg/dL (8.5-10.1); Chloride 96 mmol/L (98-107); Creatinine, Serum 0.73 mg/dL (0.70-1.30); EST Glomerular Filtration Rate 123 mL/min (>60); Est Glom Filt Rate - Afr Amer 149 mL/min (>60); Estimated Creatinine Clearance 121.53 ml/min; Globulin 3.8 g/dL (2.2-4.2); Glucose 119 mg/dL (74-106); Magnesium 2.2 mg/dL (1.6-2.6); Potassium 3.5 mmol/L (3.5-5.1); Protein, Total 7.6 g/dL (6.4-8.2); Sodium Level 134 mmol/L (136-145)
[2023-07-15 18:12] VITALS: BP 120/93; PULSE 85; RESP 16; O2SAT 82
[2023-07-15 18:14] VITALS: O2SAT 96
--- NOTE | 2023-07-15 19:44 | PCM.HP.STD ---
[facility] - General General Date of Admission: 07/16/23 Date of Service: 07/15/23 Chief Complaint: Dizziness and Paresthesia of the Feet. HPI Narrative IDA HOLLINGSWORTH, is a 43 M with a past medical history of hyperlipidemia, asthma, tobacco abuse, overweight; with BMI of 27.8 this admission, generalized anxiety, history GERD with PUD, history of patellar fracture, bimalleloar fracture, history of hernia surgery, history of COVID-19, history of lumbar radiculopathy and history of Chronic EtOH Abuse who presents to [facility] ER complaining of dizziness and paresthesias of the feet. Mr. Hollingsworth reports his symptoms began approximately one month prior to admission with patient having numbness and tingling in his feet. He also admits to feeling dizzy with intermittent vertigo that is causing frequent falls. He denies altered sensation in his thighs or lower legs. He also denies associated headache, recent injury or focal neurologic weakness and he also initially stated he was not interested in quitting EtOH or detox but then he still wanted to be admitted for treatment. His last drink was today and in the ER he was noted to have a ZARIA of 392 mg/dL consistent with acute alcohol intoxication in the setting of chronic alcohol abuse with elevated AST 170 U/L and ALT 167 U/L with a UDS that was negative in the setting of suspected Peripheral Neuropathy due to suspected B-12 deficiency from chronic alcoholism and he was then admitted to the general medical floor for ongoing care for a stay that is expected to be greater than 48 hours. [facility] Medical History Abnormal bruising Arthritis Asthma Back pain Bimalleolar ankle fracture Bloody stool Dyslipidemia Fatigue Generalized anxiety disorder with panic attacks History of patellar fracture Shoulder pain SOB (shortness of breath) Stomach ulcer Home Medications omeprazole 40 mg capsule,delayed release 40 mg PO DAILY 09/11/22 [History Last Taken Unknown] Allergy/AdvReac Type Severity Reaction Status Date / Time No Known Allergies Allergy Verified 07/15/23 16:53 Family History Other Diabetes Heart disease Surgical History History of hernia surgery Social History Smoking Status: Current some day smoker tobacco type: cigarettes alcohol intake: current alcohol intake frequency: 3 or more drinks per day Alcohol type: beer ROS ROS Narrative Review of systems: General:Patient denies fever or chills HENT: Denies headache, denies stuffy nose, denies sore throat EYES: Denies changes in vision Resp: Denies cough, denies shortness of breath Cardiac: Denies chest pain or palpitations but when he started to go into withdrawal his heart rate spiked up into the 130 - 170 bpm range GI: Denies abdominal pain, denies changes in bowel, had some nausea : Denies changes in urination Extremity: Denies swelling Musculoskeletal: Feels somewhat generally weak and unwell Neuro: Patient admits to severe tremors and paresthesias in his feet but denies headache, seizures or any other focal neurologic deficits. Heme: Denies any bleeding or bruising Skin: Denies rashes Psychiatric: No complaints voiced related to uncontrolled depression or anxiety Endocrine: No polyuria, polydipsia or polyphagia The rest of the 14 point ROS was negative except for positives in HPI. Vital Signs Vital Signs Vital Signs: 07/15/23 16:53 07/15/23 17:19 07/15/23 18:12 Temperature 96.9 F L Temperature Source Temporal Pulse Rate 96 85 Respiratory Rate 18 16 Respiratory Effort Normal Respiratory Pattern Normal Blood Pressure 138/107 H 120/93 H Blood Pressure Mean 117 102 Pulse Ox 99 82 Oxygen Delivery Method Room Air Room Air Oxygen Flow Rate (L/min) 07/15/23 18:14 Temperature Temperature Source Pulse Rate Respiratory Rate Respiratory Effort Respiratory Pattern Blood Pressure Blood Pressure Mean Pulse Ox 96 Oxygen Delivery Method Nasal Cannula Oxygen Flow Rate (L/min) 2 Weight Weight: 167 lb 3.2 oz Body Mass Index (BMI) 27.8 Physical Exam Const alert, oriented x3, no apparent distress, average body habitus and healthy appearing General Appearance: cooperative HEENT normocephalic, head/scalp atraumatic, hearing grossly normal bilaterally and moist oral mucous membranes Eyes PERRL and EOMs intact bilaterally Neck no lymphadenopathy and supple Resp normal respiratory effort, no retractions, no use of accessory muscles and clear to auscultation bilaterally Cardio regular rate and regular rhythm GI normal to inspection, nondistended, normoactive bowel sounds, soft to palpation, non-tender and non-distended Extremity normal to inspection and full ROM Skin Skin Narrative: Patient has no evidence of rash at this time. Neuro oriented x3, CN's II-XII intact bilaterally, moves all extremities and no focal motor deficits Sensorium / Orientation: awake, alert, oriented to person, oriented to place and oriented to time Speech: speech normal Motor Exam: strength 5/5 throughout Psych Mood & Affect: anxious Results Medical Records Data Attestation: I reviewed the patient's medical records Lab / Micro Data Attestation: I reviewed the patient's lab results. 07/15/23 17:30 07/15/23 17:30 Labs: Laboratory Results - last 24 hr 07/15/23 17:25: Urine Opiates Screen NEGATIVE, Urine Methadone Screen NEGATIVE, Ur Barbiturates Screen NEGATIVE, Ur Phencyclidine Scrn NEGATIVE, Ur Amphetamines Screen NEGATIVE, MDMA (Ecstasy) Screen NEGATIVE, U Benzodiazepines Scrn NEGATIVE, Urine Cocaine Screen NEGATIVE, U Cannabinoids Screen NEGATIVE, Ur Drug Screen Comment 07/15/23 17:26: Urine Color Yellow, Urine Clarity Clear, Urine pH 7.0, Ur Specific [place] 1.005, Urine Protein 15 H, Urine Glucose (UA) Normal, Urine Ketones Negative, Urine Occult Blood Negative, Urine Nitrite Negative, Urine Bilirubin Negative, Urine Urobilinogen Normal, Ur Leukocyte Esterase Negative, Urine RBC 0 SEEN, Urine WBC 0 SEEN, Ur Squamous Epith Cells 0-5 SEEN, Urine Bacteria 0 SEEN, Urine Mucus 0 SEEN 07/15/23 17:30: WBC 4.0 L, RBC 4.52 L, Hgb 14.0, Hct 42.1, MCV 93.1, MCH 31.0, MCHC 33.3, RDW Std Deviation 42.6, RDW Coeff of Lilian 12.5, Plt Count 206, MPV 8.9, Immature Gran % (Auto) 0.500, Neut % (Auto) 49.3, Lymph % (Auto) 35.8, [place] % (Auto) 12.7 H, Eos % (Auto) 0.7, Baso % (Auto) 1.0, Absolute Neuts (auto) 2.0, Absolute Lymphs (auto) 1.44, Nucleated RBC % 0, Sodium 134 L, Potassium 3.5, Chloride 96 L, Carbon Dioxide 28.0, Anion Gap 10, BUN 5 L, Creatinine 0.73, Estim Creat Clear Calc 121.53, Est GFR (MDRD) Af Amer 149, Est GFR (MDRD) Non-Af 123, BUN/Creatinine Ratio 6.8 L, Glucose 119 H, Calcium 8.4 L, Magnesium 2.2, Total Bilirubin 0.30, Direct Bilirubin 0.12, AST 170 H, ALT 167 H, Alkaline Phosphatase 76, Total Protein 7.6, Albumin 3.8, Globulin 3.8, Ethyl Alcohol 392.0 H* Imaging Radiology Impression Head/Neck CTA 07/15/23 17:15 IMPRESSION: Normal bilateral cervical carotid and vertebral arteries. ALL ABOVE CRITERIA BY NASCET. Electronically Signed: Saulo Henry MD at 18:40 EST Reading Location ID and State: [facility] / [place] , Service support , Assessment & Plan Assessment/Plan (1) Paresthesias: (2) Vertigo: (3) Alcohol intoxication: QUALIFIERS: Complication of substance-induced condition: uncomplicated Qualified Code(s): F10.920 - Alcohol use, unspecified with intoxication, uncomplicated (4) Chronic alcohol abuse: (5) Lumbar radiculopathy: PLAN: Plan 1. 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 B12 level pending at this time to be run in the a.m. Continue supportive care monitor for improvement. 2. Acute alcohol intoxication with ZARIA of 392 mg/dL present on admission in the setting of chronic EtOH Abuse likely causing #1 - EtOH cessation will be strongly encouraged the patient was already indicated that he is not interested in quitting - until he went into early alcohol withdrawal in the ER and needed to be started on phenobarbital taper. Avoid Tylenol and other potentially hepatotoxic agents in this chronic alcoholic patient. Nevertheless, we will consult [facility]AMP counselor to see patient in a.m. with help appreciated in advance. 3. Intermittent vertigo with frequent falls complicating #1 & #2 - Give high-dose Antivert as needed monitor for improvement. PT/OT and case management consult and treat help appreciated in advance. 4. History of lumbar radiculopathy - Noted. Check MRI of the L-spine. 5. Hyperlipidemia - Resume statin. 6. Asthma - Stable with no evidence of acute flare. Continue as needed nebulizers. 7. Tobacco abuse - Tobacco cessation will be strongly encouraged with nicotine patch offered to control cravings. 8. Overweight; with BMI of 27.8 this admission - Weight loss will be recommended. Check TSH. 9. Generalized anxiety - Stable. 10. History GERD with PUD - Continue PPI. 11. History of patellar fracture and bimalleloar fracture - Noted. 12. History of COVID-19 - Noted. 13. DVT prophylaxis - Lovenox 40 mg sq daily. Total time: Approximately 55 minutes. Charges/Coding Visit Charges Inpatient E&M: 10636 Init Hosp L2
[2023-07-15 20:00] VITALS: BP 111/87; PULSE 78; RESP 16; O2SAT 98
[2023-07-15 20:26] LABS: Hemoglobin A1c 5.3 % (3.8-5.6)
[2023-07-15 20:37] LABS: Thyroid Stim Hormone (TSH) 1.32 uIU/mL (0.358-3.74)
[2023-07-15 22:00] VITALS: BP 113/81; PULSE 82; RESP 16; O2SAT 92
[2023-07-16] VITALS (8 sets, daily range): BP systolic 112–146; BP diastolic 78–97; PULSE 81–106; RESP 15–18; TEMP 36.1–37.2; O2SAT 95–99; BMI 26.6
[2023-07-16] MEDS: Phenobarbital 32.4 MG Tablet 97.2000000000000028 MG PO (00:32)
[2023-07-16] MEDS: 0.9% Normal Saline (1000mL) 1,000 ML 150 ML IV ×3 (00:33→09:02)
--- OUTSIDE RECORDS SUMMARY | 2023-07-16 00:39 | XMS RPT_ITS | CCD ---
Author Name Unknown Address [address] [place] [address] Organization [facility] Care Team Providers Care Accounts Supervisor Name Role Phone Unknown, Unknown Unavailable Unavailable Unavailable Unavailable Pending Provider Unavailable Unavailable Richie HARDEN, Wilbert Wylie Primary Care Provider [phone] Richie HARDEN, Wilbert Wylie Primary Care Provider [phone] Richie HARDEN, Wilbert Wylie Primary Care Provider [phone] PHYSICIAN, NONE Primary Care Physician Unavailab efra EGAN DO, DR ROXIE Rojas Attending Unavailable PHYSICIAN, NONE Primary Care Unavailable DR ROXIE EGAN DO Attending Unavailable PHYSICIAN, NONE Primary Care Unavailable PHYSICIAN, NONE Primary Care Unavailable TRICIA HARDEN, DR DAVID Scales Attending WILBERT Malik Primary Care Unavailable RUBI WASHINGTON Referring Unavailable WILBERT PRITCHETT Primary Care Unavailable RUBI WASHINGTON Referring Unavailable RUBI WASHINGTON Attending Unavailable WILBERT PRITCHETT Primary Care Unavailable WILBERT PRITCHETT Primary Care Unavailable WILBERT PRITCHETT Attending Unavailable WILBERT PRITCHETT Referring Unavailable WILBERT PRITCHETT Primary Care Unavailable SELF Referring Unavailable WILBERT PRITCHETT Attending Unavailable WILBERT PRITCHETT Primary Care Unavailable WILBERT PRITCHETT Primary Care Unavailable SELF Referring Unavailable WILBERT PRITCHETT Attending Unavailable WILBERT PRITCHETT Primary Care Unavailable WILBERT PRITCHETT Attending Unavailable WILBERT PRITCHETT Primary Care Unavailable Medications Current Medications Medication Drug Class(es) Dates Sig (Normalized) Sig (Original) cephalexin 500 mg oral tablet (2 sources) Cephalosporin Antibacterial Start: 06-09-2023 End: 06-19-2023 take 1 capsule by mouth twice daily Keflex use cephalexin Dose : 500 mg =, Oral, BID, X 10 day(s), # 20 cap(s), 0 Refill(s), 06/19/23 4:48:00 PM EST, 79.5 Start Date: 06/09/23 Stop Date: 06/19/23 Status: Ordered predniSONE 10 mg oral tablet (4 sources) Start: 02-03-2022 End: 02-15-2022 predniSONE (DELTASONE) 10 mg tablet Take 6 tabs for 3 days, then 4 tabs for 3 days, then 2 tabs for 3 days then 1 tab for 3 days with food. 39 tablet 0 02/03/2022 02/15/2022 Active Completed/Discontinued Medications Medication Drug Class(es) Dates Sig (Normalized) Sig (Original) etodolac 300 mg oral capsule (5 sources) Nonsteroidal Anti-inflammatory Drug Start: 01-13-2022 End: 10-06-2022 take 1 capsule by mouth every eight hours etodolac (LODINE) 300 mg capsule Take 1 capsule by mouth every 8 hours. 30 capsule 1 01/13/2022 10/06/2022 Discontinued Problems Active Problems Problem Classification Problem Date Documented Date Episodic/Chronic Alcohol-related disorders (18 sources) Alcohol dependence; Translations: [Alcohol dependence, uncomplicated] Onset: 09-22-2008 Chronic Anxiety disorders (18 sources) Anxiety disorder; Translations: [Anxiety disorder, unspecified] Onset: 11-19-2015 11-19-2015 Chronic Asthma (3 sources) Asthma 04-01-2015 Chronic Disorders of lipid metabolism (18 sources) Hyperlipidemia; Translations: [Hyperlipidemia, unspecified] Onset: 09-28-2011 09-28-2011 Chronic Esophageal disorders (19 sources) Gastroesophageal reflux disease; Translations: [Gastro-esophageal reflux [...] Translations: [Anesthesia of skin] 03-09-2023 Episodic Other nervous system disorders (1 source) Ataxia; Translations: [Other lack of coordination] 07-12-2023 Episodic Other non-traumatic joint disorders (1 source) Shoulder pain; Translations: [Pain in right shoulder] Episodic Other non-traumatic joint disorders (1 source) Pain in elbow; Translations: [Pain in left elbow] 07-12-2023 Episodic Other non-traumatic joint disorders (1 source) Swelling of upper limb; Translations: [Effusion, left elbow] 07-12-2023 Episodic Other non-traumatic joint disorders (1 source) Pain in left elbow; Translations: [Elbow pain, left] Onset: 07-12-2023 Episodic Other non-traumatic joint disorders (1 source) Effusion, left elbow; Translations: [Elbow swelling, left] Onset: 07-12-2023 Episodic Other nutritional; endocrine; and metabolic disorders (16 sources) Metabolic syndrome X; Translations: [Metabolic syndrome] Onset: 12-29-2009 12-29-2009 Chronic Other nutritional; endocrine; and metabolic disorders (15 sources) Obese class I; Translations: [Obesity, unspecified] Onset: 06-09-2019 06-09-2019 Chronic Other nutritional; endocrine; and metabolic disorders (1 source) Metabolic syndrome; Translations: [Dysmetabolic syndrome] Onset: 12-29-2009 Chronic Other skin disorders (5 sources) Mass of [...] of both feet] Onset: 03-16-2023 Episodic Other screening for suspected conditions (not mental disorders or infectious disease) (3 sources) Other specified abnormal findings of blood chemistry; Translations: [Other abnormal blood chemistry] Onset: 04-02-2023 03-23-2023 Episodic Other upper respiratory disease (15 sources) Bronchospasm; Translations: [Acute bronchospasm] Onset: 06-09-2019 06-09-2019 Episodic Pancreatic disorders (not diabetes) (15 sources) Acute pancreatitis; Translations: [Acute pancreatitis without necrosis or infection, unspecified] Onset: 08-31-2020 08-31-2020 Episodic Sprains and strains (15 sources) Sprain of medial collateral ligament of right knee, initial encounter; Translations: [Sprain of medial collateral ligament of knee] Onset: 02-02-2016 02-02-2016 Episodic Results Test Name Value Interpretation Reference Range Facil ity Vital Signs Date Time Vital Sign Value Performing Clinician Facility 07-12-2023 18:23-0500 Body temperature 96.8 [degF] Wilbert Pritchett MD Work Phone: [facility] 07-12-2023 18:23-0500 Body weight 75.61 kg Wilbert Pritchett MD Work Phone: [facility] 07-12-2023 18:23-0500 Diastolic blood pressure 86 mm[Hg] Wilbert Pritchett MD Work Phone: [facility] 07-12-2023 18:23-0500 Heart rate 102 /min Wilbert Pritchett MD Work Phone: [facility] 07-12-2023 18:23-0500 Respiratory rate 16 /min Wilbert Pritchett MD Work Phone: [facility] 07-12-2023 18:23-0500 SaO2% (BldA) [Mass fraction] 98 % Wilbert Pritchett MD Work Phone: [facility] 07-12-2023 18:23-0500 Systolic blood pressure 122 mm[Hg] Wilbert Pritchett MD Work Phone: [facility] 06-11-2023 17:58-0500 Diastolic Blood Pressure Non-Invasive 92 mm[Hg] DR ROXIE EGAN DO [facility] 06-11-2023 17:58-0500 Heart rate 87 /min DR ROXIE EGAN DO [facility] 06-11-2023 17:58-0500 Reason For Taking VItal Signs DR ROXIE EGAN DO [facility] 06-11-2023 17:58-0500 Respiratory rate 18 /min DR RXOIE EGAN DO [facility] 06-11-2023 17:58-0500 Systolic Blood Pressure Non-Invasive 128 mm[Hg] DR ROXIE EGAN DO [facility] 06-11-2023 15:53-0500 Body temperature 98.24 [degF] DR ROXIE EGAN DO [facility] 06-11-2023 15:53-0500 Diastolic Blood Pressure Non-Invasive 81 mm[Hg] DR ROXIE EGAN DO [facility] 06-11-2023 15:53-0500 Heart rate 97 /min DR ROXIE EGAN DO [facility] 06-11-2023 15:53-0500 Respiratory rate 18 /min DR ROXIE EGAN DO [facility] 06-11-2023 15:53-0500 Systolic Blood Pressure Non-Invasive 140 mm[Hg] DR ROXIE EGAN DO [facility] 06-09-2023 16:20-0500 Body height [address] DAVID CLARKE MD [facility] 06-09-2023 16:20-0500 Body temperature 97.34 [degF] DR DAVID CLARKE MD [facility] 06-09-2023 16:20-0500 Body weight 79.[address] DAVID CLARKE MD [facility] 06-09-2023 16:20-0500 Diastolic Blood Pressure Non-Invasive 81 mm[Hg] DR DAVID CLARKE MD [facility] 06-09-2023 16:20-0500 Heart rate 106 /min DR DAVID CLARKE MD [facility] 06-09-2023 16:20-0500 Respiratory rate 18 /min DR DAVID CLARKE MD [facility] 06-09-2023 16:20-0500 Systolic Blood Pressure Non-Invasive 128 mm[Hg] DR DAVID CLARKE MD [facility] 04-12-2023 22:14-0500 Body temperature 98.6 [degF] DR ROXIE EGAN DO [facility] 04-12-2023 22:14-0500 Diastolic Blood Pressure Non-Invasive 88 mm[Hg] DR ROXIE EGAN DO [facility] 04-12-2023 22:14-0500 Heart rate 102 /min DR ROXIE EGAN DO [facility] 04-12-2023 22:14-0500 Respiratory rate 18 /min DR ROXIE EGAN DO [facility] 04-12-2023 22:14-0500 Systolic Blood Pressure Non-Invasive 147 mm[Hg] DR ROXIE EGAN DO [facility] 03-09-2023 12:49-0400 Body weight 80.29 kg Rubi Older [employer]CHARTER REPRESENTATIVE Work Phone: [facility] 03-09-2023 12:49-0400 Diastolic blood pressure 72 mm[Hg] Rubi Older [employer]CHARTER REPRESENTATIVE Work Phone: [facility] 03-09-2023 12:49-0400 Heart rate 104 /min Rubi Older [employer]CHARTER REPRESENTATIVE Work Phone: [facility] 03-09-2023 12:49-0400 Respiratory rate 18 /min Rubi Older [employer]CHARTER REPRESENTATIVE Work Phone: [facility] 03-09-2023 12:49-0400 SaO2% (BldA) [Mass fraction] 94 % Rubi Older [employer]CHARTER REPRESENTATIVE Work Phone: [facility] 03-09-2023 12:49-0400 Systolic blood pressure 116 mm[Hg] Rubi Older [employer]CHARTER REPRESENTATIVE Work Phone: [facility] 10-06-2022 16:54-0400 Body weight 78.47 kg Wilbert Pritchett MD Work Phone: [facility] 10-06-2022 16:54-0400 Diastolic blood pressure 62 mm[Hg] Wilbert Pritchett MD Work Phone: [facility] 10-06-2022 16:54-0400 Heart rate 95 /min Wilbert Pritchett MD Work Phone: [facility] 10-06-2022 16:54-0400 Respiratory rate 16 /min Wilbert Pritchett MD Work Phone: [facility] 10-06-2022 16:54-0400 SaO2% (BldA) [Mass fraction] 96 % Wilbert Pritchett MD Work Phone: [facility] 10-06-2022 16:54-0400 Systolic blood pressure 110 mm[Hg] Wilbert Pritchett MD Work Phone: [facility] 12-27-2021 14:41-0400 Body temperature 97.2 [degF] Yuan [place] [employer]CHARTER REPRESENTATIVE Work Phone: [facility] 12-27-2021 14:41-0400 Body weight 78.65 kg Yuan [facility] [employer]CHARTER REPRESENTATIVE Work Phone: [facility] 12-27-2021 14:41-0400 Diastolic blood pressure 70 mm[Hg] Yuan [place] [employer]CHARTER REPRESENTATIVE Work Phone: [facility] 12-27-2021 14:41-0400 Heart rate 90 /min Yuan [place] [employer]CHARTER REPRESENTATIVE Work Phone: [facility] 12-27-2021 14:41-0400 Respiratory rate 16 /min Yuan [facility] [employer]CHARTER REPRESENTATIVE Work Phone: [facility] 12-27-2021 14:41-0400 SaO2% (BldA) [Mass fraction] 99 % Yuan [facility] [employer]CHARTER REPRESENTATIVE Work Phone: [facility] 12-27-2021 14:41-0400 Systolic blood pressure 126 mm[Hg] Yuan [place] [employer]CHARTER REPRESENTATIVE Work Phone: [facility] 10-14-2021 16:30-0400 Body weight 81.19 kg Saniya Simental MD Work Phone: [facility] 10-14-2021 16:30-0400 Diastolic blood pressure 80 mm[Hg] Saniya Simental MD Work Phone: [facility] 10-14-2021 16:30-0400 Heart rate 94 /min Saniya Simental MD Work Phone: [facility] 10-14-2021 16:30-0400 SaO2% (BldA) [Mass fraction] 98 % Saniya Simental MD Work Phone: [facility] 10-14-2021 16:30-0400 Systolic blood pressure 118 mm[Hg] Saniya Simental MD Work Phone: [facility] 07-26-2021 17:09-0500 Body height 165.1 cm Unknown [...] height 165.1 cm Unknown Unknown [facility] [place] Work Phone: 06-28-2021 16:19-0500 Body mass index (BMI) [Ratio] 32.82 kg/m2 Unknown Unknown [facility] [place] Work Phone: 06-28-2021 16:19-0500 Body surface area Derived from formula 1.97 m2 Unknown Unknown [facility] [place] Work Phone: 06-28-2021 16:19-0500 Body temperature 97.9 [degF] Unknown Unknown [facility] [place] Work Phone: 06-28-2021 16:19-0500 Body weight 89.45 kg Unknown Unknown [facility] [place] Work Phone: Encounters Encounter Date Encounter Type Care Provider Facility Start: 07-12-2023 End: 07-12-2023 ambulatory WILBERT PRITCHETT Facility:[facility] Start: 07-12-2023 End: 07-12-2023 Patient encounter procedure Wilbert Pritchett MD Work Phone: [facility] [place] Procedures Date Procedure Procedure Detail Performing Clinician Start: 04-02-2023 Us abdominal real ti me w/image limited Rubi Older [employer]CHARTER REPRESENTATIVE Work Phone: Start: 03-16-2023 Lipid 1996 panel - S patricia or Plasma Wilbert Pritchett MD Work Phone: Start: 03-09-2023 Hemoglobin A1c/Hemoglobin.total in Blood Rubi Older [employer]CHAR[employer] REPRESENTATIVE Work Phone: Start: 12-27-2020 Adult depression screening assessment Saniya Simental MD Work Phone: Start: 08-13-2015 Lipid 1996 panel - S patricia or Plasma Rubi Older [employer] REPRESENTATIVE Work Phone: Plan of Treatment Date Care Activity Detail Author Start: 03-16-2028 Lipid 1996 panel - S patricia or Plasma Lipid Screening [facility] Start: 03-16-2028 Lipid panel Lipid Screening [facility] Start: 03-16-2026 Diabetes Screening Diabetes Screenin [facility] Start: 03-09-2026 Diabetes Screening Diabetes Screenin g [facility] Start: 07-05-2024 Covid-19 Vaccine (#1) Covid-19 Vacci ne (#1) [facility] Immunizations Immunization Date Immunization Notes Care Provider Fa bettie 04-27-2007 tetanus and diphther ia toxoids, not adsorbed, for adult use Saniya Simental MD Work Phone: [facility] Work Phone: Payers Date Payer Category Payer Unknown [id number] 2023 Self-pay 2023 Unknown [id number] 2022 Unknown [id number] 2019 Medicaid [place] [employer] [id number] 2019-Present [phone] [place], [place] [id number] Medicaid [id number] 2019 Medicaid [id number] 1978 Unknown [id number] 1978 Unknown [id number] 1978 Unknown [id number] Unknown [facility] Social History Date Type Detail Facility Start: 05-16-2018 End: 10-06-2022 Tobacco smoking status OKIS Light tobacco smoker [facility] History of tobacco use Cigarette Smoker [facility] Start: 05-16-2018 End: 03-09-2023 Cigarettes smoked current (pack per day) - Reported 0.5 [facility] Start: 05-16-2018 End: 10-06-2022 Tobacco use and exposure User of smokeless tobacco [facility] History of tobacco use Snuff User [facility] Start: 12-28-2020 End: 10-06-2022 Alcohol intake Current drinker of alcohol (finding) [facility] Start: 12-27-2020 History SDOH Alcohol Frequency 5 [facility] Start: 12-27-2020 History SDOH Alcohol Std Drinks 4 [facility] Start: 08-13-2015 History SDOH Alcohol Comment 6-12 on weekends [facility] Start: 12-27-2020 History SDOH Social Connections Phone 3 [facility] Start: 12-27-2020 History SDOH Social Connections Get Together 2 [facility] Start: 12-27-2020 History SDOH Social Connections Sikh 1 [facility] Start: 12-27-2020 History SDOH Social Connections Living 7 [facility] Start: 12-27-2020 Education 16 [facility] Start: 01-21-2016 Tobacco Comment 1 tin chew per day/ 1 pack of cigs a week [facility] Start: 1980 Sex Assigned At Not on file [facility] Start: 10-04-2021 End: 02-03-2022 Exposure to SARS-CoV-2 (event) Not sure [facility] Start: 01-13-2022 History SDOH Alcohol Comment Daily [facility] Start: 10-06-2022 Tobacco Comment 1 tin chew AZRA RY COUPLE DAYS/ 1 pack of cigs a week [facility] Start: 10-06-2022 Alcohol Comment weekends [facility] Start: 12-27-2020 End: 03-09-2023 Social connection and isolation panel [facility] Do you belong to any clubs or organizations such as mormonism groups, unions, fraternal or athletic groups, or school groups? No [facility] Are you now , , , , never or living with a partner? Never [facility] How often to you hav e a drink containing alcohol? 4 or more times a week [facility] How many standard dr inks containing alcohol do you have on a typical day? 7 to 9 [facility] How often do you hav e 6 or more drinks on 1 occasion? Daily or almost daily [facility] How hard is it for y ou to pay for the very basics like food, housing, medical care, and heating Somewhat hard [facility] Adult Depression Scr eening Assessment 0 [facility] Work Phone: Do you feel stress - tense, restless, nervous, or anxious, or unable to sleep at night because your mind is troubled all the time - these days [OSQ] Rather much [facility] (I/We) worried wheth er (my/our) food would run out before (I/we) got money to buy more. Often true [facility] The food that (I/we) bought just didn't last, and (I/we) didn't have money to get more. Sometimes true [facility] At any time in the p ast 12 months, were you homeless or living in jail [including now]? Yes [facility] Start: 03-09-2023 End: 07-12-2023 Alcohol intake Ex-drinker (finding) [facility] Start: 03-09-2023 Alcohol Comment 6 beers a day after work, 24 a day on the weekends [facility] Tobacco smoking status Ex-smoker (finding ) [facility] Sex Assigned At Sex [facility] Start: 06-09-2023 Tobacco smoking status Smoker (findi ng) [facility] Start: 06-11-2023 Tobacco smoking status Heavy t obacco smoker (finding) [facility] Medical Equipment Procedure Code Equipment Code Equipment Origin al Text Equipment Identifier Dates Patch Srg Vntrlx St 1.7in [facility] - [id number] Start: 07-21-2014 Functional Status Date Assessment Result Facility 06-11-2023 Functional Status Standard Safet y ID band on, Call device within reach, Bed in low position, Wheels locked, Upper/Half-Length side-rails up, Bedside Cart Locked, Safety level maintained [facility] 06-09-2023 Functional Status Up ad adrian [facility] spital [facility] 04-12-2023 Functional Status Awake, Resting [facility] Mental Status Date Assessment Result Facility 06-11-2023 Mental Status Orientation Oriented x 4 [facility] 06-11-2023 Mental Status [facility] 06-09-2023 Mental Status Orientation Oriented x 4 [facility] 04-12-2023 Mental Status Orientation Oriented x 4 [facility] Clinical Notes 04-07-2014 to 07-12-2023 Wilbert Pritchett MD - 07/12/2023 6:33 PM ESTTelephone Rip - Nitin Brewer Wilmar - 04/06/2023 3:53 PM Racquel Montesinos RDMS - 04/02/2023 3:15 PM Rubi Meeks, [employer]CHARTER REPRESENTATIVE - 03/09/2023 1:03 PM EDT Note Date & Type Note Facility 07-12-2023 Note HNO ID: [id number] Author: NICKY KASPER RT(R) Service: ? Author Type: Underground Repairer Type: Progress Notes Filed: 07/12/2023 19:08 Note Text: Radiology Service Progress Note PATIENT NAME: Ida Nicholas DATE OF SERVICE: July 12, 2023 TIME: 7:00 PM PATIENT IDENTITY VERIFICATION COMPLETED USING TWO (2) IDENTIFIERS: Name and Date of confirmed by patient verbally. FALL SCREENING: Has the patient had 2 falls in the last year or 1 fall with injury or currently using an Ambulatory Assistive Device (Walker, Cane, Wheelchair, Crutches, etc.)? No PATIENT GENDER DATA: Male PATIENT RELEVANT IMPLANT DATA REVIEWED: Yes PATIENT PRESENTS WITH AN IMPLANTABLE OR ATTACHED LACQUERER: No RADIOLOGY DEPARTMENT: General X-ray: Exam(s) Completed: Upper Extremity X-Ray(s): Elbow, left PERIPHERAL IV DATA: Not applicable SIGNED BY: Nicky Kasper, (R) July 12, 2023 7:00 PM [facility] 07-12-2023 Note HNO ID: [id number] Author: WILBERT PRITCHETT MD Service: ? Author Type: Physician Type: Progress Notes Filed: 07/13/2023 06:43 Note Text: This note was created using NoteWriter. Subjective Patient presents with: Follow Up: From 06/22/23 appointment; cellulitis of LET elbow, extend ANTB treatment Ida Nicholas is a 43 year old male. He stated he was here for work related injury. He had a welding burn of the left elbow that became infected June 06. He was treated in [facility] twice with IV antibiotics for cellulitis and came here 06/22 for follow up. I extended antibiotics for resolving cellulitis. He reports today the elbow is still swollen and painful. He had no fever or chills. He made no mention of his appointment here for dizziness and ataxia. I referred him to the ER and he was discharged to outpatient follow up and was better. ER report was not received because he indicated he had no PCP. Brain CT was negative, and ETOH level was high. Review of Systems Constitutional: Negative for chills and fever. Musculoskeletal: Positive for joint swelling. Negative for gait problem. Neurological: Positive for dizziness. ACTIVE PROBLEM LIST Alcohol abuse, episodic Tobacco [...] facility-administered medications for this visit. Objective BP 122/86 Pulse 102 Temp 36 ?C (96.8 ?F) (Left Tympanic) Resp 16 Wt 75.6 kg (166 lb 11.2 oz) SpO2 98% BMI 27.74 kg/m? Physical Exam Constitutional: Appearance: He is not ill-appearing. Cardiovascular: Rate and Rhythm: Normal rate and regular rhythm. Pulmonary: Breath sounds: Normal breath sounds. Musculoskeletal: Left elbow: Swelling present. No deformity or effusion. Normal range of motion. Tenderness present. Comments: Mild tenderness of left olecranon. Induration and pigmentation of left elbow olecranon area. Burn wound resolved. No cellulitis. Neurological: General: No focal deficit present. Mental Status: He is alert. Gait: Gait and tandem walk normal. Assessment and Plan 1. Elbow pain, left - ICD9: 719.42, ICD10: M25.522 (primary diagnosis) - XR ELBOW SPECIAL VIEWS AP/LAT/OTHER LEFT - CONSULT TO ORTHOPAEDICS - No antibiotics recommended at this time. 2. Elbow swelling, left - ICD9: 719.02, ICD10: M25.422 - XR ELBOW SPECIAL VIEWS AP/LAT/OTHER LEFT - CONSULT TO ORTHOPAEDICS 3. Acute ataxia - ICD9: 781.3, ICD10: R27.8 Resolved. ER report retrieved per HPI. Wilbert Pritchett MD [facility] 07-12-2023 History of Presen t illness Narrative This note was created using NoteWriter. Subjective Patient presents with: Follow Up: From 06/22/23 appointment; cellulitis of LET elbow, extend ANTB treatment Ida Nicholas is a 43 year old male. He stated he was here for work related injury. He had a welding burn of the left elbow that became infected June 06. He was treated in [facility] twice with IV antibiotics for cellulitis and came here 06/22 for follow up. I extended antibiotics for resolving cellulitis. He reports today the elbow is still swollen and painful. He had no fever or chills. He made no mention of his appointment here for dizziness and ataxia. I referred him to the ER and he was discharged to outpatient follow up and was better. ER report was not received because he indicated he had no PCP. Brain CT was negative, and ETOH level was high. Review of Systems Constitutional: Negative for chills and fever. Musculoskeletal: Positive for joint swelling. Negative for gait problem. Neurological: Positive for dizziness. ACTIVE PROBLEM LIST Alcohol abuse, episodic Tobacco [...] facility-administered medications for this visit. Objective BP 122/86 Pulse 102 Temp 36 C (96.8 F) (Left Tympanic) Resp 16 Wt 75.6 kg (166 lb 11.2 oz) SpO2 98% BMI 27.74 kg/m Physical Exam Constitutional: Appearance: He is not ill-appearing. Cardiovascular: Rate and Rhythm: Normal rate and regular rhythm. Pulmonary: Breath sounds: Normal breath sounds. Musculoskeletal: Left elbow: Swelling present. No deformity or effusion. Normal range of motion. Tenderness present. Comments: Mild tenderness of left olecranon. Induration and pigmentation of left elbow olecranon area. Burn wound resolved. No cellulitis. Neurological: General: No focal deficit present. Mental Status: He is alert. Gait: Gait and tandem walk normal. Assessment and Plan 1. Elbow pain, left - ICD9: 719.42, ICD10: M25.522 (primary diagnosis) - XR ELBOW SPECIAL VIEWS AP/LAT/OTHER LEFT - CONSULT TO ORTHOPAEDICS - No antibiotics recommended at this time. 2. Elbow swelling, left - ICD9: 719.02, ICD10: M25.422 - XR ELBOW SPECIAL VIEWS AP/LAT/OTHER LEFT - CONSULT TO ORTHOPAEDICS 3. Acute ataxia - ICD9: 781.3, ICD10: R27.8 Resolved. ER report retrieved per HPI. Wilbert Pritchett MD documented in this encounter [facility] 07-05-2023 Note HNO ID: [id number] Author: WILBERT PRITCHETT MD Service: ? Author Type: Physician Type: Progress Notes Filed: 07/05/2023 23:13 Note Text: This note was created using Sohaloriter. Subjective Ida Nicholas is a 43 year old male was here for numbness of both feet and constant dizziness for one week. He denied current alcohol use. He was here 2 week ago for cellulitis of the left elbow which was better. He described staggering and being off balance. He denied nausea, vomiting, headache, or fever. He stated he was stopped by law enforcement and released after a negative breath test. His mother brought him here. Review of Systems Constitutional: Negative for chills, diaphoresis and fever. HENT: Negative for congestion, ear pain, hearing loss, sore throat and tinnitus. Eyes: Negative for visual disturbance. Respiratory: Negative for cough and shortness of breath. Cardiovascular: Negative for chest pain and palpitations. Gastrointestinal: Negative for abdominal pain, diarrhea, nausea and vomiting. Genitourinary: Negative for difficulty urinating and dysuria. Musculoskeletal: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 documented in this encounter [facility] 08-18-2021 Note PROCEDURE DETAILS Preoperative Diagnosis: left submandibular sialolithiasis Postoperative Diagnosis: left submandibular sialolithiasis Surgeon: Dr. Douglass Resident/Fellow/Other Hr Administrator: Dr. Ferreira Procedure: 1. left transoral sialolithiasis [...] Note, Chart Review, Note Completion Rani Ferreira (Resident)) (Signed 18-Aug-2021 13:25) Authored: Post-Operative Note, Chart Review, Note Completion Last Updated: 18-Aug-2021 16:53 by Brigido Douglass) [facility] 08-18-2021 Note History & Physical R eviewed: [...] the note. I personally evaluated the patient [id number] Electronic Signatures: Brigido Douglass () (Signed 18-Aug-2021 16:50) Authored: Note Completion Co-Signer: History & Physical Reviewed, ERAS, Consent, Note Completion Rani Ferreira (DO (Resident)) (Signed 18-Aug-2021 05:50) Authored: History & Physical Reviewed, ERAS, Consent, Note Completion Last Updated: 18-Aug-2021 16:50 by Brigido Douglass) [facility] 11-25-2020 History of Presen t illness Narrative [...] to offer any answer to the problem. DH-Rmlexfxbwoxmcq-Foanwhr e Work Phone: 11-25-2020 History of Presen [...] week the patient has had more discomfort. [facility]-Wgminlhusqrluk-Tyeknrl Work Phone: documented as of this encounter (statuses as of 12/09/2021) [facility] History of Past illness Narrative* Problem Noted Date Resolved Date Need for lipid screening 04/07/2014 016 Screening for diabetes mellitus (DM) 04/07/2014 08/13/2015 Nonunion of fracture 10/16/2011 08/13/2015 Overview: Right ankle. Elevated LFTs 04/27/2011 09/28/2011 Anxiety 12/29/2009 08/13/2015 LFT's abnormal 06/16/2009 04/28/2011 documented as of this encounter (statuses as of 12/27/2021) [facility] History of Past illness Narrative* Problem Noted Date Resolved Date Need for lipid screening 04/07/2014 016 Screening for diabetes mellitus (DM) 04/07/2014 08/13/2015 Nonunion of fracture 10/16/2011 08/13/2015 Overview: Right ankle. Elevated LFTs 04/27/2011 09/28/2011 Anxiety 12/29/2009 08/13/2015 LFT's abnormal 06/16/2009 04/28/2011 documented as of this encounter (statuses as of 01/05/2022) [facility] History of Past illness Narrative* Problem Noted Date Resolved Date Need for lipid screening 04/07/2014 016 Screening for diabetes mellitus (DM) 04/07/2014 08/13/2015 Nonunion of fracture 10/16/2011 08/13/2015 Overview: Right ankle. Elevated LFTs 04/27/2011 09/28/2011 Anxiety 12/29/2009 08/13/2015 LFT's abnormal 06/16/2009 04/28/2011 documented as of this encounter (statuses as of 01/13/2022) [facility] History of Past illness Narrative* Problem Noted Date Resolved Date Need for lipid screening 04/07/2014 016 Screening for diabetes mellitus (DM) 04/07/2014 08/13/2015 Nonunion of fracture 10/16/2011 08/13/2015 Overview: Right ankle. Elevated LFTs 04/27/2011 09/28/2011 Anxiety 12/29/2009 08/13/2015 LFT's abnormal 06/16/2009 04/28/2011 documented as of this encounter (statuses as of 02/01/2022) [facility] History of Past illness Narrative* Problem Noted Date Resolved Date Need for lipid screening 04/07/2014 016 Screening for diabetes mellitus (DM) 04/07/2014 08/13/2015 Nonunion of fracture 10/16/2011 08/13/2015 Overview: Right ankle. Elevated LFTs 04/27/2011 09/28/2011 Anxiety 12/29/2009 08/13/2015 LFT's abnormal 06/16/2009 04/28/2011 documented as of this encounter (statuses as of 02/03/2022) [facility] History of Past illness Narrative* Problem Noted Date Resolved Date Need for lipid screening 04/07/2014 016 Screening for diabetes mellitus (DM) 04/07/2014 08/13/2015 Nonunion of fracture 10/16/2011 08/13/2015 Overview: Right ankle. Elevated LFTs 04/27/2011 09/28/2011 Anxiety 12/29/2009 08/13/2015 LFT's abnormal 06/16/2009 04/28/2011 documented as of this encounter (statuses as of 05/19/2022) [facility] History of Past illness Narrative* Problem Noted Date Resolved Date Need for lipid screening 04/07/2014 016 Screening for diabetes mellitus (DM) 04/07/2014 08/13/2015 Nonunion of fracture 10/16/2011 08/13/2015 Overview: Right ankle. Elevated LFTs 04/27/2011 09/28/2011 Anxiety 12/29/2009 08/13/2015 LFT's abnormal 06/16/2009 04/28/2011 documented as of this encounter (statuses as of 10/07/2022) [facility] History of Past illness Narrative* Problem Noted Date Diagnosed Date Resolved Date Need for lipid screening 04/07/2014 Screening for diabetes mellitus (DM) 04/07/2014 08/13/2015 Nonunion of fracture 10/16/2011 016 Overview: Right ankle. Elevated LFTs 04/27/2011 09/28/2011 Anxiety 12/29/2009 08/13/2015 LFT's abnormal 06/16/2009 04/28/2011 documented as of this encounter (statuses as of 01/19/2023) [facility] History of Past illness Narrative* Problem Noted Date Diagnosed Date Resolved Date Need for lipid screening 04/07/2014 Screening for diabetes mellitus (DM) 04/07/2014 08/13/2015 Nonunion of fracture 10/16/2011 016 Overview: Right ankle. Elevated LFTs 04/27/2011 09/28/2011 Anxiety 12/29/2009 08/13/2015 LFT's abnormal 06/16/2009 04/28/2011 documented as of this encounter (statuses as of 01/19/2023) [facility] History of Past illness Narrative* Problem Noted Date Diagnosed Date Resolved Date Need for lipid screening 04/07/2014 Screening for diabetes mellitus (DM) 04/07/2014 08/13/2015 Nonunion of fracture 10/16/2011 016 Overview: Right ankle. Elevated LFTs 04/27/2011 09/28/2011 Anxiety 12/29/2009 08/13/2015 LFT's abnormal 06/16/2009 04/28/2011 documented as of this encounter (statuses as of 03/09/2023) [facility] History of Past illness Narrative* Problem Noted Date Diagnosed Date Resolved Date Need for lipid screening 04/07/2014 Screening for diabetes mellitus (DM) 04/07/2014 08/13/2015 Nonunion of fracture 10/16/2011 016 Overview: Right ankle. Elevated LFTs 04/27/2011 09/28/2011 Anxiety 12/29/2009 08/13/2015 LFT's abnormal 06/16/2009 04/28/2011 documented as of this encounter (statuses as of 03/28/2023) [facility] History of Past illness Narrative* Problem Noted Date Diagnosed Date Resolved Date Need for lipid screening 04/07/2014 Screening for diabetes mellitus (DM) 04/07/2014 08/13/2015 Nonunion of fracture 10/16/2011 016 Overview: Right ankle. Elevated LFTs 04/27/2011 09/28/2011 Anxiety 12/29/2009 08/13/2015 LFT's abnormal 06/16/2009 04/28/2011 documented as of this encounter (statuses as of 04/04/2023) [facility] History of Past illness Narrative* Problem Noted Date Diagnosed Date Resolved Date Need for lipid screening 04/07/2014 Screening for diabetes mellitus (DM) 04/07/2014 08/13/2015 Nonunion of fracture 10/16/2011 016 Overview: Right ankle. Elevated LFTs 04/27/2011 09/28/2011 Anxiety 12/29/2009 08/13/2015 LFT's abnormal 06/16/2009 04/28/2011 documented as of this encounter (statuses as of 04/07/2023) [facility] of Past illness Narrative* Problem Noted Date Diagnosed Date Resolved Date Need for lipid screening 04/07/2014 Screening for diabetes mellitus (DM) 04/07/2014 08/13/2015 Nonunion of fracture 10/16/2011 016 Overview: Right ankle. Elevated LFTs 04/27/2011 09/28/2011 Anxiety 12/29/2009 08/13/2015 LFT's abnormal 06/16/2009 04/28/2011 documented as of this encounter (statuses as of 07/13/2023) [facility] Narrative - ReportedConsultation for a left neck xuzzSL-Ebtdkrhivthhqw-Djufilds Work Phone: Evaluation + Plan note No data available for this section [facility] Evaluation note* Diagnosis Oral thrush- Primary Candidiasis of mouth Perleche with candidiasis Candidiasis of mouth Tongue lesion Other specified conditions of the tongue Uncomplicated alcohol dependence (HCC) Other and unspecified alcohol dependence, unspecified drinking behavior documented in this encounter [facility] note* Diagnosis Acute pain of right shoulder- Primary [facility]* Diagnosis Impingement syndrome of right shoulder region- Primary documented in this encounter [facility] note* Diagnosis Impingement syndrome of right shoulder region- Primary [facility]* Diagnosis Rosacea- Primary Cracked lips Diseases of lips Erectile dysfunction, unspecified erectile dysfunction type Hyperlipidemia, unspecified hyperlipidemia type Dysmetabolic syndrome Dysmetabolic Syndrome X Gastroesophageal reflux disease, unspecified whether esophagitis present [facility]* Diagnosis Erectile dysfunction, unspecified erectile dysfunction type [facility] Diagnosis Gastroesophageal reflux disease, unspecified whether esophagitis present [facility]* Diagnosis Numbness and tingling of both feet- Primary Excessive drinking of alcohol Alcohol abuse, unspecified Hyperlipidemia, unspecified hyperlipidemia type Erectile dysfunction, unspecified erectile dysfunction type [facility]* Diagnosis Numbness and tingling of both feet- Primary Elevated LFTs Other abnormal blood chemistry [facility]* Diagnosis Elevated LFTs Other abnormal blood chemistry [facility]* Diagnosis Gastroesophageal reflux disease, unspecified whether esophagitis present Erectile dysfunction, unspecified erectile dysfunction type documented in this encounter [facility] note* Diagnosis Elbow pain, left- Primary Pain in joint, upper arm Elbow swelling, left Acute ataxia Lack of coordination documented in this encounter [facility] for referral (narrative)* Diagnostic Procedure Only (Routine) - Authorized Specialty Diagnoses / Procedures Referred By Yaniv king Referred To Contact US IMAGING Diagnoses Elevated LFTs Procedures US ABD RIGHT UPPER QUADRANT US ABDOMINAL REAL TIME W/IMAGE LIMITED Rubi Wynn APRN.CHARTER REPRESENTATIVE [address] [place] [address] Us Imaging [id number] Referral ID Status Reason Start Date Expiration Date Visits Requested Visits Authorized [id number] Authorized Auto-Generat ed Referral 3 04/21/2024 1 1 * Outpatient Procedure (Routine) - Pending Review Specialty Diagnoses / Procedures Referred By Contac t Referred To Contact [facility] Diagnoses Numbness and tingling of both feet Procedures EMG(NEURO/NI) NERVE CONDUCTION STUDIES 9-10 STUDIES Rubi Wynn APRN.CHARTER REPRESENTATIVE [address] [place] [address] [facility] [place] [address] [place] [address] Referral ID Status Reason Start Date Expiration Date Visits Requested Visits Authorized [id number] Pending Review Auto-Generat ed Referral 3 03/23/2024 1 1 [facility] for visit Narrative* Diagnostic Procedure Only (Routine) - Closed Specialty Diagnoses / Procedures Referred By Sherac t Referred To Contact US IMAGING Diagnoses Elevated LFTs Procedures US ABD RIGHT UPPER QUADRANT US ABDOMINAL REAL TIME W/IMAGE LIMITED Rubi Wynn APRN.CHARTER REPRESENTATIVE [address] [place] [address] [place] [address] Referral ID Status Reason Start Date Expiration Date V isits Requested Visits Authorized [id number] Closed Auto-Generate d Referral 03/23/2023 04/21/2024 1 1 [facility] Summary Purpose Family History No Family History Records FoundNo Family History Records FoundNo Family History Records Found No data available for this section No data available for this section No data available for this section No Family History Records FoundNo Family History Records Found Advance Directives No Advanced Directives Records FoundDocuments on File Type Date Recorded Patient Pan Devulcanizer Expl anation Advance Directive(s) 08/30/2020 11:33 PM Documents on File Type Date Recorded Patient Pan Devulcanizer Expl anation Advance Directive(s) 08/30/2020 11:33 PM Hospital Course Note HNO ID: [id number] Author: Nichole Serna MD Service: General Internal [...] Specialty Diagnoses / Procedures Referred By Contac t Referred To Contact Orthopedics Diagnoses Acute pain of right shoulder Procedures CONSULT TO ORTHOPAEDICS OFFICE/OUTPATIENT [facility] 60-74 MINUTES Yuan Celis, JOSE.CHARTER REPRESENTATIVE [address] [place] [address] Referral ID Status Reason Start Date Expiration Date Visits Requested Visits Authorized [id number] Authorized PCP Requested Referral 12/27/2021 12/27/2022 1 1 Specialty Diagnoses / Procedures Referred By Contac t Referred To Contact Dermatology Diagnoses Rosacea Cracked lips Procedures CONSULT TO DERMATOLOGY Wilbert Pritchett MD [address] [place] [address] Referral ID Status Reason Start Date Expiration Date Visits Requested Visits Authorized [id number] Ref Not Required PCP Requested Referral 10/06/2022 10/06/2023 1 1 Specialty Diagnoses / Procedures Referred By Contac t Referred To Contact Orthopedics Diagnoses Elbow pain, left Elbow swelling, left Procedures CONSULT TO ORTHOPAEDICS OFFICE/OUTPATIENT [facility] 60 MINUTES Wilbert Pritchett MD [address] [place] [address] Referral ID Status Reason Start Date Expiration Date Visits Requested Visits Authorized [id number] Authorized PCP Requested Referral 07/12/2023 07/11/2024 1 1 Specialty Diagnoses / Procedures Referred By Yaniv king Referred To Contact XR IMAGING Diagnoses Elbow pain, left Elbow swelling, left Procedures XR ELBOW SPECIAL VIEWS AP/LAT/OTHER LEFT RADEX ELBOW COMPLETE MINIMUM 3 VIEWS Wilbert Pritchett MD [address] [place] [address] [place] [address] Referral ID Status Reason Start Date Expiration Date Visits Requested Visits Authorized [id number] Pending Review Auto-Generat ed Referral 07/12/2023 08/10/2024 1 1 Additional Source Comments (unrecognized sect ion and content) No Status Records FoundNo Status Records FoundNo Status Records FoundNo Status Records FoundNo Status Records Found INFORMATION SOURCE (unrecogn ized section and content) DATE CREATED AUTHOR AUTHOR'S ORGANIZ ATION 09/01/2021 [place] DATE CREATED AUTHOR AUTHOR'S ORGANIZ ATION 09/01/[address] [facility] DATE CREATED AUTHOR AUTHOR'S ORGANIZ ATION 06/17/2023 [facility] ([place]) DATE CREATED AUTHOR AUTHOR'S ORGANIZ ATION 07/14/2023 [facility] Source Comments (unrecognize d section and content) In the event this informatio n is protected by the Federal Confidentiality of Alcohol and Drug Abuse Patient Records regulations: The Federal rules restrict any use of the information to criminally investigate or prosecute any alcohol or drug abuse patient.[facility] the event this information is protected by the Federal Confidentiality of Alcohol and Drug Abuse Patient Records regulations: The Federal rules restrict any use of the information to criminally investigate or prosecute any alcohol or drug abuse patient.[facility] the event this information is protected by the Federal Confidentiality of Alcohol and Drug Abuse Patient Records regulations: The Federal rules restrict any use of the information to criminally investigate or prosecute any alcohol or drug abuse patient.[facility] the event this information is protected by the Federal Confidentiality of Alcohol and Drug Abuse Patient Records regulations: The Federal rules restrict any use of the information to criminally investigate or prosecute any alcohol or drug abuse patient.[facility] the event this information is protected by the Federal Confidentiality of Alcohol and Drug Abuse Patient Records regulations: The Federal rules restrict any use of the information to criminally investigate or prosecute any alcohol or drug abuse patient.[facility] the event this information is protected by the Federal Confidentiality of Alcohol and Drug Abuse Patient Records regulations: The Federal rules restrict any use of the information to criminally investigate or prosecute any alcohol or drug abuse patient.[facility] the event this information is protected by the Federal Confidentiality of Alcohol and Drug Abuse Patient Records regulations: The Federal rules restrict any use of the information to criminally investigate or prosecute any alcohol or drug abuse patient.[facility] the event this information is protected by the Federal Confidentiality of Alcohol and Drug Abuse Patient Records regulations: The Federal rules restrict any use of the information to criminally investigate or prosecute any alcohol or drug abuse patient.[facility] Center[facility] the event this information is protected by the Federal Confidentiality of Alcohol and Drug Abuse Patient Records regulations: The Federal rules restrict any use of the information to criminally investigate or prosecute any alcohol or drug abuse patient.[facility] Center[facility] the event this information is protected by the Federal Confidentiality of Alcohol and Drug Abuse Patient Records regulations: The Federal rules restrict any use of the information to criminally investigate or prosecute any alcohol or drug abuse patient.[facility] Center[facility] the event this information is protected by the Federal Confidentiality of Alcohol and Drug Abuse Patient Records regulations: The Federal rules restrict any use of the information to criminally investigate or prosecute any alcohol or drug abuse patient.[facility] Center[facility] the event this information is protected by the Federal Confidentiality of Alcohol and Drug Abuse Patient Records regulations: The Federal rules restrict any use of the information to criminally investigate or prosecute any alcohol or drug abuse patient.[facility] Center[facility] the event this information is protected by the Federal Confidentiality of Alcohol and Drug Abuse Patient Records regulations: The Federal rules restrict any use of the information to criminally investigate or prosecute any alcohol or drug abuse patient.[facility] Center[facility] the event this information is protected by the Federal Confidentiality of Alcohol and Drug Abuse Patient Records regulations: The Federal rules restrict any use of the information to criminally investigate or prosecute any alcohol or drug abuse patient.[facility] Center[facility] the event this information is protected by the Federal Confidentiality of Alcohol and Drug Abuse Patient Records regulations: The Federal rules restrict any use of the information to criminally investigate or prosecute any alcohol or drug abuse patient.[facility] Reason for Visit (unrecogniz ed section and content) Reason Comments Pain (RT) shoulder injury helping move furniture pain rated 9, [facility] xray wrist, (RT) shoulder pt reported negative Reason Comments right shoulder pain REF: Cam Celis - [facility] ED 12/19/2021 Reason Comments Patient Update Reason Comments Follow-up Shoulder Pain Reason Comments Derm Problem EYELIDS ARE DRY AND FLAKY, LIPS ARE CHAPPED Erectile Dysfunction Reason Onset Date Comments Refill Request 01/19/2023 Reason Comments feet going numb X4 weeks Reason Comments Results Reason Onset Date Comments Refill Request 04/06/2023 Reason Comments Follow Up From 06/22/23 appoint ment; cellulitis of LET elbow, extend ANTB treatment Specialty Diagnoses / Procedures Referred By Yaniv king Referred To Contact Internal Medicine / INTERNAL MEDICINE Diagnoses Follow up for elbow WC Procedures REFERRAL TO [facility]C EST Self Wilbert Pritchett MD [address] [place] [address] Referral ID Status Reason Start Date Expiration Date V isits Requested Visits Authorized [id number] Pending Review 07/12/2023 09/10/2023 1 1 Care Teams (unrecognized sec tion and content) Accounts Supervisor Relationship Specialty Start Date End Date Wilbert Pritchett MD [address] [facility] [place] [address] PCP - General 12/23/09 Accounts Supervisor Relationship Specialty Start Date End Date Wilbert Pritchett MD [address] [facility] [place] [address] PCP - General 12/23/09 Accounts Supervisor Relationship Specialty Start Date End Date Wilbert Pritchett MD [address] [facility] [place] [address] PCP - General 12/23/09 Accounts Supervisor Relationship Specialty Start Date End Date Wilbert Pritchett MD [address] [facility] [place] [address] PCP - General 12/23/09 Accounts Supervisor Relationship Specialty Start Date End Date Wilbert Pritchett MD [address] [facility] [place] [address] PCP - General 12/23/09 Accounts Supervisor Relationship Specialty Start Date End Date Wilbert Pritchett MD [address] [facility] [place] [address] PCP - General 12/23/09 Accounts Supervisor Relationship Specialty Start Date End Date Wilbert Pritchett MD [address] [facility] [place] [address] PCP - General 12/23/09 Accounts Supervisor Relationship Specialty Start Date End Date Wilbert Pritchett MD [address] [facility] [place] [address] PCP - General 12/23/09 Accounts Supervisor Relationship Specialty Start Date End Date Wilbert Pritchett MD [address] [facility] [place] [address] PCP - General 12/23/09 Accounts Supervisor Relationship Specialty Start Date End Date Wilbert Pritchett MD [address] [facility] [place] [address] PCP - General 12/23/09 Accounts Supervisor Relationship Specialty Start Date End Date Wilbert Pritchett MD [address] [facility] [place] [address] PCP - General 12/23/09 Accounts Supervisor Relationship Specialty Start Date End Date Wilbert Pritchett MD [address] [facility] [place] [address] PCP - General 12/23/09 Accounts Supervisor Relationship Specialty Start Date End Date Wilbert Pritchett MD [address] [facility] [place] [address] PCP - General 12/23/09 Accounts Supervisor Relationship Specialty Start Date End Date Wilbert Pritchett MD [address] [facility] [place], [place] [id number] PCP General 12/23/09 FOR RECORDS PERTAINING TO PATIENTS [...] BE BASED ON THE PRIMARY CLINICAL RECORDS. [facility] [employer] [facility]. provides no warranty or guarantee of the accuracy or completeness of information in this document.
--- OUTSIDE RECORDS SUMMARY | 2023-07-16 01:02 | XMS RPT_ITS | CCD ---
Author Name Unknown Address [address] [place] [address] Organization [facility] Care Team Providers Care 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 Worker Name Role Phone Unknown, Unknown Unavailable Unavailable Unavailable Unavailable Pending Provider Unavailable Unavailable Richie HARDEN, Wilbert Wylie Primary Care Provider [phone] Richie HARDEN, Wilbert Wylie Primary Care Provider [phone] Richie HARDEN, Wilbert Wylie Primary Care Provider [phone] PHYSICIAN, NONE Primary Care Physician Unavailab efra [...] 96.8 [degF] Wilbert Pritchett MD Work Phone: [facility] 07-12-2023 18:23-0500 Body weight 75.61 kg Wilbert Pritchett MD Work Phone: [facility] 07-12-2023 18:23-0500 Diastolic blood pressure 86 mm[Hg] Wilbert Pritchett MD Work Phone: [facility] 07-12-2023 18:23-0500 Heart rate 102 /min Wilbert Pritchett MD Work Phone: [facility] 07-12-2023 18:23-0500 Respiratory rate 16 /min Wilbert Pritchett MD Work Phone: [facility] 07-12-2023 18:23-0500 SaO2% (BldA) [Mass fraction] 98 % Wilbert Pritchett MD Work Phone: [facility] 07-12-2023 18:23-0500 Systolic blood pressure 122 mm[Hg] Wilbert Pritchett MD Work Phone: [facility] 06-11-2023 17:58-0500 Diastolic Blood Pressure Non-Invasive 92 mm[Hg] DR ROXIE EGAN DO [facility] 06-11-2023 17:58-0500 Heart rate 87 /min DR ROXIE EGAN DO [facility] 06-11-2023 17:58-0500 Reason For Taking VItal Signs DR ROXIE EGAN DO [facility] 06-11-2023 17:58-0500 Respiratory rate 18 /min DR ROXIE EGAN DO [facility] 06-11-2023 17:58-0500 Systolic Blood Pressure Non-Invasive 128 mm[Hg] DR ROXIE EGAN DO [facility] 06-11-2023 15:53-0500 Body temperature 98.24 [degF] DR ROXIE EGAN DO [facility] 06-11-2023 15:53-0500 Diastolic Blood Pressure Non-Invasive 81 mm[Hg] DR ROXIE EGAN DO [facility] 06-11-2023 15:53-0500 Heart rate 97 /min DR ROXIE EGAN DO [facility] 06-11-2023 15:53-0500 Respiratory rate 18 /min DR ROXIE EGAN DO [facility] 06-11-2023 15:53-0500 Systolic Blood Pressure Non-Invasive 140 mm[Hg] DR ROXIE EGAN DO [facility] 06-09-2023 16:20-0500 Body height [address] DAVID CLARKE MD [facility] 06-09-2023 16:20-0500 Body temperature 97.34 [degF] DR DAVID CLARKE MD [facility] 06-09-2023 16:20-0500 Body weight 79.[address] DAVID CLARKE MD [facility] 06-09-2023 16:20-0500 Diastolic Blood Pressure Non-Invasive 81 mm[Hg] DR DAVID CLARKE MD [facility] 06-09-2023 16:20-0500 Heart rate 106 /min DR DAVID CLARKE MD [facility] 06-09-2023 16:20-0500 Respiratory rate 18 /min DR DAVID CLARKE MD [facility] 06-09-2023 16:20-0500 Systolic Blood Pressure Non-Invasive 128 mm[Hg] DR DAVID CLARKE MD [facility] 04-12-2023 22:14-0500 Body temperature 98.6 [degF] DR ROXIE EGAN DO [facility] 04-12-2023 22:14-0500 Diastolic Blood Pressure Non-Invasive 88 mm[Hg] DR ROXIE EGAN DO [facility] 04-12-2023 22:14-0500 Heart rate 102 /min DR ROXIE EGAN DO [facility] 04-12-2023 22:14-0500 Respiratory rate 18 /min DR ROXIE EGAN DO [facility] 04-12-2023 22:14-0500 Systolic Blood Pressure Non-Invasive 147 mm[Hg] DR ROXIE EGAN DO [facility] 03-09-2023 12:49-0400 Body weight 80.29 kg Rubi Older LAUNDRY OPERATOR.ELECTRIC TRACK SWITCH MAINTAINER Work Phone: [facility] 03-09-2023 12:49-0400 Diastolic blood pressure 72 mm[Hg] Rubi Older LAUNDRY OPERATOR.ELECTRIC TRACK SWITCH MAINTAINER Work Phone: [facility] 03-09-2023 12:49-0400 Heart rate 104 /min Rubi Older LAUNDRY OPERATOR.ELECTRIC TRACK SWITCH MAINTAINER Work Phone: [facility] 03-09-2023 12:49-0400 Respiratory rate 18 /min Rubi Older LAUNDRY OPERATOR.ELECTRIC TRACK SWITCH MAINTAINER Work Phone: [facility] 03-09-2023 12:49-0400 SaO2% (BldA) [Mass fraction] 94 % Rubi Older LAUNDRY OPERATOR.ELECTRIC TRACK SWITCH MAINTAINER Work Phone: [facility] 03-09-2023 12:49-0400 Systolic blood pressure 116 mm[Hg] Rubi Older LAUNDRY OPERATOR.ELECTRIC TRACK SWITCH MAINTAINER Work Phone: [facility] 10-06-2022 16:54-0400 Body weight 78.47 kg Wilbert Pritchett MD Work Phone: [facility] 10-06-2022 16:54-0400 Diastolic blood pressure 62 mm[Hg] Wilbert Pritchett MD Work Phone: [facility] 10-06-2022 16:54-0400 Heart rate 95 /min Wilbert Pritchett MD Work Phone: [facility] 10-06-2022 16:54-0400 Respiratory rate 16 /min Wilbert Pritchett MD Work Phone: [facility] 10-06-2022 16:54-0400 SaO2% (BldA) [Mass fraction] 96 % Wilbert Pritchett MD Work Phone: [facility] 10-06-2022 16:54-0400 Systolic blood pressure 110 mm[Hg] Wilbert Pritchett MD Work Phone: [facility] 12-27-2021 14:41-0400 Body temperature 97.2 [degF] Yuan Pendlebury LAUNDRY OPERATOR.ELECTRIC TRACK SWITCH MAINTAINER Work Phone: [facility] 12-27-2021 14:41-0400 Body weight 78.65 kg [facility] LAUNDRY OPERATOR.ELECTRIC TRACK SWITCH MAINTAINER Work Phone: [facility] 12-27-2021 14:41-0400 Diastolic blood pressure 70 mm[Hg] Yuan Pendlebury LAUNDRY OPERATOR.ELECTRIC TRACK SWITCH MAINTAINER Work Phone: [facility] 12-27-2021 14:41-0400 Heart rate 90 /min Yuan Pendlebury LAUNDRY OPERATOR.ELECTRIC TRACK SWITCH MAINTAINER Work Phone: [facility] 12-27-2021 14:41-0400 Respiratory rate 16 /min [facility] LAUNDRY OPERATOR.ELECTRIC TRACK SWITCH MAINTAINER Work Phone: [facility] 12-27-2021 14:41-0400 SaO2% (BldA) [Mass fraction] 99 % [facility] LAUNDRY OPERATOR.ELECTRIC TRACK SWITCH MAINTAINER Work Phone: [facility] 12-27-2021 14:41-0400 Systolic blood pressure 126 mm[Hg] Yuan Pendlebury LAUNDRY OPERATOR.ELECTRIC TRACK SWITCH MAINTAINER Work Phone: [facility] 10-14-2021 16:30-0400 Body weight 81.19 kg Saniya Simental MD Work Phone: [facility] 10-14-2021 16:30-0400 Diastolic blood pressure 80 mm[Hg] Saniya Simental MD Work Phone: [facility] 10-14-2021 16:30-0400 Heart rate 94 /min Saniya Simental MD Work Phone: [facility] 10-14-2021 16:30-0400 SaO2% (BldA) [Mass fraction] 98 % Saniya Simental MD Work Phone: [facility] 10-14-2021 16:30-0400 Systolic blood pressure 118 mm[Hg] Saniya Simental MD Work Phone: [facility] 07-26-2021 17:09-0500 Body height 165.1 cm Unknown [...] height 165.1 cm Unknown Unknown [facility] [place] Work Phone: 06-28-2021 16:19-0500 Body mass index (BMI) [Ratio] 32.82 kg/m2 Unknown Unknown [facility] [place] Work Phone: 06-28-2021 16:19-0500 Body surface area Derived from formula 1.97 m2 Unknown Unknown [facility] [place] Work Phone: 06-28-2021 16:19-0500 Body temperature 97.9 [degF] Unknown Unknown [facility] [place] Work Phone: 06-28-2021 16:19-0500 Body weight 89.45 kg Unknown Unknown [facility] [place] Work Phone: Encounters Encounter Date Encounter Type Care Provider Facility Start: 07-12-2023 End: 07-12-2023 ambulatory WILBERT PRITCHETT Facility:[facility] Start: 07-12-2023 End: 07-12-2023 Patient encounter procedure Wilbert Pritchett MD Work Phone: [facility] [place] Procedures Date Procedure Procedure Detail Performing Clinician Start: 04-02-2023 Us abdominal real ti me w/image limited Rubi Older LAUNDRY OPERATOR.ELECTRIC TRACK SWITCH MAINTAINER Work Phone: Start: 03-16-2023 Lipid 1996 panel - S patricia or Plasma Wilbert Pritchett MD Work Phone: Start: 03-09-2023 Hemoglobin A1c/Hemoglobin.total in Blood Rubi Older LAUNDRY OPERATOR.ELECTRIC TRACK SWITCH MAINTAINER Work Phone: Start: 12-27-2020 Adult depression screening assessment Saniya Simental MD Work Phone: Start: 08-13-2015 Lipid 1996 panel - S patricia or Plasma Rubi Older LAUNDRY OPERATOR.ELECTRIC TRACK SWITCH MAINTAINER Work Phone: Plan of Treatment Date Care Activity Detail Author Start: 03-16-2028 Lipid 1996 panel - S patricia or Plasma Lipid Screening [facility] Start: 03-16-2028 Lipid panel Lipid Screening [facility] Start: 03-16-2026 Diabetes Screening Diabetes Screenin [facility] Start: 03-09-2026 Diabetes Screening Diabetes Screenin g [facility] Start: 07-05-2024 Covid-19 Vaccine (#1) Covid-19 Vacci ne (#1) [facility] Immunizations Immunization Date Immunization Notes Care Provider Fa bettie 04-27-2007 tetanus and diphther ia toxoids, not adsorbed, for adult use Saniya Simental MD Work Phone: [facility] Work Phone: Payers Date Payer Category Payer Unknown [id number] 2023 Self-pay 2023 Unknown [id number] 2022 Unknown [id number] 2019 Medicaid [place] [employer] [employer] [id number] 2019-Present [phone] [place], [place] [id number] Medicaid [id number] 2019 Medicaid [id number] 1978 Unknown [id number] 1978 Unknown [id number] 1978 Unknown [id number] Unknown [facility] Social History Date Type Detail Facility Start: 05-16-2018 End: 10-06-2022 Tobacco smoking status DCIS Light tobacco smoker [facility] History of tobacco use Cigarette Smoker C [facility] Start: 05-16-2018 End: 03-09-2023 Cigarettes smoked current (pack per day) - Reported 0.5 [facility] Start: 05-16-2018 End: 10-06-2022 Tobacco use and exposure User of smokeless tobacco [facility] History of tobacco use Snuff User [facility] Start: 12-28-2020 End: 10-06-2022 Alcohol intake Current drinker of alcohol (finding) [facility] Start: 12-27-2020 History SDOH Alcohol Frequency 5 [facility] Start: 12-27-2020 History SDOH Alcohol Std Drinks 4 [facility] Start: 08-13-2015 History SDOH Alcohol Comment 6-12 on weekends [facility] Start: 12-27-2020 History SDOH Social Connections Phone 3 [facility] Start: 12-27-2020 History SDOH Social Connections Get Together 2 [facility] Start: 12-27-2020 History SDOH Social Connections Yazidi 1 [facility] Start: 12-27-2020 History SDOH Social Connections Living 7 [facility] Start: 12-27-2020 Education 16 [facility] Start: 01-21-2016 Tobacco Comment 1 tin chew per day/ 1 pack of cigs a week [facility] Start: 1980 Sex Assigned At Not on file C [facility] Start: 10-04-2021 End: 02-03-2022 Exposure to SARS-CoV-2 (event) Not sure [facility] Start: 01-13-2022 History SDOH Alcohol Comment Daily [facility] Start: 10-06-2022 Tobacco Comment 1 tin chew AZRA RY COUPLE DAYS/ 1 pack of cigs a week [facility] Start: 10-06-2022 Alcohol Comment weekends [facility] Start: 12-27-2020 End: 03-09-2023 Social connection and isolation panel [facility] Do you belong to any clubs or organizations such as sikhism groups, unions, fraternal or athletic groups, or school groups? No [facility] Are you now , , , , never or living with a partner? Never [facility] How often to you hav e a drink containing alcohol? 4 or more times a week [facility] How many standard dr inks containing alcohol do you have on a typical day? 7 to 9 [facility] How often do you hav e 6 or more drinks on 1 occasion? Daily or almost daily [facility] How hard is it for y ou to pay for the very basics like food, housing, medical care, and heating Somewhat hard [facility] Adult Depression Scr eening Assessment 0 [facility] Work Phone: Do you feel stress - tense, restless, nervous, or anxious, or unable to sleep at night because your mind is troubled all the time - these days [OSQ] Rather much [facility] (I/We) worried wheth er (my/our) food would run out before (I/we) got money to buy more. Often true [facility] The food that (I/we) bought just didn't last, and (I/we) didn't have money to get more. Sometimes true [facility] At any time in the p ast 12 months, were you homeless or living in long term [including now]? Yes [facility] Start: 03-09-2023 End: 07-12-2023 Alcohol intake Ex-drinker (finding) [facility] Start: 03-09-2023 Alcohol Comment 6 beers a day after work, 24 a day on the weekends [facility] Tobacco smoking status Ex-smoker (finding ) [facility] Sex Assigned At Sex [facility] Start: 06-09-2023 Tobacco smoking status Smoker (findi ng) [facility] Start: 06-11-2023 Tobacco smoking status Heavy t obacco smoker (finding) [facility] Medical Equipment Procedure Code Equipment Code Equipment Origin al Text Equipment Identifier Dates Patch Srg Vntrlx St 1.7in [facility] - [id number] Start: 07-21-2014 Functional Status Date Assessment Result Facility 06-11-2023 Functional Status Standard Safet y ID band on, Call device within reach, Bed in low position, Wheels locked, Upper/Half-Length side-rails up, Bedside Cart Locked, Safety level maintained [facility] 06-09-2023 Functional Status Up ad adrian [facility] 04-12-2023 Functional Status Awake, Resting [facility] Mental Status Date Assessment Result Facility 06-11-2023 Mental Status Orientation Oriented x 4 [facility] 06-11-2023 Mental Status [facility] 06-09-2023 Mental Status Orientation Oriented x 4 [facility] 04-12-2023 Mental Status Orientation Oriented x 4 [facility] Clinical Notes 04-07-2014 to 07-12-2023 Wilbert Pritchett MD - 07/12/2023 6:33 PM ESTTelephone Rip - Nitin Brewer Wilmar - 04/06/2023 3:53 PM Racquel Montesinos RDMS - 04/02/2023 3:15 PM Rubi Meeks, LAUNDRY OPERATOR.ELECTRIC TRACK SWITCH MAINTAINER - 03/09/2023 1:03 PM EDT Note Date & Type Note Facility 07-12-2023 Note HNO ID: [id number] Author: NICKY KASPER RT(R) Service: ? Author Type: Administrative Services Manager Type: Progress Notes Filed: 07/12/2023 19:08 Note [...] PATIENT PRESENTS WITH AN IMPLANTABLE OR ATTACHED MANAGER CAFE: No RADIOLOGY DEPARTMENT: General X-ray: Exam(s) Completed: Upper Extremity X-Ray(s): Elbow, left PERIPHERAL IV DATA: Not applicable SIGNED BY: Nicky Kasepr, (R) July 12, 2023 7:00 PM [facility] 07-12-2023 Note HNO ID: [id number] Author: WILBERT PRITCHETT MD Service: ? Author [...] infected June 06. He was treated in [facility] twice with IV antibiotics for cellulitis [...] report retrieved per HPI. Wilbert Pritchett MD [facility] 07-12-2023 History of Presen t illness Narrative [...] infected June 06. He was treated in [facility] twice with IV antibiotics for cellulitis [...] Wilbert Pritchett MD documented in this encounter [facility] 07-05-2023 Note HNO ID: [id number] Author: WILBERT PRITCHETT MD Service: ? Author Type: Physician Type: Progress Notes Filed: 07/05/2023 23:13 Note Text: This note was created using Phone Warriorriter. Subjective Ida Nicholas is a 43 year [...] weakness. Coordination: Romberg sign positive. Coordination abnormal. Hxnmfd-Olty-Khxtwj Test normal. Rapid alternating movements normal. Gait: [...] and will proceed directly. Wilbert Pritchett MD [facility] 06-22-2023 Note HNO ID: [id number] Author: WILBERT PRITCHETT MD Service: ? Author Type: Physician Type: Progress Notes Filed: 06/23/2023 19:27 Note Text: This note was created using Phone Warriorriter. Subjective Patient presents with: Recheck: ER left [...] CEPHALEXIN 500 MG CAPSULE Wilbert Pritchett MD [facility] 06-17-2023 Note . MICRO - Microbiology [...] Locations *1: This test was performed at: [address], [facility] , [facility] ([place]) 06-16-2023 Note . MICRO - Microbiology PROCEDURE: [...] Locations *1: This test was performed at: [address], [facility] ([place]) 06-11-2023 Hospital Discharg e instructions Patient Education [...] or higher after 2 days on antibiotics [id number] [employer]. [address] [place] [address]. All rights reserved. This information is not intended as a substitute for professional medical care. Always follow your healthcare professional's instructions. Follow Up Care 06/11/2023 15:51:39 With:Follow up with primary care provider Address:Unknown When:2-4 days [facility] 06-11-2023 Emergency department Discharge summary Discharge Instructions Thank you for allowing [facility] to assist you with your healthcare needs. [...] or higher after 2 days on antibiotics [id number] [employer]. [address] [place] [address]. All rights reserved. This information is not intended as a substitute for professional medical care. Always follow your healthcare professional's instructions. Additional Information VACCINATE! IT SAVES LIVES! Members of the community who have not yet received the COVID-19 vaccine and would like to receive it can visit one of [facility] vaccine clinics. There are many vaccine clinic locations within the [facility]. For locations and available times, please visit [email or web address] It is important to note that some COVID mobile vaccine clinics are held outdoors and may be canceled in rainy or stormy conditions. To learn more about pediatric vaccinations (ages 5-11), we invite you to visit the [facility] webpage. [email or web address]/ pages/[email or web address]-Esjgq-Djdgudntlli-Fr vhqxzlcx-Uvsnu-[email or web address].html To learn more about the COVID-19 vaccine, we invite you to visit the CDC website for a list of frequently asked questions. https://www.cdc.gov/coronavirus /2019-ncov/vaccines/faq.html [facility] Access Instructions: Stay connected with your healthcare team and access your personal medical information anytime with the [facility] [employer] Patient Portal. If you would like a full copy of your medical records please contact the [facility] Medical Records Department Sunday through Sunday between 8a.m. and 4:30p.m. Please follow the directions below to access the portal: 1.Access the email account you provided upon registration to the [facility].2.Look for an invitation email from [facility].3.Open the email and access the invitation link: Accept Invitation to [facility].Fill in the required lawrence to create your account. Sign into [email or web address] [email or web address] with your username and password that you [...] you will allow to register on the [facility] Patient Portal for access to your information. You can also access the [facility] Patient Portal on the [employer]. Simply click on Health Records under Health Data and then click on the [employer] logo. HOW TO SAFELY DISPOSE OF PRESCRIPTION [...] Call your local pharmacy or go to http://LocaMap.Biomatrica/8H3Eq1x to find one close to you.3.Make use of household items: Use cat litter or old coffee grounds to dispose medications if other options are not available. Mix your drugs with these household products, seal them in an airtight container and throw it into the garbage. Call [facility]: [phone] to be sure your drugs can be [...] aware that I should contact my doctor. Patient/Runner Worker Signature: Date/Time: Relationship to Patient: Witness Name/Signature: Date/Time: [facility] 06-11-2023 Evaluation + Plan note Diagnostic Tests PendingBlood Culture (bacterial) 06/11/23 [facility] 06-09-2023 Hospital Discharg e instructions Patient [...] or higher after 2 days on antibiotics [id number] [employer]. [address] [place] [address]. All rights reserved. This information is not intended as a substitute for professional medical care. Always follow your healthcare professional's instructions. Follow Up Care 06/09/2023 16:19:03 With:[facility] Address: [address] [place] [phone] When:2-4 days [facility] 06-09-2023 Note Discharge Instructions Thank you for allowing [facility] to assist you with your healthcare needs. [...] Schedule the Following Appointments Follow Up with [facility] When Within 2-4 days Where: [address] [place] [phone] Allergies NKA Medications Please ask your primary [...] may report side effects to FDA at 7-763-DRH-5213. What other drugs will affect cephalexin? Tell your doctor about all your other medicines, especially: metformin; or probenecid. This list is not complete. Other drugs may affect cephalexin, including prescription and ofem-csr-nrxwbes medicines, vitamins, and herbal products. Not all [...] to ensure that the information provided by [employer]. ('[employer]') is accurate, up-to-date, and complete, but no guarantee is made to that effect. Drug information contained herein may be time sensitive. [employer] information has been compiled for use by healthcare practitioners and consumers in the [place] and therefore [employer] does not warrant that uses outside of the [place] are appropriate, unless specifically indicated otherwise. [employer]'s drug information does not endorse drugs, diagnose patients or recommend therapy. [employer] drug information is an informational resource designed [...] effective or appropriate for any given patient. [facility] does not assume any responsibility for any aspect of healthcare administered with the aid of information [facility] provides. The information contained herein is not intended to cover all possible uses, directions, precautions, warnings, drug interactions, allergic reactions, or adverse effects. If you have questions about the drugs you are taking, check with your doctor, nurse or pharmacist. Copyright 5431-9638 [facility] [employer]. Version: .. Revision Date: 12/27/2022. sulfamethoxazole and [...] blood sodium or high potassium); porphyria, or jpzoyvr-1-ltxwumznj dehydrogenase (G6PD) deficiency; or if you use [...] may report side effects to FDA at 6-020-RWL-2805. What other drugs will affect sulfamethoxazole and [...] sulfamethoxazole and trimethoprim. This includes prescription and jwev-xtz-tpkhlet medicines, vitamins, and herbal products. Not all [...] to ensure that the information provided by [employer]. ('[employer]') is accurate, up-to-date, and complete, but no guarantee is made to that effect. Drug information contained herein may be time sensitive. [employer] information has been compiled for use by healthcare practitioners and consumers in the [place] and therefore [employer] does not warrant that uses outside of the [place] are appropriate, unless specifically indicated otherwise. [employer]'s drug information does not endorse drugs, diagnose patients or recommend therapy. [employer] drug information is an informational resource designed [...] effective or appropriate for any given patient. [employer] does not assume any responsibility for any aspect of healthcare administered with the aid of information [employer] provides. The information contained herein is not intended to cover all possible uses, directions, precautions, warnings, drug interactions, allergic reactions, or adverse effects. If you have questions about the drugs you are taking, check with your doctor, nurse or pharmacist. Copyright 5359-2027 [employer]. Version: 13.. Revision Date: 12/28/2022. Education Materials [...] or higher after 2 days on antibiotics 5774-0460 [employer]. [address] [place] [address], [place] [address]. All rights reserved. This information is not intended as a substitute for professional medical care. Always follow your healthcare professional's instructions. Additional Information VACCINATE! IT SAVES LIVES! Members of the community who have not yet received the COVID-19 vaccine and would like to receive it can visit one of [facility] vaccine clinics. There are many vaccine clinic locations within the [facility]. For locations and available times, please visit www.[email or web address] .gov/. It is important to note that some COVID mobile vaccine clinics are held outdoors and may be canceled in rainy or stormy conditions. To learn more about pediatric vaccinations (ages 5-11), we invite you to visit the [facility] webpage. https://www.akronGysts.org/ pages/3346-Uozzw-Mtjwvsbfumr-Fr vpdpcndv-Jqfdf-Bzxdkkcmm.html To learn more about the COVID-19 vaccine, we invite you to visit the CDC website for a list of frequently asked questions. https://www.cdc.gov/coronavirus /2019-ncov/vaccines/faq.html [facility] Patient Portal Access Instructions: Stay connected with your healthcare team and access your personal medical information anytime with the [facility] Patient Portal. If you would like a full copy of your medical records please contact the [facility] Medical Records Department Sunday through Sunday between 8a.m. and 4:30p.m. Please follow the directions below to access the portal: 1.Access the email account you provided upon registration to the hospital.2.Look for an invitation email from [facility].3.Open the email and access the invitation link: Accept Invitation to [facility]4.Fill in the required lawrence to create your account. Sign into www.Aspiring Minds with your username and password that you [...] you will allow to register on the [facility] Patient Portal for access to your information. You can also access the [facility] [facility] Patient Portal on the Bab[employer] nilam. Simply click on Health Records under [...] Call your local pharmacy or go to http://LocaMap.Biomatrica/[email or web address] to find one close to you.3.Make use of household items: Use cat litter or old coffee grounds to dispose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 patient.[facility] the event this information is protected by the Federal Confidentiality of Alcohol and Drug Abuse Patient Records regulations: The Federal rules restrict any use of the information to criminally investigate or prosecute any alcohol or drug abuse patient.[facility] the event this information is protected by the Federal Confidentiality of Alcohol and Drug Abuse Patient Records regulations: The Federal rules restrict any use of the information to criminally investigate or prosecute any alcohol or drug abuse patient.[facility] the event this information is protected by the Federal Confidentiality of Alcohol and Drug Abuse Patient Records regulations: The Federal rules restrict any use of the information to criminally investigate or prosecute any alcohol or drug abuse patient.[facility] the event this information is protected by the Federal Confidentiality of Alcohol and Drug Abuse Patient Records regulations: The Federal rules restrict any use of the information to criminally investigate or prosecute any alcohol or drug abuse patient.[facility] the event this information is protected by the Federal Confidentiality of Alcohol and Drug Abuse Patient Records regulations: The Federal rules restrict any use of the information to criminally investigate or prosecute any alcohol or drug abuse patient.[facility] the event this information is protected by the Federal Confidentiality of Alcohol and Drug Abuse Patient Records regulations: The Federal rules restrict any use of the information to criminally investigate or prosecute any alcohol or drug abuse patient.[facility] the event this information is protected by the Federal Confidentiality of Alcohol and Drug Abuse Patient Records regulations: The Federal rules restrict any use of the information to criminally investigate or prosecute any alcohol or drug abuse patient.[facility] the event this information is protected by the Federal Confidentiality of Alcohol and Drug Abuse Patient Records regulations: The Federal rules restrict any use of the information to criminally investigate or prosecute any alcohol or drug abuse patient.[facility] the event this information is protected by the Federal Confidentiality of Alcohol and Drug Abuse Patient Records regulations: The Federal rules restrict any use of the information to criminally investigate or prosecute any alcohol or drug abuse patient.[facility] the event this information is protected by the Federal Confidentiality of Alcohol and Drug Abuse Patient Records regulations: The Federal rules restrict any use of the information to criminally investigate or prosecute any alcohol or drug abuse patient.[facility] the event this information is protected by the Federal Confidentiality of Alcohol and Drug Abuse Patient Records regulations: The Federal rules restrict any use of the information to criminally investigate or prosecute any alcohol or drug abuse patient.[facility] the event this information is protected by the Federal Confidentiality of Alcohol and Drug Abuse Patient Records regulations: The Federal rules restrict any use of the information to criminally investigate or prosecute any alcohol or drug abuse patient.[facility] the event this information is protected by the Federal Confidentiality of Alcohol and Drug Abuse Patient Records regulations: The Federal rules restrict any use of the information to criminally investigate or prosecute any alcohol or drug abuse patient.[facility] the event this information is protected by the Federal Confidentiality of Alcohol and Drug Abuse Patient Records regulations: The Federal rules restrict any use of the information to criminally investigate or prosecute any alcohol or drug abuse patient.[facility] Reason for Visit (unrecogniz ed section and content) Reason Comments Pain (RT) shoulder injury helping move furniture pain rated 9, [facility] xray wrist, (RT) shoulder pt reported negative Reason Comments right shoulder pain REF: Cam Celis - [facility] ED 12/19/2021 Reason Comments Patient Update [...] COUNSELOR 4C EST Self Wilbert Pritchett MD [address] [place] [address] Referral ID Status Reason Start Date Expiration Date V isits Requested Visits Authorized [id number] Pending Review 07/12/2023 09/10/2023 1 1 Care Teams (unrecognized sec tion and content) 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 Worker Relationship Specialty Start Date End Date Wilbert Pritchett MD [address] [place] [address] PCP - General 12/23/09 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 Worker Relationship Specialty Start Date End Date Wilbert Pritchett MD [address] [place] [address] PCP - General 12/23/09 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 Worker Relationship Specialty Start Date End Date Wilbert Pritchett MD [address] [place] [address] PCP - General 12/23/09 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 Worker Relationship Specialty Start Date End Date Wilbert Pritchett MD [address] [place] [address] PCP - General 12/23/09 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 Worker Relationship Specialty Start Date End Date Wilbert Pritchett MD [address] [place] [address] PCP - General 12/23/09 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 Worker Relationship Specialty Start Date End Date Wilbert Pritchett MD [address] [place] [address] PCP - General 12/23/09 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 Worker Relationship Specialty Start Date End Date Wilbert Pritchett MD [address] [place] [address] PCP - General 12/23/09 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 Worker Relationship Specialty Start Date End Date Wilbert Pritchett MD [address] [place] [address] PCP - General 12/23/09 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 Worker Relationship Specialty Start Date End Date Wilbert Pritchett MD [address] [place] [address] PCP - General 12/23/09 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 Worker Relationship Specialty Start Date End Date Wilbert Pritchett MD [address] [place] [address] PCP - General 12/23/09 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 Worker Relationship Specialty Start Date End Date Wilbert Pritchett MD [address] [place] [address] PCP - General 12/23/09 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 Worker Relationship Specialty Start Date End Date Wilbert Pritchett MD [address] [place] [address] PCP - General 12/23/09 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 Worker Relationship Specialty Start Date End Date Wilbert Pritchett MD [address] [place] [address] PCP - General 12/23/09 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 Worker Relationship Specialty Start Date End Date Wilbert Pritchett MD [address] [facility] [place], [place] [address] PCP General 12/23/09 FOR RECORDS PERTAINING TO [...] BE BASED ON THE PRIMARY CLINICAL RECORDS. [facility] [employer] [facility]. provides no warranty or guarantee of the accuracy or completeness of information in this document.
--- OUTSIDE RECORDS SUMMARY | 2023-07-16 01:05 | XMS RPT_ITS | CCD ---
Author Name Unknown Address [address] [place] [address] Organization [facility] Care Team Providers Care Flying I Instructor Name Role Phone Unknown, Unknown Unavailable Unavailable Unavailable Unavailable Pending Provider Unavailable Unavailable Richie HARDEN, Wilbert Wylie Primary Care Provider [phone] Richie HARDEN, Wilbert Wylie Primary Care Provider [phone] Richie HARDEN, Wilbert Wylie Primary Care Provider [phone] PHYSICIAN, NONE Primary Care Physician Unavailab efra [...] Unavailable WILBERT PRITCHETT Primary Care Unavailable WILBERT PRTICHETT Primary Care Unavailable SELF Referring Unavailable WILBERT [...] 96.8 [degF] Wilbert Pritchett MD Work Phone: [facility] 07-12-2023 18:23-0500 Body weight 75.61 kg Wilbert Pritchett MD Work Phone: [facility] 07-12-2023 18:23-0500 Diastolic blood pressure 86 mm[Hg] Wilbert Pritchett MD Work Phone: [facility] 07-12-2023 18:23-0500 Heart rate 102 /min Wilbert Pritchett MD Work Phone: [facility] 07-12-2023 18:23-0500 Respiratory rate 16 /min Wilbert Pritchett MD Work Phone: [facility] 07-12-2023 18:23-0500 SaO2% (BldA) [Mass fraction] 98 % Wilbert Pritchett MD Work Phone: [facility] 07-12-2023 18:23-0500 Systolic blood pressure 122 mm[Hg] Wilbert Pritchett MD Work Phone: [facility] 06-11-2023 17:58-0500 Diastolic Blood Pressure Non-Invasive 92 mm[Hg] DR ROXIE EGAN DO [facility] 06-11-2023 17:58-0500 Heart rate 87 /min DR ROXIE EGAN DO [facility] 06-11-2023 17:58-0500 Reason For Taking VItal Signs DR ROXIE EGAN DO [facility] 06-11-2023 17:58-0500 Respiratory rate 18 /min DR ROXIE EGAN DO [facility] 06-11-2023 17:58-0500 Systolic Blood Pressure Non-Invasive 128 mm[Hg] DR ROXIE EGAN DO [facility] 06-11-2023 15:53-0500 Body temperature 98.24 [degF] DR ROXIE EGAN DO [facility] 06-11-2023 15:53-0500 Diastolic Blood Pressure Non-Invasive 81 mm[Hg] DR ROXIE EGAN DO [facility] 06-11-2023 15:53-0500 Heart rate 97 /min DR ROXIE EGAN DO [facility] 06-11-2023 15:53-0500 Respiratory rate 18 /min DR ROXIE EGAN DO [facility] 06-11-2023 15:53-0500 Systolic Blood Pressure Non-Invasive 140 mm[Hg] DR ROXIE EGAN DO [facility] 06-09-2023 16:20-0500 Body height [address] DAVID CLARKE MD [facility] 06-09-2023 16:20-0500 Body temperature 97.34 [degF] DR DAVID CLARKE MD [facility] 06-09-2023 16:20-0500 Body weight 79.[address] DAVID CLARKE MD [facility] 06-09-2023 16:20-0500 Diastolic Blood Pressure Non-Invasive 81 mm[Hg] DR DAVID CLARKE MD [facility] 06-09-2023 16:20-0500 Heart rate 106 /min DR DAVID CLARKE MD [facility] 06-09-2023 16:20-0500 Respiratory rate 18 /min DR DAVID CLARKE MD [facility] 06-09-2023 16:20-0500 Systolic Blood Pressure Non-Invasive 128 mm[Hg] DR DAVID CLARKE MD [facility] 04-12-2023 22:14-0500 Body temperature 98.6 [degF] DR ROXIE EGAN DO [facility] 04-12-2023 22:14-0500 Diastolic Blood Pressure Non-Invasive 88 mm[Hg] DR ROXIE EGAN DO [facility] 04-12-2023 22:14-0500 Heart rate 102 /min DR ROXIE EGAN DO [facility] 04-12-2023 22:14-0500 Respiratory rate 18 /min DR ROXIE EGAN DO [facility] 04-12-2023 22:14-0500 Systolic Blood Pressure Non-Invasive 147 mm[Hg] DR ROXIE EGAN DO [facility] 03-09-2023 12:49-0400 Body weight 80.29 kg Rubi Older 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.POWER PLANT SUPERINTENDENT Work Phone: [facility] 03-09-2023 12:49-0400 Diastolic blood pressure 72 mm[Hg] Rubi Older ENDOSCOPY TECH.POWER PLANT SUPERINTENDENT Work Phone: [facility] 03-09-2023 12:49-0400 Heart rate 104 /min Rubi Older ENDOSCOPY TECH.POWER PLANT SUPERINTENDENT Work Phone: [facility] 03-09-2023 12:49-0400 Respiratory rate 18 /min Rubi Older ENDOSCOPY TECH.POWER PLANT SUPERINTENDENT Work Phone: [facility] 03-09-2023 12:49-0400 SaO2% (BldA) [Mass fraction] 94 % Rubi Older ENDOSCOPY TECH.POWER PLANT SUPERINTENDENT Work Phone: [facility] 03-09-2023 12:49-0400 Systolic blood pressure 116 mm[Hg] Rubi Older ENDOSCOPY TECH.POWER PLANT SUPERINTENDENT Work Phone: [facility] 10-06-2022 16:54-0400 Body weight 78.47 kg Wilbert Pritchett MD Work Phone: [facility] 10-06-2022 16:54-0400 Diastolic blood pressure 62 mm[Hg] Wilbert Pritchett MD Work Phone: [facility] 10-06-2022 16:54-0400 Heart rate 95 /min Wilbert Pritchett MD Work Phone: [facility] 10-06-2022 16:54-0400 Respiratory rate 16 /min Wilbert Pritchett MD Work Phone: [facility] 10-06-2022 16:54-0400 SaO2% (BldA) [Mass fraction] 96 % Wilbert Pritchett MD Work Phone: [facility] 10-06-2022 16:54-0400 Systolic blood pressure 110 mm[Hg] Wilbert Pritchett MD Work Phone: [facility] 12-27-2021 14:41-0400 Body temperature 97.2 [degF] Yuan Pendlebury ENDOSCOPY TECH.POWER PLANT SUPERINTENDENT Work Phone: [facility] 12-27-2021 14:41-0400 Body weight 78.65 kg [facility] ENDOSCOPY TECH.POWER PLANT SUPERINTENDENT Work Phone: [facility] 12-27-2021 14:41-0400 Diastolic blood pressure 70 mm[Hg] Yuna Pendlebury ENDOSCOPY TECH.POWER PLANT SUPERINTENDENT Work Phone: [facility] 12-27-2021 14:41-0400 Heart rate 90 /min Yuan Pendlebury ENDOSCOPY TECH.POWER PLANT SUPERINTENDENT Work Phone: [facility] 12-27-2021 14:41-0400 Respiratory rate 16 /min Yuan [facility] ENDOSCOPY TECH.POWER PLANT SUPERINTENDENT Work Phone: [facility] 12-27-2021 14:41-0400 SaO2% (BldA) [Mass fraction] 99 % [facility] ENDOSCOPY TECH.POWER PLANT SUPERINTENDENT Work Phone: [facility] 12-27-2021 14:41-0400 Systolic blood pressure 126 mm[Hg] Yuan Pendlebury ENDOSCOPY TECH.POWER PLANT SUPERINTENDENT Work Phone: [facility] 10-14-2021 16:30-0400 Body weight 81.19 kg Saniya Simental MD Work Phone: [facility] 10-14-2021 16:30-0400 Diastolic blood pressure 80 mm[Hg] Saniya Simental MD Work Phone: [facility] 10-14-2021 16:30-0400 Heart rate 94 /min Saniya Simental MD Work Phone: [facility] 10-14-2021 16:30-0400 SaO2% (BldA) [Mass fraction] 98 % Saniya Simental MD Work Phone: [facility] 10-14-2021 16:30-0400 Systolic blood pressure 118 mm[Hg] Saniya Simental MD Work Phone: [facility] 07-26-2021 17:09-0500 Body height 165.1 cm [...] height 165.1 cm Unknown Unknown [facility] [place] Work Phone: 06-28-2021 16:19-0500 Body mass index (BMI) [Ratio] 32.82 kg/m2 Unknown Unknown [facility] [place] Work Phone: 06-28-2021 16:19-0500 Body surface area Derived from formula 1.97 m2 Unknown Unknown [facility] [place] Work Phone: 06-28-2021 16:19-0500 Body temperature 97.9 [degF] Unknown Unknown [facility] [place] Work Phone: 06-28-2021 16:19-0500 Body weight 89.45 kg Unknown Unknown [facility] [place] Work Phone: Encounters Encounter Date Encounter Type Care Provider Facility Start: 07-12-2023 End: 07-12-2023 ambulatory WILBERT PRITCHETT Facility:[facility] Start: 07-12-2023 End: 07-12-2023 Patient encounter procedure Wilbert Pritchett MD Work Phone: [facility] [place] Procedures Date Procedure Procedure Detail Performing Clinician Start: 04-02-2023 Us abdominal real ti me w/image limited Rubi Older ENDOSCOPY TECH.POWER PLANT SUPERINTENDENT Work Phone: Start: 03-16-2023 Lipid 1996 panel - S patricia or Plasma Wilbert Pritchett MD Work Phone: Start: 03-09-2023 Hemoglobin A1c/Hemoglobin.total in Blood Rubi Older ENDOSCOPY TECH.POWER PLANT SUPERINTENDENT Work Phone: Start: 12-27-2020 Adult depression screening assessment Saniya Simental MD Work Phone: Start: 08-13-2015 Lipid 1996 panel - S patricia or Plasma Rubi Older ENDOSCOPY TECH.POWER PLANT SUPERINTENDENT Work Phone: Plan of Treatment Date Care Activity Detail Author Start: 03-16-2028 Lipid 1996 panel - S patricia or Plasma Lipid Screening [facility] Start: 03-16-2028 Lipid panel Lipid Screening [facility] Start: 03-16-2026 Diabetes Screening Diabetes Screenin [facility] Start: 03-09-2026 Diabetes Screening Diabetes Screenin g [facility] Start: 07-05-2024 Covid-19 Vaccine (#1) Covid-19 Vacci ne (#1) [facility] Immunizations Immunization Date Immunization Notes Care Provider Fa bettie 04-27-2007 tetanus and diphther ia toxoids, not adsorbed, for adult use Saniya Simental MD Work Phone: [facility] Work Phone: Payers Date Payer Category Payer Unknown [id number] 2023 Self-pay 2023 Unknown [id number] 2022 Unknown [id number] 2019 Medicaid [place] [employer] [employer] [id number] 2019-Present [phone] [place], [place] [id number] Medicaid [id number] 2019 Medicaid [id number] 1978 Unknown [id number] 1978 Unknown [id number] 1978 Unknown [id number] Unknown [facility] Social History Date Type Detail Facility Start: 05-16-2018 End: 10-06-2022 Tobacco smoking status KSIS Light tobacco smoker [facility] History of tobacco use Cigarette Smoker [facility] Start: 05-16-2018 End: 03-09-2023 Cigarettes smoked current (pack per day) - Reported 0.5 [facility] Start: 05-16-2018 End: 10-06-2022 Tobacco use and exposure User of smokeless tobacco [facility] History of tobacco use Snuff User [facility] Start: 12-28-2020 End: 10-06-2022 Alcohol intake Current drinker of alcohol (finding) [facility] Start: 12-27-2020 History SDOH Alcohol Frequency 5 [facility] Start: 12-27-2020 History SDOH Alcohol Std Drinks 4 [facility] Start: 08-13-2015 History SDOH Alcohol Comment 6-12 on weekends [facility] Start: 12-27-2020 History SDOH Social Connections Phone 3 [facility] Start: 12-27-2020 History SDOH Social Connections Get Together 2 [facility] Start: 12-27-2020 History SDOH Social Connections Scientologist 1 [facility] Start: 12-27-2020 History SDOH Social Connections Living 7 [facility] Start: 12-27-2020 Education 16 [facility] Start: 01-21-2016 Tobacco Comment 1 tin chew per day/ 1 pack of cigs a week [facility] Start: 1980 Sex Assigned At Not on file C [facility] Start: 10-04-2021 End: 02-03-2022 Exposure to SARS-CoV-2 (event) Not sure [facility] Start: 01-13-2022 History SDOH Alcohol Comment Daily [facility] Start: 10-06-2022 Tobacco Comment 1 tin chew AZRA RY COUPLE DAYS/ 1 pack of cigs a week [facility] Start: 10-06-2022 Alcohol Comment weekends [facility] Start: 12-27-2020 End: 03-09-2023 Social connection and isolation panel [facility] Do you belong to any clubs or organizations such as spiritism groups, unions, fraternal or athletic groups, or school groups? No [facility] Are you now , , , , never or living with a partner? Never [facility] How often to you hav e a drink containing alcohol? 4 or more times a week [facility] How many standard dr inks containing alcohol do you have on a typical day? 7 to 9 [facility] How often do you hav e 6 or more drinks on 1 occasion? Daily or almost daily [facility] How hard is it for y ou to pay for the very basics like food, housing, medical care, and heating Somewhat hard [facility] Adult Depression Scr eening Assessment 0 [facility] Work Phone: Do you feel stress - tense, restless, nervous, or anxious, or unable to sleep at night because your mind is troubled all the time - these days [OSQ] Rather much [facility] (I/We) worried wheth er (my/our) food would run out before (I/we) got money to buy more. Often true [facility] The food that (I/we) bought just didn't last, and (I/we) didn't have money to get more. Sometimes true [facility] At any time in the p ast 12 months, were you homeless or living in longterm [including now]? Yes [facility] Start: 03-09-2023 End: 07-12-2023 Alcohol intake Ex-drinker (finding) [facility] Start: 03-09-2023 Alcohol Comment 6 beers a day after work, 24 a day on the weekends [facility] Tobacco smoking status Ex-smoker (finding ) [facility] Sex Assigned At Sex [facility] Start: 06-09-2023 Tobacco smoking status Smoker (findi ng) [facility] Start: 06-11-2023 Tobacco smoking status Heavy t obacco smoker (finding) [facility] Medical Equipment Procedure Code Equipment Code Equipment Origin al Text Equipment Identifier Dates Patch Srg Vntrlx St 1.7in [facility] - [id number] Start: 07-21-2014 Functional Status Date Assessment Result Facility 06-11-2023 Functional Status Standard Safet y ID band on, Call device within reach, Bed in low position, Wheels locked, Upper/Half-Length side-rails up, Bedside Cart Locked, Safety level maintained [facility] 06-09-2023 Functional Status Up ad adrian [facility] spital [facility] 04-12-2023 Functional Status Awake, Resting [facility] Mental Status Date Assessment Result Facility 06-11-2023 Mental Status Orientation Oriented x 4 [facility] 06-11-2023 Mental Status [facility] 06-09-2023 Mental Status Orientation Oriented x 4 [facility] 04-12-2023 Mental Status Orientation Oriented x 4 [facility] Clinical Notes 04-07-2014 to 07-12-2023 Wilbert Pritchett MD - 07/12/2023 6:33 PM ESTTelephone Rip - Nitin Brewer Wilmar - 04/06/2023 3:53 PM Racquel Montesinos RDMS - 04/02/2023 3:15 PM Rubi Meeks, ENDOSCOPY TECH.POWER PLANT SUPERINTENDENT - 03/09/2023 1:03 PM EDT Note Date & Type Note Facility 07-12-2023 Note HNO ID: [id number] Author: NICKY KASPER RT(R) Service: ? Author Type: Safety Engineer Type: Progress Notes Filed: 07/12/2023 19:08 Note [...] PATIENT PRESENTS WITH AN IMPLANTABLE OR ATTACHED CUSTOMER DEVELOPMENT REPRESENTATIVE: No RADIOLOGY DEPARTMENT: General X-ray: Exam(s) Completed: Upper Extremity X-Ray(s): Elbow, left PERIPHERAL IV DATA: Not applicable SIGNED BY: Nicky Kasper, (R) July 12, 2023 7:00 PM [facility] 07-12-2023 Note HNO ID: [id number] Author: WILBERT PRITCHETT MD Service: ? Author [...] infected June 06. He was treated in [facility] twice with IV antibiotics for cellulitis [...] report retrieved per HPI. Wilbert Pritchett MD [facility] 07-12-2023 History of Presen t illness Narrative [...] infected June 06. He was treated in [facility] twice with IV antibiotics for cellulitis [...] Wilbert Pritchett MD documented in this encounter [facility] 07-05-2023 Note HNO ID: [id number] Author: WILBERT PRITCHETT MD Service: ? Author Type: Physician Type: Progress Notes Filed: 07/05/2023 23:13 Note Text: This note was created using Raynriter. Subjective Ida Nicholas is a 43 year [...] weakness. Coordination: Romberg sign positive. Coordination abnormal. Eloskm-Hurn-Atgzpy Test normal. Rapid alternating movements normal. Gait: [...] and will proceed directly. Wilbert Pritchett MD [facility] 06-22-2023 Note HNO ID: [id number] Author: WILBERT PRITCHETT MD Service: ? Author Type: Physician Type: Progress Notes Filed: 06/23/2023 19:27 Note Text: This note was created using Raynriter. Subjective Patient presents with: Recheck: ER left [...] CAPSULE Wilbert Pritchett MD [facility] 06-17-2023 Note . MICRO - Microbiology PROCEDURE: [...] Locations *1: This test was performed at: [address], [facility] ([place]) 06-16-2023 Note . MICRO - Microbiology PROCEDURE: [...] Locations *1: This test was performed at: [address], [facility] ([place]) 06-11-2023 Hospital Discharg e instructions Patient Education [...] or higher after 2 days on antibiotics [id number] [employer]. [address] [place] [address]. All rights reserved. This information is not intended as a substitute for professional medical care. Always follow your healthcare professional's instructions. Follow Up Care 06/11/2023 15:51:39 With:Follow up with primary care provider Address:Unknown When:2-4 days [facility] 06-11-2023 Emergency department Discharge summary Discharge Instructions Thank you for allowing [facility] to assist you with your healthcare needs. [...] or higher after 2 days on antibiotics [phone] [employer]. [address] [place] [address]. All rights reserved. This information is not intended as a substitute for professional medical care. Always follow your healthcare professional's instructions. Additional Information VACCINATE! IT SAVES LIVES! Members of the community who have not yet received the COVID-19 vaccine and would like to receive it can visit one of [facility] vaccine clinics. There are many vaccine clinic locations within the [facility]. For locations and available times, please visit [email or web address] It is important to note that some COVID mobile vaccine clinics are held outdoors and may be canceled in rainy or stormy conditions. To learn more about pediatric vaccinations (ages 5-11), we invite you to visit the [facility] webpage. [email or web address].[email or web address]/ pages/8691-Pmynu-Wyxvlxlouap-Fr ptpslbte-Cnzhc-Xhbokwajq.html To learn more about the COVID-19 vaccine, we invite you to visit the CDC website for a list of frequently asked questions. https://www.cdc.gov/coronavirus /2019-ncov/vaccines/faq.html [facility] Access Instructions: Stay connected with your healthcare team and access your personal medical information anytime with the [facility] Patient Portal. If you would like a full copy of your medical records please contact the [facility] Medical Records Department Sunday through Sunday between 8a.m. and 4:30p.m. Please follow the directions below to access the portal: 1.Access the email account you provided upon registration to the [facility].2.Look for an invitation email from [facility].3.Open the email and access the invitation link: Accept Invitation to [facility]4.Fill in the required lawrence to create your account. Sign into www.[email or web address] with your username and password that you [...] you will allow to register on the [facility] Patient Portal for access to your information. You can also access the [facility] Patient Portal on the [employer]. Simply click on Health Records under Health Data and then click on the [employer] logo. HOW TO SAFELY DISPOSE OF PRESCRIPTION [...] Call your local pharmacy or go to [email or web address]/[email or web address] to find one close to you.3.Make use of household items: Use cat litter or old coffee grounds to dispose medications if other options are not available. Mix your drugs with these household products, seal them in an airtight container and throw it into the garbage. Call [facility]: [phone] to be sure your drugs can be [...] aware that I should contact my doctor. 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 [address] [place] [address]. All rights reserved. This information is not intended as a substitute for professional medical care. Always follow your healthcare professional's instructions. Follow Up Care 06/09/2023 16:19:03 With:FAMILY COLLETTE [facility] Address: [address] [place] [phone] When:2-4 days [facility] 06-09-2023 Note Discharge Instructions Thank you for allowing [facility] to assist you with your healthcare needs. [...] Schedule the Following Appointments Follow Up with [facility] When Within 2-4 days Where: [address] [place] [phone] Allergies NKA Medications Please ask your primary [...] may report side effects to FDA at 6-783-HCU-3336. What other drugs will affect cephalexin? Tell your doctor about all your other medicines, especially: metformin; or probenecid. This list is not complete. Other drugs may affect cephalexin, including prescription and csyy-wtq-lymzsyn medicines, vitamins, and herbal products. Not all [...] to ensure that the information provided by [employer]. [employer]') is accurate, up-to-date, and complete, but no guarantee is made to that effect. Drug information contained herein may be time sensitive. [employer] information has been compiled for use by healthcare practitioners and consumers in the [place] and therefore [employer] does not warrant that uses outside of the [place] are appropriate, unless specifically indicated otherwise. [employer]'s drug information does not endorse drugs, diagnose patients or recommend therapy. [employer] [facility] drug information is an informational resource designed [...] effective or appropriate for any given patient. [facility] does not assume any responsibility for any aspect of healthcare administered with the aid of information [facility] provides. The information contained herein is not intended to cover all possible uses, directions, precautions, warnings, drug interactions, allergic reactions, or adverse effects. If you have questions about the drugs you are taking, check with your doctor, nurse or pharmacist. Copyright 9492-8493 [facility] [employer]. Version: .. Revision Date: 12/27/2022. sulfamethoxazole and [...] blood sodium or high potassium); porphyria, or lfaevdk-1-awlcoxngg dehydrogenase (G6PD) deficiency; or if you use [...] may report side effects to FDA at 4-156-FWU-0164. What other drugs will affect sulfamethoxazole and [...] sulfamethoxazole and trimethoprim. This includes prescription and osln-oap-mbdrslr medicines, vitamins, and herbal products. Not all [...] to ensure that the information provided by [employer] is accurate, up-to-date, and complete, but no guarantee is made to that effect. Drug information contained herein may be time sensitive. [employer] information has been compiled for use by healthcare practitioners and consumers in the [place] and therefore [employer] does not warrant that uses outside of the [place] are appropriate, unless specifically indicated otherwise. [employer]'s drug information does not endorse drugs, diagnose patients or recommend therapy. [facility] [facility] drug information is an informational resource designed [...] effective or appropriate for any given patient. [employer] does not assume any responsibility for any aspect of healthcare administered with the aid of information [employer] provides. The information contained herein is not intended to cover all possible uses, directions, precautions, warnings, drug interactions, allergic reactions, or adverse effects. If you have questions about the drugs you are taking, check with your doctor, nurse or pharmacist. Copyright 7713-5179 [employer]. Version: 13.. Revision Date: 12/28/2022. Education Materials [...] or higher after 2 days on antibiotics 0917-8030 [employer]. [address] [place] [address], [place] [address]. All rights reserved. This information is not intended as a substitute for professional medical care. Always follow your healthcare professional's instructions. Additional Information VACCINATE! IT SAVES LIVES! Members of the community who have not yet received the COVID-19 vaccine and would like to receive it can visit one of [facility] vaccine clinics. There are many vaccine clinic locations within the [facility]. For locations and available times, please visit www.[email or web address].[place] .gov/. It is important to note that some COVID mobile vaccine clinics are held outdoors and may be canceled in rainy or stormy conditions. To learn more about pediatric vaccinations (ages 5-11), we invite you to visit the [facility] webpage. https://www.akron[employer]iculate Technologiess.org/ pages/2613-Ewenp-Nrfjflzlqor-Fr uivaxtyg-Czmro-Scvboorti.html To learn more about the COVID-19 vaccine, we invite you to visit the CDC website for a list of frequently asked questions. https://www.cdc.gov/coronavirus /2019-ncov/vaccines/faq.html [facility] Patient Portal Access Instructions: Stay connected with your healthcare team and access your personal medical information anytime with the [facility] Patient Portal. If you would like a full copy of your medical records please contact the [facility] Medical Records Department Sunday through Sunday between 8a.m. and 4:30p.m. Please follow the directions below to access the portal: 1.Access the email account you provided upon registration to the hospital.2.Look for an invitation email from [facility].3.Open the email and access the invitation link: Accept Invitation to [facility].Fill in the required lawrence to create your account. Sign into www.[employer] with your username and password that you [...] you will allow to register on the [facility] Patient Portal for access to your information. You can also access the [facility] Patient Portal on the Market[employer] nilam. Simply click on Health Records under [...] Call your local pharmacy or go to [email or web address].RHLvision [email or web address] to find one close to you.3.Make use of household items: Use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 and Drug Abuse Patient Records regulations: The Federal rules restrict any use of the information to criminally investigate or prosecute any alcohol or drug abuse patient.[facility] the event this information is protected by the Federal Confidentiality of Alcohol and Drug Abuse Patient Records regulations: The Federal rules restrict any use of the information to criminally investigate or prosecute any alcohol or drug abuse patient.[facility] the event this information is protected by the Federal Confidentiality of Alcohol and Drug Abuse Patient Records regulations: The Federal rules restrict any use of the information to criminally investigate or prosecute any alcohol or drug abuse patient.[facility] Hospital[facility] the event this information is protected by the Federal Confidentiality of Alcohol and Drug Abuse Patient Records regulations: The Federal rules restrict any use of the information to criminally investigate or prosecute any alcohol or drug abuse patient.[facility] Hospital[facility] the event this information is protected by the Federal Confidentiality of Alcohol and Drug Abuse Patient Records regulations: The Federal rules restrict any use of the information to criminally investigate or prosecute any alcohol or drug abuse patient.[facility] Hospital[facility] the event this information is protected by the Federal Confidentiality of Alcohol and Drug Abuse Patient Records regulations: The Federal rules restrict any use of the information to criminally investigate or prosecute any alcohol or drug abuse patient.[facility] Hospital[facility] the event this information is protected by the Federal Confidentiality of Alcohol and Drug Abuse Patient Records regulations: The Federal rules restrict any use of the information to criminally investigate or prosecute any alcohol or drug abuse patient.[facility] Hospital[facility] the event this information is protected by the Federal Confidentiality of Alcohol and Drug Abuse Patient Records regulations: The Federal rules restrict any use of the information to criminally investigate or prosecute any alcohol or drug abuse patient.[facility] Hospital[facility] the event this information is protected by the Federal Confidentiality of Alcohol and Drug Abuse Patient Records regulations: The Federal rules restrict any use of the information to criminally investigate or prosecute any alcohol or drug abuse patient.[facility] Hospital[facility] the event this information is protected by the Federal Confidentiality of Alcohol and Drug Abuse Patient Records regulations: The Federal rules restrict any use of the information to criminally investigate or prosecute any alcohol or drug abuse patient.[facility] Hospital[facility] the event this information is protected by the Federal Confidentiality of Alcohol and Drug Abuse Patient Records regulations: The Federal rules restrict any use of the information to criminally investigate or prosecute any alcohol or drug abuse patient.[facility] Hospital[facility] the event this information is protected by the Federal Confidentiality of Alcohol and Drug Abuse Patient Records regulations: The Federal rules restrict any use of the information to criminally investigate or prosecute any alcohol or drug abuse patient.[facility] Reason for Visit (unrecogniz ed section and content) Reason Comments Pain (RT) shoulder injury helping move furniture pain rated 9, [facility] xray wrist, (RT) shoulder pt reported negative Reason Comments right shoulder pain REF: Cam Celis - [facility] ED 12/19/2021 Reason Comments Patient Update [...] COUNSELOR 4C EST Self Wilbert Pritchett MD [address] [place] [address] Referral ID Status Reason Start Date Expiration Date V isits Requested Visits Authorized [id number] Pending Review 07/12/2023 09/10/2023 1 1 Care Teams (unrecognized sec tion and content) Flying I Instructor Relationship Specialty Start Date End Date Wilbert Pritchett MD [address] [place] [address] PCP - General 12/23/09 Flying I Instructor Relationship Specialty Start Date End Date Wilbert Pritchett MD [address] [place] [address] PCP - General 12/23/09 Flying I Instructor Relationship Specialty Start Date End Date Wilbert Pritchett MD [address] [place] [address] PCP - General 12/23/09 Flying I Instructor Relationship Specialty Start Date End Date Wilbert Pritchett MD [address] [place] [address] PCP - General 12/23/09 Flying I Instructor Relationship Specialty Start Date End Date Wilbert Pritchett MD [address] [place] [address] PCP - General 12/23/09 Flying I Instructor Relationship Specialty Start Date End Date Wilbert Pritchett MD [address] [place] [address] PCP - General 12/23/09 Flying I Instructor Relationship Specialty Start Date End Date Wilbert Pritchett MD [address] [place] [address] PCP - General 12/23/09 Flying I Instructor Relationship Specialty Start Date End Date Wilbert Pritchett MD [address] [place] [address] PCP - General 12/23/09 Flying I Instructor Relationship Specialty Start Date End Date Wilbert Pritchett MD [address] [place] [address] PCP - General 12/23/09 Flying I Instructor Relationship Specialty Start Date End Date Wilbert Pritchett MD [address] [place] [address] PCP - General 12/23/09 Flying I Instructor Relationship Specialty Start Date End Date Wilbert Pritchett MD [address] [place] [address] PCP - General 12/23/09 Flying I Instructor Relationship Specialty Start Date End Date Wilbert Pritchett MD [address] [place] [address] PCP - General 12/23/09 Flying I Instructor Relationship Specialty Start Date End Date Wilbert Pritchett MD [address] [place] [address] PCP - General 12/23/09 Flying I Instructor Relationship Specialty Start Date End Date Wilbert Pritchett MD [address] [facility], [place] [id number] PCP General 12/23/09 FOR RECORDS PERTAINING TO [...] BE BASED ON THE PRIMARY CLINICAL RECORDS. [facility]. provides no warranty or guarantee of the accuracy or completeness of information in this document.
--- OUTSIDE RECORDS SUMMARY | 2023-07-16 01:18 | XMS RPT_ITS | CCD ---
Author Name Unknown Address [address] [place] [address] Organization [facility] Care Team Providers Care Managing Consultant Name Role Phone Unknown, Unknown Unavailable Unavailable Unavailable Unavailable Pending Provider Unavailable Unavailable Richie HARDEN, Wilbert Wylie Primary Care Provider [phone] Richie HARDEN, Wilbert Wylie Primary Care Provider [phone] Richie HARDEN, Wilbert Wylie Primary Care Provider [phone] PHYSICIAN, NONE Primary Care Physician Unavailab efra EGAN DO, DR ROXIE Rojas Attending Unavailable PHYSICIAN, NONE Primary Care Unavailable DR ROXIE EGAN DO Attending Unavailable PHYSICIAN, NONE Primary Care Unavailable PHYSICIAN, NONE Primary Care Unavailable TRICIA HARDEN, DR DAVID Scales Attending WILBERT Malik Primary Care Unavailable RUBI WASHINGTON Referring Unavailable WILBERT PRITCHETT Primary Care Unavailable RUBI WASHINGTON Referring Unavailable RUBI WASHINGTON Attending Unavailable WILBETR PRITCHETT Primary Care Unavailable WILBERT PRITCHETT Primary [...] 96.8 [degF] Wilbert Pritchett MD Work Phone: [facility] 07-12-2023 18:23-0500 Body weight 75.61 kg Wilbert Pritchett MD Work Phone: [facility] 07-12-2023 18:23-0500 Diastolic blood pressure 86 mm[Hg] Wilbert Pritchett MD Work Phone: [facility] 07-12-2023 18:23-0500 Heart rate 102 /min Wilbert Pritchett MD Work Phone: [facility] 07-12-2023 18:23-0500 Respiratory rate 16 /min Wilbert Pritchett MD Work Phone: [facility] 07-12-2023 18:23-0500 SaO2% (BldA) [Mass fraction] 98 % Wilbert Pritchett MD Work Phone: [facility] 07-12-2023 18:23-0500 Systolic blood pressure 122 mm[Hg] Wilbert Pritchett MD Work Phone: [facility] 06-11-2023 17:58-0500 Diastolic Blood Pressure Non-Invasive 92 mm[Hg] DR ROXIE EGAN DO [facility] 06-11-2023 17:58-0500 Heart rate 87 /min DR ROXIE EGAN DO [facility] 06-11-2023 17:58-0500 Reason For Taking VItal Signs DR ROXIE EGAN DO [facility] 06-11-2023 17:58-0500 Respiratory rate 18 /min DR ROXIE EGAN DO [facility] 06-11-2023 17:58-0500 Systolic Blood Pressure Non-Invasive 128 mm[Hg] DR ROXIE EGAN DO [facility] 06-11-2023 15:53-0500 Body temperature 98.24 [degF] DR ROXIE EGAN DO [facility] 06-11-2023 15:53-0500 Diastolic Blood Pressure Non-Invasive 81 mm[Hg] DR ROXIE EGAN DO [facility] 06-11-2023 15:53-0500 Heart rate 97 /min DR ROXIE EGAN DO [facility] 06-11-2023 15:53-0500 Respiratory rate 18 /min DR ROXIE EGAN DO [facility] 06-11-2023 15:53-0500 Systolic Blood Pressure Non-Invasive 140 mm[Hg] DR ROXIE EGAN DO [facility] 06-09-2023 16:20-0500 Body height [address] DAVID CLARKE MD [facility] 06-09-2023 16:20-0500 Body temperature 97.34 [degF] DR DAVID CLARKE MD [facility] 06-09-2023 16:20-0500 Body weight 79.[address] DAVID CLARKE MD [facility] 06-09-2023 16:20-0500 Diastolic Blood Pressure Non-Invasive 81 mm[Hg] DR DAVID CLARKE MD [facility] 06-09-2023 16:20-0500 Heart rate 106 /min DR DAVID CLARKE MD [facility] 06-09-2023 16:20-0500 Respiratory rate 18 /min DR DAVID CLARKE MD [facility] 06-09-2023 16:20-0500 Systolic Blood Pressure Non-Invasive 128 mm[Hg] DR DAVID CLAREK MD [facility] 04-12-2023 22:14-0500 Body temperature 98.6 [degF] DR ROXIE EGAN DO [facility] 04-12-2023 22:14-0500 Diastolic Blood Pressure Non-Invasive 88 mm[Hg] DR ROXIE EGAN DO [facility] 04-12-2023 22:14-0500 Heart rate 102 /min DR ROXIE EGAN DO [facility] 04-12-2023 22:14-0500 Respiratory rate 18 /min DR ROXIE EGAN DO [facility] 04-12-2023 22:14-0500 Systolic Blood Pressure Non-Invasive 147 mm[Hg] DR ROXIE EGAN DO [facility] 03-09-2023 12:49-0400 Body weight 80.29 kg Rubi Older MAIL CARRIER AND CLERK.CLAIM APPROVER Work Phone: [facility] 03-09-2023 12:49-0400 Diastolic blood pressure 72 mm[Hg] Rubi Older MAIL CARRIER AND CLERK.CLAIM APPROVER Work Phone: [facility] 03-09-2023 12:49-0400 Heart rate 104 /min Rubi Older MAIL CARRIER AND CLERK.CLAIM APPROVER Work Phone: [facility] 03-09-2023 12:49-0400 Respiratory rate 18 /min Rubi Older MAIL CARRIER AND CLERK.CLAIM APPROVER Work Phone: [facility] 03-09-2023 12:49-0400 SaO2% (BldA) [Mass fraction] 94 % Rubi Older MAIL CARRIER AND CLERK.CLAIM APPROVER Work Phone: [facility] 03-09-2023 12:49-0400 Systolic blood pressure 116 mm[Hg] Rubi Older MAIL CARRIER AND CLERK.CLAIM APPROVER Work Phone: [facility] 10-06-2022 16:54-0400 Body weight 78.47 kg Wilbert Pritchett MD Work Phone: [facility] 10-06-2022 16:54-0400 Diastolic blood pressure 62 mm[Hg] Wilbert Pritchett MD Work Phone: [facility] 10-06-2022 16:54-0400 Heart rate 95 /min Wilbert Pritchett MD Work Phone: [facility] 10-06-2022 16:54-0400 Respiratory rate 16 /min Wilbert Pritchett MD Work Phone: [facility] 10-06-2022 16:54-0400 SaO2% (BldA) [Mass fraction] 96 % Wilbert Pritchett MD Work Phone: [facility] 10-06-2022 16:54-0400 Systolic blood pressure 110 mm[Hg] Wilbert Pritchett MD Work Phone: [facility] 12-27-2021 14:41-0400 Body temperature 97.2 [degF] Yuan Pendlebury MAIL CARRIER AND CLERK.CLAIM APPROVER Work Phone: [facility] 12-27-2021 14:41-0400 Body weight 78.65 kg [facility] MAIL CARRIER AND CLERK.CLAIM APPROVER Work Phone: [facility] 12-27-2021 14:41-0400 Diastolic blood pressure 70 mm[Hg] Yuan Pendlebury MAIL CARRIER AND CLERK.CLAIM APPROVER Work Phone: [facility] 12-27-2021 14:41-0400 Heart rate 90 /min Yuan Pendlebury MAIL CARRIER AND CLERK.CLAIM APPROVER Work Phone: [facility] 12-27-2021 14:41-0400 Respiratory rate 16 /min [facility] MAIL CARRIER AND CLERK.CLAIM APPROVER Work Phone: [facility] 12-27-2021 14:41-0400 SaO2% (BldA) [Mass fraction] 99 % [facility] MAIL CARRIER AND CLERK.CLAIM APPROVER Work Phone: [facility] 12-27-2021 14:41-0400 Systolic blood pressure 126 mm[Hg] Yuan Pendlebury MAIL CARRIER AND CLERK.CLAIM APPROVER Work Phone: [facility] 10-14-2021 16:30-0400 Body weight 81.19 kg Saniya Simental MD Work Phone: [facility] 10-14-2021 16:30-0400 Diastolic blood pressure 80 mm[Hg] Saniya Simental MD Work Phone: [facility] 10-14-2021 16:30-0400 Heart rate 94 /min Saniya Simental MD Work Phone: [facility] 10-14-2021 16:30-0400 SaO2% (BldA) [Mass fraction] 98 % Saniya Simental MD Work Phone: [facility] 10-14-2021 16:30-0400 Systolic blood pressure 118 mm[Hg] Saniya Simental MD Work Phone: [facility] 07-26-2021 17:09-0500 Body height 165.1 cm [...] height 165.1 cm Unknown Unknown [facility] [place] Work Phone: 06-28-2021 16:19-0500 Body mass index (BMI) [Ratio] 32.82 kg/m2 Unknown Unknown [facility] [place] Work Phone: 06-28-2021 16:19-0500 Body surface area Derived from formula 1.97 m2 Unknown Unknown [facility] [place] Work Phone: 06-28-2021 16:19-0500 Body temperature 97.9 [degF] Unknown Unknown [facility] [place] Work Phone: 06-28-2021 16:19-0500 Body weight 89.45 kg Unknown Unknown [facility] [place] Work Phone: Encounters Encounter Date Encounter Type Care Provider Facility Start: 07-12-2023 End: 07-12-2023 ambulatory WILBERT PRITCHETT Facility:[facility] Start: 07-12-2023 End: 07-12-2023 Patient encounter procedure Wilbert Pritchett MD Work Phone: [facility] [place] Procedures Date Procedure Procedure Detail Performing Clinician Start: 04-02-2023 Us abdominal real ti me w/image limited Rubi Older MAIL CARRIER AND CLERK.CLAIM APPROVER Work Phone: Start: 03-16-2023 Lipid 1996 panel - S patricia or Plasma Wilbert Pritchett MD Work Phone: Start: 03-09-2023 Hemoglobin A1c/Hemoglobin.total in Blood Rubi Older MAIL CARRIER AND CLERK.CLAIM APPROVER Work Phone: Start: 12-27-2020 Adult depression screening assessment Saniya Simental MD Work Phone: Start: 08-13-2015 Lipid 1996 panel - S patricia or Plasma Rubi Older MAIL CARRIER AND CLERK.CLAIM APPROVER Work Phone: Plan of Treatment Date Care Activity Detail Author Start: 03-16-2028 Lipid 1996 panel - S patricia or Plasma Lipid Screening [facility] Start: 03-16-2028 Lipid panel Lipid Screening [facility] Start: 03-16-2026 Diabetes Screening Diabetes Screenin [facility] Start: 03-09-2026 Diabetes Screening Diabetes Screenin g [facility] Start: 07-05-2024 Covid-19 Vaccine (#1) Covid-19 Vacci ne (#1) [facility] Immunizations Immunization Date Immunization Notes Care Provider Fa bettie 04-27-2007 tetanus and diphther ia toxoids, not adsorbed, for adult use Saniya Simental MD Work Phone: [facility] Work Phone: Payers Date Payer Category Payer Unknown [id number] 2023 Self-pay 2023 Unknown [id number] 2022 Unknown [id number] 2019 Medicaid [place] [employer] [place] [id number] 2019-Present [phone] [place], [place] [id number] Medicaid [id number] 2019 Medicaid [id number] 1978 Unknown [id number] 1978 Unknown [id number] 1978 Unknown [id number] Unknown [facility] Social History Date Type Detail Facility Start: 05-16-2018 End: 10-06-2022 Tobacco smoking status UTIS Light tobacco smoker [facility] History of tobacco use Cigarette Smoker C [facility] Start: 05-16-2018 End: 03-09-2023 Cigarettes smoked current (pack per day) - Reported 0.[address] [facility] Start: 05-16-2018 End: 10-06-2022 Tobacco use and exposure User of smokeless tobacco [facility] History of tobacco use Snuff User [facility] Start: 12-28-2020 End: 10-06-2022 Alcohol intake Current drinker of alcohol (finding) [facility] Start: 12-27-2020 History SDOH Alcohol Frequency [address] [facility] Start: 12-27-2020 History SDOH Alcohol Std Drinks [address] [facility] Start: 08-13-2015 History SDOH Alcohol Comment 6-12 on weekends [facility] Start: 12-27-2020 History SDOH Social Connections Phone [address] [facility] Start: 12-27-2020 History SDOH Social Connections Get Together [address] [facility] Start: 12-27-2020 History SDOH Social Connections Spiritism [address] [facility] Start: 12-27-2020 History SDOH Social Connections Living [address] [facility] Start: 12-27-2020 Education [address] [facility] Start: 01-21-2016 Tobacco Comment 1 tin chew per day/ 1 pack of cigs a week [facility] Start: 1980 Sex Assigned At Not on file C [facility] Start: 10-04-2021 End: 02-03-2022 Exposure to SARS-CoV-2 (event) Not sure [facility] Start: 01-13-2022 History SDOH Alcohol Comment Daily [facility] Start: 10-06-2022 Tobacco Comment 1 tin chew AZRA RY COUPLE DAYS/ 1 pack of cigs a week [facility] Start: 10-06-2022 Alcohol Comment weekends [facility] Start: 12-27-2020 End: 03-09-2023 Social connection and isolation panel [facility] Do you belong to any clubs or organizations such as episcopal groups, unions, fraternal or athletic groups, or school groups? No [facility] Are you now , , , , never or living with a partner? Never [facility] How often to you hav e a drink containing alcohol? 4 or more times a week [facility] How many standard dr inks containing alcohol do you have on a typical day? 7 to [address] [facility] How often do you hav e 6 or more drinks on 1 occasion? Daily or almost daily [facility] How hard is it for y ou to pay for the very basics like food, housing, medical care, and heating Somewhat hard [facility] Adult Depression Scr eening Assessment [address] [facility] Work Phone: Do you feel stress - tense, restless, nervous, or anxious, or unable to sleep at night because your mind is troubled all the time - these days [OSQ] Rather much [facility] (I/We) worried wheth er (my/our) food would run out before (I/we) got money to buy more. Often true [facility] The food that (I/we) bought just didn't last, and (I/we) didn't have money to get more. Sometimes true [facility] At any time in the p ast 12 months, were you homeless or living in snf [including now]? Yes [facility] Start: 03-09-2023 End: 07-12-2023 Alcohol intake Ex-drinker (finding) [facility] Start: 03-09-2023 Alcohol Comment 6 beers a day after work, 24 a day on the weekends [facility] Tobacco smoking status Ex-smoker (finding ) [facility] Sex Assigned At Sex [facility] Start: 06-09-2023 Tobacco smoking status Smoker (findi ng) [facility] Start: 06-11-2023 Tobacco smoking status Heavy t obacco smoker (finding) [facility] Medical Equipment Procedure Code Equipment Code Equipment Origin al Text Equipment Identifier Dates Patch Srg Vntrlx St 1.7in [facility] - [id number] Start: 07-21-2014 Functional Status Date Assessment Result Facility 06-11-2023 Functional Status Standard Safet y ID band on, Call device within reach, Bed in low position, Wheels locked, Upper/Half-Length side-rails up, Bedside Cart Locked, Safety level maintained [facility] 06-09-2023 Functional Status Up ad adrian [facility] 04-12-2023 Functional Status Awake, Resting [facility] Mental Status Date Assessment Result Facility 06-11-2023 Mental Status Orientation Oriented x 4 [facility] 06-11-2023 Mental Status [facility] 06-09-2023 Mental Status Orientation Oriented x 4 [facility] 04-12-2023 Mental Status Orientation Oriented x 4 [facility] Clinical Notes 04-07-2014 to 07-12-2023 Wilbert Pritchett MD - 07/12/2023 6:33 PM ESTTelephone Rip - Nitin Brewer Wilmar - 04/06/2023 3:53 PM Racquel Montesinos RDMS - 04/02/2023 3:15 PM Rubi Meeks, MAIL CARRIER AND CLERK.CLAIM APPROVER - 03/09/2023 1:03 PM EDT Note Date & Type Note Facility 07-12-2023 Note HNO ID: [id number] Author: NICKY KASPER RT(R) Service: ? Author Type: Grid Molder Type: Progress Notes Filed: 07/12/2023 19:08 Note [...] PATIENT PRESENTS WITH AN IMPLANTABLE OR ATTACHED SHREDDING MACHINE TENDER: No RADIOLOGY DEPARTMENT: General X-ray: Exam(s) Completed: Upper Extremity X-Ray(s): Elbow, left PERIPHERAL IV DATA: Not applicable SIGNED BY: Nicky Kasper, (R) July 12, 2023 7:00 PM [facility] 07-12-2023 Note HNO ID: [id number] Author: WILBERT PRITCHETT MD Service: ? Author [...] infected June 06. He was treated in [facility] ER twice with IV antibiotics for cellulitis [...] report retrieved per HPI. Wilbert Pritchett MD [facility] 07-12-2023 History of Presen t [...] infected June 06. He was treated in [facility] [place] ER twice with IV antibiotics for cellulitis [...] Wilbert Pritchett MD documented in this encounter [facility] 07-05-2023 Note HNO ID: [id number] Author: WILBERT PRITCHETT MD Service: ? Author Type: Physician Type: Progress Notes Filed: 07/05/2023 23:13 Note Text: This note was created using Ahalogy[employer]. Subjective Ida Nicholas is a 43 year [...] weakness. Coordination: Romberg sign positive. Coordination abnormal. Yfonni-Kdgr-Udghez Test normal. Rapid alternating movements normal. Gait: [...] and will proceed directly. Wilbert Pritchett MD [facility] 06-22-2023 Note HNO ID: [id number] Author: WILBERT PRITCHETT MD Service: ? Author Type: Physician Type: Progress Notes Filed: 06/23/2023 19:27 Note Text: This note was created using Ahalogyriter. Subjective Patient presents with: Recheck: ER left [...] CEPHALEXIN 500 MG CAPSULE Wilbert Pritchett MD [facility] 06-17-2023 Note . MICRO - [...] Locations *1: This test was performed at: [address], [facility] , [facility] ([place]) 06-16-2023 Note . MICRO - Microbiology PROCEDURE: [...] Locations *1: This test was performed at: [address], [facility] , [facility] ([place]) 06-11-2023 Hospital Discharg e instructions Patient Education [...] or higher after 2 days on antibiotics [id number] [employer]. [address] [place] [address]. All rights reserved. This information is not intended as a substitute for professional medical care. Always follow your healthcare professional's instructions. Follow Up Care 06/11/2023 15:51:39 With:Follow up with primary care provider Address:Unknown When:2-4 days [facility] 06-11-2023 Emergency department Discharge summary Discharge Instructions Thank you for allowing [facility] to assist you with your healthcare needs. [...] or higher after 2 days on antibiotics [id number] [employer]. [address] [place] [address]. All rights reserved. This information is not intended as a substitute for professional medical care. Always follow your healthcare professional's instructions. Additional Information VACCINATE! IT SAVES LIVES! Members of the community who have not yet received the COVID-19 vaccine and would like to receive it can visit one of [facility] vaccine clinics. There are many vaccine clinic locations within the [facility]. For locations and available times, please visit [email or web address] .[email or web address] It is important to note that some COVID mobile vaccine clinics are held outdoors and may be canceled in rainy or stormy conditions. To learn more about pediatric vaccinations (ages 5-11), we invite you to visit the [facility] webpage. [email or web address]/ pages/[email or web address]-Oenbvurooyh-Fr jtrcfnef-[email or web address]-[email or web address].html To learn more about the COVID-19 vaccine, we invite you to visit the CDC website for a list of frequently asked questions. https://www.cdc.gov/coronavirus /2019-ncov/vaccines/faq.html [facility] Access Instructions: Stay connected with your healthcare team and access your personal medical information anytime with the [facility] Xiaozhu.comChart Patient Portal. If you would like a full copy of your medical records please contact the [facility] Medical Records Department Sunday through Sunday between 8a.m. and 4:30p.m. Please follow the directions below to access the portal: 1.Access the email account you provided upon registration to the [facility].2.Look for an invitation email from [facility].3.Open the email and access the invitation link: Accept Invitation to [employer]4.Fill in the required lawrence to create your account. Sign into www.[employer] with your username and password that you [...] you will allow to register on the [employer] Patient Portal for access to your information. You can also access the [employer] Patient Portal on the [employer]. Simply click on Health Records under Health Data and then click on the [employer] logo. HOW TO SAFELY DISPOSE OF PRESCRIPTION [...] Call your local pharmacy or go to http://[employer]/6W2Nx0d to find one close to you.3.Make use of household items: Use cat litter or old coffee grounds to dispose medications if other options are not available. Mix your drugs with these household products, seal them in an airtight container and throw it into the garbage. Call [facility]: [phone] to be sure your drugs can be [...] aware that I should contact my doctor. 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 [address] [place] [address]. All rights reserved. This information is not intended as a substitute for professional medical care. Always follow your healthcare professional's instructions. Follow Up Care 06/09/2023 16:19:03 With:FAMILY [facility] Address: [address] [place] [phone] When:2-4 days [facility] 06-09-2023 Note Discharge Instructions Thank you for allowing [facility] to assist you with your healthcare needs. [...] Schedule the Following Appointments Follow Up with [facility] When Within 2-4 days Where: [address] [place] [phone] Allergies NKA Medications Please ask your primary [...] may report side effects to FDA at 9-480-MPI-4182. What other drugs will affect cephalexin? Tell your doctor about all your other medicines, especially: metformin; or probenecid. This list is not complete. Other drugs may affect cephalexin, including prescription and navg-gng-fqjqlhq medicines, vitamins, and herbal products. Not all [...] to ensure that the information provided by [employer]. ('[employer]') is accurate, up-to-date, and complete, but no guarantee is made to that effect. Drug information contained herein may be time sensitive. [employer] information has been compiled for use by healthcare practitioners and consumers in the [place] and therefore [employer] does not warrant that uses outside of the [place] are appropriate, unless specifically indicated otherwise. [employer]'s drug information does not endorse drugs, diagnose patients or recommend therapy. [employer] drug information is an informational resource designed [...] or appropriate for any given patient. [facility] does not assume any responsibility for any aspect of healthcare administered with the aid of information [facility] provides. The information contained herein is not intended to cover all possible uses, directions, precautions, warnings, drug interactions, allergic reactions, or adverse effects. If you have questions about the drugs you are taking, check with your doctor, nurse or pharmacist. Copyright 2636-8407 [facility] Team Apart. Version: .. Revision Date: 12/27/2022. sulfamethoxazole and [...] blood sodium or high potassium); porphyria, or oaxhhyo-3-nzprasrbd dehydrogenase (G6PD) deficiency; or if you use [...] may report side effects to FDA at 5-226-WVV-6898. What other drugs will affect sulfamethoxazole and [...] sulfamethoxazole and trimethoprim. This includes prescription and crel-wzy-zdyuyxv medicines, vitamins, and herbal products. Not all [...] to ensure that the information provided by [employer]. ('[employer]') is accurate, up-to-date, and complete, but no guarantee is made to that effect. Drug information contained herein may be time sensitive. [employer] information has been compiled for use by healthcare practitioners and consumers in the [place] and therefore [employer] does not warrant that uses outside of the [place] are appropriate, unless specifically indicated otherwise. [employer]'s drug information does not endorse drugs, diagnose patients or recommend therapy. [employer] drug information is an informational resource designed [...] effective or appropriate for any given patient. [employer] does not assume any responsibility for any aspect of healthcare administered with the aid of information [employer] provides. The information contained herein is not intended to cover all possible uses, directions, precautions, warnings, drug interactions, allergic reactions, or adverse effects. If you have questions about the drugs you are taking, check with your doctor, nurse or pharmacist. Copyright 5551-9703 [employer]. Version: 13.. Revision Date: 12/28/2022. Education Materials [...] or higher after 2 days on antibiotics 7037-0707 [employer]. [address] [place] [address], [place] [address]. All rights reserved. This information is not intended as a substitute for professional medical care. Always follow your healthcare professional's instructions. Additional Information VACCINATE! IT SAVES LIVES! Members of the community who have not yet received the COVID-19 vaccine and would like to receive it can visit one of [facility] vaccine clinics. There are many vaccine clinic locations within the [facility]. For locations and available times, please visit www.gettheshot.coronavirus.[place] .gov/. It is important to note that some COVID mobile vaccine clinics are held outdoors and may be canceled in rainy or stormy conditions. To learn more about pediatric vaccinations (ages 5-11), we invite you to visit the [facility] webpage. https://www.akronThinkEcos.org/ pages/9958-Dlvmm-Tjwtvrhiqlk-Fr jydwqypk-Lifgn-Yfucjnwnh.html To learn more about the COVID-19 vaccine, we invite you to visit the CDC website for a list of frequently asked questions. https://www.cdc.gov/coronavirus /2019-ncov/vaccines/faq.html [facility] Patient Portal Access Instructions: Stay connected with your healthcare team and access your personal medical information anytime with the [facility] Patient Portal. If you would like a full copy of your medical records please contact the [facility] Medical Records Department Sunday through Sunday between 8a.m. and 4:30p.m. Please follow the directions below to access the portal: 1.Access the email account you provided upon registration to the hospital.2.Look for an invitation email from [facility].3.Open the email and access the invitation link: Accept Invitation to [facility]4.Fill in the required lawrence to create your account. Sign into www.[employer] with your username and password that you [...] you will allow to register on the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 abuse patient.[facility] the event this information is protected by the Federal Confidentiality of Alcohol and Drug Abuse Patient Records regulations: The Federal rules restrict any use of the information to criminally investigate or prosecute any alcohol or drug abuse patient.[facility] the event this information is protected by the Federal Confidentiality of Alcohol and Drug Abuse Patient Records regulations: The Federal rules restrict any use of the information to criminally investigate or prosecute any alcohol or drug abuse patient.[facility] the event this information is protected by the Federal Confidentiality of Alcohol and Drug Abuse Patient Records regulations: The Federal rules restrict any use of the information to criminally investigate or prosecute any alcohol or drug abuse patient.[facility] the event this information is protected by the Federal Confidentiality of Alcohol and Drug Abuse Patient Records regulations: The Federal rules restrict any use of the information to criminally investigate or prosecute any alcohol or drug abuse patient.[facility] the event this information is protected by the Federal Confidentiality of Alcohol and Drug Abuse Patient Records regulations: The Federal rules restrict any use of the information to criminally investigate or prosecute any alcohol or drug abuse patient.[facility] the event this information is protected by the Federal Confidentiality of Alcohol and Drug Abuse Patient Records regulations: The Federal rules restrict any use of the information to criminally investigate or prosecute any alcohol or drug abuse patient.[facility] the event this information is protected by the Federal Confidentiality of Alcohol and Drug Abuse Patient Records regulations: The Federal rules restrict any use of the information to criminally investigate or prosecute any alcohol or drug abuse patient.[facility] the event this information is protected by the Federal Confidentiality of Alcohol and Drug Abuse Patient Records regulations: The Federal rules restrict any use of the information to criminally investigate or prosecute any alcohol or drug abuse patient.[facility] the event this information is protected by the Federal Confidentiality of Alcohol and Drug Abuse Patient Records regulations: The Federal rules restrict any use of the information to criminally investigate or prosecute any alcohol or drug abuse patient.[facility] the event this information is protected by the Federal Confidentiality of Alcohol and Drug Abuse Patient Records regulations: The Federal rules restrict any use of the information to criminally investigate or prosecute any alcohol or drug abuse patient.[facility] the event this information is protected by the Federal Confidentiality of Alcohol and Drug Abuse Patient Records regulations: The Federal rules restrict any use of the information to criminally investigate or prosecute any alcohol or drug abuse patient.[facility] the event this information is protected by the Federal Confidentiality of Alcohol and Drug Abuse Patient Records regulations: The Federal rules restrict any use of the information to criminally investigate or prosecute any alcohol or drug abuse patient.[facility] the event this information is protected by the Federal Confidentiality of Alcohol and Drug Abuse Patient Records regulations: The Federal rules restrict any use of the information to criminally investigate or prosecute any alcohol or drug abuse patient.[facility] the event this information is protected by the Federal Confidentiality of Alcohol and Drug Abuse Patient Records regulations: The Federal rules restrict any use of the information to criminally investigate or prosecute any alcohol or drug abuse patient.[facility] Reason for Visit (unrecogniz ed section and content) Reason Comments Pain (RT) shoulder injury helping move furniture pain rated 9, [facility] xray wrist, (RT) shoulder pt reported negative Reason Comments right shoulder pain REF: Cam Celis - [facility] ED 12/19/2021 Reason Comments Patient [...] COUNSELOR 4C EST Self Wilbert Pritchett MD [address] [place] [address] Referral ID Status Reason Start Date Expiration Date V isits Requested Visits Authorized [id number] Pending Review 07/12/2023 09/10/2023 1 1 Care Teams (unrecognized sec tion and content) Managing Consultant Relationship Specialty Start Date End Date Wilbert Pritchett MD [address] [place] [address] PCP - General 12/23/09 Managing Consultant Relationship Specialty Start Date End Date Wilbert Pritchett MD [address] [place] [address] PCP - General 12/23/09 Managing Consultant Relationship Specialty Start Date End Date Wilbert Pritchett MD [address] [place] [address] PCP - General 12/23/09 Managing Consultant Relationship Specialty Start Date End Date Wilbert Pritchett MD [address] [place] [address] PCP - General 12/23/09 Managing Consultant Relationship Specialty Start Date End Date Wilbert Pritchett MD [address] [place] [address] PCP - General 12/23/09 Managing Consultant Relationship Specialty Start Date End Date Wilbert Pritchett MD [address] [place] [address] PCP - General 12/23/09 Managing Consultant Relationship Specialty Start Date End Date Wilbert Pritchett MD [address] [place] [address] PCP - General 12/23/09 Managing Consultant Relationship Specialty Start Date End Date Wilbert Pritchett MD [address] [place] [address] PCP - General 12/23/09 Managing Consultant Relationship Specialty Start Date End Date Wilbert Pritchett MD [address] [place] [address] PCP - General 12/23/09 Managing Consultant Relationship Specialty Start Date End Date Wilbert Pritchett MD [address] [place] [address] PCP - General 12/23/09 Managing Consultant Relationship Specialty Start Date End Date Wilbert Pritchett MD [address] [place] [address] PCP - General 12/23/09 Managing Consultant Relationship Specialty Start Date End Date Wilbert Pritchett MD [address] [place] [address] PCP - General 12/23/09 Managing Consultant Relationship Specialty Start Date End Date Wilbert Pritchett MD [address] [place] [address] PCP - General 12/23/09 Managing Consultant Relationship Specialty Start Date End Date Wilbert Pritchett MD [address] [facility], [place] [address] PCP General 12/23/09 FOR RECORDS PERTAINING TO [...] BE BASED ON THE PRIMARY CLINICAL RECORDS. [facility] [employer] [facility]. provides no warranty or guarantee of the accuracy or completeness of information in this document.
[2023-07-16] MEDS: Phenobarbital 32.4 MG Tablet 64.7999999999999972 MG PO ×6 (04:26→23:58)
[2023-07-16] MEDS: Pantoprazole Sodium 40 MG Tablet PO (08:09)
[2023-07-16] MEDS: Thiamine Hydrochloride 100 MG Tablet PO (08:09)
[2023-07-16] MEDS: Folic Acid 1 MG Tablet PO (08:09)
[2023-07-16 08:28] LABS: Vitamin B12 403 pg/mL (211-911)
--- NOTE | 2023-07-16 09:30 | MRI_ITS ---
HISTORY: Paresthesias in feet with frequent falls. TECHNIQUE: Multiplanar and multisequence MR images of the lumbar spine were obtained without intravenous contrast. 172 images. COMPARISON: None. FINDINGS: VERTEBRAE: Vertebral body heights maintained. Mild degenerative endplate changes of L3-4, L4-5, and L5-S1 without other significant bone marrow signal abnormality. ALIGNMENT: No anterior or posterior subluxation. SPINAL CANAL: Normal morphology and position of the conus medullaris at T12-L1. No gross epidural collection. INTERVERTEBRAL DISCS: T12-L1: No significant signal abnormality, posterior disc protrusion, central canal stenosis, or foraminal narrowing based on the sagittal images. L1-2, L2-3: No significant signal abnormality, posterior disc protrusion, central canal stenosis, or foraminal narrowing. L3-4: Mild right paracentral disc protrusion with annular fissure abutting the right L4 nerve root and mild facet arthropathy resulting in mild central canal stenosis and bilateral foraminal narrowing. L4-5: Mild posterior disc bulge osteophyte complex with annular fissure and facet arthropathy resulting in minimal narrowing of the thecal sac and mild bilateral foraminal narrowing. L5-S1: Mild left paracentral disc protrusion with annular fissure and mild facet arthropathy resulting in no significant central canal stenosis or foraminal narrowing. SOFT TISSUES: No paraspinal fluid collection. MRI/Spine Lumbar (Routine) IMPRESSION: Mild multilevel degenerative disc disease of the lumbar spine resulting in mild spinal canal stenosis and foraminal narrowing as above. Electronically Signed: Faby Wood MD at 10:07 EST ,
--- NOTE | 2023-07-16 11:05 | CASEMGMT ---
KAI BROWNING Face to Face with patient for initial transition planning/care coordination assessment. RN NAM introduced self and role at [facility]. Patient lying in bed, alert and oriented. Patient willing to participate in assessment and is able to answer all questions appropriately. Care providers, pharmacy, and demographics verified. Patient wishes to discharge home, denies need for home health at this time. Patient states he has no further needs or concerns at this time. CM to follow for discharge planning needs that may arise. PCP: Richie Specialists: none Preferred Pharmacy: [facility] Insurance: none Prescription Benefit: none Living Will/HPOA: none LNOK: parents Living Arrangements: Patient lives with parents in a 2 story home. Patient is independent and able to ambulate stairs. Transportation: Parents DME/HHC: Patient denies DME in the home. No previous HHC or SNF Disposition Plan: Patient to discharge home with family support and follow-up plans in place. Gladys MARCOS, RN, CM
--- NOTE | 2023-07-16 11:08 | PN.HOSP_ITS ---
Subjective Subjective Continues with the bilateral foot and ankle numbness and tingling as well as dizziness. He does not want to quit drinking unfortunately he was started on detox instead of being given alcohol and so now we will complete the detox protocol Objective Data Objective Data Vital Signs: Vital Signs Temp Pulse Resp BP Pulse Ox O2 Del Method O2 Flow Rate 97.7 F L 93 18 133/97 H 99 Room Air 2 07/16/23 08:05 07/16/23 08:05 07/16/23 08:05 07/16/23 08:05 07/16/23 08:05 07/16/23 08:05 07/15/23 22:00 Oxygen Flow Rate (L/min) 2 Oxygen Delivery Method Room Air Weight: 160 lb 4.417 oz Body Mass Index (BMI) 26.6 Intake & Output: Intake and Output for Last 24 Hours 07/15/23 07/16/23 07/17/23 03:59 03:59 03:59 Intake Total 1347.5 / 1347.5 1407.5 / 1407.5 Balance 1347.5 / 1347.5 1407.5 / 1407.5 Lab / Micro Data 07/15/23 17:30 07/15/23 17:30 Labs: Laboratory Results - last 24 hr 07/15/23 17:25: Urine Opiates Screen NEGATIVE, Urine Methadone Screen NEGATIVE, Ur Barbiturates Screen NEGATIVE, Ur Phencyclidine Scrn NEGATIVE, Ur Amphetamines Screen NEGATIVE, MDMA (Ecstasy) Screen NEGATIVE, U Benzodiazepines Scrn NEGATIVE , Urine Cocaine Screen NEGATIVE, U Cannabinoids Screen NEGATIVE, Ur Drug Screen Comment 07/15/23 17:26: Urine Color Yellow, Urine Clarity Clear, Urine pH 7.0, Ur Specific [place] 1.005, Urine Protein 15 H, Urine Glucose (UA) Normal, Urine Ketones Negative, Urine Occult Blood Negative, Urine Nitrite Negative, Urine Bilirubin Negative, Urine Urobilinogen Normal, Ur Leukocyte Esterase Negative, Urine RBC 0 SEEN, Urine WBC 0 SEEN, Ur Squamous Epith Cells 0-5 SEEN, Urine Bacteria 0 SEEN, Urine Mucus 0 SEEN 07/15/23 17:30: WBC 4.0 L, RBC 4.52 L, Hgb 14.0, Hct 42.1, MCV 93.1, MCH 31.0, MCHC 33.3, RDW Std Deviation 42.6, RDW Coeff of Lilian 12.5, Plt Count 206, MPV 8.9, Immature Gran % (Auto) 0.500, Neut % (Auto) 49.3, Lymph % (Auto) 35.8, Wells % (Auto) 12.7 H, Eos % (Auto) 0.7, Baso % (Auto) 1.0, Absolute Neuts (auto) 2.0, Absolute Lymphs (auto) 1.44, Nucleated RBC % 0, Sodium 134 L, Potassium 3.5, Chloride 96 L, Carbon Dioxide 28.0, Anion Gap 10, BUN 5 L, Creatinine 0.73, Estim Creat Clear Calc 121.53, Est GFR (MDRD) Af Amer 149, Est GFR (MDRD) Non-Af 123, BUN/Creatinine Ratio 6.8 L, Glucose 119 H, Calcium 8.4 L, Magnesium 2.2, Total Bilirubin 0.30, Direct Bilirubin 0.12, AST 170 H, ALT 167 H, Alkaline Phosphatase 76, Total Protein 7.6, Albumin 3.8, Globulin 3.8, Ethyl Alcohol 392.0 H* 07/15/23 19:55: Hemoglobin A1c 5.3, Vitamin B12 403, Folate 6.60, TSH 1.32 Radiography Diagnostic Testing: Radiology Impression Head/Neck CTA 07/15/23 17:15 IMPRESSION: Normal bilateral cervical carotid and vertebral arteries. ALL ABOVE CRITERIA BY NASCET. Electronically Signed: Saulo Henry MD at 18:40 EST , Lumbar Spine MRI 07/16/23 09:30 IMPRESSION: Mild multilevel degenerative disc disease of the lumbar spine resulting in mild spinal canal stenosis and foraminal narrowing as above. Electronically Signed: Faby Wood MD at 10:07 EST , Physical Exam Narrative General: Alert, Oriented x3, Cooperative, anxious and restless HEENT: Atraumatic, PERRLA, EOMI, Normocephalic Oral: Moist Mucosa Neck: Supple, No JVD Lungs: Clear to auscultation, Normal air movement, No rhonchi, No wheeze, No rales Cardiovascular: Regular rate, Regular Rhythm, Normal S1, Normal S2, No murmurs Abdomen: Soft, Non Tender, Non-Distended, No Hepato-splenomegaly Extremities: No edema, Capillary Refill Less than 3 Seconds Skin: No rashes, No breakdown Musculoskeletal: No Tenderness to Palpation of Joints or Extremities Neurological: No focal neurological deficits, Motor Exam 5/5 strength throughout, numbness and tingling bilateral ankles and feet. No nystagmus Psych/Mental Status: Flat, anxious Assessment & Plan Assessment/Plan (1) Paresthesias: (2) Vertigo: (3) Alcohol intoxication: QUALIFIERS: Complication of substance-induced condition: uncomplicated Qualified Code(s): F10.920 - Alcohol use, unspecified with intoxication, uncomplicated (4) Chronic alcohol abuse: (5) Lumbar radiculopathy: PLAN: Plan 1. Peripheral neuropathy and a chronic alcoholic with intermittent vertigo/tobacco abuse ? He does not have a macrocytosis B12 and folic acid were normal ? Unfortunately went into withdrawal so we will continue with the detox protocol for now ? She has no interest in quitting alcohol ? Lumbar MRI is essentially unremarkable and symptoms are unlikely to be caused by stroke so no need for brain ? Discussed cessation, continue with the nicotine patch 2. GERD ? Stable ? Continue with PPI DVT: Lovenox Charges/Coding Visit Charges Inpatient E&M: 70513 Subs Hosp L2
--- NOTE | 2023-07-16 12:51 | CASEMGMT ---
MEL met with patient as he is listed as self pay and he has a diagnosis of alcohol intoxication. MEL introduced self and role at [facility]. Patient said [employer] came to see him this am and helped him apply for Medicaid. Patient sees a [facility] doctor for his primary care. Patient is only on 1 medication and is able to pay for this out of pocket. Patient declined any further financial resources. SW asked patient if he would like information on alcohol treatment. Patient declined stating if he went anywhere it would be [facility]. Patient again declining any information. Danita Perla [employer] JULIET
[2023-07-16] MEDS: hydrOXYzine PAM 25 MG Capsule 50 MG PO (16:03)
[2023-07-16] MEDS: Ondansetron 8 MG Tablet PO (16:03)
[2023-07-16] MEDS: 0.9% Normal Saline (1000mL) 1,000 ML 100 ML IV (17:53)
[2023-07-17] VITALS: BP 115/75; PULSE 78; RESP 16; TEMP 37.1; O2SAT 98
[2023-07-17] MEDS: 0.9% Normal Saline (1000mL) 1,000 ML 100 ML IV ×3 (03:50→20:29)
[2023-07-17] MEDS: Phenobarbital 32.4 MG Tablet 64.7999999999999972 MG PO ×5 (03:50→20:30)
[2023-07-17 03:52] VITALS: BP 121/75; PULSE 78; RESP 16; TEMP 37; O2SAT 97
[2023-07-17 08:45] VITALS: BP 115/71; PULSE 85; RESP 16; TEMP 36.1; O2SAT 97
[2023-07-17 09:01] LABS: ALB/GLOB Ratio 0.9 RATIO (0.9-2.4); AST(SGOT) 96 U/L (15-37); Alanine Aminotransfer ALT/SGPT 138 U/L (16-61); Albumin, Serum 3.8 g/dL (3.2-5.0); Alkaline Phosphatase 73 U/L (45-117); Anion Gap 6 (5-15); BUN 6 mg/dL (7-18); BUN/Creat Ratio 5.8 RATIO (10-20); Calcium,Total 9.5 mg/dL (8.5-10.1); Chloride 102 mmol/L (98-107); Creatinine, Serum 1.04 mg/dL (0.70-1.30); EST Glomerular Filtration Rate 82 mL/min (>60); Est Glom Filt Rate - Afr Amer 99 mL/min (>60); Estimated Creatinine Clearance 78.02 ml/min; Globulin 4.3 g/dL (2.2-4.2); Glucose 139 mg/dL (74-106); Potassium 3.3 mmol/L (3.5-5.1); Protein, Total 8.1 g/dL (6.4-8.2); Sodium Level 137 mmol/L (136-145)
[2023-07-17] MEDS: Pantoprazole Sodium 40 MG Tablet PO (09:04)
[2023-07-17] MEDS: Folic Acid 1 MG Tablet PO (09:05)
[2023-07-17] MEDS: Thiamine Hydrochloride 100 MG Tablet PO (09:06)
--- NOTE | 2023-07-17 10:03 | PCM.PN.HOSP ---
Subjective Subjective Doing well, still having withdrawal-like symptoms with a CIWA score of 10 Objective Data Objective Data Vital Signs: Vital Signs Temp Pulse Resp BP Pulse Ox O2 Del Method O2 Flow Rate 97 F L 85 16 115/71 97 Room Air 2 07/17/23 08:45 07/17/23 08:45 07/17/23 08:45 07/17/23 08:45 07/17/23 08:45 07/17/23 08:45 07/15/23 22:00 Oxygen Flow Rate (L/min) 2 Oxygen Delivery Method Room Air Weight: 160 lb 4.417 oz Body Mass Index (BMI) 26.6 Intake & Output: Intake and Output for Last 24 Hours 07/16/23 07/17/23 07/18/23 03:59 03:59 03:59 Intake Total 1347.5 / 1347.5 5595.83 / 5595.83 500 / 500 Balance 1347.5 / 1347.5 5595.83 / 5595.83 500 / 500 Medical Nutrition Assessment Dietitian: Malnutrition Criteria Met Start: 07/16/23 14:11 Freq: Status: Active Protocol: Document 07/16/23 14:11 RMA (Rec: 07/16/23 14:11 RMA [id number]) Nutrition Malnutrition Evidence of Malnutrition Exists Yes Malnutrition (severe): Social/Behavioral/ Environmental Evidenced By Suboptimal Energy Intake ( Severe),Weight Loss (Severe) Clinical Problem Chronic Disease or Condition Related Malnutrition Etiology Severe protein-calorie malnutrition in the context of chronic alcohol abuse/social circumstance related to inadequate oral/energy intake Signs/Symptoms as evidenced by oral intake meeting less than 50% estimated nutrition needs x 1 month and ~11% unintentional weight loss in less than 1 month Status Active Problem Recommendation Dietitian Recommendations/Changes Will continue liberalized regular diet as ordered. Will add 240mL ensure plus high protein 2 times per day w / breakfast and dinner tray. Additional ONS as needed. Lab / Micro Data 07/15/23 17:30 07/17/23 08:27 Labs: Laboratory Results - last 24 hr 07/17/23 08:27: Sodium 137, Potassium 3.3 L, Chloride 102, Carbon Dioxide 29.0, Anion Gap 6, BUN 6 L, Creatinine 1.04, Estim Creat Clear Calc 78.02, Est GFR (MDRD) Af Amer 99, Est GFR (MDRD) Non-Af 82, BUN/Creatinine Ratio 5.8 L, Glucose 139 H, Calcium 9.5, Total Bilirubin 0.90, AST 96 H, ALT 138 H, Alkaline Phosphatase 73, Total Protein 8.1, Albumin 3.8, Globulin 4.3 H, Albumin/Globulin Ratio 0.9 Radiography Diagnostic Testing: Radiology Impression Lumbar Spine MRI 07/16/23 09:30 IMPRESSION: Mild multilevel degenerative disc disease of the lumbar spine resulting in mild spinal canal stenosis and foraminal narrowing as above. Electronically Signed: Faby Wood MD at 10:07 EST Reading Location ID and State: [facility] / [place] Tel , Service support , Physical Exam Narrative General: Alert, Oriented x3, Cooperative, anxious and restless HEENT: Atraumatic, PERRLA, EOMI, Normocephalic Oral: Moist Mucosa Neck: Supple, No JVD Lungs: Clear to auscultation, Normal air movement, No rhonchi, No wheeze, No rales Cardiovascular: Regular rate, Regular Rhythm, Normal S1, Normal S2, No murmurs Abdomen: Soft, Non Tender, Non-Distended, No Hepato-splenomegaly Extremities: No edema, Capillary Refill Less than 3 Seconds Skin: No rashes, No breakdown Musculoskeletal: No Tenderness to Palpation of Joints or Extremities Neurological: No focal neurological deficits, Motor Exam 5/5 strength throughout, numbness and tingling bilateral ankles and feet. No nystagmus Psych/Mental Status: Flat, anxious Assessment & Plan Assessment/Plan (1) Paresthesias: (2) Vertigo: (3) Alcohol intoxication: QUALIFIERS: Complication of substance-induced condition: uncomplicated Qualified Code(s): F10.920 - Alcohol use, unspecified with intoxication, uncomplicated (4) Chronic alcohol abuse: (5) Lumbar radiculopathy: PLAN: Plan 1. Peripheral neuropathy and a chronic alcoholic with intermittent vertigo/tobacco abuse ? He does not have a macrocytosis B12 and folic acid were normal ? Unfortunately went into withdrawal so we will continue with the detox protocol for now ? She has no interest in quitting alcohol however it is the alcohol that is likely leading to his peripheral neuropathy, LFTs are improving ? Lumbar MRI is essentially unremarkable and symptoms are unlikely to be caused by stroke so no need for brain ? Discussed cessation, continue with the nicotine patch 2. GERD ? Stable ? Continue with PPI DVT: Lovenox Charges/Coding Visit Charges Inpatient E&M: 16494 Subs Hosp L2
[2023-07-17 12:07] VITALS: BP 119/87; PULSE 86; RESP 16; TEMP 36.6; O2SAT 96
[2023-07-17] MEDS: Potassium Chloride Oral Tablet 20 MEQ 40 MEQ PO (12:09)
[2023-07-17 16:37] VITALS: BP 154/99; PULSE 88; RESP 18; TEMP 36.6; O2SAT 97
[2023-07-17 20:00] VITALS: BP 124/96; PULSE 94; RESP 16; TEMP 36.9; O2SAT 99
[2023-07-18] VITALS: BP 120/88; PULSE 88; RESP 16; TEMP 36.9; O2SAT 99
[2023-07-18] MEDS: Phenobarbital 32.4 MG Tablet 64.7999999999999972 MG PO ×3 (00:16→08:54)
[2023-07-18 04:00] VITALS: BP 122/74; PULSE 89; RESP 18; TEMP 37; O2SAT 99
[2023-07-18] MEDS: 0.9% Normal Saline (1000mL) 1,000 ML 100 ML IV (04:20)
--- NOTE | 2023-07-18 08:40 | PCM.DC ---
Discharge Instructions Diet Discharge Diet: No restrictions Activity Discharge Activity: Return to Normal Activity Dressing / Incision Call your doctor if you observe: Fever of 101 or Higher, Shortness of breath, Dizziness, Fainting spells, Swelling in the ankles, Chest pain and Increased palpitations (irregular heartbeat) Follow Up Care Test Results: Test results from this visit will be discussed in further detail at your follow-up appointment, if applicable. Discharge Plan Admission Admit Date/Time: 07/16/23 00:51 Attending Provider: Elvin Burnette Primary Care Provider: Care Physician,No Primary Consulting Providers: Star Khalil Instructions Additional Instructions / Restrictions: Follow-up with your PCP for further evaluation of your lower extremity numbness and tingling. You also have liver disease from your chronic alcohol use so I do recommend monitoring that as well on discharge Discharge Orders/Prescriptions Prescriptions: New thiamine HCl (vitamin B1) [Vitamin B-1] 100 mg Tablet 100 mg PO DAILYCM 30 Days Qty: 30 0RF Continued omeprazole 40 mg capsule,delayed release(DR/EC) 40 mg PO DAILY Referrals / Follow Up: Wilbert Quiroz MD [Med Staff - Snack Bar Attendant] - Within 1 Week Care Physician,No Primary [Primary Care Provider] - Disposition Disposition (needs filled in before D/C Order can be placed): Home, Self Care
[2023-07-18 08:50] VITALS: BP 111/77; PULSE 96; RESP 16; TEMP 36.8; O2SAT 99
[2023-07-18] MEDS: Folic Acid 1 MG Tablet PO (08:54)
[2023-07-18] MEDS: Thiamine Hydrochloride 100 MG Tablet PO (08:54)
[2023-07-18] MEDS: Pantoprazole Sodium 40 MG Tablet PO (08:54)
--- NOTE | 2023-07-18 09:14 | CASEMGMT ---
Patient has order for discharge. RN CM in to discuss need at discharge. Patient denies needs or help at discharge. Patient had no further questions or concerns.
--- NOTE | 2023-07-18 09:50 | NURSING ---
Pt refused to have potassium rechecked before d/c despite education.
--- NOTE | 2023-07-18 09:53 | PHA.DC.MR.R ---
Pharmacy [facility] Med Reconciliation Pharmacy Service has performed discharge medication reconciliation for this patient. Attempted to dependency counselor, patient already discharged. Medications reviewed. The patient's discharge medication list was reviewed for discrepancies and discrepancies were resolved. Medications at Discharge Home Medications omeprazole 40 mg capsule,delayed release 40 mg PO DAILY 09/11/22 thiamine HCl (vitamin B1) 100 mg tablet (Vitamin B-1) 100 mg PO DAILYCM 30 days #30 tabs 07/18/23
--- NOTE | 2023-07-18 10:36 | DS.PCM_ITS ---
Providers Date of Admission: 07/16/23 Primary Care Physician: No Primary Care Phys Reason For Visit: PERIPHERAL NEUROPATHY & VERTIGO WITH FALLS & Diagnosis Discharge Diagnosis (1) Paresthesias: Status: Acute Code(s): R20.2 - Paresthesia of skin (2) Vertigo: Status: Acute Code(s): R42 - Dizziness and giddiness (3) Alcohol intoxication: Status: Acute Code(s): F10.929 - Alcohol use, unspecified with intoxication, unspecified Qualifiers: Complication of substance-induced condition: uncomplicated Qualified Code(s): F10.920 - Alcohol use, unspecified with intoxication, uncomplicated (4) Chronic alcohol abuse: Status: Chronic Code(s): F10.10 - Alcohol abuse, uncomplicated (5) Lumbar radiculopathy: Status: Acute Code(s): M54.16 - Radiculopathy, lumbar region Plan 1. Peripheral neuropathy and a chronic alcoholic with intermittent vertigo/tobacco abuse ? He does not have a macrocytosis B12 and folic acid were normal ? Unfortunately went into withdrawal so we will continue with the detox protocol for now ? She has no interest in quitting alcohol however it is the alcohol that is likely leading to his peripheral neuropathy, LFTs are improving ? Lumbar MRI is essentially unremarkable and symptoms are unlikely to be caused by stroke so no need for brain ? Discussed cessation, continue with the nicotine patch 2. GERD ? Stable ? Continue with PPI DVT: Lovenox Medications at Discharge Home Medications omeprazole 40 mg capsule,delayed release 40 mg PO DAILY 09/11/22 thiamine HCl (vitamin B1) 100 mg tablet (Vitamin B-1) 100 mg PO DAILYCM 30 days #30 tabs 07/18/23 Hospital Course Operations None Procedures None Summary of Care Provided Minutes Spent on Discharge: 33 Hospital Course: Per HPI: IDA NICHOLAS, is a 43 M with a past medical history of hyperlipidemia, asthma, tobacco abuse, overweight; with BMI of 27.8 this admission, generalized anxiety, history GERD with PUD, history of patellar fracture, bimalleloar fracture, history of hernia surgery, history of COVID-19, history of lumbar radiculopathy and history of Chronic EtOH Abuse who presents to [facility] ER complaining of dizziness and paresthesias of the feet. Mr. Nicholas reports his symptoms began approximately one month prior to admission with patient having numbness and tingling in his feet. He also admits to feeling dizzy with intermittent vertigo that is causing frequent falls. He denies altered sensation in his thighs or lower legs. He also denies associated headache, recent injury or focal neurologic weakness and he also initially stated he was not interested in quitting EtOH or detox but then he still wanted to be admitted for treatment. His last drink was today and in the ER he was noted to have a ZARIA of 392 mg/dL consistent with acute alcohol intoxication in the setting of chronic alcohol abuse with elevated AST 170 U/L and ALT 167 U/L with a UDS that was negative in the setting of suspected Peripheral Neuropathy due to suspected B-12 deficiency from chronic alcoholism and he was then admitted to the general medical floor for ongoing care for a stay that is expected to be greater than 48 hours. Hospital Course: 1. Peripheral neuropathy in a chronic alcoholic with intermittent vertigo/tobacco abuse?43-year-old male who has no interest in quitting drinking presented to the hospital with 3 weeks of peripheral neuropathy and vertigo. Lumbar MRI did not show any obvious cause of this peripheral neuropathy. Folic acid and vitamin B12 are also within normal range LFTs were little bit elevated and so it was felt that his peripheral neuropathy was likely related to his significant alcohol use.. His TSH was also normal and his hemoglobin A1c was only 5.3 sided recommend that he follow-up with his PCP as an outpatient for further nerve conduction studies and other test as may be indicated. He was started on withdrawal protocol instead of being given alcohol while here as he refuses to quit drinking, so he was kept for continued withdrawal-like symptoms. However today he demanded to be discharged. I discussed with him the possibility of discharge and he expressed understanding of the risk and benefits of going home and he requested to be discharged home today. No changes were made to his home medications, other than the addition of thiamine. Physical Exam Narrative General: Alert, Oriented x3, Cooperative, anxious and restless HEENT: Atraumatic, PERRLA, EOMI, Normocephalic Oral: Moist Mucosa Neck: Supple, No JVD Lungs: Clear to auscultation, Normal air movement, No rhonchi, No wheeze, No rales Cardiovascular: Regular rate, Regular Rhythm, Normal S1, Normal S2, No murmurs Abdomen: Soft, Non Tender, Non-Distended, No Hepato-splenomegaly Extremities: No edema, Capillary Refill Less than 3 Seconds Skin: No rashes, No breakdown Musculoskeletal: No Tenderness to Palpation of Joints or Extremities Neurological: No focal neurological deficits, Motor Exam 5/5 strength throughout, numbness and tingling bilateral ankles and feet. No nystagmus Psych/Mental Status: Flat, anxious Weight / BMI Weight Weight: 160 lb 4.417 oz Body Mass Index (BMI) 26.6 ABG / Lab / Microbiology Data 07/15/23 17:30 07/17/23 08:27 D/C Instructions Discharge Diet: No restrictions Call your doctor if you observe: Fever of 101 or Higher, Shortness of breath, Dizziness, Fainting spells, Swelling in the ankles, Chest pain and Increased palpitations (irregular heartbeat) Meaningful Use Info Meaningful Use Diagnoses (Choose all that apply): None applicable Discharge Plan Admission Admit Date/Time: 07/16/23 00:51 Attending Provider: Elvin Burnette Primary Care Provider: Care Physician,No Primary Consulting Providers: Star Khalil Instructions Additional Instructions / Restrictions: Follow-up with your PCP for further evaluation of your lower extremity numbness and tingling. You also have liver disease from your chronic alcohol use so I do recommend monitoring that as well on discharge Discharge Orders/Prescriptions Prescriptions: New thiamine HCl (vitamin B1) [Vitamin B-1] 100 mg Tablet 100 mg PO DAILYCM 30 Days Qty: 30 0RF Continued omeprazole 40 mg capsule,delayed release(DR/EC) 40 mg PO DAILY Referrals / Follow Up: Wilbert Quiroz MD [Med Staff - Employee Health Rn] - Within 1 Week Care Physician,No Primary [Primary Care Provider] - Disposition Disposition (needs filled in before D/C Order can be placed): Home, Self Care Charges/Coding Visit Charges Inpatient E&M: 64825 Disch Hosp >30min
== END 2023-07-18 09:47 | disposition home or self-care (01) | DRG 896 ==
LOC: ED 18:04 → MS3 07-16 00:58 → PCU 07-16 01:14
PROVIDERS: Admitting Provider Internal Medicine; Emergency Provider Emergency Medicine; Visit Provider Family Medicine
DX: F10.129 Alcohol abuse with intoxication, unspecified (principal); E43 Unspecified severe protein-calorie malnutrition; G62.1 Alcoholic polyneuropathy; E78.5 Hyperlipidemia, unspecified; F17.200 Nicotine dependence, unspecified, uncomplicated; K21.9 Gastro-esophageal reflux disease without esophagitis; M51.16 Intervertebral disc disorders with radiculopathy, lumbar region; Z86.16 Personal history of COVID-19; F41.1 Generalized anxiety disorder; E66.3 Overweight; Z68.26 Body mass index [BMI] 26.0-26.9, adult; R29.6 Repeated falls; Y90.8 Blood alcohol level of 240 mg/100 ml or more; R42 Dizziness and giddiness; R20.2 Paresthesia of skin
CPT/HCPCS: 36415; 70496; 70498; 72148; 80048; 80053; 80076; 80307; 80320; 81001; 82607; 82746; 83036; 83735; 84443; 85025; 93005; 97802; 99285; 99406; J7030; Q9967; A4216; G0480

== ENCOUNTER 2023-10-27 20:51 | Inpatient (IN) | payer MEDICAID, SELFPAY ==
[2023-10-27 20:52] VITALS: BP 167/82; PULSE 116; RESP 16; TEMP 36.6; O2SAT 97
--- NOTE | 2023-10-27 21:03 | EKG12_ITS ---
Test Reason : DIZZINESS Blood Pressure : / mmHG Vent. Rate : 085 BPM Atrial Rate : 085 BPM P-R Int : 138 ms QRS Dur : 072 ms QT Int : 416 ms P-R-T Axes : 016 006 023 degrees QTc Int : 495 ms Normal sinus rhythm Confirmed by STEW FORD MD ([id number]), communications editor LUIS E BLACK ([id number]) on 10/29/2023 6:54:35 AM Referred By: Confirmed By:STEW FORD MD
--- NOTE | 2023-10-27 21:06 | EDS_ITS ---
HPI <JEANMARIE Davis - Last Filed: 10/27/23 22:04> History of Present Illness Chief Complaint: Dizziness Narrative Narrative: Patient is a 43-year-old male with history of alcohol abuse who drinks 12 pack of beer daily, as well as vertigo who presents to the emergency department for 2 days of worsening dizziness. Patient states that he is having continuous nausea and vomiting. Last drink was last evening. Patient is shaky, diaphoretic, feeling the room spinning as well as nausea and vomiting. He denies any fever or chills. [place] any specific pain. Patient has been to the emergency department for this before, patient has been admitted for both vertigo as well as alcohol intoxication. PFSH <JEANMARIE Davis - Last Filed: 10/27/23 22:04> PFSH Medical History Abnormal bruising Arthritis Asthma Back pain Bimalleolar ankle fracture Bloody stool Dyslipidemia Fatigue Generalized anxiety disorder with panic attacks History of patellar fracture Shoulder pain SOB (shortness of breath) Stomach ulcer Home Medications ?Medication ?Instructions ?Recorded ?Last Taken ?Type omeprazole 40 mg capsule,delayed 40 mg PO DAILY 09/11/22 Unknown History release thiamine HCl (vitamin B1) 100 mg 100 mg PO DAILYCM 30 days #30 tabs 07/18/23 Unknown Rx tablet (Vitamin B-1) Allergy/AdvReac Type Severity Reaction Status Date / Time No Known Allergies Allergy Verified 07/15/23 16:53 Family History Other Diabetes Heart disease Surgical History History of hernia surgery Social History Smoking Status: Light Smoker (<10/day) alcohol intake: current alcohol intake frequency: 3 or more drinks per day Alcohol type: beer ROS <JEANMARIE Davis - Last Filed: 10/27/23 22:04> ROS ED ROS Narrative Constitutional: Negative for fever, chills, weight loss, weakness. Positive for chills, diaphoresis Eyes: Negative for vision loss, vision change, double vision ENT: Negative for any sore throat, ear pain, congestion Cardiovascular: Negative for any chest pain, tightness, palpitations Respiratory: Negative for any cough, sputum production, hemoptysis, dyspnea, dyspnea on exertion, orthopnea Gastrointestinal: Negative for any abdominal pain, diarrhea, constipation, blood in stool, blood in vomit. Positive for nausea and vomiting : Negative for any urinary frequency, dysuria, retention, blood in urine Muscle skeletal: Negative for any neck pain, back pain Neurological: Negative for any headache, syncope. Positive for dizziness, room spinning sensation Skin: Negative for any rashes, itching, abrasions, lacerations Psychiatric: Negative for any depression, anxiety, stress, suicidal ideation, homicidal ideation Hematologic: Negative for any excessive bruising, easy bleeding EXAM <JEANMARIE Davis - Last Filed: 10/27/23 22:04> Physical Exam Narrative Exam Narrative: Vital signs reviewed. Patient is alert and orient x 4, patient is diaphoretic, patient has full body shaking, patient anytime he moves his head does have some nausea and vomiting. HEET: Head normocephalic atraumatic, TMs clear bilaterally. Posterior pharynx is clear, moist mucous membranes. Nares clear bilaterally. Pupils are equal round reactive to light. Patient does have some nystagmus, it is difficult secondary to the patient continue to vomit. Neck: Supple with no lymphadenopathy or tenderness. No signs of meningismus. Cardiac: Tachycardic rate no murmurs gallops or rubs, equal peripheral pulses bilaterally. Respiratory: Lungs clear to auscultation bilaterally. No chest tenderness. Abdomen: Soft, nontender, nondistended. No abdominal bruit or pulsatile masses. No hepatosplenomegaly Extremities: No peripheral edema, no signs of gross trauma or deformity. Active full range of motion of all extremities. Neuro: Cranial nerves II through XII intact, no focal neurological deficits. Patient is shaking full body arms legs. Skin: Clean dry and intact with no rash, purpura, petechiae, vesicles or pustules. Backs/flank: No CVA tenderness, no midline spinal tenderness, no deformity. Psych: Normal mood and affect. No SI, HI or acute psychosis. Const Vital Signs: 10/27/23 20:52 Temperature 98 F Temperature Source Oral Pulse Rate 116 H Respiratory Rate 16 Blood Pressure 167/82 H Blood Pressure Mean 110 Pulse Ox 97 Oxygen Delivery Method Room Air <Dr. Yusra Castellano MD - Last Filed: 10/27/23 22:55> Physical Exam Const Vital Signs: 10/27/23 20:52 Temperature 98 F Temperature Source Oral Pulse Rate 116 H Respiratory Rate 16 Blood Pressure 167/82 H Blood Pressure Mean 110 Pulse Ox 97 Oxygen Delivery Method Room Air MDM <JEANMARIE Davis - Last Filed: 10/27/23 22:04> [facility] Lab Data Labs: Laboratory Results - last 24 hr 10/27/23 10/27/23 21:20 22:20 WBC 6.0 RBC 4.34 L Hgb 14.7 Hct 43.7 MCV 100.7 H MCH 33.9 H MCHC 33.6 RDW Std Deviation 44.7 H RDW Coeff of Lilian 11.9 Plt Count 148 L MPV 9.2 Immature Gran % (Auto) 0.800 Neut % (Auto) 80.6 H Lymph % (Auto) 12.0 L [place] % (Auto) 5.7 Eos % (Auto) 0.2 Baso % (Auto) 0.7 Absolute Neuts (auto) 4.8 Absolute Lymphs (auto) 0.72 L Nucleated RBC % 0 PT 12.5 INR 0.9 Sodium 139 Potassium 3.7 Chloride 100 Carbon Dioxide 26.0 Anion Gap 13 BUN 5 L Creatinine 0.85 Estim Creat Clear Calc 95.47 Est GFR (MDRD) Af Amer 125 Est GFR (MDRD) Non-Af 103 BUN/Creatinine Ratio 5.9 L Glucose 174 H Calcium 9.7 Total Bilirubin 1.10 H Direct Bilirubin 0.40 H AST 115 H ALT 95 H Alkaline Phosphatase 82 Total Protein 8.6 H Albumin 4.4 Globulin 4.2 Lipase 130 H Urine Color Yellow Urine Clarity Clear Urine pH 6.0 Ur Specific [place] 1.020 Urine Protein 100 H Urine Glucose (UA) Normal Urine Ketones 150 A* Urine Occult Blood Negative Urine Nitrite Negative Urine Bilirubin Negative Urine Urobilinogen 1 H Ur Leukocyte Esterase 25 H Urine RBC 0 SEEN Urine WBC 0-5 SEEN Ur Squamous Epith Cells 0-5 SEEN Urine Bacteria 0 SEEN Urine Mucus 0 SEEN Urine Opiates Screen NEGATIVE Urine Methadone Screen NEGATIVE Ur Barbiturates Screen NEGATIVE Ur Phencyclidine Scrn NEGATIVE Ur Amphetamines Screen NEGATIVE MDMA (Ecstasy) Screen NEGATIVE U Benzodiazepines Scrn NEGATIVE Urine Cocaine Screen NEGATIVE U Cannabinoids Screen NEGATIVE Ur Drug Screen Comment Ethyl Alcohol 3.0 Treatment and Re-Evaluation :: Differential diagnosis includes however is not limited to: Alcohol withdrawal, benign positional peripheral vertigo, central vertigo, CVA, TIA, electrolyte abnormality Patient on my initial evaluation is tachycardic, patient is diaphoretic, has full body shaking and is continually vomiting. Patient states that his last alcoholic drink was 1 day ago. Secondary to the patient's history of alcoholism, this could be possible alcohol intoxication, alcohol withdrawal. Patient will receive basic laboratory values, including liver panel secondary to history of transaminitis. Patient will receive IV fluids, Zofran as well as 1 mg of IV Ativan. EKG will be completed. I did look at the patient's past visits and June, patient received a CTA of the head neck that was normal, however the patient's last time he was here for something similar, his alcohol was greater than 300. Alcohol will be ordered as well as urine drug screen. Patient's laboratory values show a normal CBC, chemistries show slight elevation in AST 115, ALT 95, patient's lipase 130, alcohol level is 0. Patient's PT/INR is within normal limits. <Dr. Yusra Castellano MD - Last Filed: 10/27/23 22:55> [facility] Lab Data Labs: Laboratory Results - last 24 hr 10/27/23 10/27/23 21:20 22:20 WBC 6.0 RBC 4.34 L Hgb 14.7 Hct 43.7 MCV 100.7 H MCH 33.9 H MCHC 33.6 RDW Std Deviation 44.7 H RDW Coeff of Lilian 11.9 Plt Count 148 L MPV 9.2 Immature Gran % (Auto) 0.800 Neut % (Auto) 80.6 H Lymph % (Auto) 12.0 L [place] % (Auto) 5.7 Eos % (Auto) 0.2 Baso % (Auto) 0.7 Absolute Neuts (auto) 4.8 Absolute Lymphs (auto) 0.72 L Nucleated RBC % 0 PT 12.5 INR 0.9 Sodium 139 Potassium 3.7 Chloride 100 Carbon Dioxide 26.0 Anion Gap 13 BUN 5 L Creatinine 0.85 Estim Creat Clear Calc 95.47 Est GFR (MDRD) Af Amer 125 Est GFR (MDRD) Non-Af 103 BUN/Creatinine Ratio 5.9 L Glucose 174 H Calcium 9.7 Total Bilirubin 1.10 H Direct Bilirubin 0.40 H AST 115 H ALT 95 H Alkaline Phosphatase 82 Total Protein 8.6 H Albumin 4.4 Globulin 4.2 Lipase 130 H Urine Color Yellow Urine Clarity Clear Urine pH 6.0 Ur Specific [place] 1.020 Urine Protein 100 H Urine Glucose (UA) Normal Urine Ketones 150 A* Urine Occult Blood Negative Urine Nitrite Negative Urine Bilirubin Negative Urine Urobilinogen 1 H Ur Leukocyte Esterase 25 H Urine RBC 0 SEEN Urine WBC 0-5 SEEN Ur Squamous Epith Cells 0-5 SEEN Urine Bacteria 0 SEEN Urine Mucus 0 SEEN Urine Opiates Screen NEGATIVE Urine Methadone Screen NEGATIVE Ur Barbiturates Screen NEGATIVE Ur Phencyclidine Scrn NEGATIVE Ur Amphetamines Screen NEGATIVE MDMA (Ecstasy) Screen NEGATIVE U Benzodiazepines Scrn NEGATIVE Urine Cocaine Screen NEGATIVE U Cannabinoids Screen NEGATIVE Ur Drug Screen Comment Ethyl Alcohol 3.0 Treatment and Re-Evaluation :: Differential diagnosis includes however is not limited to: Alcohol withdrawal, benign positional peripheral vertigo, central vertigo, CVA, TIA, electrolyte abnormality Patient on my initial evaluation is tachycardic, patient is diaphoretic, has full body shaking and is continually vomiting. Patient states that his last alcoholic drink was 1 day ago. Secondary to the patient's history of alcoholism, this could be possible alcohol intoxication, alcohol withdrawal. Patient will receive basic laboratory values, including liver panel secondary to history of transaminitis. Patient will receive IV fluids, Zofran as well as 1 mg of IV Ativan. EKG will be completed. I did look at the patient's past visits and June, patient received a CTA of the head neck that was normal, however the patient's last time he was here for something similar, his alcohol was greater than 300. Alcohol will be ordered as well as urine drug screen. Patient's laboratory values show a normal CBC, chemistries show slight elevation in AST 115, ALT 95, patient's lipase 130, alcohol level is 0. Patient's PT/INR is within normal limits. Patient seen and evaluated with DEEJAY. I personally interviewed and examined the patient. I was involved in all aspects of patient's orders, interpretation of results, and treatment. Patient presents secondary to dizziness. He has a history of vertigo along with peripheral neuropathy. He states his vertigo has been doing quite well until yesterday when he started having some lightheadedness and spinning sensation. Today symptoms been worse. He has had nausea and vomiting secondary to his vertigo. He does have a history of chronic alcohol use and states his last alcoholic drink was yesterday. He denies any recent fall or head injury. Patient sitting upright in bed no acute distress. He does appear uncomfortable. Head neck examination reveals slightly dry mucous membranes. Heart is tachycardic and regular. Lung sounds are clear. Abdomen is soft and nontender. Neuro exam reveals tremor to the bilateral upper extremities. Patient given Zofran, Ativan, and IV fluids. CBC reveals white count of 6.0 with a hemoglobin of 14.7. 80% neutrophils are noted. Chemistry studies are largely unremarkable. His glucose is 174. His total bili is 1.1, direct bili 0.4, AST 115, ALT 95, alk phos 82. This is actually slightly improved when compared to prior labs. His lipase is 130. Urinalysis reveals 150 ketones with no sign of infection. Urine tox screen is negative. EtOH is 3. EKG is sinus rhythm at 85 bpm with no acute ischemia. On repeat examination patient is resting more comfortably. As I am talking to the patient he is able to turn his head [id number] without much dizziness. We discussed possible admission for treatment of vertigo and detox. He states he is not necessarily interested in detox, but does not feel that his vertigo is well enough controlled to go home. We did have nursing staff attempt to ambulate the patient. They state that when he tried to stand up he was shaking and off balance and not able to take a step. Patient is given another small dose of Ativan. I will speak with hospitalist regarding admission. Discharge Plan Triage Chief Complaint: Dizziness ED Midlevel Provider: Angelo Snow ED Provider: Castellano,Yusra Dx/Rx/DC Orders Clinical Impression: Vertigo, Alcohol withdrawal Prescriptions: No Action omeprazole 40 mg capsule,delayed release(DR/EC) 40 mg PO DAILY thiamine HCl (vitamin B1) [Vitamin B-1] 100 mg Tablet 100 mg PO DAILYCM 30 Days Qty: 30 0RF Primary Care Provider: Wilbert Quiroz Referrals: Wilbert Quiroz MD [Primary Care Provider] - Print Language: Arabic Disposition Disposition: Acute Care Hospital [facility]
[2023-10-27] MEDS: LORazepam 2 MG/ML Syringe 1 MG IV (21:25)
[2023-10-27] MEDS: 0.9% Normal Saline (1000mL) 1,000 ML 999 ML IV (21:25)
[2023-10-27] MEDS: Ondansetron 4 MG/2 ML Vial IV (21:26)
[2023-10-27 21:27] LABS: Absolute Lymphocyte Count 0.72 X10^3/uL (0.83-4.51); Absolute Neutrophil Count 4.8 X10^3/uL (2.0-7.7); Basophil# 0.04 X10^3/uL; Basophil% 0.7 % (0-1); Eosinophil# 0.01 X10^3/uL; Eosinophils% 0.2 % (0-5); Hematocrit 43.7 % (40-54); Hemoglobin 14.7 g/dL (13.0-16.5); Lymphocyte # 0.72 X10^3/ul (0.83-4.51); Mean Corp Hgb Conc 33.6 g/dL (32-36); Mean Corpuscular Hgb 33.9 pg (27.0-32.0); Mean Corpuscular Volume 100.7 fL (80-94); Mean Platelet Vol. 9.2 fl (6.2-12.0); Monocyte# 0.34 X10^3/uL; Monocyte% 5.7 % (0-10); NRBC Flagged by Analyzer 0 % (0-5); Neutrophil # 4.82 X10^3/uL (2.7-7.7); Neutrophil % 80.6 % (47-70); Platelet Count 148 K/mm3 (150-450); RBC Distribution Width CV 11.9 % (11.6-14.6); RBC Distribution Width SD 44.7 fl (35.1-43.9); Red Blood Count 4.34 M/mm3 (4.6-6.2)
[2023-10-27 21:29] VITALS: BMI 25.0
[2023-10-27 21:40] LABS: International Normalized Ratio 0.9; Prothrombin Time (Protime)PT. 12.5 SECONDS (11.7-14.9)
[2023-10-27 21:51] LABS: AST(SGOT) 115 U/L (15-37); Alanine Aminotransfer ALT/SGPT 95 U/L (16-61); Albumin, Serum 4.4 g/dL (3.2-5.0); Alkaline Phosphatase 82 U/L (45-117); Anion Gap 13 (5-15); BUN 5 mg/dL (7-18); BUN/Creat Ratio 5.9 RATIO (10-20); Calcium,Total 9.7 mg/dL (8.5-10.1); Chloride 100 mmol/L (98-107); Creatinine, Serum 0.85 mg/dL (0.70-1.30); EST Glomerular Filtration Rate 103 mL/min (>60); Est Glom Filt Rate - Afr Amer 125 mL/min (>60); Estimated Creatinine Clearance 95.47 ml/min; Globulin 4.2 g/dL (2.2-4.2); Glucose 174 mg/dL (74-106); Lipase 130 U/L (13-75); Potassium 3.7 mmol/L (3.5-5.1); Protein, Total 8.6 g/dL (6.4-8.2); Sodium Level 139 mmol/L (136-145)
[2023-10-27 22:25] LABS: Bacteria 0 SEEN /hpf (None Seen); Mucous, Urine 0 SEEN /hpf (<or=2+); Red Blood Cells-Urine 0 SEEN /hpf (0-5)
[2023-10-27 22:42] LABS: Color, Urine Yellow (Yellow); Glucose, Dipstick Normal (Normal); Leukocyte Esterase-Dipstick 25 /ul (Negative); Nitrite-Dipstick Negative (Negative); Occult Blood-Urine Negative /ul (Negative); Protein-Dipstick 100 mg/dl (Negative); Urine Bilirubin Dipstick Negative (Negative); Urine Clarity Clear (Clear); Urine Urobilinogen 1 mg/dl (Normal)
[2023-10-27 22:43] LABS: Ketone-Dipstick 150 mg/dl (Negative); Squamous Epithelial Cells - UA 0-5 SEEN /hpf (0-5); White Blood Cells 0-5 SEEN /hpf (0-5)
[2023-10-27 22:48] LABS: Amphetamine Urine VISTA NEGATIVE (<1000 ng/mL); Barbiturate Urine VISTA NEGATIVE (< 200 ng/mL); Benzodiazepine Urine VISTA NEGATIVE (< 200 ng/mL); Cocaine Urine VISTA NEGATIVE (< 300 ng/mL); Ecstacy Urine VISTA NEGATIVE (< 500 ng/mL); Methadone Urine VISTA NEGATIVE (< 300 ng/mL); PCP Urine VISTA NEGATIVE (< 25 ng/mL); THC Urine VISTA NEGATIVE (< 50 ng/mL); Vista UDS pH Range 5
[2023-10-27 22:52] VITALS: BP 119/85; PULSE 81; RESP 18; O2SAT 96
[2023-10-27] MEDS: LORazepam 2 MG/ML Syringe 0.5 MG IV (23:03)
--- NOTE | 2023-10-27 23:05 | PCM.HP.STD ---
HPI - General General Date of Admission: 10/27/23 Date of Service: 10/27/23 Chief Complaint: EtOH withdrawal, N/V, vertigo HPI Narrative The patient is a 43 y/o M w/ PMHx: EtOH abuse, HLD, Asthma, Anxiety and Depression/history of panic attacks, GERD with history of gastric ulcer, prior admission, Chronic vertigo/BPPV, Chronic peripheral neuropathy, 07/15/2023 secondary to issues with intermittent dizziness and vertigo with frequent falls as well as paresthesias to the lower extremities with unremarkable lumbar MRI and normal B12 and folic acid levels with suspected symptoms secondary to alcohol withdrawal and chronic peripheral neuropathy who now represents to the [facility] ED on 10/27/2023 with history of ongoing 12 pack of beer daily and chronic vertigo with 2-day history of worsening dizziness with nausea and emesis with his last drink the evening prior with now onset of acute withdrawal with tremors, diaphoresis, nausea and emesis prompting ED evaluation. Upon ED evaluation he does note feeling improved since his initial ED arrival and notes that the vertigo sensation has lessened and he is not nauseous and has not vomited recently. Workup in the ED included T98, heart rate 116, BP 167/82, respiratory rate 16, 97% on room air, CBC with WC 6.0, hemoglobin 14.7, MCV 100.7, platelet 148 with lymphopenia, unremarkable coags, CMP with anion gap 13, glucose 174, T. bili 1.10, T. bili 0.40, AST/LT 115/95, lipase 130, urinalysis with specific remedy 1.020, protein 100, ketones 150, no evidence of UTI. In the ED patient ministered Zofran 4 mg IV x 2 as well as Ativan 1.5 mg IV and 1 L normal saline. [facility] Medical History Chronic alcohol abuse Dyslipidemia History of patellar fracture Bimalleolar ankle fracture Generalized anxiety disorder with panic attacks Back pain Bloody stool Abnormal bruising Asthma Fatigue Stomach ulcer Shoulder pain SOB (shortness of breath) Arthritis Home Medications ?Medication ?Instructions ?Recorded ?Last Taken ?Type omeprazole 40 mg capsule,delayed 40 mg PO DAILY 09/11/22 Unknown History release thiamine HCl (vitamin B1) 100 mg 100 mg PO DAILYCM 30 days #30 tabs 07/18/23 Unknown Rx tablet (Vitamin B-1) Allergy/AdvReac Type Severity Reaction Status Date / Time No Known Allergies Allergy Verified 07/15/23 16:53 Family History (Updated 10/27/23 @ 23:[address] Ela Elizondo MD) Mother Diabetes Heart disease Hypertension Father Diabetes Heart disease Hypertension Surgical History (Updated 10/27/23 @ 23:[address] Ela Elizondo MD) History of ankle surgery History of hernia surgery Social History (Updated 10/27/23 @ 23:[address] Ela Elizondo MD) household members: none Smoking Status: Light Smoker (<10/day) alcohol intake: current alcohol intake frequency: 3 or more drinks per day Alcohol type: beer substance use type: does not use ROS ROS Narrative Admission Review of Systems: CONSTITUTIONAL: No weight loss, fever, chills, + weakness or fatigue. HEENT: + Lightheadedness/dizziness, vertiginous symptoms. Eyes: No visual loss, blurred vision, double vision or yellow sclerae. Ears, Nose, Throat: No hearing loss, sneezing, congestion, runny nose or sore throat. SKIN: No rash or itching, lesions, wounds. CARDIOVASCULAR: No chest pain, chest pressure or chest discomfort, palpitations, edema, orthopnea, syncopal events. RESPIRATORY: No shortness of breath, cough or sputum, wheezing, hemoptysis. GASTROINTESTINAL: + anorexia, nausea, vomiting, mild epigastric discomfort. No diarrhea, melena, BRBPR. GENITOURINARY: No dysuria, frequency, urgency or retention. NEUROLOGICAL: + Lightheadedness/dizziness, vertiginous symptoms, chronic peripheral neuropathy. No headache, syncope, paralysis, ataxia, focal weakness, change in bowel or bladder control, seizure. MUSCULOSKELETAL: + muscle, back pain, joint pain or stiffness. HEMATOLOGIC: No anemia. + Easy bleeding/bruising. LYMPHATICS: No enlarged nodes. No history of splenectomy. PSYCHIATRIC: + History of anxiety and depression. ENDOCRINOLOGIC: No reports of sweating, cold or heat intolerance. No polyuria or polydipsia. ALLERGIES: No history of asthma, hives, eczema or rhinitis. Vital Signs Vital Signs Vital Signs: 10/27/23 20:52 Temperature 98 F Temperature Source Oral Pulse Rate 116 H Respiratory Rate 16 Blood Pressure 167/82 H Blood Pressure Mean 110 Pulse Ox 97 Oxygen Delivery Method Room Air Weight Weight: 150 lb 5.684 oz Body Mass Index (BMI) 25.0 Physical Exam Narrative Physical Examination: General: Awake, alert, oriented x 3 and cooperative, seated upright in the ED bed, fatigued. Skin: Normal color, normal turgor, no icterus, no cyanosis. HEENT: AT/NC, EOMI, PERRLA, moderately dry MM, no carotid bruits or JVD noted. Lungs: Mildly diminished, greater bases, appropriate effort, no rales, ronchi or wheezing. Heart: Regular rate and rhythm; no gallop, rub audible. Abdomen: Soft, mild discomfort to epigastric palpation but no rebound or guarding, ND, mildly hyperactive BS, no appreciated marked HSM. Extremities: No cyanosis, clubbing, or edema. Neurological: Patient awake, alert, oriented as noted, cognitive function intact; pupils equally reactive to light and accommodation, cranial nerves grossly normal, moving all 4 extremities, no focal deficits, strength moderately to severely globally [place] secondary to complaints, unable to reproduce any current vertiginous symptoms, no nystagmus noted, mild tremors but he notes he feels improved status post Ativan administered in the ED, does report tactile disturbances. Psychiatric: Affect appears flat, fatigued, no acute evidence of depressive or anxiety feelings but does have underlying history. Results Lab / Micro Data 10/27/23 21:20 10/27/23 21:20 Labs: Laboratory Results - last 24 hr 10/27/23 21:20: WBC 6.0, RBC 4.34 L, Hgb 14.7, Hct 43.7, MCV 100.7 H, MCH 33.9 H, MCHC 33.6, RDW Std Deviation 44.7 H, RDW Coeff of Lilian 11.9, Plt Count 148 L, MPV 9.2, Immature Gran % (Auto) 0.800, Neut % (Auto) 80.6 H, Lymph % (Auto) 12.0 L, [place] % (Auto) 5.7, Eos % (Auto) 0.2, Baso % (Auto) 0.7, Absolute Neuts (auto) 4.8, Absolute Lymphs (auto) 0.72 L, Nucleated RBC % 0, PT 12.5, INR 0.9, Sodium 139, Potassium 3.7, Chloride 100, Carbon Dioxide 26.0, Anion Gap 13, BUN 5 L, Creatinine 0.85, Estim Creat Clear Calc 95.47, Est GFR (MDRD) Af Amer 125, Est GFR (MDRD) Non-Af 103, BUN/Creatinine Ratio 5.9 L, Glucose 174 H, Calcium 9.7, Total Bilirubin 1.10 H, Direct Bilirubin 0.40 H, AST 115 H, ALT 95 H, Alkaline Phosphatase 82, Total Protein 8.6 H, Albumin 4.4, Globulin 4.2, Lipase 130 H, Ethyl Alcohol 3.0 10/27/23 22:20: Urine Color Yellow, Urine Clarity Clear, Urine pH 6.0, Ur Specific [place] 1.020, Urine Protein 100 H, Urine Glucose (UA) Normal, Urine Ketones 150 A*, Urine Occult Blood Negative, Urine Nitrite Negative, Urine Bilirubin Negative, Urine Urobilinogen 1 H, Ur Leukocyte Esterase 25 H, Urine RBC 0 SEEN, Urine WBC 0-5 SEEN, Ur Squamous Epith Cells 0-5 SEEN, Urine Bacteria 0 SEEN, Urine Mucus 0 SEEN, Urine Opiates Screen NEGATIVE, Urine Methadone Screen NEGATIVE, Ur Barbiturates Screen NEGATIVE, Ur Phencyclidine Scrn NEGATIVE, Ur Amphetamines Screen NEGATIVE, MDMA (Ecstasy) Screen NEGATIVE, U Benzodiazepines Scrn NEGATIVE, Urine Cocaine Screen NEGATIVE, U Cannabinoids Screen NEGATIVE, Ur Drug Screen Comment Assessment & Plan Assessment/Plan (1) Alcohol withdrawal: PLAN: Plan The patient is a 43 y/o M w/ PMHx: EtOH abuse, HLD, Asthma, Anxiety and Depression/history of panic attacks, GERD with history of gastric ulcer, prior admission, Chronic vertigo/BPPV, Chronic peripheral neuropathy, 07/15/2023 secondary to issues with intermittent dizziness and vertigo with frequent falls as well as paresthesias to the lower extremities with unremarkable lumbar MRI and normal B12 and folic acid levels with suspected symptoms secondary to alcohol withdrawal and chronic peripheral neuropathy who now represents to the [facility] ED on 10/27/2023 with history of ongoing 12 pack of beer daily and chronic vertigo with 2-day history of worsening dizziness with nausea and emesis with his last drink the evening prior with now onset of acute withdrawal with tremors, diaphoresis, nausea and emesis prompting ED evaluation. #1. Acute EtOH Withdrawal with chronic LFT elevations, mild hyperbilirubinemia with mildly elevated lipase/? mild acute pancreatitis: Will admit to MS, given interest in sobriety, will initiate and continue on protocol with taper course of Phenobarbital, as needed gabapentin, Catapres, Bentyl, Vistaril, IV fluids, IV antiemetics, Tylenol as needed for pain. Will continue to aggressively hydrate and repeat CMP, lipase in AM. Given symptoms improved in the ED will allow diet but low threshold to transition to NPO/clears if recurrent N/V. Will consult Case management for assistance for transition to next level of rehabilitation care. Maintain on PPI. Mag, phos pending. Maintain on CIWA protocol concurrently. #2. Chronic benign positional vertigo, worsened likely secondary to #1: Will initiate on meclizine regimen given symptoms but suspect #1 treatment once clinically starts to improve will assist more so, will maintain on IV fluids. Maintain on fall precautions. #3. Elevated BP without hypertensive diagnosis: BP upon presentation elevated, potentially related with acute presentation number 1, will continue monitor and if more consistent with underlying hypertension we will add oral regimen however in the interim will maintain on IV as needed hydralazine. #4. Thrombocytopenia, acute, potentially related to underlying alcohol abuse versus reactive: Admission platelet 148, will continue evaluation and treatment as noted above, continue to trend CBC. #5. Hyperglycemia: Admission CMP with glucose 174, no diabetic history, will obtain hemoglobin A1c to be cautious however given history suspect likely related with his chronic alcohol abuse. #6. Chronic asthma: Will maintain on ATC budesonide therapy, PRN albuterol, HOB, IS parameters. #7. Anxiety and depression/history of panic attacks: Per current list does not appear to be on chronic regimen, case management consulted as would benefit from aggressive outpatient follow-up and counseling is likely contributing to his alcohol abuse. #8. Hyperlipidemia: Not on regimen, defer to outpatient. #9. GERD with history of reportedly gastric ulcer: Will maintain on PPI. #10. Tobacco Abuse: Encouraged cessation, inpatient consultation per RT, NR if desired. #11. DVT prophylaxis: Low risk for type of admission. Charges/Coding Visit Charges Inpatient E&M: 99080 Init Hosp L3
[2023-10-27 23:37] VITALS: BMI 23.3
[2023-10-27 23:39] VITALS: BP 119/85; PULSE 81; RESP 18; TEMP 36.7; O2SAT 96
[2023-10-27 23:39] LABS: Magnesium 1.7 mg/dL (1.6-2.6); Phosphorus 2.9 mg/dL (2.5-4.9)
[2023-10-28] VITALS (7 sets, daily range): BP systolic 113–131; BP diastolic 76–94; PULSE 74–98; RESP 14–20; TEMP 36.3–36.9; O2SAT 95–99; BMI 23.3
[2023-10-28] MEDS: Meclizine HCl 25 MG Tablet PO ×2 (00:34→08:35)
[2023-10-28] MEDS: Lactated Ringers 1,000 ML 125 ML IV ×2 (00:35→08:35)
[2023-10-28] MEDS: Pantoprazole Sodium 20 MG Tablet PO ×3 (00:35→20:38)
[2023-10-28] MEDS: Phenobarbital 32.4 MG Tablet 64.8 MG PO ×6 (00:35→20:37)
[2023-10-28 05:09] LABS: Absolute Lymphocyte Count 1.04 X10^3/uL (0.83-4.51); Absolute Neutrophil Count 3.3 X10^3/uL (2.0-7.7); Basophil# 0.03 X10^3/uL; Basophil% 0.6 % (0-1); Eosinophil# 0.02 X10^3/uL; Eosinophils% 0.4 % (0-5); Hematocrit 37.8 % (40-54); Hemoglobin 12.5 g/dL (13.0-16.5); Lymphocyte # 1.04 X10^3/ul (0.83-4.51); Lymphocyte % 21.1 % (19-41); Mean Corp Hgb Conc 33.1 g/dL (32-36); Mean Corpuscular Hgb 33.7 pg (27.0-32.0); Mean Corpuscular Volume 101.9 fL (80-94); Mean Platelet Vol. 9.7 fl (6.2-12.0); Monocyte# 0.48 X10^3/uL; Monocyte% 9.7 % (0-10); NRBC Flagged by Analyzer 0 % (0-5); Neutrophil # 3.33 X10^3/uL (2.7-7.7); Neutrophil % 67.6 % (47-70); Platelet Count 134 K/mm3 (150-450); RBC Distribution Width CV 11.9 % (11.6-14.6); RBC Distribution Width SD 44.2 fl (35.1-43.9); Red Blood Count 3.71 M/mm3 (4.6-6.2); White Blood Count 4.9 K/mm3 (4.4-11.0)
[2023-10-28] MEDS: Gabapentin 300 MG Capsule PO ×2 (05:37→20:37)
[2023-10-28 05:52] LABS: AST(SGOT) 81 U/L (15-37); Alanine Aminotransfer ALT/SGPT 76 U/L (16-61); Albumin, Serum 3.6 g/dL (3.2-5.0); Alkaline Phosphatase 61 U/L (45-117); Anion Gap 9 (5-15); BUN 6 mg/dL (7-18); BUN/Creat Ratio 9.5 RATIO (10-20); Calcium,Total 8.8 mg/dL (8.5-10.1); Chloride 100 mmol/L (98-107); Creatinine, Serum 0.63 mg/dL (0.70-1.30); EST Glomerular Filtration Rate 146 mL/min (>60); Est Glom Filt Rate - Afr Amer 176 mL/min (>60); Estimated Creatinine Clearance 123.99 ml/min; Globulin 3.5 g/dL (2.2-4.2); Glucose 84 mg/dL (74-106); Potassium 3.2 mmol/L (3.5-5.1); Protein, Total 7.1 g/dL (6.4-8.2); Sodium Level 137 mmol/L (136-145)
[2023-10-28] MEDS: Budesonide Respules 0.5 MG/2 ML AMPUL.NEB. INHALATION ×2 (06:40→19:32)
[2023-10-28 08:10] LABS: Hemoglobin A1c 4.8 % (3.8-5.6)
[2023-10-28] MEDS: Thiamine Hydrochloride 100 MG Tablet PO (08:35)
[2023-10-28] MEDS: Folic Acid 1 MG Tablet PO (08:35)
[2023-10-28] MEDS: Multivitamins,Ther W-Minerals Tablet 1 TABLET PO (08:41)
[2023-10-28] MEDS: Potassium Chloride Oral Tablet 20 MEQ 40 MEQ PO (08:41)
--- NOTE | 2023-10-28 11:11 | PCM.PN.HOSP ---
Reason for Visit Reason for Visit: Diagnoses Alcohol use, unspecified with withdrawal, unspecified (10/27/23) Subjective Subjective Patient admitted yesterday night for 2-day history of worsening dizziness with nausea/vomiting and concern for acute alcohol withdrawal. Was started on phenobarbital taper on admission. Saw patient at the bedside this morning. Patient was sleeping on arrival to the room. Upon awakening, patient was laying comfortably in bed, conversing normally and in no acute distress. Stated he felt comfortable at rest currently. He does still report some dizziness when moving around, similar to yesterday. He otherwise denies any alcohol withdrawal symptoms. He is tolerating the phenobarbital well, does not feel like this is making him too groggy. Denies any other acute concerns this morning. Objective Data Objective Data Vital Signs: Vital Signs Temp Pulse Resp BP Pulse Ox O2 Del Method 98.5 F 88 20 H 120/85 H 97 Room Air 10/28/23 05:20 10/28/23 06:40 10/28/23 06:40 10/28/23 05:20 10/28/23 06:40 10/28/23 06:40 Oxygen Delivery Method Room Air Weight: 63.5 kg Body Mass Index (BMI) 23.3 Intake & Output: Intake and Output for Last 24 Hours 10/26/23 10/27/23 10/28/23 23:59 23:59 23:59 Intake Total 1000 / 1000 1600 / 1600 Balance 1000 / 1000 1600 / 1600 Medical Nutrition Assessment Dietitian: Malnutrition Criteria Met Start: 10/28/23 09:39 Freq: Status: Active Protocol: Document 10/28/23 09:39 SLA (Rec: 10/28/23 09:39 SLA [email or web address]) Nutrition Malnutrition Evidence of Malnutrition Exists Yes Malnutrition (severe): Social/Behavioral/ Environmental Evidenced By Suboptimal Energy Intake ( Severe),Weight Loss (Severe), Physical Changes (Mild) Clinical Problem Chronic Disease or Condition Related Malnutrition Etiology related to inadequate energy intake d/t alcohol abuse Signs/Symptoms as evidenced by 22.3% unintentional wt loss and po intake <75% of est nutritional needs; mild fat/muscle loss noted throughout body. Status Active Problem Recommendation Dietitian Recommendations/Changes Continue regular diet w/ snacks tid Will order carnation instant breakfast tid w/ meals for increased nutrition if consumed. Lab / Micro Data 10/28/23 04:35 06/02/24 04:35 Labs: Laboratory Results - last 24 hr 10/27/23 21:20: WBC 6.0, RBC 4.34 L, Hgb 14.7, Hct 43.7, MCV 100.7 H, MCH 33.9 H, MCHC 33.6, RDW Std Deviation 44.7 H, RDW Coeff of Lilian 11.9, Plt Count 148 L, MPV 9.2, Immature Gran % (Auto) 0.800, Neut % (Auto) 80.6 H, Lymph % (Auto) 12.0 L, Coleman % (Auto) 5.7, Eos % (Auto) 0.2, Baso % (Auto) 0.7, Absolute Neuts (auto) 4.8, Absolute Lymphs (auto) 0.72 L, Nucleated RBC % 0, PT 12.5, INR 0.9, Sodium 139, Potassium 3.7, Chloride 100, Carbon Dioxide 26.0, Anion Gap 13, BUN 5 L, Creatinine 0.85, Estim Creat Clear Calc 95.47, Est GFR (MDRD) Af Amer 125, Est GFR (MDRD) Non-Af 103, BUN/Creatinine Ratio 5.9 L, Glucose 174 H, Calcium 9.7, Phosphorus 2.9, Magnesium 1.7, Total Bilirubin 1.10 H, Direct Bilirubin 0.40 H, AST 115 H, ALT 95 H, Alkaline Phosphatase 82, Total Protein 8.6 H, Albumin 4.4, Globulin 4.2, Lipase 130 H, Ethyl Alcohol 3.0 10/27/23 22:20: Urine Color Yellow, Urine Clarity Clear, Urine pH 6.0, Ur Specific [place] 1.020, Urine Protein 100 H, Urine Glucose (UA) Normal, Urine Ketones 150 A*, Urine Occult Blood Negative, Urine Nitrite Negative, Urine Bilirubin Negative, Urine Urobilinogen 1 H, Ur Leukocyte Esterase 25 H, Urine RBC 0 SEEN, Urine WBC 0-5 SEEN, Ur Squamous Epith Cells 0-5 SEEN, Urine Bacteria 0 SEEN, Urine Mucus 0 SEEN, Urine Opiates Screen NEGATIVE, Urine Methadone Screen NEGATIVE, Ur Barbiturates Screen NEGATIVE, Ur Phencyclidine Scrn NEGATIVE, Ur Amphetamines Screen NEGATIVE, MDMA (Ecstasy) Screen NEGATIVE, U Benzodiazepines Scrn NEGATIVE, Urine Cocaine Screen NEGATIVE, U Cannabinoids Screen NEGATIVE, Ur Drug Screen Comment 10/28/23 04:35: WBC 4.9, RBC 3.71 L, Hgb 12.5 L, Hct 37.8 L, MCV 101.9 H, MCH 33.7 H, MCHC 33.1, RDW Std Deviation 44.2 H, RDW Coeff of Lilian 11.9, Plt Count 134 L, MPV 9.7, Immature Gran % (Auto) 0.600, Neut % (Auto) 67.6, Lymph % (Auto) 21.1, Coleman % (Auto) 9.7, Eos % (Auto) 0.4, Baso % (Auto) 0.6, Absolute Neuts (auto) 3.3, Absolute Lymphs (auto) 1.04, Nucleated RBC % 0, Sodium 137, Potassium 3.2 L, Chloride 100, Carbon Dioxide 28.0, Anion Gap 9, BUN 6 L, Creatinine 0.63 L, Estim Creat Clear Calc 123.99, Est GFR (MDRD) Af Amer 176, Est GFR (MDRD) Non-Af 146, BUN/Creatinine Ratio 9.5 L, Glucose 84, Hemoglobin A1c 4.8, Calcium 8.8, Total Bilirubin 0.90, AST 81 H, ALT 76 H, Alkaline Phosphatase 61, Total Protein 7.1, Albumin 3.6, Globulin 3.5, Albumin/Globulin Ratio 1.0 Physical Exam Const alert, oriented x3, no apparent distress and average body habitus Constitutional Narrative: Pleasant middle-age male, laying comfortably in bed, conversing normally, in no acute distress. General Appearance: cooperative and comfortable HEENT normocephalic, head/scalp atraumatic, hearing grossly normal bilaterally, nasal mucous membranes and turbinates normal and moist oral mucous membranes Eyes PERRL, EOMs intact bilaterally and conjunctivae normal Neck full ROM Chest inspection of chest normal Resp normal respiratory effort, normal air movement, no use of accessory muscles and clear to auscultation bilaterally Cardio regular rate, regular rhythm, no murmurs and peripheral pulses 2+ throughout GI normal to inspection, nondistended, normoactive bowel sounds, soft to palpation, non-tender and non-distended Back/Spine normal ROM Extremity normal to inspection, full ROM and no pedal edema Skin no rashes or lesions noted Neuro moves all extremities and no focal motor deficits Speech: speech normal Psych mental status grossly normal Assessment & Plan Assessment/Plan (1) Alcohol withdrawal: (2) Vertigo: PLAN: Plan Patient is a 43-year-old male who presented to [facility] ED on 10/27/2023 with worsening dizziness, nausea/vomiting and concern for acute alcohol withdrawal. 1. Alcohol abuse with concern for withdrawal ? Case management following. Reported drinking about 12 beers daily, with last drink being on the evening prior to admission. Alcohol level 0 on admit. Was hospitalized in June with similar symptoms, treated with [facility] protocol during that admission. Notably had no interest in quitting alcohol at that time. Unclear if persistent dizziness and difficulty with ambulation on admit was due to vertigo versus alcohol withdrawal, however patient was shaky and diaphoretic in the ED. Started on phenobarbital taper on admission with fairly good control of symptoms. Continue phenobarbital taper and as needed medications per alcohol withdrawal order set. Encouraged alcohol cessation on discharge. 2. Persistent dizziness ? Known history of vertigo but patient states symptoms have been more persistent than normal. Could be secondary to alcohol withdrawal as noted above. Notably had CT brain without contrast and CTA head/neck on 07/05/2023 that were nonacute. However, will obtain CT head without contrast on 10/27 to rule out new structural etiology. PT/OT consulted. Will continue meclizine 25 mg 3 times daily as needed, though patient states this has not been that helpful for him. 3. Mild hypokalemia ? Potassium 3.2 on hospital day 2. Replete as needed. 4. Mildly elevated LFTs ? Suspect secondary to alcohol abuse. No abdominal pain or discomfort. INR normal. Will hold on any abdominal imaging at this time. Follow-up outpatient LFTs as needed. 5. GERD ? Stable. Continue home PPI. DVT prophylaxis: Lovenox CODE STATUS: Full code, verified Expected disposition: Home, 2 to 3 days Total clinical time spent by myself addressing the patient's medical issues, reviewing all the data, and collaborating with patient's care team: 35 minutes. Charges/Coding Visit Charges Inpatient E&M: 60512 Subs Hosp L2
--- NOTE | 2023-10-28 13:11 | CT_ITS ---
EXAM: CT HEAD WITHOUT INTRAVENOUS CONTRAST CLINICAL INDICATION: persistent dizziness, r/o overt structural etiology TECHNIQUE: Multiple axial images were obtained of the head without intravenous contrast. This CT exam was performed using one or more of the following dose reduction techniques: automated exposure control, adjustment of the mA and/or kV according to patient size, and/or use of iterative reconstruction technique. RADIATION DOSE: CTDIvol = 44.99 mGy, DLP = 812.98 mGy-cm COMPARISON: CT head and CTA head with contrast 07/15/2023. FINDINGS: BRAIN AND EXTRA-AXIAL SPACES: Unremarkable. No intra- or extra-axial hemorrhage. No evidence of acute infarct. No intracranial mass or mass effect. There is preservation of the angel/white matter interface. Posterior fossa structures are unremarkable. Ventricles are appropriate for age. No hydrocephalus. Basal cisterns are patent. BONES/JOINTS: Unremarkable. No discrete lytic or blastic abnormalities. SINUSES: Unremarkable as visualized. Clear. MASTOID AIR CELLS: Unremarkable. Clear. ORBITS: Visualized globes, extraocular muscles, optic nerves and retrobulbar fat appear unremarkable. CT/Brain/Head without Contrast IMPRESSION: Negative head/brain CT without intravenous contrast and unchanged when compared to 07/15/2023. Electronically Signed: Kalyan Zamarripa MD at 13:39 EDT ,
[2023-10-28] MEDS: traZODone 100 MG Tablet PO (20:37)
[2023-10-29 00:55] VITALS: BP 155/104; PULSE 91; RESP 16; TEMP 36.9; O2SAT 98
[2023-10-29] MEDS: Phenobarbital 32.4 MG Tablet 64.8 MG PO ×3 (01:00→08:04)
[2023-10-29 05:35] VITALS: BMI 24.9
[2023-10-29 07:04] LABS: Hematocrit 39.9 % (40-54); Hemoglobin 13.3 g/dL (13.0-16.5); Mean Corp Hgb Conc 33.3 g/dL (32-36); Mean Corpuscular Hgb 33.8 pg (27.0-32.0); Mean Corpuscular Volume 101.5 fL (80-94); Mean Platelet Vol. 10.2 fl (6.2-12.0); Platelet Count 156 K/mm3 (150-450); RBC Distribution Width CV 11.5 % (11.6-14.6); RBC Distribution Width SD 43.4 fl (35.1-43.9); Red Blood Count 3.93 M/mm3 (4.6-6.2); White Blood Count 5.7 K/mm3 (4.4-11.0)
[2023-10-29 07:17] LABS: Anion Gap 5 (5-15); BUN 8 mg/dL (7-18); BUN/Creat Ratio 9.1 RATIO (10-20); Calcium,Total 9.5 mg/dL (8.5-10.1); Chloride 99 mmol/L (98-107); Creatinine, Serum 0.88 mg/dL (0.70-1.30); EST Glomerular Filtration Rate 99 mL/min (>60); Est Glom Filt Rate - Afr Amer 120 mL/min (>60); Estimated Creatinine Clearance 88.76 ml/min; Glucose 125 mg/dL (74-106); Sodium Level 136 mmol/L (136-145)
[2023-10-29] MEDS: Budesonide Respules 0.5 MG/2 ML AMPUL.NEB. INHALATION (07:29)
[2023-10-29 07:30] VITALS: PULSE 82; RESP 16; O2SAT 100
[2023-10-29 08:00] VITALS: BP 137/78; PULSE 91; RESP 18; TEMP 37.1; O2SAT 100
[2023-10-29] MEDS: Thiamine Hydrochloride 100 MG Tablet PO (08:04)
[2023-10-29] MEDS: Multivitamins,Ther W-Minerals Tablet 1 TABLET PO (08:04)
[2023-10-29] MEDS: Folic Acid 1 MG Tablet PO (08:04)
[2023-10-29] MEDS: Pantoprazole Sodium 20 MG Tablet PO (08:04)
--- NOTE | 2023-10-29 08:27 | PN.HOSP_ITS ---
Reason for Visit Reason for Visit: Diagnoses Alcohol use, unspecified with withdrawal, unspecified (10/27/23) Dizziness and giddiness (10/27/23) Objective Data Objective Data Vital Signs: Vital Signs Temp Pulse Resp BP Pulse Ox O2 Del Method 36.9 C 82 16 155/104 H 100 Room Air 10/29/23 00:55 10/29/23 07:30 10/29/23 07:30 10/29/23 00:55 10/29/23 07:30 10/29/23 07:30 Oxygen Delivery Method Room Air Weight: 67.8 kg Body Mass Index (BMI) 24.9 Intake & Output: Intake and Output for Last 24 Hours 10/27/23 10/28/23 10/29/23 23:59 23:59 23:59 Intake Total 1000 / 1000 4420 / 4420 500 / 500 Balance 1000 / 1000 4420 / 4420 500 / 500 Medical Nutrition Assessment Dietitian: Malnutrition Criteria Met Start: 10/28/23 09:39 Freq: Status: Active Protocol: Document 10/28/23 09:39 SLA (Rec: 10/28/23 09:39 SLA [id number]) Nutrition Malnutrition Evidence of Malnutrition Exists Yes Malnutrition (severe): Social/Behavioral/ Environmental Evidenced By Suboptimal Energy Intake ( Severe),Weight Loss (Severe), Physical Changes (Mild) Clinical Problem Chronic Disease or Condition Related Malnutrition Etiology related to inadequate energy intake d/t alcohol abuse Signs/Symptoms as evidenced by 22.3% unintentional wt loss and po intake <75% of est nutritional needs; mild fat/muscle loss noted throughout body. Status Active Problem Recommendation Dietitian Recommendations/Changes Continue regular diet w/ snacks tid Will order carnation instant breakfast tid w/ meals for increased nutrition if consumed. Lab / Micro Data 10/29/23 06:20 10/29/23 06:20 Labs: Laboratory Results - last 24 hr 10/29/23 06:20: WBC 5.7, RBC 3.93 L, Hgb 13.3, Hct 39.9 L, MCV 101.5 H, MCH 33.8 H, MCHC 33.3, RDW Std Deviation 43.4, RDW Coeff of Lilian 11.5 L, Plt Count 156, MPV 10.2, Sodium 136, Potassium 3.0 L, Chloride 99, Carbon Dioxide 32.0, Anion Gap 5, BUN 8, Creatinine 0.88, Estim Creat Clear Calc 88.76, Est GFR (MDRD) Af Amer 120, Est GFR (MDRD) Non-Af 99, BUN/Creatinine Ratio 9.1 L, Glucose 125 H, Calcium 9.5 Radiography Diagnostic Testing: Radiology Impression Brain CT 10/28/23 13:11 IMPRESSION: Negative head/brain CT without intravenous contrast and unchanged when compared to 07/15/2023. Electronically Signed: Kalyan Zamarripa MD at 13:39 EDT , Assessment & Plan Assessment/Plan (1) Alcohol withdrawal: (2) Vertigo: PLAN: Plan Alcohol abuse with concern for withdrawal * Reported drinking about 12 beers daily, with last drink being on the evening prior to admission. Alcohol level 0 on admit. * Was hospitalized in June with similar symptoms, treated with [facility] protocol during that admission. Notably had no interest in quitting alcohol at that time. * Unclear if persistent dizziness and difficulty with ambulation on admit was due to vertigo versus alcohol withdrawal, however patient was shaky and diaphoretic in the ED. * Phenobarbital taper on admission with fairly good control of symptoms. Persistent dizziness * suspect due to BPPV * head CT negative. * PRN meclizine. DVT prophylaxis: enoxaparin CODE STATUS: Full code, verified Expected disposition: Home, 2 to 3 days
--- NOTE | 2023-10-29 10:22 | CASEMGMT ---
Social Work- SW provided printed mental health provider resources. WILLIAM Yuen
--- NOTE | 2023-10-29 10:41 | DS.PCM_ITS ---
Providers Date of Admission: 10/27/23 Primary Care Physician: Dr. Wilbert Quiroz MD Reason For Visit: ETOH WITHDRAWL, BPPV Diagnosis Discharge Diagnosis (1) Alcohol withdrawal: Status: Acute Code(s): F10.939 - Alcohol use, unspecified with withdrawal, unspecified (2) Vertigo: Status: Acute Code(s): R42 - Dizziness and giddiness Plan Alcohol abuse with concern for withdrawal * Reported drinking about 12 beers daily, with last drink being on the evening prior to admission. Alcohol level 0 on admit. * Was hospitalized in June with similar symptoms, treated with [facility] protocol during that admission. Notably had no interest in quitting alcohol at that time. * Unclear if persistent dizziness and difficulty with ambulation on admit was due to vertigo versus alcohol withdrawal, however patient was shaky and diaphoretic in the ED. * Phenobarbital taper on admission with fairly good control of symptoms. Persistent dizziness * suspect due to BPPV * head CT negative. * PRN meclizine. DVT prophylaxis: enoxaparin CODE STATUS: Full code, verified Pt left AMA before I could see. Medications at Discharge Home Medications omeprazole 40 mg capsule,delayed release 40 mg PO DAILY 09/11/22 thiamine HCl (vitamin B1) 100 mg tablet (Vitamin B-1) 100 mg PO DAILYCM 30 days #30 tabs 07/18/23 Medical Records Data Medical Nutrition Assessment Dietitian: Malnutrition Criteria Met Start: 10/28/23 09:39 Freq: Status: Active Protocol: Document 10/28/23 09:39 SLA (Rec: 10/28/23 09:39 SLA [email or web address]) Nutrition Malnutrition Evidence of Malnutrition Exists Yes Malnutrition (severe): Social/Behavioral/ Environmental Evidenced By Suboptimal Energy Intake ( Severe),Weight Loss (Severe), Physical Changes (Mild) Clinical Problem Chronic Disease or Condition Related Malnutrition Etiology related to inadequate energy intake d/t alcohol abuse Signs/Symptoms as evidenced by 22.3% unintentional wt loss and po intake <75% of est nutritional needs; mild fat/muscle loss noted throughout body. Status Active Problem Recommendation Dietitian Recommendations/Changes Continue regular diet w/ snacks tid Will order carnation instant breakfast tid w/ meals for increased nutrition if consumed. Weight / BMI Weight Weight: 67.8 kg Body Mass Index (BMI) 24.9 ABG / Lab / Microbiology Data 10/29/23 06:20 10/29/23 06:20 Laboratory: Laboratory Results - last 24 hr 10/29/23 06:20: WBC 5.7, RBC 3.93 L, Hgb 13.3, Hct 39.9 L, MCV 101.5 H, MCH 33.8 H, MCHC 33.3, RDW Std Deviation 43.4, RDW Coeff of Lilian 11.5 L, Plt Count 156, MPV 10.2, Sodium 136, Potassium 3.0 L, Chloride 99, Carbon Dioxide 32.0, Anion Gap 5, BUN 8, Creatinine 0.88, Estim Creat Clear Calc 88.76, Est GFR (MDRD) Af Amer 120, Est GFR (MDRD) Non-Af 99, BUN/Creatinine Ratio 9.1 L, Glucose 125 H, Calcium 9.5 Radiography Diagnostic Testing: Radiology Impression Brain CT 10/28/23 13:11 IMPRESSION: Negative head/brain CT without intravenous contrast and unchanged when compared to 07/15/2023. Electronically Signed: Kalyan Zamarripa MD at 13:39 EDT , Meaningful Use Info Meaningful Use Meaningful Use Diagnoses (Choose all that apply): None applicable Ischemic Stroke Statin Dosing Therapy Reference: STATIN DOSE THERAPY REFERENCE: * Patients > 75 years receive moderate or high dose statin therapy. * Patients 75 years or YOUNGER should receive HIGH intensity statin dose unless contraindicated. You will be required to document reason for non-treatment if statin daily dose does not meet guidelines. HIGH DOSE STATIN THERAPY DAILY Atorvastatin > than or = to 40 mg Rosuvastatin > than or = to 20 mg Amlodipine + Atorvastatin > than or = to 2.5/40 mg Ezetimibe + Simvastatin 10/80 mg Simvastatin 80mg Discharge Plan Admission Admit Date/Time: 10/27/23 23:06 Primary Reason for Your Visit: alcohol withdrawal Attending Provider: Ilia Loya Primary Care Provider: Wilbert Quiroz Consulting Providers: Ela Elizondo; Amrik Lopez Discharge Orders/Prescriptions Prescriptions: No Action omeprazole 40 mg capsule,delayed release(DR/EC) 40 mg PO DAILY thiamine HCl (vitamin B1) [Vitamin B-1] 100 mg Tablet 100 mg PO DAILYCM 30 Days Qty: 30 0RF Referrals / Follow Up: Wilbert Quiroz MD [Primary Care Provider] - Disposition Disposition (needs filled in before D/C Order can be placed): Against Medical Advice
--- NOTE | 2023-10-29 10:41 | CASEMGMT ---
KAI BROWNING Assessment: Face to Face with pt for initial transition planning/care coordination assessment. KAI BROWNING introduced self and role at [facility], pt voices understanding and consents to assessment. Pt sitting on edge of bed putting shoes on stating his mom is on the way and he is leaving as soon as she gets here due to family dynamics. Pt is A&O x4 and answers all questions appropriately at this time. Care providers, pharmacy, and demographics verified/updated. Admitting Dx: ETOH withdrawl, BPPV PCP: Richie Harrell Pharmacy: [facility] Insurance: [employer] Prescription Benefit: yes LNOK: Sonali - mom Living Arrangements: Pt goes back and forth with living with parents and girlfriend. States he does not work and lives off of mom and dad. States he is I with ADLs. Transportation: Pt does not drive, mom provides transportation. DME: uses no DME, states interested in a cane. Made aware insurance does not cover and provided verbal list of places he can purchase. Therapy recommended out patient vestibular therapy, pt is aware but not agreeable to waiting on a script from doctor. KAI BROWNING instructed follow up with PCP. Pt signed AMA papers and left hospital. Dr. Loya made aware. Pt DC home AMA. Dori QUINN CM
--- NOTE | 2023-10-29 10:43 | NURSING ---
PT REFUSING TO WAIT FOR OUTPT VESTIBULAR THERAPY PRESCRIPTION. AMA PAPER SIGNED
--- NOTE | 2023-10-29 10:44 | NURSING ---
pt getting dressed in room. aware that is waiting for prescription for out pt therapy for vertigo. dr. thomas text and ama papers given and signed as pt not wanting to stay for. iv dc'd
== END 2023-10-29 10:39 | disposition left against medical advice (07) | DRG 770 ==
LOC: ED 22:55 → MS3 23:17
PROVIDERS: Hospitalist; Nurse Practitioner; Admitting Provider Family Medicine; Emergency Provider Emergency Medicine; PCP Internal Medicine
DX: F10.139 Alcohol abuse with withdrawal, unspecified (principal); E87.6 Hypokalemia; J45.909 Unspecified asthma, uncomplicated; K21.9 Gastro-esophageal reflux disease without esophagitis; F17.200 Nicotine dependence, unspecified, uncomplicated; H81.10 Benign paroxysmal vertigo, unspecified ear; R73.9 Hyperglycemia, unspecified; Z79.899 Other long term (current) drug therapy; Y90.0 Blood alcohol level of less than 20 mg/100 ml; Z53.29 Procedure and treatment not carried out because of patient's decision for other reasons
CPT/HCPCS: 36415; 70450; 80048; 80053; 80076; 80307; 80320; 81001; 83036; 83690; 83735; 84100; 85025; 85027; 85610; 93005; 94640; 94668; 97162; 97166; 97802; 99283; 99406; J7030; J7120; A4216; G0480; J2405

== ENCOUNTER → 2023-11-26 | Outpatient (CLI) | payer MEDICAID, SELFPAY | END | disposition home or self-care (01) | LOC: LABSPEC 15:03 | PROVIDERS: PCP Internal Medicine; Referring Provider Nurse Practitioner Family; Visit Provider Nurse Practitioner Family | DX: L02.31 Cutaneous abscess of buttock (principal) | CPT/HCPCS: 87070; 87075; 87077; 87186; 87205 ==

== ENCOUNTER → 2023-12-12 | Outpatient (CLI) | payer MEDICAID, SELFPAY ==
--- NOTE | 2023-12-12 16:11 | MRI_ITS ---
STUDY: MRI BRAIN WITH AND WITHOUT CONTRAST (ATTENTION INTERNAL AUDITORY CANALS - I.A.C.''s) REASON FOR EXAM: Male, 43 years old. IAC HEARING LOSS TECHNIQUE: Standardized multiplanar fat and water weighted pulse sequences were obtained. IV 14 CC CLARISCAN was administered for the contrast portion of the examination. COMPARISON: None. FINDINGS: Normal bilateral temporal bones. Normal bilateral internal auditory canals. There is no demonstrated intracanalicular or cisternal vestibular schwannoma (acoustic neuroma). There is no enhancement of the bilateral VIIth or VIIIth cranial nerves. Normal bilateral cochlea, vestibules and semicircular canals. Normal size of the ventricles and extra-axial spaces for the patient''s age. Normal white matter tracts of the supratentorial brain. There is no evidence for recent intracranial ischemia or other cause of cytotoxic edema on diffusion weighted imaging (DWI). Normal bilateral basal ganglia. Normal thalami. Normal flow voids within the major intracranial circulation suggesting patency by spin echo criteria. Normal venous enhancement. There is no enhancing intra-axial or extra-axial abnormality. There is no extra-axial fluid accumulation. Normal sella turcica, pituitary gland, infundibular stalk, optic chiasm and hypothalamus. Normal tectal plate and pineal gland. Normal midbrain, daryl and medulla. Normal cerebellum. Normal basal cisterns. No demonstrated orbital abnormality, within the constraints of a routine brain study. Normal visualized paranasal sinuses. Normal calvarium and skull base. Normal visualized soft tissue structures. Normal visualized upper cervical spine. MRI/Brain W/WO Contrast IMPRESSION: Normal unenhanced and enhanced MRI of the bilateral internal auditory canals (I.A.C''s). Electronically Signed: Heron Wyatt MD at 10:03 EDT ,
== END | disposition home or self-care (01) ==
LOC: MRI 16:00
PROVIDERS: PCP Internal Medicine; Referring Provider Otolaryngology; Visit Provider Otolaryngology
DX: H90.3 Sensorineural hearing loss, bilateral (principal); R42 Dizziness and giddiness
CPT/HCPCS: 70553; A9575

== ENCOUNTER 2024-02-20 13:30 | Outpatient (RCR) | payer OTHER, MEDICAID, SELFPAY ==
--- NOTE | 2024-01-04 08:05 | HP.OTEVAL ---
Patient's Visit Information Visit Information Visit Information: IDA HOLLINGSWORTH is a 44 year old M, referred to Occupational Therapy by CRISTÓBAL Stock, with a diagnosis of Left elbow pain and swelling. Date of Evaluation: 01/03/24 Occupational Therapist: Angely Pierre, SHIRLEY/Ann, CHT Subjective Subjective: this 43-year-old male arrives w dx of L elbow pain/swelling. June 06 was burnt at work on L elbow and got infected went to ER for infection. Had swelling and infection of entire LUE. 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 Has not worked since accident. Pt has limited ROM and strength in L shoulder and elbow. Has pain with ROM. Pt not doing anything for LUE currently. Pt is R handed and uses LUE as little as possible. Denies numbness and tingling. Sleep is affected by pain of LUE wakes up every 2 hours. Pt is not driving. States has pain in shoulder, elbow, arm during everyday activities. 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 Pain L elbow: Current Pain Intensity: 2 Pain Intensity Range: 9 ROM Shoulder: L 0/20 R WFL Elbow: L -40/97 R WFL Forearm: L WFL R WFL Wrist: L 35/35 R 45/40 ROM Comments: clinical measurement see above however during pendulum exercises elbow was able to extend further. Strength Shoulder: L NT -pain Elbow: L NT -pain Water Quality Specialist: L 45# R 75# Lateral Pinch: L 14# R 25# Tripod Pinch: L 23# R 22# Strength Comments: Shoulder and elbow not tested at this time due to pain. Sensation Sensation Comments: denies Quick DASH-Disab of Arm,Shoulder& Hand Quick DASH Score: 84.0900 Goals Goal:: pt will increase LUE strength equal to or greater than unaffected side by end of POC. pt will increase L cvor nurse strength equal to or greater than R to increase I in daily functional tasks. L shoulder and elbow strength to be tested at later date. (add goal as able) Goal:: pt will improve LUE ROM equal to or greater than unaffected side by end of POC. pt will improve L shoulder flexion by 70* or more to increase I in daily functional activities. pt will improve L elbow flexion by 30* or more to increase I in daily functional activities. pt will improve L elbow ex by 40* to increase I in daily functional tasks. Goal:: pt will report a pain level 2/10 when completing ADLs/IADLs by end of POC. Goal:: pt will report increase in I in all ADLs/IADLs by end of POC. Goal:: pt will report improved sleep with waking up only 1-2x per night by end of POC. Goal:: pt will improve QuickDASH score by 40 points or more to maximize use of LUE. 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 pt is recommended to complete OT 3x a week for 4-6 weeks to address above impairments. pt demo understanding and agrees to POC. therapy session was directly supervised and doc. approved by Angely Pierre OTR/L,CHT. Rehabilitation Potential: Good Anticipated Interventions Anticipated Interventions: A/AAROM/PROM, Strengthening, Modalities, Ergonomic Education, ADL Training, Education re assistive Equipment, Education re Diagnosis and Home Program Visit Plan Frequency: 3x /Week Duration: 4-6 Weeks General Plan: decrease pain improve ROM increase strength use LUE normally again in ADLs/IADLs TEXT: Thank you for the opportunity to evaluate your patient. For Medicare and Medicare HMO plans, please review the plan of care and approve it. It will need to be FAXED BACK to us at [phone] for Medicare purposes. Please let me know if there are questions or concerns regarding this plan of care. Physician Signature: Date:
--- NOTE | 2024-02-20 13:52 | HP.OTDCSUM_ITS ---
Discharge Summary D/C Summary: It has been my pleasure to treat IDA HOLLINGSWORTH under orders from CRISTÓBAL Stock, for the diagnosis of Left elbow pain and swelling for a total of 6 visit(s). Please see the following information for a summary of their discharge status. 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 pt demo active shoulder flexion to 120* increase from initial eval pt demo full elbow ROM with activity pt able to perform a push/pull on BTE with resistance - Goals Patient Goals: Regain Strength, Decrease Pain, Return to Work, Use Hand/Wrist/Arm Normally Again, Sleep Better, Increase ROM, Be More Independent in ADLS, Resume Former Household Responsibilities (Cooking,Cleaning,Yard, etc.) and Resume Hobbies Goal:: pt will increase LUE strength equal to or greater than unaffected side by end of POC. pt will increase L distribution systems serviceperson strength equal to or greater than R to increase I in daily functional tasks. (goal met) L shoulder and elbow strength to be tested at later date. (add goal as able) Goal:: pt will improve LUE ROM equal to or greater than unaffected side by end of POC. (progressing) pt will improve L shoulder flexion by 70* or more to increase I in daily functional activities. (goal met with activity) pt will improve L elbow flexion by 30* or more to increase I in daily functional activities. ( goal met) pt will improve L elbow ex by 40* to increase I in daily functional tasks. (goal met) Goal:: pt will report a pain level 2/10 when completing ADLs/IADLs by end of POC. progressing Goal:: pt will report increase in I in all ADLs/IADLs by end of POC. ( progressing) Goal:: pt will report improved sleep with waking up only 1-2x per night by end of POC. ( progressing) Goal:: pt will improve QuickDASH score by 40 points or more to maximize use of LUE. 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 hand/wrist forearm and elbow ROM are all WNL. Due to getting rides pt unable to attended all 18 apts he was scheduled for. ( 11/12 ) with 8 cancellations. At this time no further therapy necessary for elbow distally pt does want someone to perform MRI to his left shoulder due to the feeling and pain he has. pt agrees with D/C. d/c sentence: If there are questions or concerns regarding this patient's occupational therapy, please fell free to call me at [phone]. Thank you for the referral of this patient. Sincerely, Angely Pierre, OTR/L, CHT
== END 2024-02-20 19:00 | disposition home or self-care (01) ==
LOC: OT 13:30
PROVIDERS: PCP Internal Medicine; Referring Provider Physician Assistant; Visit Provider Physician Assistant
DX: M25.522 Pain in left elbow (principal); M25.422 Effusion, left elbow
CPT/HCPCS: 97110; 97165; 97530

== ENCOUNTER 2024-02-20 14:30 | Outpatient (RCR) | payer MEDICAID, SELFPAY ==
--- NOTE | 2024-01-11 13:58 | HP.PTEVAL ---
Patient's Visit Information Visit Information Visit Information: IDA HOLLNIGSWORTH is a 44 year old M referred to Physical Therapy by Dr. Riley Carranza MD with a diagnosis of INTERVERTEBRAL DISC DEGENERATIVE ,LUMBAR. Date of Evaluation: 01/11/24 Physical Therapist: Oj Parekh, PT, Cert MDT, OCS Visit Plan Frequency: 2x /Week Duration: 4 Weeks Plan: PT INTERVENTIONS KRYSTA EX'S ,MANUAL THERAPY (MOBILIZATION ) ,LE FLEXABILITY , DLS ,POSTURAL EX'S AND MODALITIES PRN Subjective Subjective: This 44 y/o male presents to physical therapy with lumbar pain. Patient has lumbar several years . Patient has intermittent lumbar pain when bending over. Seen DR Carranza recommended PT . Dr reviewed MRI showed annular tearing and DDD. Patient had episode sciatica pain affected right leg . No medication. Patient has not have pain management but recommended PT. Aggravating factors bending, lifting ,extended standing / Alleviating walking. Cough/sneezing - but in last +. Bowel/bladder -. C/O paresthesia in feet neuropathy. Patient pain affects sleeping but okay . Pain affects QOL and function. SOCIAL: single VOACTION: unemployed Pain Bilateral: Pain Intensity (Out of 10): 0 Objective Objective: POSTURE: mild forward posture NEURO: denies paresthesia feet from neuropathy ,reflexes L3-4,L4-5,L5-S1 3/3 PALAPTION: unremarkable GAIT: reciprocal pattern MMT: quads/hams 4/5 ,hip flexion 4/5 ,ankle 5/5 FLEXABILITY: hamstrings min tight LUMBAR ROM: flexion mod loss ,extension mod loss ,side glides min loss Special Tests L/S Slump test left side: Negative L/S Slump test right side: Negative L/S Left Straight Leg Raise: Negative L/S Right Straight Leg Raise: Positive Lumbar Standing: Flexion - Mechanical Response: No effect Lumbar Standing: Flexion - Symptoms During Testing: Increases Lumbar Standing: Flexion - Symptoms After Testing: No worse Lumbar Standing: Extension - Mechanical Response: No effect Lumbar Standing: Extension - Symptoms During Testing: Increases Lumbar Standing: Extension - Symptoms After Testing: No worse Lumbar Standing: Right Side Glides - Mechanical Response: No effect Lumbar Standing: Right Side Left Hand - Symptoms During Testing: No effect Lumbar Standing: Right Side Left Hand - Symptoms After Testing: No effect Lumbar Standing: Left Side Left Hand - Mechanical Response: No effect Lumbar Standing: Left Side Left Hand - Symptoms During Testing: No effect Lumbar Standing: Left Side Left Hand - Symptoms After Testing: No effect Lumbar Lying: Flexion - Mechanical Response: No effect Lumbar Lying: Flexion - Symptoms During Testing: No effect Lumbar Lying: Flexion - Symptoms After Testing: No effect Lumbar Lying: Extension - Mechanical Response: No effect Lumbar Lying: Extension - Symptoms During Testing: Decreases Lumbar Lying: Extension - Symptoms After Testing: Better Balance/Special Test Scores Oswestry Low Back Score: 19 Goals Goal 1:: Patient to be I with HEP for back Goal Time Frame: 4-6 Weeks Goal 2:: Patient to improve lumbar ROM for function of recovery for lifting with ADLS Goal Time Frame: 4-6 Weeks Goal 3:: Patient to improve back oswestry score by 5 points to improve QOL and function Goal Time Frame: 4-6 Weeks Goal 4:: Patient to demonstrate 50% improvement with less pain and improved function Goal Time Frame: 4-6 Weeks Rehabilitation Potential Physical Therapy Diagnosis: This patient has possible derangement with disc with MRI showing annular tear with pain produced with bending batter with walking increases with positioning and motion testing thus benefit from skilled PT Rehabilitation Potential: Fair Anticipated Interventions Patient/Client Instruction: Educate patient on: Condition and Plan of Care For the Purpose of:: To decrease pain, To increase ROM, To improve muscle performance and motor function, To improve ability to perform ADL's, To increase tolerance to activity/condition/position, To improve ability of physical actions for home/community/work/leisure, To improve health of tissue, To decrease soft tissue restriction, To increase flexibility/ROM, To reduce risk of recurrence, To prevent re-injury and To improve tolerance to ADL's Therapeutic Exercise to Include: Strength training, Flexibilty training, Dynamic Lumbar Stabilization and Krysta Exercises For the Purpose of:: To decrease pain, To increase ROM, To improve muscle performance and motor function, To improve ability to perform ADL's, To increase tolerance to activity/condition/position, To improve ability of physical actions for home/community/work/leisure, To improve health of tissue, To decrease soft tissue restriction, To increase flexibility/ROM, To reduce risk of recurrence, To improve self management, To prevent re-injury and To improve tolerance to ADL's Manual Therapy Techniques to Include: Mobilization For the Purpose of:: To decrease pain, To increase ROM, To improve health of tissue and To decrease soft tissue restriction TENS: Yes IF ES: Yes Cryotherapy (ice pack, ice massage): Yes Thermo therapy (hot pack): Yes Ultrasound (thermal/non thermal): Yes For the Purpose of:: To decrease pain, To increase ROM, To improve nutrient delivery to tissue, To increase oxygenation perfusion, To improve health of tissue and To decrease soft tissue restriction Text: Thank you for the opportunity to evaluate your patient. For Medicare and Medicare HMO plans, please review the plan of care and approve it. It will need to be FAXED BACK to us at [phone] for Medicare purposes. For Medicare only, by signing this I certify the plan of care. Please let me know if there are questions or concerns regarding this plan of care. Physician Signature: Date:
--- NOTE | 2024-02-20 17:18 | HP.PTEVAL2_ITS ---
Patient's Visit Information Visit Information Visit Information: IDA HOLLINGSWORTH is a 44 year old M referred to Physical Therapy by Dr. Riley Carranza MD with a diagnosis of PAIN IN LEFT SHOULDER. Date of Evaluation: 02/20/24 Physical Therapist: Oj Parekh, PT, Cert MDT, OCS Visit Plan Frequency: 2x /Week Duration: 4 Weeks Plan: PATIENT WAS HIGHLY IRRITABLE WITH PAIN STATES WANTS MRI DISCUSSED NEEDS TO RTD Dr Botello PT INTERVENTIONS INITIALLY MODALITIES FOR PAIN ,INITIATE ROM PROM/AAROM/AROM ,PROGRESS TO GRADED STRENGTHENING JEOVANY Subjective Subjective: This 44 y/o male presents to physical therapy with left shoulder pain. Patient has left shoulder pain for ~ 5 months . Patient was lifting grocery' out of car felt pop. Patient seen DR Botello recommended PT and MRI after 6 week . Pain located global shoulder lateral deltoid . Pain is worse with OH activities ,above 90 degrees . Pain affects sleeping . Alleviating rest. Denies paresthesia/tingling. Pain affects QOL and function. Patient goals to decrease pain and MRI. Patient has not be able to RTW. Pain Right Shoulder: Intensity: 9 Pain Intensity Range: 10 Objective Objective: POSTURE: rounded shoulders head forward NEURO: denies paresthesia/tingling ,reflexes intact PALPATION: tender global shoulder OBSERVATION: patient was very guarded did not want shoulder to be move PROM: unable to assess due to patient reports severity of pain AROM: patient moved arm in flexion ~ < 60 degrees MMT: unable to assess patient was vey apprehensive to move MMT did not camilo arm touched due to severity of pain CAPSULAR RESTRICTION: unable to assess patient had elevated anxiety to move shoulder Special Tests Comments: unable to assess Goals Goal 1:: Patient to be I with HEP for shoulder Goal Time Frame: 4-6 Weeks Goal 2:: Patient to improve AROM by 20-30 degrees to improve ADLS and function Goal Time Frame: 4-6 Weeks Goal 3:: Patient to demonstrate 40 % improvement with less pain and improved function Goal Time Frame: 4-6 Weeks Goal 4:: Patient to improve quick dash by 3-5 points to improve QOL Goal Time Frame: 4-6 Weeks Goal 5:: Patient to improve strength with patient able to tolerate MMT to improve funcion Goal Time Frame: 4-6 Weeks Rehabilitation Potential Physical Therapy Diagnosis: Patient has shoulder pain with shoulder pain with high irritability with unable to move arm and assess MMT and motion due to the pain thus may need MRI and PT to decrease pain Rehabilitation Potential: Poor Anticipated Interventions Patient/Client Instruction: Educate patient on: Condition and Plan of Care For the Purpose of:: To decrease pain, To increase ROM, To improve nutrient delivery to tissue, To increase oxygenation perfusion, To improve ability to perform ADL's, To improve ability of physical actions for home/community/work/leisure, To improve health of tissue, To decrease soft tissue restriction, To increase flexibility/ROM, To reduce risk of recurrence, To prevent re-injury and To improve tolerance to ADL's Therapeutic Exercise to Include: Strength training, Postural training, Flexibilty training, Passive ROM, Active ROM and Scapular Strength/Stabilization For the Purpose of:: To decrease pain, To increase ROM, To improve nutrient delivery to tissue, To increase oxygenation perfusion, To increase tolerance to activity/condition/position, To improve ability of physical actions for home/community/work/leisure, To improve health of tissue, To decrease soft tissue restriction, To increase flexibility/ROM and To improve tolerance to ADL's TENS: Yes IF ES: Yes Cryotherapy (ice pack, ice massage): Yes Thermo therapy (hot pack): Yes Ultrasound (thermal/non thermal): Yes For the Purpose of:: To decrease pain, To increase ROM, To improve nutrient delivery to tissue, To increase oxygenation perfusion, To improve health of tissue and To decrease soft tissue restriction text: Thank you for the opportunity to evaluate your patient. For Medicare and Medicare HMO plans, please review the plan of care and approve it. It will need to be FAXED BACK to us at [phone] for Medicare purposes. For Medicare only, by signing this I certify the plan of care. Please let me know if there are questions or concerns regarding this plan of care. Physician Signature: Date:
--- NOTE | 2024-03-24 14:04 | HP.PT.NRP(2) ---
Patient Information Patient Information: IDA HOLLINGSWORTH was seen in my office for initial evaluation on 02/20/24. The following Plan of Care was established for this patient: POC Established Initial Frequency: 2x /Week Initial Duration: 4 Weeks Plan from Re-Evaluation: PATIENT WAS HIGHLY IRRITABLE WITH PAIN STATES WANTS MRI DISCUSSED NEEDS TO RTD Dr Botello PT INTERVENTIONS INITIALLY MODALITIES FOR PAIN ,INITIATE ROM PROM/AAROM/AROM ,PROGRESS TO GRADED STRENGTHENING JEOVANY Anticipated Interventions Patient/Client Instruction: Educate patient on: Condition and Plan of Care For the Purpose of:: To decrease pain, To increase ROM, To improve nutrient delivery to tissue, To increase oxygenation perfusion, To improve ability to perform ADL's, To improve ability of physical actions for home/community/work/leisure, To improve health of tissue, To decrease soft tissue restriction, To increase flexibility/ROM, To reduce risk of recurrence, To prevent re-injury and To improve tolerance to ADL's Therapeutic Exercise to Include: Strength training, Postural training, Flexibilty training, Passive ROM, Active ROM and Scapular Strength/Stabilization For the Purpose of:: To decrease pain, To increase ROM, To improve nutrient delivery to tissue, To increase oxygenation perfusion, To increase tolerance to activity/condition/position, To improve ability of physical actions for home/community/work/leisure, To improve health of tissue, To decrease soft tissue restriction, To increase flexibility/ROM and To improve tolerance to ADL's TENS: Yes IF ES: Yes Cryotherapy (ice pack, ice massage): Yes Thermo therapy (hot pack): Yes Ultrasound (thermal/non thermal): Yes For the Purpose of:: To decrease pain, To increase ROM, To improve nutrient delivery to tissue, To increase oxygenation perfusion, To improve health of tissue and To decrease soft tissue restriction Last Seen Last Seen: This patient was last seen in our office . Pertinent comments regarding their Physical therapy will appear below: Patient had MRI of shoulder thus d/c . Plan to see DR Botello to review MRI At this point I will be discontinuing this patient from physical therapy. I would be happy to see this patient again in the future if found appropriate by the physician. Thank you! Oj Parekh, PT, Cert MDT, OCS
== END 2024-02-20 19:00 | disposition home or self-care (01) ==
LOC: PT 14:30
PROVIDERS: PCP Internal Medicine; Referring Provider Orthopaedic Surgery Orthopaedic Surgery of the Spine; Visit Provider Orthopaedic Surgery Orthopaedic Surgery of the Spine
DX: M51.36 Other intervertebral disc degeneration, lumbar region (principal); M25.512 Pain in left shoulder
CPT/HCPCS: 97110; 97162

== ENCOUNTER 2024-03-07 18:34 | Inpatient (IN) | payer MEDICAID, SELFPAY ==
[2024-03-07 18:35] VITALS: BP 130/94; PULSE 132; RESP 18; TEMP 36.8; O2SAT 99; BMI 25.7
--- NOTE | 2024-03-07 19:45 | EDS_ITS ---
HPI HPI - GI History of Present Illness Chief Complaint: Abd Pain Detail of Chief Complaint: Abdominal pain Informant: patient Narrative Narrative: Patient presents with abdominal pain that started yesterday. Patient states that he thinks he is having a bout of pancreatitis. He tells me that he had a bout about 3 years ago. Describes the pain is upper abdomen radiating through to his back. He said no diarrhea. He thinks his pancreatitis last and was caused by alcohol. Patient states that he stopped drinking for a few years but started drinking again 2 weeks ago. Normally he drinks beer. Patient has h istory of neuropathy. Prior history includes colonoscopy about a week ago that was unremarkable and history of a hernia repair. [facility] Medical History Left shoulder pain Chronic alcohol abuse Dyslipidemia History of patellar fracture Bimalleolar ankle fracture Generalized anxiety disorder with panic attacks Back pain Bloody stool Abnormal bruising Asthma Fatigue Stomach ulcer Shoulder pain SOB (shortness of breath) Arthritis Home Medications ?Medication ?Instructions ?Recorded ?Last Taken ?Type omeprazole 40 mg capsule,delayed 40 mg PO DAILY 09/11/22 Unknown History release thiamine HCl (vitamin B1) 100 mg 100 mg PO DAILYCM 30 days #30 tabs 07/18/23 Unknown Rx tablet (Vitamin B-1) cyanocobalamin (vitamin B-12) 1,000 mcg PO QDAY 02/25/24 Unknown History 1,000 mcg tablet folic acid 1 mg tablet 1 mg PO QDAY 02/25/24 Unknown History Allergy/AdvReac Type Severity Reaction Status Date / Time No Known Allergies Allergy Verified 03/07/24 18:35 Family History Mother Diabetes Heart disease Hypertension Father Diabetes Heart disease Hypertension Surgical History History of ankle surgery History of hernia surgery Social History household members: none Smoking Status: Light Smoker (<10/day) alcohol intake: current alcohol intake frequency: 3 or more drinks per day Alcohol type: beer substance use type: does not use ROS ROS ED Review of Systems ROS Unobtainable: other Constitutional Constitutional ED: Reports lethargy; Denies chills, fever(s), sweats or weight loss Eyes Eyes: Denies blurry vision, change in vision or diplopia ENT ENT ED: Denies rhinorrhea or sore throat Cardiovascular Cardiovascular: Denies chest pain, orthopnea or racing heartbeat Respiratory/Chest Respiratory/Chest: Denies cough, dyspnea, dyspnea on exertion, orthopnea or sputum Gastrointestinal Gastrointestinal: Reports abdominal pain and nausea; Denies diarrhea or vomiting Genitourinary Genitourinary ED: Denies dysuria, hematuria or urinary frequency Musculoskeletal Musculoskeletal: Denies arthralgias, back pain, myalgias or neck pain Integumentary Denies abscess, Abrasions or rash Neurologic Neurologic: Denies headache(s) or weakness Psychiatric Psychiatric: Denies anxiety, depression or suicidal thoughts Endocrine Endocrinology: Denies polydipsia, polyphagia or polyuria Hematologic/Lymphatic Hematologic/Lymphatic: Denies easy bleeding, easy bruising or lymphadenopathy Allergic/Immunologic Allergic/Immunologic ED: Denies mouth swelling, tongue swelling or urticaria EXAM Physical Exam Const Vital Signs: 03/07/24 18:35 03/07/24 20:35 03/07/24 22:00 Temperature 98.3 F Temperature Source Oral Pulse Rate 132 H 122 H 116 H Respiratory Rate 18 16 16 Blood Pressure 130/94 H 135/92 H 116/89 H Blood Pressure Mean 106 106 98 Pulse Ox 99 94 98 Oxygen Delivery Method Room Air Room Air Room Air Positive well nourished and well developed General Appearance ED: well developed and NAD HEENT Reports TM's clear and moist mucous membranes normocephalic and atraumatic; Negative for trauma or tenderness Tympanic Membrane ED: Yes TM's clear Eyes PERRL and EOMs intact bilaterally General Eye ED: Negative for pale conjunctiva or scleral icterus Neck no lymphadenopathy, supple and no JVD General: Negative for tenderness Chest Wall inspection of chest normal and palpation of chest normal Chest: Negative for tenderness Resp normal respiratory effort and clear to auscultation bilaterally Effort and Inspection: Negative for respiratory distress or pain with movement Auscultation: Negative for rhonchi, wheezes or diminished lung sounds Cardio regular rate, regular rhythm, S1 normal heart sound, S2 normal heart sound and no murmurs Peripheral Pulses: pulses 2+ throughout GI normal to inspection, nondistended, normoactive bowel sounds, soft to palpation, non-distended and no masses GI Narrative: Tenderness palpation over the epigastric region and right upper quadrant as well as the left upper quadrant. There are some mild guarding. There is no rebound, rigidity, or peritoneal signs. No mass palpated. Back/Spine no CVA tenderness and no thoracic nor lumbar tenderness Extremity normal to inspection General Extremety ED: Negative for edema General Extremity: Negative for edema Neuro oriented x3, CN's II-XII intact bilaterally, no sensory deficits noted and gait normal Sensorium / Orientation: awake, alert, oriented to person, oriented to place and oriented to time Motor Exam: strength 5/5 throughout and strength abnormal Psych mental status grossly normal Skin no rashes or lesions noted and no wounds MDM MDM MDM Narrative Medical decision making narrative: Patient with abdominal pain with history of pancreatitis thinks he has a pancreatic flareup. Patient started drinking beer again a few weeks ago. States he had stopped drinking for some time after his last bout of pancreatitis. Patient has had nausea but no vomiting. He denies fevers. Denies urinary symptoms. IV line established. CBC with differential white count 12.8 with hemoglobin 15.4 and platelet count of 167. Chemistries pending as well as LFTs and lipase. Lab states that blood was lipemic and had to be diluted in run several times. CT scan of the abdomen pelvis was obtained with IV contrast that showed mesenteric edema posterior to the pancreatic head and cannot rule out pancreatitis. Patient also had some right Stefan ureteral stranding. Patient was given normal saline and Dilaudid 1 mg IV. He was given Zofran 4 mg IV. Case discussed with hospitalist and care turned over to evening physician awaiting results of LFTs and lipase. Lab Data Labs: Laboratory Results - last 24 hr 03/07/24 19:55 WBC 12.8 H RBC 4.59 L Hgb 15.4 Hct 43.0 MCV 93.7 MCH 39.0 H MCHC 41.6 H RDW Std Deviation 46.0 H RDW Coeff of Lilian 13.3 Plt Count 167 MPV 10.5 Immature Gran % (Auto) CHEMICAL EQUIPMENT SALES ENGINEER Neut % (Auto) CHEMICAL EQUIPMENT SALES ENGINEER Lymph % (Auto) CHEMICAL EQUIPMENT SALES ENGINEER [place] % (Auto) CHEMICAL EQUIPMENT SALES ENGINEER Eos % (Auto) CHEMICAL EQUIPMENT SALES ENGINEER Baso % (Auto) CHEMICAL EQUIPMENT SALES ENGINEER Absolute Neuts (auto) 9.2 H Absolute Lymphs (auto) 3.20 Total Counted Not Reportable Neutrophils % (Manual) 71 H Band Neutrophils % 1 Lymphocytes % (Manual) 25 Monocytes % (Manual) 3 Nucleated RBC % CHEMICAL EQUIPMENT SALES ENGINEER Diff Path Review May foll Lactic Acid 1.7 Radiography Diagnostic Testing: Clinical Impression(s) from Imaging Studies Abdomen/Pelvis CT 03/07/24 19:45 IMPRESSION: Mesenteric edema posterior to the pancreatic head. Pancreatitis cannot be excluded. Slight wall thickening at the third portion of the duodenum. Fatty liver. Right periureteral stranding. Electronically Signed: Taye Wilkes DO at 20:43 EDT Reading Location ID and State: [facility] / [place] Tel [phone], Service support , Discharge Plan Triage Chief Complaint: Abd Pain ED Provider: Santos Vital Dx/Rx/DC Orders Clinical Impression: Abdominal pain, Pancreatitis Prescriptions: No Action omeprazole 40 mg capsule,delayed release(DR/EC) 40 mg PO DAILY cyanocobalamin (vitamin B-12) 1,000 mcg tablet 1,000 mcg PO QDAY folic acid 1 mg tablet 1 mg PO QDAY thiamine HCl (vitamin B1) [Vitamin B-1] 100 mg Tablet 100 mg PO DAILYCM 30 Days Qty: 30 0RF Primary Care Provider: Wilbert Quiroz Referrals: Wilbert Quiroz MD [Primary Care Provider] - Print Language: Ukrainian
--- NOTE | 2024-03-07 19:45 | CT_ITS ---
STUDY: CT ABDOMEN AND PELVIS WITH CONTRAST REASON FOR EXAM: Male, 44 years old. abdominal pain RADIATION DOSAGE (If Supplied By Facility): CTDIvol = ( 12.71 ) mGy, DLP = ( 744.50 ) mGycm TECHNIQUE: Transaxial images were obtained from the dome of the diaphragm to the symphysis pubis without oral contrast. IV 100mL Isovue-370 was administered. Sagittal and coronal images were reconstructed. Individualized dose optimization techniques were used for this CT. COMPARISON: None. FINDINGS: The visualized lung bases are unremarkable. The visualized portions of the heart are within normal limits. Fatty liver. Normal gallbladder and extrahepatic biliary system. Normal spleen. There is mesenteric edema adjacent to the head of the pancreas. Normal bilateral adrenal glands. Normal right kidney. Mild periureteral stranding is noted adjacent to the mid right ureter. Normal left kidney. Normal visualized stomach. Slight wall thickening at the third portion of the duodenum. Normal colon. The appendix is visualized and appears normal. Normal abdominal aorta. Normal inferior vena cava. Normal retroperitoneum. Normal urinary bladder. Normal abdominal wall. Old right rib fractures. CT/Abdomen/Pelvis W IV Cont ONLY IMPRESSION: Mesenteric edema posterior to the pancreatic head. Pancreatitis cannot be excluded. Slight wall thickening at the third portion of the duodenum. Fatty liver. Right periureteral stranding. Electronically Signed: Taye Wilkes DO at 20:43 EDT ,
[2024-03-07 20:03] LABS: Mean Corpuscular Volume 93.7 fL (80-94); Mean Platelet Vol. 10.5 fl (6.2-12.0); POSITIVE COUNT YES; POSITIVE MORPHOLOGY YES; Platelet Count 167 K/mm3 (150-450); RBC Distribution Width CV 13.3 % (11.6-14.6); Red Blood Count 4.59 M/mm3 (4.6-6.2); White Blood Count 12.8 K/mm3 (4.4-11.0)
[2024-03-07] MEDS: Ondansetron 4 MG/2 ML Vial IV (20:08)
[2024-03-07] MEDS: 0.9% Normal Saline (1000mL) 1,000 ML 999 ML IV (20:08)
[2024-03-07] MEDS: HYDROmorphone 1 MG/ML Syringe IV (20:08)
[2024-03-07 20:35] VITALS: BP 135/92; PULSE 122; RESP 16; O2SAT 94
[2024-03-07 20:44] LABS: Lymphocyte 25 % (19-41); Monocyte 3 % (0-10); Neutrophil-Band 1 % (0-5); Neutrophil-Segmented 71 % (47-70)
[2024-03-07 21:19] LABS: Hemoglobin 15.4 g/dL (13.0-16.5)
[2024-03-07 21:22] LABS: Differential Indicated MANUAL DIFF
[2024-03-07 21:25] LABS: Absolute Neutrophil Count 9.2 X10^3/uL (2.0-7.7)
[2024-03-07 22:00] VITALS: BP 116/89; PULSE 116; RESP 16; O2SAT 98
[2024-03-07 22:20] LABS: Lactic Acid 1.7 mmol/L (0.4-1.9)
[2024-03-07 22:30] LABS: Calcium,Total 7.9 mg/dL (8.5-10.1)
[2024-03-07 22:47] LABS: Creatinine, Serum 1.43 mg/dL (0.70-1.30); EST Glomerular Filtration Rate 57 mL/min (>60); Est Glom Filt Rate - Afr Amer 69 mL/min (>60); Estimated Creatinine Clearance 56.15 ml/min; Glucose 276 mg/dL (74-106)
[2024-03-07 22:48] LABS: Protein, Total 7.4 g/dL (6.4-8.2)
[2024-03-07 22:49] LABS: Lipase 354 U/L (13-75)
[2024-03-07 22:50] LABS: Chloride 87 mmol/L (98-107); Potassium 4.1 mmol/L (3.5-5.1); Sodium Level 125 mmol/L (136-145)
[2024-03-07 22:51] LABS: Anion Gap 14 (5-15)
[2024-03-07 23:25] VITALS: BP 124/92; PULSE 115; RESP 16; TEMP 36.8; O2SAT 95
[2024-03-07 23:27] LABS: Bacteria 0 SEEN /hpf (None Seen); Color, Urine Yellow (Yellow); Glucose, Dipstick Normal (Normal); Ketone-Dipstick Negative (Negative); Leukocyte Esterase-Dipstick Negative /ul (Negative); Mucous, Urine 0 SEEN /hpf (<or=2+); Nitrite-Dipstick Negative (Negative); Occult Blood-Urine Negative /ul (Negative); Protein-Dipstick 15 mg/dl (Negative); Red Blood Cells-Urine 0 SEEN /hpf (0-5); Specific Gravity, Urine 1.015 (1.002-1.030); Squamous Epithelial Cells - UA 0 SEEN /hpf (0-5); Urine Bilirubin Dipstick Negative (Negative); Urine Clarity Clear (Clear); Urine Urobilinogen Normal (Normal); White Blood Cells 0 SEEN /hpf (0-5)
--- NOTE | 2024-03-07 23:36 | HP.PCM.HOS_ITS ---
[facility] - General General Date of Admission: 03/08/24 Date of Service: 03/07/24 Chief Complaint: Abdominal Pain and Nausea. HPI Narrative IDA HOLLINGSWORTH, is a 44 M with a past medical history of Chronic EtOH Abuse; with associated EtOH Pancreatitis (last bout ~2020), history of asthma, generalized anxiety with panic attacks, history of vertigo, dyslipidemia, history of hernia; s/p repair, history of GERD; on Protonix, history of bimalleolar ankle fracture; with neuropathy of the Left foot and OA; with low back pain with and history of patellar fracture who presents to [facility] ER complaining of abdominal pain and nausea. Mr. Hollingsworth reports his symptoms began approximately one day prior to admission after he restarted drinking ~ 2weeks ago. He admits to drinking several beers daily. He states his symptoms are nearly identical to his previous bouts of EtOH pancreatitis. He admits to abdominal pain, nausea and lethargy but he denies related fever, chills, vomiting, chest pain or SOB but he does admit to a recent colonoscopy about a week ago. In the ER he was noted to have CT evidence of Acute Pancreatitis; likely due to Chronic EtOH Abuse with confirmatory elevated lipase of 354 U/L with Hyperbilirubinemia of 3.5 mg/dL present on admission complicated by Hyponatremia of 125 mmol/L present on admission likely due to beer potomania compounded by Hyperglycemia of 276 mg/dL present on admission likely due to apparently newly diagnosed DM-2 and he was then admitted to the PCU for ongoing care for a stay that is expected to extend beyond 2 midnights. [facility] Medical History Chronic alcohol abuse Left shoulder pain Dyslipidemia History of patellar fracture Bimalleolar ankle fracture Generalized anxiety disorder with panic attacks Back pain Bloody stool Abnormal bruising Asthma Fatigue Stomach ulcer Shoulder pain SOB (shortness of breath) Arthritis Home Medications ?Medication ?Instructions ?Recorded ?Last Taken ?Type omeprazole 40 mg capsule,delayed 40 mg PO DAILY 09/11/22 Unknown History release thiamine HCl (vitamin B1) 100 mg 100 mg PO DAILYCM 30 days #30 tabs 07/18/23 Unknown Rx tablet (Vitamin B-1) cyanocobalamin (vitamin B-12) 1,000 mcg PO QDAY 02/25/24 Unknown History 1,000 mcg tablet folic acid 1 mg tablet 1 mg PO QDAY 02/25/24 Unknown History Allergy/AdvReac Type Severity Reaction Status Date / Time No Known Allergies Allergy Verified 03/07/24 18:35 Family History Mother Diabetes Heart disease Hypertension Father Diabetes Heart disease Hypertension Surgical History History of ankle surgery History of hernia surgery Social History household members: none Smoking Status: Light Smoker (<10/day) alcohol intake: current alcohol intake frequency: 3 or more drinks per day Alcohol type: beer substance use type: does not use ROS ROS Narrative Review of Systems: Constitutional: Patient denies fever or chills. Eyes: Patient denies changes in vision or discharge from eyes. ENT: Patient denies runny nose, sore throat or ear pain. Resp: Patient denies SOB or cough. CV: Patient denies chest pain, palpitations or heart racing. GI: Patient admits to abdominal pain and nausea but he denies vomiting. : Patient denies dysuria and hematuria. MSK: Patient denies arthralgias and myalgias. Skin: Patient denies rash, abscess or jaundice. Psych: Patient denies symptoms of uncontrolled depression or anxiety. Neuro: Patient admits to chronic neuropathy of the Left foot but he denies headache, paresthesias or focal neurologic deficits. Hematology: Patient denies easy bleeding or easy bruisability. Endocrinology: Patient denies polyuria, polydipsia and polyphagia. 14 point ROS otherwise negative except for positives noted above. Vital Signs Vital Signs Vital Signs: 03/07/24 18:35 03/07/24 20:35 03/07/24 22:00 Temperature 98.3 F Temperature Source Oral Pulse Rate 132 H 122 H 116 H Respiratory Rate 18 16 16 Blood Pressure 130/94 H 135/92 H 116/89 H Blood Pressure Mean 106 106 98 Pulse Ox 99 94 98 Oxygen Delivery Method Room Air Room Air Room Air 03/07/24 23:25 Temperature 98.3 F Temperature Source Pulse Rate 115 H Respiratory Rate 16 Blood Pressure 124/92 H Blood Pressure Mean 102 Pulse Ox 95 Oxygen Delivery Method Weight Weight: 154 lb 11.2 oz Body Mass Index (BMI) 25.7 Physical Exam Const alert, oriented x3 and average body habitus Constitutional Narrative: Mild distress noted. General Appearance: cooperative HEENT normocephalic, head/scalp atraumatic and hearing grossly normal bilaterally HEENT Narrative: Mucous membranes dry. Eyes PERRL and EOMs intact bilaterally Neck no lymphadenopathy and supple Resp normal respiratory effort, no retractions, no use of accessory muscles and clear to auscultation bilaterally Cardio regular rate and regular rhythm GI normal to inspection, nondistended, normoactive bowel sounds, soft to palpation and non-distended GI Narrative: Mild TTP over the epigastrium. Extremity normal to inspection, full ROM and no clubbing, cyanosis or edema Skin Skin Narrative: Patient has no evidence of rash or abscess. Neuro oriented x3, CN's II-XII intact bilaterally, moves all extremities and no focal motor deficits Sensorium / Orientation: awake, alert, oriented to person, oriented to place and oriented to time Speech: speech normal Psych affect normal Results Medical Records Data Attestation: I reviewed the patient's medical records Lab / Micro Data Attestation: I reviewed the patient's lab results. 03/07/24 19:55 03/07/24 19:55 Labs: Laboratory Results - last 24 hr 03/07/24 19:55: WBC 12.8 H, RBC 4.59 L, Hgb 15.4, Hct 43.0, MCV 93.7, MCH 39.0 H , MCHC 41.6 H, RDW Std Deviation 46.0 H, RDW Coeff of Lilian 13.3, Plt Count 167, MPV 10.5, Immature Gran % (Auto) SOFTWARE APPLICATIONS ARCHITECT, Neut % (Auto) SOFTWARE APPLICATIONS ARCHITECT, Lymph % (Auto) SOFTWARE APPLICATIONS ARCHITECT, [place] % (Auto) SOFTWARE APPLICATIONS ARCHITECT, Eos % (Auto) SOFTWARE APPLICATIONS ARCHITECT, Baso % (Auto) SOFTWARE APPLICATIONS ARCHITECT, Absolute Neuts (auto) 9.2 H, Absolute Lymphs (auto) 3.20, Total Counted Not Reportable, Neutrophils % (Manual) 71 H, Band Neutrophils % 1, Lymphocytes % (Manual) 25, Monocytes % (Manual) 3, Nucleated RBC % SOFTWARE APPLICATIONS ARCHITECT, Diff Path Review September, Sodium 125 L, Potassium 4.1, Chloride 87 L, Carbon Dioxide 24.0, Anion Gap 14, BUN 13, C reatinine 1.43 H, Estim Creat Clear Calc 56.15, Est GFR (MDRD) Af Amer 69, Est GFR (MDRD) Non-Af 57 L, BUN/Creatinine Ratio 9.1 L, Glucose 276 H, Lactic Acid 1.7, Calcium 7.9 L, Total Bilirubin 3.50 H, AST TNP, ALT TNP, Alkaline Phosphatase 189 H, Total Protein 7.4, Albumin 2.5 L, Globulin 4.9 H, A lbumin/Globulin Ratio 0.5 L, Lipase 354 H Imaging Radiology Impression Abdomen/Pelvis CT 03/07/24 19:45 IMPRESSION: Mesenteric edema posterior to the pancreatic head. Pancreatitis cannot be excluded. Slight wall thickening at the third portion of the duodenum. Fatty liver. Right periureteral stranding. Electronically Signed: Taye Wilkes DO at 20:43 EDT Reading Location ID and State: [facility] / [place] Tel [phone], Service support , Assessment & Plan Assessment/Plan (1) Acute alcoholic pancreatitis: QUALIFIERS: Acute pancreatitis complication: no infection or necrosis Qualified Code(s): K85.20 - Alcohol induced acute pancreatitis without necrosis or infection (2) Chronic alcohol abuse: (3) Hyponatremia: (4) Abdominal pain: QUALIFIERS: Abdominal location: epigastric Qualified Code(s): R 10.13 - Epigastric pain PLAN: Plan 1. Acute EtOH Pancreatitis; likely due to recent relapse into EtOH Abuse with confirmatory elevated lipase of 354 U/L with Hyperbilirubinemia of 3.5 mg/dL present on admission - Admit to general medical floor. Keep strict NPO. Vigorously volume resuscitate and reassess in AM. EtOH Cessation will be strongly encouraged. 2. Chronic EtOH Abuse; with associated EtOH Pancreatitis (last bout ~2020) and impending EtOH Withdrawal complicating #1 - Noted. Start Phenobarbital 100 mg IV BID and then transition to oral Phenobarbital taper when he is restarted on oral intake. 3. Hyponatremia of 125 mmol/L present on admission likely due to beer potomania compounding #1 & #2 - Give NS IVF and recheck BMP q. 6 hours to ensure gradual correction of 8-10 mmol/L per 24 hours. Check serum and urine osmolality. 4. History of asthma - Stable with no evidence of acute flare. Give nebulizers prn. 5. Generalized anxiety with panic attacks - Noted. Give IM Vistaril prn for breakthrough symptoms. 6. History of vertigo - Noted. 7. Dyslipidemia - Check Lipid Profile. 8. History of hernia; s/p repair - Noted. 9. History of GERD; on Protonix - Change Protonix to 40 mg IV daily. 10. History of bimalleolar ankle fracture; with neuropathy of the Left foot and OA; with low back pain with and history of patellar fracture - Noted. 11. DVT prophylaxis - Lovenox 40 mg sq daily plus SCD's. Total time: Approximately 55 minutes. Charges/Coding Visit Charges Inpatient E&M: 20700 Init Hosp L2
[2024-03-08] VITALS (12 sets, daily range): BP systolic 99–146; BP diastolic 72–96; PULSE 92–123; RESP 16–18; TEMP 36.6–37.6; O2SAT 97–99; BMI 26.4
[2024-03-08] MEDS: 0.9% Normal Saline (500mL Bag) 500 ML IV (01:29)
[2024-03-08] MEDS: Ketorolac 15 MG/ML Vial IV ×4 (01:29→23:43)
[2024-03-08] MEDS: Phenobarbital Sodium 65 MG/ML Vial 100 MG IV (02:19)
[2024-03-08 03:54] LABS: BUN 8 mg/dL (7-18)
[2024-03-08 03:55] LABS: ALB/GLOB Ratio 0.8 RATIO (0.9-2.4); Albumin, Serum 3.2 g/dL (3.2-5.0); BUN/Creat Ratio 5.6 RATIO (10-20); Globulin 4.2 g/dL (2.2-4.2)
[2024-03-08 03:56] LABS: Alkaline Phosphatase 199 U/L (45-117)
[2024-03-08 03:57] LABS: AST(SGOT) 178 U/L (15-37)
[2024-03-08 04:03] LABS: Lactic Acid 1.1 mmol/L (0.4-1.9)
[2024-03-08] MEDS: Ondansetron 4 MG/2 ML Vial IV (05:45)
[2024-03-08 06:15] LABS: Osmolality, Urine 578 mOsm/KG
[2024-03-08 06:15] LABS: Osmolality, Serum 292 mOsm/KG (275-295)
[2024-03-08 07:00] LABS: Absolute Lymphocyte Count 2.58 X10^3/uL (0.83-4.51); Absolute Neutrophil Count 6.6 X10^3/uL (2.0-7.7); Basophil# 0.05 X10^3/uL; Basophil% 0.5 % (0-1); Eosinophil# 0.11 X10^3/uL; Eosinophils% 1.1 % (0-5); Hematocrit 37.6 % (40-54); Lymphocyte # 2.58 X10^3/ul (0.83-4.51); Lymphocyte % 26.5 % (19-41); Mean Corpuscular Volume 98.2 fL (80-94); Mean Platelet Vol. 11.7 fl (6.2-12.0); Monocyte# 0.38 X10^3/uL; Monocyte% 3.9 % (0-10); NRBC Flagged by Analyzer 0 % (0-5); Neutrophil # 6.58 X10^3/uL (2.7-7.7); Neutrophil % 67.6 % (47-70); POSITIVE COUNT YES; POSITIVE MORPHOLOGY YES; Platelet Count 162 K/mm3 (150-450); RBC Distribution Width CV 13.8 % (11.6-14.6); RBC Distribution Width SD 49.8 fl (35.1-43.9); Red Blood Count 3.83 M/mm3 (4.6-6.2); White Blood Count 9.7 K/mm3 (4.4-11.0)
[2024-03-08 07:19] LABS: Cholesterol 300 mg/dL (200); High Density Lipoprotein 11 mg/dL; Triglycerides 2906 mg/dL
[2024-03-08 07:41] LABS: Hemoglobin 13.8 g/dL (13.0-16.5)
[2024-03-08 07:42] LABS: Differential Indicated SCAN CRITERIA MET; Mean Corp Hgb Conc 36.7 g/dL (32-36)
[2024-03-08 07:50] LABS: Atypical Lymphocyte 1+ %
[2024-03-08 07:56] LABS: Mean Corpuscular Hgb 33.5 pg (27.0-32.0)
[2024-03-08 07:57] LABS: Mean Corp Hgb Conc 35.8 g/dL (32-36)
--- NOTE | 2024-03-08 10:10 | CASEMGMT ---
KAI BROWNING Face to Face with patient for initial transition planning/care coordination assessment. RN CM introduced self and role at [facility]. Patient lying in bed, alert and oriented. Patient willing to participate in assessment and is able to answer all questions appropriately. Care providers, pharmacy, and demographics verified. Strata: 1 PCP: Richie Specialists: MELANIEF Neurology; Isabela, pain management; See, psychiatry Preferred Pharmacy: [facility] Insurance: [employer] Prescription Benefit: yes Living Will/HPOA: none LNOK: parents Living Arrangements: Patient lives with parents in a 2 story home with bed and bath on first floor. Patient states he is independent at home. Transportation: parents, insurance DME/HHC: Patient denies DME in the home. Patient states he might want walker, script on chart for hospitalist to sign and provide to patient if he would like walker. No previous HHC or SNF, currently participating in outpatient therapy at [facility]. Patient states he drinks 12-24 beers daily, denied resource for cessation and declined speaking to addiction counselor. Patient wishes to discharge home, denies need for home health at this time. Patient states he has no further needs or concerns at this time. CM to follow for discharge planning needs that may arise. Disposition Plan: Patient to discharge home with resumption of outpatient therapy, family support, and follow-up plans in place. Gladys MARCOS, RN, CM
[2024-03-08] MEDS: 0.9% Saline Lock 10 ML Syringe IV ×3 (10:11→23:44)
[2024-03-08] MEDS: Pantoprazole Sodium 40 MG in 0.9% Normal Saline (100mL MB+) 100 ML 330 MG IV (10:11)
[2024-03-08] MEDS: Phenobarbital 32.4 MG Tablet 64.8 MG PO ×4 (10:11→23:47)
--- NOTE | 2024-03-08 10:42 | PCM.PN.HOSP ---
Subjective Subjective Doing well, abdominal pain is little bit improved Objective Data Objective Data Vital Signs: Vital Signs Temp Pulse Resp BP Pulse Ox O2 Del Method 98.6 F 93 16 106/72 98 Room Air 03/08/24 07:54 03/08/24 07:58 03/08/24 07:54 03/08/24 07:54 03/08/24 07:54 03/08/24 07:54 Oxygen Delivery Method Room Air Weight: 158 lb 4.67 oz Body Mass Index (BMI) 26.4 Intake & Output: Intake and Output for Last 24 Hours 03/07/24 03/08/24 03/09/24 03:59 03:59 03:59 Intake Total 1500 / 1500 110 / 110 Balance 1500 / 1500 110 / 110 Lab / Micro Data 03/08/24 05:35 03/07/24 19:55 Labs: Laboratory Results - last 24 hr 03/07/24 19:55: WBC 12.8 H, RBC 4.59 L, Hgb 15.4, Hct 43.0, MCV 93.7, MCH 33.5 H, MCHC 35.8, RDW Std Deviation 46.0 H, RDW Coeff of Lilian 13.3, Plt Count 167, MPV 10.5, Immature Gran % (Auto) FARE COLLECTOR, Neut % (Auto) FARE COLLECTOR, Lymph % (Auto) FARE COLLECTOR, [place] % (Auto) FARE COLLECTOR, Eos % (Auto) FARE COLLECTOR, Baso % (Auto) FARE COLLECTOR, Absolute Neuts (auto) 9.2 H, Absolute Lymphs (auto) 3.20, Total Counted Not Reportable, Neutrophils % (Manual) 71 H, Band Neutrophils % 1, Lymphocytes % (Manual) 25, Monocytes % (Manual) 3, Nucleated RBC % FARE COLLECTOR, Diff Path Review September, Sodium 125 L, Potassium 4.1, Chloride 87 L, Carbon Dioxide 24.0, Anion Gap 14, BUN 8, Creatinine 1.43 H, Estim Creat Clear Calc 56.15, Est GFR (MDRD) Af Amer 69, Est GFR (MDRD) Non-Af 57 L, BUN/Creatinine Ratio 5.6 L, Glucose 276 H, Lactic Acid 1.7, Calcium 7.9 L, Total Bilirubin 1.80 H, AST 178 H, ALT TNP, Alkaline Phosphatase 199 H, Total Protein 7.4, Albumin 3.2, Globulin 4.2, Albumin/Globulin Ratio 0.8 L, Lipase 354 H 03/07/24 23:13: Triglycerides 2906 H, Cholesterol 300 H, LDL Cholesterol TNP, VLDL Cholesterol TNP, HDL Cholesterol 11 L 03/07/24 23:19: Urine Color Yellow, Urine Clarity Clear, Urine pH 6.0, Ur Specific [place] 1.015, Urine Protein 15 H, Urine Glucose (UA) Normal, Urine Ketones Negative, Urine Occult Blood Negative, Urine Nitrite Negative, Urine Bilirubin Negative, Urine Urobilinogen Normal, Ur Leukocyte Esterase Negative, Urine RBC 0 SEEN, Urine WBC 0 SEEN, Ur Squamous Epith Cells 0 SEEN, Urine Bacteria 0 SEEN, Urine Mucus 0 SEEN, Urine Osmolality 578 03/08/24 00:35: Serum Osmolality 292 03/08/24 01:50: Lactic Acid 1.1 03/08/24 05:35: WBC Cancelled 03/08/24 05:35: WBC 9.7, Corrected WBC Cancelled, RBC Cancelled 03/08/24 05:35: RBC 3.83 L, Hgb Cancelled 03/08/24 05:35: Hgb 13.8, Hct Cancelled 03/08/24 05:35: Hct 37.6 L, MCV Cancelled 03/08/24 05:35: MCV 98.2 H, MCH Cancelled 03/08/24 05:35: MCH 36.0 H, MCHC Cancelled 03/08/24 05:35: MCHC 36.7 H, RDW Std Deviation Cancelled 03/08/24 05:35: RDW Std Deviation 49.8 H, RDW Coeff of Lilian Cancelled 03/08/24 05:35: RDW Coeff of Lilian 13.8, Plt Count Cancelled 03/08/24 05:35: Plt Count 162, MPV Cancelled 03/08/24 05:35: MPV 11.7, Immature Gran % (Auto) Cancelled 03/08/24 05:35: Immature Gran % (Auto) 0.400, Neut % (Auto) Cancelled 03/08/24 05:35: Neut % (Auto) 67.6, Lymph % (Auto) Cancelled 03/08/24 05:35: Lymph % (Auto) 26.5, [place] % (Auto) Cancelled 03/08/24 05:35: [place] % (Auto) 3.9, Eos % (Auto) Cancelled 03/08/24 05:35: Eos % (Auto) 1.1, Baso % (Auto) Cancelled 03/08/24 05:35: Baso % (Auto) 0.5, Absolute Neuts (auto) Cancelled 03/08/24 05:35: Absolute Neuts (auto) 6.6, Absolute Lymphs (auto) Cancelled 03/08/24 05:35: Absolute Lymphs (auto) 2.58, Total Counted Cancelled, Neutrophils % (Manual) Cancelled, Band Neutrophils % Cancelled, Lymphocytes % (Manual) Cancelled, Monocytes % (Manual) Cancelled, Eosinophils % (Manual) Cancelled, Basophils % (Manual) Cancelled, Metamyelocytes % Cancelled, Myelocytes % Cancelled, Promyelocytes % Cancelled, Blast Cells % Cancelled, Plasma Cell % (Manual) Cancelled, Other Cells % Cancelled, Nucleated RBC % Cancelled 03/08/24 05:35: Nucleated RBC % 0, Nucleated RBCs/100 WBC Cancelled, Differential Comment Cancelled, Diff Path Review Cancelled, Hypersegmented Neuts Cancelled, Atypical Lymphocytes Cancelled 03/08/24 05:35: Atypical Lymphocytes 1+, Reactive Lymphocytes Cancelled, Smudge Cells Cancelled, Toxic Granulation Cancelled, Toxic Vacuolation Cancelled, Dohle Bodies Cancelled, Owen Rods Cancelled, Platelet Estimate Cancelled, Plt Morphology Comment Cancelled, RBC Morphology Cancelled 03/08/24 05:35: RBC Morphology Cancelled, Polychromasia Cancelled, Hypochromasia Cancelled, Basophilic Stippling Cancelled, Anisocytosis Cancelled, Microcytosis Cancelled, Macrocytosis Cancelled, Spherocytes Cancelled, Sickle Cells Cancelled, Target Cells Cancelled, Tear Drop Cells Cancelled, Ovalocytes Cancelled, Stomatocytes Cancelled, Kebede-[place] Bodies Cancelled, Etoile Cells Cancelled, Bite Cells Cancelled, Crenated Cell Cancelled, Acanthocytes (Spur) Cancelled, Rouleaux Cancelled, Schistocytes Cancelled, Phosphorus Cancelled, Lipase Cancelled Radiography Diagnostic Testing: Radiology Impression Abdomen/Pelvis CT 03/07/24 19:45 IMPRESSION: Mesenteric edema posterior to the pancreatic head. Pancreatitis cannot be excluded. Slight wall thickening at the third portion of the duodenum. Fatty liver. Right periureteral stranding. Electronically Signed: Taye Wilkes DO at 20:43 EDT Reading Location ID and State: [facility] / [place] Tel [phone], Service support , Physical Exam Narrative General: Alert, Oriented x3, Cooperative, No apparent distress HEENT: Atraumatic, PERRLA, EOMI, Normocephalic Oral: Moist Mucosa Neck: Supple, No JVD Lungs: Clear to auscultation, Normal air movement, No rhonchi, No wheeze, No rales Cardiovascular: Regular rate, Regular Rhythm, Normal S1, Normal S2, No murmurs Abdomen: Soft, minimally tender, Non-Distended, No Hepato-splenomegaly Extremities: No edema, Capillary Refill Less than 3 Seconds Skin: No rashes, No breakdown Musculoskeletal: No Tenderness to Palpation of Joints or Extremities Neurological: No focal neurological deficits, Motor Exam 5/5 strength throughout, Sensory exam intact to light touch and pain Psych/Mental Status: Normal Affect, Appropriate Assessment & Plan Assessment/Plan (1) Acute alcoholic pancreatitis: QUALIFIERS: Acute pancreatitis complication: no infection or necrosis Qualified Code(s): K85.20 - Alcohol induced acute pancreatitis without necrosis or infection (2) Chronic alcohol abuse: (3) Hyponatremia: (4) Abdominal pain: QUALIFIERS: Abdominal location: epigastric Qualified Code(s): R10.13 - Epigastric pain PLAN: Plan 1. Alcohol induced versus triglyceride induced pancreatitis in the setting of chronic alcohol abuse/GERD ? Will transition to a low-fat diet ? Will transition to oral phenobarbital taper ? Discussed the need to abstain from alcohol ? Lab work is still pending for today ? Continue with PPI ? Triglycerides are 2900, will start him on fenofibrate DVT: Ambulation Charges/Coding Visit Charges Inpatient E&M: 36750 Subs Hosp L2
--- NOTE | 2024-03-08 12:52 | CASEMGMT ---
SW met with patient. Introduced self and role at [facility]. SW asked patient about his alcohol use. Patient said he stays sober then goes back. Patient said he has not been working since May so he thinks his medical issues and boredom are leading to him drinking again. Patient is aware of [facility] and plans on following up with them at d/c. Danita CHUNG
--- NOTE | 2024-03-08 13:03 | ADDICTION ---
This journalists and other writers met with pt to discuss Tx options to address alcohol use. Pt denies interest in following up with services at this time, though requested local resources that provide transportation. TW provided pt with the requested resources for and .
[2024-03-08] MEDS: Fenofibrate 145 MG Tablet PO (13:22)
[2024-03-08 13:47] LABS: ALB/GLOB Ratio 0.7 RATIO (0.9-2.4); AST(SGOT) 72 U/L (15-37); Albumin, Serum 2.5 g/dL (3.2-5.0); Alkaline Phosphatase 150 U/L (45-117); Anion Gap 7 (5-15); BUN 11 mg/dL (7-18); BUN/Creat Ratio 11.6 RATIO (10-20); Calcium,Total 7.7 mg/dL (8.5-10.1); Chloride 103 mmol/L (98-107); Creatinine, Serum 0.95 mg/dL (0.70-1.30); EST Glomerular Filtration Rate 91 mL/min (>60); Est Glom Filt Rate - Afr Amer 110 mL/min (>60); Estimated Creatinine Clearance 84.52 ml/min; Globulin 3.4 g/dL (2.2-4.2); Glucose 118 mg/dL (74-106); Lipase 362 U/L (13-75); Magnesium 1.7 mg/dL (1.6-2.6); Phosphorus 2.4 mg/dL (2.5-4.9); Potassium 3.7 mmol/L (3.5-5.1); Protein, Total 5.9 g/dL (6.4-8.2); Sodium Level 138 mmol/L (136-145)
[2024-03-08 15:39] LABS: Anion Gap 9 (5-15); BUN 10 mg/dL (7-18); BUN/Creat Ratio 9.8 RATIO (10-20); Calcium,Total 7.7 mg/dL (8.5-10.1); Chloride 97 mmol/L (98-107); Creatinine, Serum 1.02 mg/dL (0.70-1.30); EST Glomerular Filtration Rate 84 mL/min (>60); Est Glom Filt Rate - Afr Amer 101 mL/min (>60); Estimated Creatinine Clearance 78.72 ml/min; Glucose 182 mg/dL (74-106); Potassium 3.9 mmol/L (3.5-5.1); Sodium Level 133 mmol/L (136-145)
--- NOTE | 2024-03-08 19:17 | EX.PCM.CON.G ---
HPI Consult Data Date of Consult: 03/08/24 HPI Narrative Reason for Consultation: Acute pancreatitis HPI Narrative: IDA NICHOLAS, is a 44 M with a past medical history of Chronic EtOH Abuse with associated acute EtOH Pancreatitis in the past. He has no history of chronic pancreatitis. He does not have any diarrhea, bloating or abdominal pain on a daily basis. He does have a history of asthma. There is no family history of cystic fibrosis. He presented [facility] ER complaining of abdominal pain and nausea. He said that he has stopped drinking for several years but he lost his job back in June and has been drinking pretty heavily since. He is with struggling with a little bit of depression since he lost his job and had to move back in with his parents. Mr. Nicholas reports his symptoms began approximately one day prior to admission after he restarted drinking ~ 2weeks ago. He admits to drinking several beers daily. He states his symptoms are nearly identical to his previous bouts of EtOH pancreatitis. He admits to abdominal pain, nausea and lethargy but he denies related fever, chills, vomiting, chest pain or SOB but he does admit to a recent colonoscopy about a week ago. In the ER he was noted to have CT evidence of Acute Pancreatitis; likely due to Chronic EtOH Abuse with confirmatory elevated lipase of 354 U/L with Hyperbilirubinemia of 3.5 mg/dL present on admission complicated by Hyponatremia of 125 mmol/L present on admission likely due to beer potomania compounded by Hyperglycemia of 276 mg/dL. [facility] Medical History Chronic alcohol abuse Left shoulder pain Dyslipidemia History of patellar fracture Bimalleolar ankle fracture Generalized anxiety disorder with panic attacks Back pain Bloody stool Abnormal bruising Asthma Fatigue Stomach ulcer Shoulder pain SOB (shortness of breath) Arthritis Home Medications ?Medication ?Instructions ?Recorded ?Last Taken ?Type omeprazole 40 mg capsule,delayed 40 mg PO DAILY 09/11/22 Unknown History release thiamine HCl (vitamin B1) 100 mg 100 mg PO DAILYCM 30 days #30 tabs 07/18/23 Unknown Rx tablet (Vitamin B-1) cyanocobalamin (vitamin B-12) 1,000 mcg PO QDAY 02/25/24 Unknown History 1,000 mcg tablet folic acid 1 mg tablet 1 mg PO QDAY 02/25/24 Unknown History Allergy/AdvReac Type Severity Reaction Status Date / Time No Known Allergies Allergy Verified 03/07/24 18:35 Family History Mother Diabetes Heart disease Hypertension Father Diabetes Heart disease Hypertension Surgical History History of ankle surgery History of hernia surgery Social History household members: none Smoking Status: Light Smoker (<10/day) alcohol intake: current alcohol intake frequency: 3 or more drinks per day Alcohol type: beer substance use type: does not use ROS ROS Narrative Review of Systems: Constitutional: Patient denies fever or chills. Eyes: Patient denies changes in vision or discharge from eyes. ENT: Patient denies runny nose, sore throat or ear pain. Resp: Patient denies SOB or cough. CV: Patient denies chest pain, palpitations or heart racing. GI: Patient admits to abdominal pain and nausea but he denies vomiting. : Patient denies dysuria and hematuria. MSK: Patient denies arthralgias and myalgias. Skin: Patient denies rash, abscess or jaundice. Psych: Patient denies symptoms of uncontrolled depression or anxiety. Neuro: Patient admits to chronic neuropathy of the Left foot but he denies headache, paresthesias or focal neurologic deficits. Hematology: Patient denies easy bleeding or easy bruisability. Endocrinology: Patient denies polyuria, polydipsia and polyphagia. 14 point ROS otherwise negative except for positives noted above. Review of Systems ROS Unobtainable: other Constitutional Constitutional: Denies fatigue, fever(s), poor appetite, weight gain or weight loss ENT HEENT: Denies mouth lesions Cardiovascular Cardiovascular: Denies abdominal bloating, abdominal edema or abdominal pain Respiratory/Chest Respiratory/Chest: Denies change in mental status, change in phlegm color, chest congestion or chest tightness Gastrointestinal Gastrointestinal: Denies belching, bloating, change in bowel habits, change in stool character, chewing difficulty, coffee ground emesis, constipation, cramping, diarrhea, dyspepsia, dysphagia, early satiety, excessive flatus, fecal incontinence, heartburn, hematemesis, hematochezia, hemorrhoids, loose stools, melena, nausea, odynophagia, rectal bleeding, tenesmus, vomiting or weight changes Genitourinary Genitourinary: Denies abdominal discomfort, burning urination or itching Musculoskeletal Musculoskeletal: Reports as per HPI; Denies muscle weakness or myalgias Integumentary Integumentary: Denies jaundice Neurologic Neurologic: Denies lack of coordination or weakness Psychiatric Psychiatric: Denies confusion, depression, memory loss, mood swings, paranoia or suicidal ideation Endocrine Endocrinology: Denies systems reviewed and no addt'l complaints, except as documented Hematologic/Lymphatic Hematologic/Lymphatic: Denies anemia, easy bleeding, easy bruising or lymphadenopathy Allergic/Immunologic Allergic/Immunologic: Denies systems reviewed and no addt'l complaints, except as documented Physical Exam Narrative General: Alert, Oriented x3, Cooperative, No apparent distress HEENT: Atraumatic, PERRLA, EOMI, Normocephalic Oral: Moist Mucosa Neck: Supple, No JVD Lungs: Clear to auscultation, Normal air movement, No rhonchi, No wheeze, No rales Cardiovascular: Regular rate, Regular Rhythm, Normal S1, Normal S2, No murmurs Abdomen: Soft, minimally tender, Non-Distended, No Hepato-splenomegaly Extremities: No edema, Capillary Refill Less than 3 Seconds Skin: No rashes, No breakdown Musculoskeletal: No Tenderness to Palpation of Joints or Extremities Neurological: No focal neurological deficits, Motor Exam 5/5 strength throughout, Sensory exam intact to light touch and pain Psych/Mental Status: Normal Affect, Appropriate Lab / Micro Data 03/08/24 05:35 03/08/24 12:10 Labs: Laboratory Results - last 24 hr 03/07/24 19:55: WBC 12.8 H, RBC 4.59 L, Hgb 15.4, Hct 43.0, MCV 93.7, MCH 33.5 H, MCHC 35.8, RDW Std Deviation 46.0 H, RDW Coeff of Lilian 13.3, Plt Count 167, MPV 10.5, Immature Gran % (Auto) STATIONARY BOILER FIREMAN, Neut % (Auto) STATIONARY BOILER FIREMAN, Lymph % (Auto) STATIONARY BOILER FIREMAN, [place] % (Auto) STATIONARY BOILER FIREMAN, Eos % (Auto) STATIONARY BOILER FIREMAN, Baso % (Auto) STATIONARY BOILER FIREMAN, Absolute Neuts (auto) 9.2 H, Absolute Lymphs (auto) 3.20, Total Counted Not Reportable, Neutrophils % (Manual) 71 H, Band Neutrophils % 1, Lymphocytes % (Manual) 25, Monocytes % (Manual) 3, Nucleated RBC % STATIONARY BOILER FIREMAN, Diff Path Review September, Sodium 125 L, Potassium 4.1, Chloride 87 L, Carbon Dioxide 24.0, Anion Gap 14, BUN 8, Creatinine 1.43 H, Estim Creat Clear Calc 56.15, Est GFR (MDRD) Af Amer 69, Est GFR (MDRD) Non-Af 57 L, BUN/Creatinine Ratio 5.6 L, Glucose 276 H, Lactic Acid 1.7, Calcium 7.9 L, Total Bilirubin 1.80 H, AST 178 H, ALT TNP, Alkaline Phosphatase 199 H, Total Protein 7.4, Albumin 3.2, Globulin 4.2, Albumin/Globulin Ratio 0.8 L, Lipase 354 H 03/07/24 23:13: Triglycerides 2906 H, Cholesterol 300 H, LDL Cholesterol TNP, VLDL Cholesterol TNP, HDL Cholesterol 11 L 03/07/24 23:19: Urine Color Yellow, Urine Clarity Clear, Urine pH 6.0, Ur Specific [place] 1.015, Urine Protein 15 H, Urine Glucose (UA) Normal, Urine Ketones Negative, Urine Occult Blood Negative, Urine Nitrite Negative, Urine Bilirubin Negative, Urine Urobilinogen Normal, Ur Leukocyte Esterase Negative, Urine RBC 0 SEEN, Urine WBC 0 SEEN, Ur Squamous Epith Cells 0 SEEN, Urine Bacteria 0 SEEN, Urine Mucus 0 SEEN, Urine Osmolality 578 03/08/24 00:35: Serum Osmolality 292 03/08/24 01:50: Lactic Acid 1.1 03/08/24 05:35: WBC Cancelled 03/08/24 05:35: WBC 9.7, Corrected WBC Cancelled, RBC Cancelled 03/08/24 05:35: RBC 3.83 L, Hgb Cancelled 03/08/24 05:35: Hgb 13.8, Hct Cancelled 03/08/24 05:35: Hct 37.6 L, MCV Cancelled 03/08/24 05:35: MCV 98.2 H, MCH Cancelled 03/08/24 05:35: MCH 36.0 H, MCHC Cancelled 03/08/24 05:35: MCHC 36.7 H, RDW Std Deviation Cancelled 03/08/24 05:35: RDW Std Deviation 49.8 H, RDW Coeff of Lilian Cancelled 03/08/24 05:35: RDW Coeff of Lilian 13.8, Plt Count Cancelled 03/08/24 05:35: Plt Count 162, MPV Cancelled 03/08/24 05:35: MPV 11.7, Immature Gran % (Auto) Cancelled 03/08/24 05:35: Immature Gran % (Auto) 0.400, Neut % (Auto) Cancelled 03/08/24 05:35: Neut % (Auto) 67.6, Lymph % (Auto) Cancelled 03/08/24 05:35: Lymph % (Auto) 26.5, [place] % (Auto) Cancelled 03/08/24 05:35: [place] % (Auto) 3.9, Eos % (Auto) Cancelled 03/08/24 05:35: Eos % (Auto) 1.1, Baso % (Auto) Cancelled 03/08/24 05:35: Baso % (Auto) 0.5, Absolute Neuts (auto) Cancelled 03/08/24 05:35: Absolute Neuts (auto) 6.6, Absolute Lymphs (auto) Cancelled 03/08/24 05:35: Absolute Lymphs (auto) 2.58, Total Counted Cancelled, Neutrophils % (Manual) Cancelled, Band Neutrophils % Cancelled, Lymphocytes % (Manual) Cancelled, Monocytes % (Manual) Cancelled, Eosinophils % (Manual) Cancelled, Basophils % (Manual) Cancelled, Metamyelocytes % Cancelled, Myelocytes % Cancelled, Promyelocytes % Cancelled, Blast Cells % Cancelled, Plasma Cell % (Manual) Cancelled, Other Cells % Cancelled, Nucleated RBC % Cancelled 03/08/24 05:35: Nucleated RBC % 0, Nucleated RBCs/100 WBC Cancelled, Differential Comment Cancelled, Diff Path Review Cancelled, Hypersegmented Neuts Cancelled, Atypical Lymphocytes Cancelled 03/08/24 05:35: Atypical Lymphocytes 1+, Reactive Lymphocytes Cancelled, Smudge Cells Cancelled, Toxic Granulation Cancelled, Toxic Vacuolation Cancelled, Dohle Bodies Cancelled, Owen Rods Cancelled, Platelet Estimate Cancelled, Plt Morphology Comment Cancelled, RBC Morphology Cancelled 03/08/24 05:35: RBC Morphology Cancelled, Polychromasia Cancelled, Hypochromasia Cancelled, Basophilic Stippling Cancelled, Anisocytosis Cancelled, Microcytosis Cancelled, Macrocytosis Cancelled, Spherocytes Cancelled, Sickle Cells Cancelled, Target Cells Cancelled, Tear Drop Cells Cancelled, Ovalocytes Cancelled, Stomatocytes Cancelled, Kebede-[place] Bodies Cancelled, [place] Cells Cancelled, Bite Cells Cancelled, Crenated Cell Cancelled, Acanthocytes (Spur) Cancelled, Rouleaux Cancelled, Schistocytes Cancelled, Sodium 138, Potassium 3.7, Chloride 103, Carbon Dioxide 28.0, Anion Gap 7, BUN 11, Creatinine 0.95, Estim Creat Clear Calc 84.52, Est GFR (MDRD) Af Amer 110, Est GFR (MDRD) Non-Af 91, BUN/Creatinine Ratio 11.6, Glucose 118 H, Calcium 7.7 L, Phosphorus 2.4 L 03/08/24 05:35: Phosphorus Cancelled, Magnesium 1.7, Total Bilirubin 2.30 H, AST 72 H, ALT TNP, Alkaline Phosphatase 150 H, Total Protein 5.9 L, Albumin 2.5 L, Globulin 3.4, Albumin/Globulin Ratio 0.7 L, Lipase 362 H 03/08/24 05:35: Lipase Cancelled, TSH 2.310 03/08/24 12:10: Sodium 133 L, Potassium 3.9, Chloride 97 L, Carbon Dioxide 27.0, Anion Gap 9, BUN 10, Creatinine 1.02, Estim Creat Clear Calc 78.72, Est GFR (MDRD) Af Amer 101, Est GFR (MDRD) Non-Af 84, BUN/Creatinine Ratio 9.8 L, Glucose 182 H, Calcium 7.7 L Imaging Radiology Impression Abdomen/Pelvis CT 03/07/24 19:45 IMPRESSION: Mesenteric edema posterior to the pancreatic head. Pancreatitis cannot be excluded. Slight wall thickening at the third portion of the duodenum. Fatty liver. Right periureteral stranding. Electronically Signed: Taye Wilkes DO at 20:43 EDT Reading Location ID and State: [facility] / [place] Tel [phone], Service support , Assessment & Plan Assessment/Plan (1) Acute alcoholic pancreatitis: QUALIFIERS: Acute pancreatitis complication: no infection or necrosis Qualified Code(s): K85.20 - Alcohol induced acute pancreatitis without necrosis or infection (2) Chronic alcohol abuse: (3) Hyponatremia: (4) Abdominal pain: QUALIFIERS: Abdominal location: epigastric Qualified Code(s): R10.13 - Epigastric pain PLAN: Plan 44 yo with acute pancreatitis Acute EtOH Pancreatitis; likely due to recent relapse into EtOH Abuse with confirmatory elevated lipase of 354 U/L with Hyperbilirubinemia of 3.5 mg/dL. 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 Chronic EtOH Abuse; with associated EtOH Pancreatitis. He is not showing any signs of EtOH Withdrawal he is on phenobarbital 100 mg IV BID . Hyponatremia of 125 mmol/L present on admission likely due to hypertriglyceridemia Significant inflammation in the duodenum seen on imaging. Likely secondary to pancreatitis. He should undergo an upper endoscopy and MRCP in the future to see likely any stricturing disease in the duodenum and the pancreas or developing chronic pancreatitis. ximately 55 minutes. Charges/Coding Visit Charges Inpatient E&M: 95243 Init Hosp L3
[2024-03-08] MEDS: Morphine 2 MG/ML Syringe IV (21:01)
[2024-03-09] VITALS (7 sets, daily range): BP systolic 107–130; BP diastolic 72–91; PULSE 72–104; RESP 16–18; TEMP 36.4–37; O2SAT 97–100; BMI 26.4
[2024-03-09] MEDS: Phenobarbital 32.4 MG Tablet 64.8 MG PO ×6 (02:39→22:32)
[2024-03-09] MEDS: Ketorolac 15 MG/ML Vial IV ×2 (06:05→18:30)
--- NOTE | 2024-03-09 08:31 | PN.HOSP_ITS ---
Subjective Subjective Doing well but still has a little bit of pain he does not feel comfortable going home Objective Data Objective Data Vital Signs: Vital Signs Temp Pulse Resp BP Pulse Ox O2 Del Method 98.4 F 101 H 16 110/78 97 Room Air 03/09/24 02:45 03/09/24 02:45 03/09/24 02:45 03/09/24 02:45 03/09/24 02:45 03/09/24 02:45 Oxygen Delivery Method Room Air Weight: 158 lb 8.198 oz Body Mass Index (BMI) 26.4 Intake & Output: Intake and Output for Last 24 Hours 03/08/24 03/09/24 03/10/24 03:59 03:59 03:59 Intake Total 1500 / 1500 1060 / 1060 300 / 300 Balance 1500 / 1500 1060 / 1060 300 / 300 Lab / Micro Data 03/08/24 05:35 03/08/24 12:10 Labs: Laboratory Results - last 24 hr 03/08/24 05:35: Sodium 138, Potassium 3.7, Chloride 103, Carbon Dioxide 28.0, Anion Gap 7, BUN 11, Creatinine 0.95, Estim Creat Clear Calc 84.52, Est GFR (MDRD) Af Amer 110, Est GFR (MDRD) Non-Af 91, BUN/Creatinine Ratio 11.6, Glucose 118 H, Calcium 7.7 L, Phosphorus 2.4 L, Magnesium 1.7, Total Bilirubin 2.30 H, A ST 72 H, ALT TNP, Alkaline Phosphatase 150 H, Total Protein 5.9 L, Albumin 2.5 L , Globulin 3.4, Albumin/Globulin Ratio 0.7 L, Lipase 362 H, TSH 2.310 03/08/24 12:10: Sodium 133 L, Potassium 3.9, Chloride 97 L, Carbon Dioxide 27.0, Anion Gap 9, BUN 10, Creatinine 1.02, Estim Creat Clear Calc 78.72, Est GFR (MDRD) Af Amer 101, Est GFR (MDRD) Non-Af 84, BUN/Creatinine Ratio 9.8 L, G lucose 182 H, Calcium 7.7 L Physical Exam Narrative General: Alert, Oriented x3, Cooperative, No apparent distress HEENT: Atraumatic, PERRLA, EOMI, Normocephalic Oral: Moist Mucosa Neck: Supple, No JVD Lungs: Clear to auscultation, Normal air movement, No rhonchi, No wheeze, No rales Cardiovascular: Regular rate, Regular Rhythm, Normal S1, Normal S2, No murmurs Abdomen: Soft, minimally tender, Non-Distended, No Hepato-splenomegaly Extremities: No edema, Capillary Refill Less than 3 Seconds Skin: No rashes, No breakdown Musculoskeletal: No Tenderness to Palpation of Joints or Extremities Neurological: No focal neurological deficits, Motor Exam 5/5 strength throughout, Sensory exam intact to light touch and pain Psych/Mental Status: Normal Affect, Appropriate Assessment & Plan Assessment/Plan (1) Acute alcoholic pancreatitis: QUALIFIERS: Acute pancreatitis complication: no infection or necrosis Qualified Code(s): K85.20 - Alcohol induced acute pancreatitis without necrosis or infection (2) Chronic alcohol abuse: (3) Hyponatremia: (4) Abdominal pain: QUALIFIERS: Abdominal location: epigastric Qualified Code(s): R 10.13 - Epigastric pain PLAN: Plan 1. Alcohol induced versus triglyceride induced pancreatitis in the setting of chronic alcohol abuse/GERD ? Will transition to a low-fat diet ? Will transition to oral phenobarbital taper ? Discussed the need to abstain from alcohol ? Continue with PPI ? continue with fenofibrate ? Appreciate gastroenterology's assistance, as stated in their note he will likely need an MRCP and EGD as an outpatient after discharge recommend GI follow-up DVT: Ambulation Charges/Coding Visit Charges Inpatient E&M: 92392 Subs Hosp L2
[2024-03-09] MEDS: Thiamine Hydrochloride 100 MG Tablet PO (09:11)
[2024-03-09] MEDS: Fenofibrate 145 MG Tablet PO (09:11)
[2024-03-09] MEDS: Folic Acid 1 MG Tablet PO (09:12)
[2024-03-09] MEDS: Morphine 2 MG/ML Syringe IV (09:25)
[2024-03-09] MEDS: 0.9% Saline Lock 10 ML Syringe IV (09:30)
[2024-03-09] MEDS: Pantoprazole Sodium 40 MG in 0.9% Normal Saline (100mL MB+) 100 ML 330 MG IV (10:00)
[2024-03-09 10:07] LABS: HEPATITIS B SURFACE AG Negative (Negative); Hep C Antibodies Non Reactive (Non Reactive); Hepatitis A IgM Antibody Negative (Negative); Hepatitis B Core AB IgM Negative (Negative)
--- NOTE | 2024-03-09 18:16 | PN.GI_ITS ---
Subjective Subjective Patient says he is still having abdominal pain and is unable to eat much. He said he feels bloated and intermittently nauseous. Objective Data Objective Data Vital Signs: Vital Signs Temp Pulse Resp BP Pulse Ox O2 Del Method 98.3 F 72 18 117/88 H 100 Room Air 03/09/24 15:22 03/09/24 15:22 03/09/24 15:22 03/09/24 15:22 03/09/24 15:22 03/09/24 15:22 Oxygen Delivery Method Room Air Weight: 158 lb 8.198 oz Body Mass Index (BMI) 26.4 Intake & Output: Intake and Output for Last 24 Hours 03/07/24 03/08/24 03/09/24 23:59 23:59 23:59 Intake Total 1000 / 1000 1560 / 1560 410 / 410 Balance 1000 / 1000 1560 / 1560 410 / 410 Lab / Micro Data 03/08/24 05:35 03/08/24 12:10 Labs: Laboratory Results - last 24 hr 03/08/24 00:35: Hepatitis A IgM Ab Negative, Hep Bs Antigen Negative, Hep B Core IgM Ab Negative, Hepatitis C Ab (EIA) Non Reactive, Hep C Ab Comment Comment, HCV Quantitation Not Reportable, HCV RNA PCR Test Info Not Reportable, Hepatitis C Virus Note Not Reportable Physical Exam Narrative General: Alert, Oriented x3, Cooperative, No apparent distress HEENT: Atraumatic, PERRLA, EOMI, Normocephalic Oral: Moist Mucosa Neck: Supple, No JVD Lungs: Clear to auscultation, Normal air movement, No rhonchi, No wheeze, No rales Cardiovascular: Regular rate, Regular Rhythm, Normal S1, Normal S2, No murmurs Abdomen: Soft, minimally tender, Non-Distended, No Hepato-splenomegaly Extremities: No edema, Capillary Refill Less than 3 Seconds Skin: No rashes, No breakdown Musculoskeletal: No Tenderness to Palpation of Joints or Extremities Neurological: No focal neurological deficits, Motor Exam 5/5 strength throughout, Sensory exam intact to light touch and pain Psych/Mental Status: Normal Affect, Appropriate Assessment & Plan Assessment/Plan (1) Acute alcoholic pancreatitis: QUALIFIERS: Acute pancreatitis complication: no infection or necrosis Qualified Code(s): K85.20 - Alcohol induced acute pancreatitis without necrosis or infection (2) Chronic alcohol abuse: (3) Hyponatremia: (4) Abdominal pain: QUALIFIERS: Abdominal location: epigastric Qualified Code(s): R 10.13 - Epigastric pain PLAN: Plan 44 yo with acute pancreatitis Acute EtOH Pancreatitis; likely due to recent relapse into EtOH Abuse with confirmatory elevated lipase of 354 U/L with Hyperbilirubinemia of 3.5 mg/dL. 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 Chronic EtOH Abuse; with associated EtOH Pancreatitis. He is not showing any signs of EtOH Withdrawal he is on phenobarbital 100 mg IV BID . Hyponatremia of 125 mmol/L present on admission likely due to hypertriglyceridemia Significant inflammation in the duodenum seen on imaging. Likely secondary to pancreatitis. He should undergo an upper endoscopy and MRCP in the future to see likely any stricturing disease in the duodenum and the pancreas or developing chronic pancreatitis. 03/09/2024-would recommend an to check ESR, CRP to see if it correlates with the patient's and if that should be going down. The rest of his labs are consistent with alcoholic hepatitis S improving. If patient is still here tomorrow he can undergo an upper endoscopy to evaluate his upper GI tract. Charges/Coding Visit Charges Inpatient E&M: 70160 Subs Hosp L3
[2024-03-10] VITALS (14 sets, daily range): BP systolic 89–122; BP diastolic 64–81; PULSE 82–103; RESP 16–18; TEMP 36.2–37.3; O2SAT 95–100; BMI 25.6
[2024-03-10] MEDS: Phenobarbital 32.4 MG Tablet 64.8 MG PO ×5 (02:38→23:39)
[2024-03-10 06:12] LABS: Absolute Lymphocyte Count 1.84 X10^3/uL (0.83-4.51); Basophil# 0.04 X10^3/uL; Basophil% 0.6 % (0-1); Eosinophil# 0.12 X10^3/uL; Eosinophils% 1.8 % (0-5); Hematocrit 36.4 % (40-54); Hemoglobin 11.9 g/dL (13.0-16.5); Lymphocyte # 1.84 X10^3/ul (0.83-4.51); Lymphocyte % 28.3 % (19-41); Mean Corp Hgb Conc 32.7 g/dL (32-36); Mean Corpuscular Hgb 31.7 pg (27.0-32.0); Mean Corpuscular Volume 97.1 fL (80-94); Mean Platelet Vol. 10.8 fl (6.2-12.0); Monocyte# 0.39 X10^3/uL; NRBC Flagged by Analyzer 0 % (0-5); Neutrophil # 4.03 X10^3/uL (2.7-7.7); Neutrophil % 61.9 % (47-70); Platelet Count 182 K/mm3 (150-450); RBC Distribution Width SD 46.6 fl (35.1-43.9); Red Blood Count 3.75 M/mm3 (4.6-6.2); White Blood Count 6.5 K/mm3 (4.4-11.0)
[2024-03-10 06:41] LABS: ALB/GLOB Ratio 0.5 RATIO (0.9-2.4); AST(SGOT) 52 U/L (15-37); Alanine Aminotransfer ALT/SGPT 63 U/L (16-61); Albumin, Serum 2.4 g/dL (3.2-5.0); Alkaline Phosphatase 118 U/L (45-117); Anion Gap 7 (5-15); BUN 7 mg/dL (7-18); Calcium,Total 9.1 mg/dL (8.5-10.1); Chloride 101 mmol/L (98-107); Creatinine, Serum 0.78 mg/dL (0.70-1.30); EST Glomerular Filtration Rate 115 mL/min (>60); Est Glom Filt Rate - Afr Amer 139 mL/min (>60); Estimated Creatinine Clearance 102.94 ml/min; Globulin 4.4 g/dL (2.2-4.2); Glucose 91 mg/dL (74-106); Protein, Total 6.8 g/dL (6.4-8.2); Sodium Level 136 mmol/L (136-145)
--- NOTE | 2024-03-10 08:41 | MRI_ITS ---
EXAM: MR ABDOMEN WITHOUT INTRAVENOUS CONTRAST, MRCP PROTOCOL CLINICAL INDICATION: Recurrent pancreatitis TECHNIQUE: Multiplanar and multisequence MR images of the abdomen without intravenous contrast obtained with MRCP sequence. Three-dimensional post-processing reconstructions were performed. COMPARISON: CT abdomen and pelvis, 03/07/2024. FINDINGS: LOWER THORAX: No significant abnormality. No pleural effusion. LIVER: No significant abnormality. Normal morphology. GALLBLADDER AND BILE DUCTS: No significant abnormality. No gallstones. No gallbladder distention or wall edema. No intra- or extrahepatic biliary ductal dilation. No choledochal filling defect. PANCREAS: Peripancreatic edema without focal pancreatic lesion identified suggesting mild uncomplicated acute pancreatitis. No focal cystic mass. No pancreatic duct dilation. SPLEEN: No significant abnormality. Non-enlarged. ADRENALS: No significant abnormality. No nodules. KIDNEYS AND URETERS: No significant abnormality. Normal renal size and position. No hydronephrosis. INTRAPERITONEAL SPACE: No significant abnormality. No ascites or other fluid collection. BONES/JOINTS: Mild degenerative changes in the spine. VASCULATURE: No significant abnormality. Abdominal aorta is non-dilated. LYMPH NODES: No enlarged lymph nodes. MRI/MRCP Abdomen without Contrast IMPRESSION: 1. No obvious cholelithiasis or choledocholithiasis. No evidence of biliary ductal dilatation. 2. Peripancreatic edema without focal pancreatic lesion identified suggesting mild uncomplicated acute pancreatitis. Electronically Signed: Efraín Francisco DO at 19:51 EDT ,
--- NOTE | 2024-03-10 08:42 | PN.HOSP_ITS ---
Reason for Visit Reason for Visit: Diagnoses Hypo-osmolality and hyponatremia (03/08/24) Alcohol abuse, uncomplicated (03/08/24) Alcohol induced acute pancreatitis without necrosis or infection (03/08/24) Epigastric pain (03/08/24) Subjective Subjective Patient is a 44-year-old gentleman who presented with abdominal pain diagnosed with alcoholic induced pancreatitis. Admitted to the regular nursing floor where patient is currently being managed Objective Data Objective Data Vital Signs: Vital Signs Temp Pulse Resp BP Pulse Ox O2 Del Method 98.1 F 90 18 122/81 H 99 Room Air 03/10/24 02:36 03/10/24 02:36 03/10/24 02:36 03/10/24 02:36 03/10/24 02:36 03/10/24 02:36 Oxygen Delivery Method Room Air Weight: 69.7 kg Body Mass Index (BMI) 25.6 Intake & Output: Intake and Output for Last 24 Hours 03/08/24 03/09/24 03/10/24 23:59 23:59 23:59 Intake Total 1560 / 1560 850 / 850 Balance 1560 / 1560 850 / 850 Lab / Micro Data 03/10/24 05:07 03/10/24 05:07 Labs: Laboratory Results - last 24 hr 03/08/24 00:35: Hepatitis A IgM Ab Negative, Hep Bs Antigen Negative, Hep B Core IgM Ab Negative, Hepatitis C Ab (EIA) Non Reactive, Hep C Ab Comment Comment, HCV Quantitation Not Reportable, HCV RNA PCR Test Info Not Reportable, Hepatitis C Virus Note Not Reportable 03/10/24 05:07: WBC 6.5, RBC 3.75 L, Hgb 11.9 L, Hct 36.4 L, MCV 97.1 H, MCH 31.7, MCHC 32.7 D, RDW Std Deviation 46.6 H, RDW Coeff of Lilian 13.0, Plt Count 182, MPV 10.8, Immature Gran % (Auto) 1.400 H, Neut % (Auto) 61.9, Lymph % (Auto) 28.3, [place] % (Auto) 6.0, Eos % (Auto) 1.8, Baso % (Auto) 0.6, Absolute Neuts (auto) 4.0, Absolute Lymphs (auto) 1.84, Nucleated RBC % 0, Sodium 136, P otassium 3.0 L, Chloride 101, Carbon Dioxide 28.0, Anion Gap 7, BUN 7, Creatinine 0.78, Estim Creat Clear Calc 102.94, Est GFR (MDRD) Af Amer 139, Est GFR (MDRD) Non-Af 115, BUN/Creatinine Ratio 9.0 L, Glucose 91, Calcium 9.1, T otal Bilirubin 1.30 H, AST 52 H, ALT 63 H, Alkaline Phosphatase 118 H, Total Protein 6.8, Albumin 2.4 L, Globulin 4.4 H, Albumin/Globulin Ratio 0.5 L Physical Exam Narrative GENERAL: cooperative HEENT: Atraumatic; normocephalic EYES; Anicteric, Normal Conjunctiva NECK; supple, normal thyroid, RESPIRATORY: Diminished to auscultation CARDIOVASCULAR: Regular S1 S2, GI: soft, normoactive bowel sounds, : No Renal angle tenderness; EXTREMITIES: No edema, no clubbing, MUSCULOSKELETAL: no muscle wasting NEURO: Awake; no lateralizing signs. SKIN: No Rash PSYCH; Flat affect Assessment & Plan Assessment/Plan (1) Acute alcoholic pancreatitis: QUALIFIERS: Acute pancreatitis complication: no infection or necrosis Qualified Code(s): K85.20 - Alcohol induced acute pancreatitis without necrosis or infection (2) Chronic alcohol abuse: (3) Hyponatremia: (4) Abdominal pain: QUALIFIERS: Abdominal location: epigastric Qualified Code(s): R 10.13 - Epigastric pain PLAN: Plan Patient is a 44-year-old gentleman who presented with abdominal pain diagnosed with alcoholic induced pancreatitis. Admitted to the regular nursing floor where patient is currently being managed 1. Alcohol induced pancreatitis ? Patient was managed conservatively initially with bowel rest and diet advance as tolerated in addition to IV fluids pain meds as well as PPI. Consult was placed to Dr. Hines with GI plans for patient to undergo endoscopic evaluation. He also recommended for patient to undergo MRCP which was ordered this morning EGD findings: Impressions : - Esophageal mucosal changes suspicious for short-segment Neves's esophagus. Acute gastritis. Biopsied. Acute alcoholic duodenitis. Biopsied. 2. Chronic alcohol dependence ? Patient was managed with phenobarb taper 3. Hypokalemia -Corrected per protocol 4. DVT prophylaxis ? Low risk with encouraging ambulation Time spent in the patient's overall evaluation,decision-making process, review of diagnostic data, adjustment of management, discussion with other providers, nursing nursing and ancillary staff involved in patient's care documentation, 36 minutes Charges/Coding Visit Charges Inpatient E&M: 89866 Subs Hosp L2
[2024-03-10] MEDS: Pantoprazole Sodium 40 MG in 0.9% Normal Saline (100mL MB+) 100 ML 330 MG IV (08:57)
[2024-03-10] MEDS: Potassium Chloride 10mEq/100mL 10 MEQ/100 ML IV.SOLN. 100 MEQ IV BOLUS ×4 (09:24→14:31)
--- NOTE | 2024-03-10 12:47 | PCM.PRE.AN2 ---
ASA Classification* ASA Classification ASA Classification: 3 Assessment & Plan Anesthesia* Anesthesia Assessment Anesthesia Assessment: Discussed sedation and/or anesthesia options, risks, benefits, and alternatives with patient/parents/legal guardian/POA. Questions invited. The patient/parents/legal guardian/POA seems to understand and agrees to proceed with anesthesia plan. Reviewed the physical assessment, medical history, allergy history and patient home medications list prior to surgery/procedure/anesthetic and documented any changes. Performed airway and anesthesia risk assessments. Anesthesia Type Anesthesia Type: MAC History Source History Obtained from:: Patient and Chart Anesthesia Focused Assessment* Temperature: 97.8 F Pulse Rate: 103 Blood Pressure: 94/75 Respiratory Rate: 18 Pulse Ox: 100 Oxygen Delivery Method: Room Air Airway Assessment Mouth opens: >3 cm Mallampati Score: II Teeth Condition: Caps/Crowns (Left upper jaw patient has a post to be connected to a crown in the future.) Neck Range of motion (ROM): Limited ROM (Slight decrease in extension) Focused Labs Anesthesia Preop lab: CBC WBC 6.5 K/mm3 (4.4-11.0) 03/10/24 05:07 RBC 3.75 M/mm3 (4.6-6.2) L 03/10/24 05:07 Hgb 11.9 g/dL (13.0-16.5) L 03/10/24 05:07 Hct 36.4 % (40-54) L 03/10/24 05:07 Plt Count 182 K/mm3 (150-450) 03/10/24 05:07 CHEMISTRY Potassium 3.0 mmol/L (3.5-5.1) L 03/10/24 05:07 Sodium 136 mmol/L (136-145) 03/10/24 05:07 Magnesium 1.7 mg/dL (1.6-2.6) 03/08/24 05:35 Phosphorus 2.4 mg/dL (2.5-4.9) L 03/08/24 05:35 BUN 7 mg/dL (7-18) 03/10/24 05:07 Creatinine 0.78 mg/dL (0.70-1.30) 03/10/24 05:07 Glucose 91 mg/dL (74-106) 03/10/24 05:07 POC Glucose 106 mg/dL (74-106) 07/05/23 17:47 TSH 2.310 uIU/mL (0.358-3.740) 03/08/24 05:35 COAG PT 12.5 SECONDS (11.7-14.9) 10/27/23 21:20 Pre-Assessment Diagnosis/Proposed Procedure Planned Operative Procedure(s): Esophagogastroduodenoscopy. Anesthesia History Anesthesia History - head porter: Anesthesia History - head porter Hx Hospitalization No 11/19/23 16:09 Any Problems With Anesthesia Cholinesterase deficiency You/Your Family Experience fever (hyperthermia) with Relationship Recent Exposure to Contagious Disease Does patient have nerve stimulator Patient instructed to have device shut off --Does patient have Pacemaker or ICD? When Was Last Pacemaker Check QUESTION #4 FULL TEXT: You/Your Family Experience fever (hyperthermia) with Anesthesia Last Oral Intake Last Oral intake: Last Oral Intake NPO since Meds taken in AM with sips of water? Meds patient instructed to take am of surgery Any additional information?: Yes NPO since: 00:00 Meds taken in AM with sips of water?: Yes PONV PONV - head porter: PONV - head porter Female HX of Motion Sickness HX of N/V After Surgery Non-Smoker Duration of Surgery greater than 60 minutes Number of Risk Factors PONV Score Height & Weight Height & Weight: Anesthesia: Height & Weight Height 5 ft 5 in 03/08/24 12:40 Weight: 69.7 kg 03/10/24 06:00 Body Mass Index (BMI) 25.6 03/10/24 06:00 Respiratory Assessment Respiratory Assessment - head porter: Respiratory Tract Infection Hx - head porter Hx Respiratory Tract Infection Any additional information?: Yes Hx Respiratory Tract Infection: No STOP Sleep Apnea STOP Sleep Apnea - head porter: STOP Sleep Apnea - head porter Hx Hypertension No 03/08/24 01:00 Hx Sleep Apnea No 03/08/24 01:00 CPAP BIPAP Do you snore loudly (louder No 03/08/24 01:00 than talking or can be heard Do you often feel tired/ No 03/08/24 01:00 fatigued/ sleepy during daytime? Has anyone observed you stop No 03/08/24 01:00 breathing during sleep? STOP Results Negative 03/08/24 01:00 QUESTION #5 FULL TEXT : Do you snore loudly (louder than talking or can be heard through closed doors)? 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 Specify any problems Hx of Preganancy in last 3 N/A 03/08/24 01:00 Months Nurse Filling Out Transfusion CSIGNORIN 03/08/24 01:00 & Questions: Date: 03/08/24 03/08/24 01:00 Time: 01:02 03/08/24 01:00 Patient unable to answer at this time (ie. confused, unrespo /Reproduction History /Reproductive History - head porter: /Reproductive Hx- head porter Hx Now Gestational Age (in weeks): EDC: Hx Hx Para Hx Section SAB Active Medications Active Medications: Current Medications Generic Name Dose Route Start Last Admin Trade Name Freq PRN Reason Stop Dose Admin Albuterol Sulfate 2.5 mg 03/08/24 00:54 Albuterol 2.5 Mg/3 Ml Vial.Neb. INHALATION Q2H PRN PRN SOB &/OR WHEEZING Dicyclomine HCl 20 mg 03/08/24 09:52 Dicyclomine 10 Mg Capsule PO Q6H PRN PRN abdominal discomfort Fenofibrate 145 mg 03/08/24 10:45 03/10/24 08:52 Fenofibrate 145 Mg Tablet PO Not Given DAILY ROBERTH Folic Acid 1 mg 03/09/24 08:00 03/10/24 08:52 Folic Acid 1 Mg Tablet PO Not Given DAILY@0800 ROBERTH Gabapentin 300 mg 03/08/24 09:52 Gabapentin 300 Mg Capsule PO Q8H PRN PRN moderate to severe anxiety Pantoprazole Sodium 40 mg/ 110 mls @ 330 mls/hr 03/08/24 10:00 03/10/24 09:23 Sodium Chloride IV Infused Q24 ROBERTH Infusion Sodium Chloride 100 mls @ 15 mls/hr 03/08/24 00:57 IV .Q6H40M PRN Saline Flush Sodium Chloride 100 mls @ 15 mls/hr 03/08/24 00:57 IV .Q6H40M PRN Additional IVPB Infusion Ketorolac Tromethamine 15 mg 03/08/24 00:54 03/09/24 18:30 Ketorolac 15 Mg/Ml Vial IV 03/13/24 00:54 15 mg Q6H PRN PRN Administration Pain 1-5/10 or Fever Loperamide HCl 2 mg 03/08/24 09:52 Loperamide 2 Mg Capsule PO Q4H PRN PRN Loose Stools Morphine Sulfate 2 mg 03/08/24 00:54 03/09/24 09:25 Morphine 2 Mg/Ml Syringe IV 2 mg Q4H PRN PRN Administration Pain Score 6-10 Nicotine 14 mg 03/08/24 01:30 03/10/24 08:54 Nicotine 14 Mg Patch TD 14 mg DAILY ROBERTH Administration Ondansetron HCl 4 mg 03/08/24 00:54 03/08/24 05:45 Ondansetron 4 Mg/2 Ml Vial IV 4 mg Q6H PRN PRN Administration NAUSEA/VOMITING Phenobarbital 64.8 mg 03/08/24 10:15 03/10/24 09:07 Phenobarbital 32.4 Mg Tablet PO 03/12/24 18:14 Not Given Q4H ROBERTH Taper Potassium Chloride 40 meq 03/11/24 08:00 Potassium Chloride Oral Tablet 20 Meq PO DAILYCM ROBERTH Promethazine HCl 12.5 mg 03/08/24 00:54 Promethazine 25 Mg/Ml Syringe IM Q4H PRN PRN BREAKTHROUGH NAUSEA Sodium Chloride 10 - 40 ml 03/08/24 00:57 03/09/24 09:30 0.9% Saline Lock 10 Ml Syringe IV 10 ml UD PRN Administration SALINE FLUSH Thiamine HCl 100 mg 03/09/24 08:00 03/10/24 08:52 Thiamine Hydrochloride 100 Mg Tablet PO Not Given DAILYCM ROBERTH Trazodone HCl 100 mg 03/08/24 09:52 Trazodone 100 Mg Tablet PO QHS PRN INSOMNIA PFSH Medical History Chronic alcohol abuse Left shoulder pain Dyslipidemia History of patellar fracture Bimalleolar ankle fracture Generalized anxiety disorder with panic attacks Back pain Bloody stool Abnormal bruising Asthma Fatigue Stomach ulcer Shoulder pain SOB (shortness of breath) Arthritis Home Medications ?Medication ?Instructions ?Recorded ?Last Taken ?Type omeprazole 40 mg capsule,delayed 40 mg PO DAILY 09/11/22 Unknown History release thiamine HCl (vitamin B1) 100 mg 100 mg PO DAILYCM 30 days #30 tabs 07/18/23 Unknown Rx tablet (Vitamin B-1) cyanocobalamin (vitamin B-12) 1,000 mcg PO QDAY 02/25/24 Unknown History 1,000 mcg tablet folic acid 1 mg tablet 1 mg PO QDAY 02/25/24 Unknown History Allergy/AdvReac Type Severity Reaction Status Date / Time No Known Allergies Allergy Verified 03/07/24 18:35 Family History Mother Diabetes Heart disease Hypertension Father Diabetes Heart disease Hypertension Surgical History History of ankle surgery History of hernia surgery Social History household members: none Smoking Status: Light Smoker (<10/day) alcohol intake: current alcohol intake frequency: 3 or more drinks per day Alcohol type: beer substance use type: does not use Review of Systems (Anesthesia) ROS Narrative System reviewed and no additional complaints, except as documented.
--- NOTE | 2024-03-10 13:00 | IMM_PTH ---
PATIENT: IDA HOLLINGSWORTH LOC: MS3 U#:[id number] AGE/SX: 44/M [place] [facility] [place] RE03/08/[address]: Dr. Star Da Silva MD : 1980 BED: 1 DIS: 03/11/2024 SPEC #: [id number] RECD: 03/12/24 11:22 STATUS: JOVON REQ #: [id number] JAVIER: 03/10/24 13:[address]: Mark Hines DEPT: IMMUNOHISTOCHEMISTRY RECD BY: Felix Santillan ENTERED: 03/12/24 11:22 SP TYPE: IMMUNO OTHR DR: DO Dr. Star Cortez MD Dr. Nicholas F Kotsonis, MD Dr. Victor Velasquez, MD Tissues: B - Gastric mucous membrane Procedures: H Pylori (initial) PHYSICIAN & INSTITUTION [place] [address] SPECIMEN INFORMATION: Tissue Source: B- Cardia biopsy Clinical Info: Pancreatitis Specimen Number: [id number] CPT code: 21286 METHODOLOGY: Deparaffinized sections of prefer/formalin-fixed tissue or PAP/DQ stained slides are incubated with monoclonal/polyclonal antibodies/oligonucleotide probes. Localization is made via biotin free immunoperoxidase method. Appropriate controls are performed and reacted as expected. Results on target cell population are indicated in the following table: RESULTS: ANTIBODY / CLONE RESULT Block B H Pylori (polyclonal) negative These tests were developed and their performance characteristics determined by [facility]. They may not have been cleared or approved by the U.[place]. Food and Drug Administration. The FDA has determined that such clearance or approval is not necessary. The above immunohistochemical/dualISH markers are ordered and reviewed by the Pathologist. INTERPRETATION: B. Gastric cardia, biopsy: Negative for Helicobacter pylori organisms. 03/13/2024
--- NOTE | 2024-03-10 13:00 | EGD_PTH ---
PATIENT: IDA HOLLINGSWORTH LOC: MS3 U#:[id number] AGE/SX: 44/M ROOM: [facility] RE03/08/[address]: Dr. Star Da Silva MD : 1980 BED: 1 DIS: 03/11/2024 SPEC #: [id number] RECD: 03/11/24 10:12 STATUS: JOVON REShantanu #: [id number] JAVIER: 03/10/24 13:[address]: Mark Hines DEPT: SURGICAL PATHOLOGY RECD BY: Andreas Quarles ENTERED: 03/11/24 11:25 SP TYPE: EGD BIOPSY OTHR DR: DO Dr. Star Cortez MD Dr. Nicholas F Kotsonis, MD Dr. Victor Velasquez, MD Tissues: A - Duodenum, NOS B - Gastric mucous membrane C - Esophagus, NOS Procedures: Special Stain Group I Surgery Specimen Level IV Alcian Blue/PAS (control) HEADER OPERATION: EGD with biopsy PRE-OP DIAGNOSIS: Pancreatitis TISSUE SUBMITTED: A- Duodenal biopsy, B- Cardia biopsy, C- Distal esophagus biopsy MICROSCOPIC DIAGNOSIS A. Duodenal, biopsy: Fragments of small intestinal mucosa, no pathologic diagnosis. B. Cardia, biopsy: Mild gastritis. See microscopic description and comment. C. Distal esophagus, biopsy: Fragments of gastric mucosa with chronic inflammation. Intestinal metaplasia (goblet cell metaplasia) not identified. See comment. 03/12/2024 COMMENT B. The results of immunohistochemistry for Helicobacter pylori will be reported separately ([id number]). C. Alcian blue/PAS stain with matched control is used in the evaluation of the specimen. MICROSCOPIC DESCRIPTION Slides are reviewed. B. The specimen shows fragments of gastric mucosa with chronic inflammatory cell infiltrates in the lamina propria consisting of lymphocytes and plasma cells, consistent with mild chronic gastritis. GROSS DESCRIPTION A. Received in fixative is one container labeled with the patient's name and designated Duodenal biopsy. The specimen consists of two irregular fragments of light duarte soft tissue that in aggregate measure 0.8 x 0.4 x 0.1 cm. The specimen is totally submitted in one cassette. B. Received in fixative is one container labeled with the patient's name and designated Cardia biopsy. The specimen consists of multiple irregular fragments of light duarte soft tissue that in aggregate measure 1.0 x 0.4 x 0.1 cm. The specimen is totally submitted in one cassette. C. Received in fixative is one container labeled with the patient's name and designated Distal esophagus biopsy. The specimen consists of multiple irregular fragments of light duarte soft tissue that in aggregate measure 1.2 x 0.3 x 0.1 cm. The specimen is totally submitted in one cassette. SJ.mr 03/11/2024 TC:3 CPT:12816z2,57377
--- NOTE | 2024-03-10 13:18 | OP.EGD_ITS ---
Patient Name: Danie Nicholas Procedure Date: 03/10/2024 1:01 PM Date of : 1980 Age: 44 Procedure: Upper GI endoscopy Indications: Epigastric abdominal pain, Functional Dyspepsia, Abnormal CT of the GI tract Providers: Mark Hines DO Medicines: Monitored Anesthesia Care Patient Profile: This is a 44 year old male. Refer to note in patient chart for documentation of history and physical. Patient has symptoms of acute epigastric abdominal pain, acute nausea and acute vomiting. Complications: No immediate complications. Procedure: Pre-Anesthesia Assessment: - Prior to the procedure, a History and Physical was performed, and patient medications and allergies were reviewed. The patient is competent. The risks and benefits of the procedure and the sedation options and risks were discussed with the patient. All questions were answered and informed consent was obtained. Patient identification and proposed procedure were verified by the physician in the pre-procedure area. Mental Status Examination: alert and oriented. Airway Examination: normal oropharyngeal airway and neck mobility. Respiratory Examination: clear to auscultation. CV Examination: normal. Prophylactic Antibiotics: The patient does not require prophylactic antibiotics. Prior Anticoagulants: The patient has taken no anticoagulant or antiplatelet agents except for NSAID medication. ASA Grade Assessment: II - A patient with mild systemic disease. After reviewing the risks and benefits, the patient was deemed in satisfactory condition to undergo the procedure. The anesthesia plan was to use monitored anesthesia care (MAC). Immediately prior to administration of medications, the patient was re-assessed for adequacy to receive sedatives. The heart rate, respiratory rate, oxygen saturations, blood pressure, adequacy of pulmonary ventilation, and response to care were monitored throughout the procedure. The physical status of the patient was re-assessed after the procedure. After obtaining informed consent, the endoscope was passed under direct vision. Throughout the procedure, the patient's blood pressure, pulse, and oxygen saturations were monitored continuously. The Endoscope was introduced through the mouth, and advanced to the second part of duodenum. The upper GI endoscopy was accomplished without difficulty. Scope In: 1:06:48 PM Scope Out: 1:10:32 PM Total Procedure Duration Time 0 hours 3 minutes 44 seconds Findings: There were esophageal mucosal changes suspicious for short-segment Neves's esophagus present in the lower third of the esophagus. The maximum longitudinal extent of these mucosal changes was 2 cm in length. Mucosa was biopsied with a cold forceps for histology in a targeted manner at intervals of 1 cm in the lower third of the esophagus. One specimen bottle was sent to pathology. Localized mild inflammation characterized by erosions, erythema, friability and shallow ulcerations was found in the cardia. Biopsies were taken with a cold forceps for histology. Verification of patient identification for the specimen was done. Estimated blood loss was minimal. Patchy mild inflammation characterized by erosions and erythema was found in the first portion of the duodenum and in the second portion of the duodenum. Biopsies were taken with a cold forceps for histology. Verification of patient identification for the specimen was done. Estimated blood loss was minimal. Impression: - Esophageal mucosal changes suspicious for short-segment Neves's esophagus. Biopsied. - Acute gastritis. Biopsied. - Acute alcoholic duodenitis. Biopsied. Recommendation: - [facility]. - Resume regular diet. - Continue present medications. - Await pathology results. Procedure Code(s): --- Professional --- 18428, Esophagogastroduodenoscopy, flexible, transoral; with biopsy, single or multiple CPT copyright 2021 [employer]. All rights reserved. The codes documented in this report are preliminary and upon consumer attorney review may be revised to meet current compliance requirements. Mark Hines DO 03/10/2024 1:18:28 PM This report has been signed electronically. Number of Addenda: 0 Note Initiated On: 03/10/2024 1:01 PM
--- NOTE | 2024-03-10 13:18 | OP.CCLET_ITS ---
03/10/2024 Wilbert Quiroz [address] [place] [address] Re : Upper GI endoscopy procedure for Danie Nicholas Dear Dr. Quiroz This procedure was performed on Sunday, March 10, 2024. My impressions and recommendations are as follows: Impressions : - Esophageal mucosal changes suspicious for short-segment Neves's esophagus. Biopsied. - Acute gastritis. Biopsied. - Acute alcoholic duodenitis. Biopsied. Recommendations : - [facility]. - Resume regular diet. - Continue present medications. - Await pathology results. My findings are described in the full procedure note, which is enclosed. If I can be of further assistance, please feel free to contact me at . Sincerely, Mark Hines, 03/10/2024 1:18:28 PM This report has been signed electronically.
--- NOTE | 2024-03-10 13:18 | PCM.POST.ANE ---
Anesthesia: Postop Eval I Current Vital Signs Temperature: 97.1 F Pulse Rate: 94 Blood Pressure: 90/64 Respiratory Rate: 16 Pulse Ox: 97 Oxygen Delivery Method: Room Air Assessment Airway patent: Yes Spontaneous unlabored respirations: Yes Mental status: Asleep nausea: No Vomiting: No Anesthesia Complication: No Fluid Hydration Crystalloid volume administer (ml): 20 Total IV fluid infused: 20 Progress Note Anesthesia document: Postop Eval 1 completed: Yes
[2024-03-10 13:36] LABS: Pathologist Review Reviewed
--- NOTE | 2024-03-10 14:33 | CASEMGMT ---
KAI CM into pt room, provided pt with a rx for FWW. Offered to obtain for pt and have delivered to room. Pt states he is not sure if he will need it so he would like the rx only. Pt denies any further homegoing needs at this time.
--- NOTE | 2024-03-10 16:52 | PCM.POSTANE2 ---
Anesthesia Postop Eval I Sum Postop Eval Completion status Anesthesia document: Postop Eval 1 completed: Yes Anesthesia Postop Eval I Summary Anesthesia Postop Eval I Summary: Anesthesia Postop Eval I: Assessment Summary Airway patent Yes 03/10/24 13:19 [email or web address] Spontaneous unlabored Yes 03/10/24 13:19 [email or web address] respirations Mental status Asleep 03/10/24 13:19 [email or web address] nausea No 03/10/24 13:19 [email or web address] Vomiting No 03/10/24 13:19 [email or web address] Anesthesia Postop Eval I: Fluid Summary Crystalloid volume administer 20 03/10/24 13:19 [email or web address] (ml) Colloids volume administered ( ml) Blood Product volume administered (ml) Total IV fluid infused 20 03/10/24 13:19 [email or web address] Anesthesia Postop Eval I: Summary Notes Anesthesia Complication No 03/10/24 13:19 [email or web address] Anesthesia Complication Comment: Post-operative progress note Anesthesia: Postop Eval II Evaluation Mental status: Awake and Calm Pain Level: 0 nausea: No Vomiting: No Complications Anesthesia Complication: No
[2024-03-10] MEDS: 0.9% Saline Lock 10 ML Syringe IV (23:40)
[2024-03-11 06:00] VITALS: BMI 27.0
[2024-03-11 06:03] VITALS: BP 103/67; PULSE 81; RESP 17; TEMP 36.6; O2SAT 100
[2024-03-11] MEDS: Phenobarbital 32.4 MG Tablet 64.8 MG PO (06:07)
--- NOTE | 2024-03-11 07:55 | PN.HOSP_ITS ---
Reason for Visit Reason for Visit: Diagnoses Hypo-osmolality and hyponatremia (03/08/24) Alcohol abuse, uncomplicated (03/08/24) Alcohol induced acute pancreatitis without necrosis or infection (03/08/24) Epigastric pain (03/08/24) Subjective Subjective Patient MRI as well as EGD findings as below. Patient symptoms significantly improved. Patient will be assessed for this Objective Data Objective Data Vital Signs: Vital Signs Temp Pulse Resp BP Pulse Ox O2 Del Method 98 F 81 17 103/67 100 Room Air 03/11/24 06:03 03/11/24 06:03 03/11/24 06:03 03/11/24 06:03 03/11/24 06:03 03/11/24 06:03 Oxygen Delivery Method Room Air Weight: 73.6 kg Body Mass Index (BMI) 27.0 Intake & Output: Intake and Output for Last 24 Hours 03/09/24 03/10/24 03/11/24 23:59 23:59 23:59 Intake Total 850 / 850 495.00 / 495.00 300 / 300 Balance 850 / 850 495.00 / 495.00 300 / 300 Lab / Micro Data 03/10/24 05:07 03/10/24 05:07 Labs: Laboratory Results - last 24 hr 03/07/24 19:55: Diff Path Review Reviewed, Sodium 125 L, Potassium 4.1, Chloride 87 L, Carbon Dioxide 24.0, Anion Gap 14, BUN 8, Creatinine 1.43 H, Estim Creat Clear Calc 56.15, Est GFR (MDRD) Af Amer 69, Est GFR (MDRD) Non-Af 57 L, B UN/Creatinine Ratio 5.6 L, Glucose 276 H, Calcium 7.9 L, Total Bilirubin 1.80 H, AST 178 H, ALT TNP, Alkaline Phosphatase 199 H, Total Protein 7.4, Albumin 3.2, Globulin 4.2, Albumin/Globulin Ratio 0.8 L, Lipase 354 H Radiography Diagnostic Testing: Radiology Impression MRCP 03/10/24 08:41 IMPRESSION: 1. No obvious cholelithiasis or choledocholithiasis. No evidence of biliary ductal dilatation. 2. Peripancreatic edema without focal pancreatic lesion identified suggesting mild uncomplicated acute pancreatitis. Electronically Signed: Efraín Francisco DO at 19:51 EDT , Physical Exam Narrative GENERAL: cooperative HEENT: Atraumatic; normocephalic EYES; Anicteric, Normal Conjunctiva NECK; supple, normal thyroid, RESPIRATORY: Diminished to auscultation CARDIOVASCULAR: Regular S1 S2, GI: soft, normoactive bowel sounds, : No Renal angle tenderness; EXTREMITIES: No edema, no clubbing, MUSCULOSKELETAL: no muscle wasting NEURO: Awake; no lateralizing signs. SKIN: No Rash PSYCH; Flat affect Assessment & Plan Assessment/Plan (1) Acute alcoholic pancreatitis: QUALIFIERS: Acute pancreatitis complication: no infection or necrosis Qualified Code(s): K85.20 - Alcohol induced acute pancreatitis without necrosis or infection (2) Chronic alcohol abuse: (3) Hyponatremia: (4) Abdominal pain: QUALIFIERS: Abdominal location: epigastric Qualified Code(s): R 10.13 - Epigastric pain PLAN: Plan Patient is a 44-year-old gentleman who presented with abdominal pain diagnosed with alcoholic induced pancreatitis. Admitted to the regular nursing floor where patient is currently being managed 1. Alcohol induced pancreatitis ? Patient was managed conservatively initially with bowel rest and diet advance as tolerated in addition to IV fluids pain meds as well as PPI. Consult was placed to Dr. Hines with GI plans for patient to undergo endoscopic evaluation. He also recommended for patient to undergo MRCP which was ordered this morning EGD findings: Impressions : - Esophageal mucosal changes suspicious for short-segment Neves's esophagus. Acute gastritis. Biopsied. Acute alcoholic duodenitis. Biopsied. MRCP 03/10/24 08:41 IMPRESSION: a. No obvious cholelithiasis or choledocholithiasis. No evidence of biliary ductal dilatation. b. Peripancreatic edema without focal pancreatic lesion identified suggesting mild uncomplicated acute pancreatitis. 2. Chronic alcohol dependence ? Patient was managed with phenobarb taper 3. Hypokalemia -Corrected per protocol 4. DVT prophylaxis ? Low risk with encouraging ambulation Time spent in the patient's overall evaluation,decision-making process, review of diagnostic data, adjustment of management, discussion with other providers, nursing nursing and ancillary staff involved in patient's care documentation, 36 minutes
[2024-03-11] MEDS: Potassium Chloride Oral Tablet 20 MEQ 40 MEQ PO (07:56)
[2024-03-11] MEDS: Folic Acid 1 MG Tablet PO (07:56)
[2024-03-11] MEDS: Fenofibrate 145 MG Tablet PO (07:56)
[2024-03-11] MEDS: Thiamine Hydrochloride 100 MG Tablet PO (07:56)
[2024-03-11] MEDS: 0.9% Saline Lock 10 ML Syringe IV (08:02)
[2024-03-11] MEDS: Pantoprazole Sodium 40 MG in 0.9% Normal Saline (100mL MB+) 100 ML 330 MG IV (08:02)
[2024-03-11 09:01] VITALS: BP 98/74; PULSE 80; RESP 16; TEMP 36.3; O2SAT 99
[2024-03-11 11:21] VITALS: BP 96/75; PULSE 85; RESP 16; TEMP 36.6; O2SAT 100
--- NOTE | 2024-03-11 11:23 | DS.PCM_ITS ---
Providers Date of Admission: 03/08/24 Date of Discharge: 03/11/24 Primary Care Physician: Dr. Wilbert Quiroz MD Consultations 03/08/24 00:54 Consult: Gastroenterology Routine Consulting Provider: Makr Hines Reason for Consult: Acute EtOH Pancreatitis. EMERGENT Consult: No MD Notified: Yes Date Notified: 03/08/24 Time Notified: 06:43 Method of Notification: Text Reason For Visit: ACUTE ETOH PANCREATITIS Diagnosis Discharge Diagnosis (1) Acute alcoholic pancreatitis: Status: Acute Code(s): K85.20 - Alcohol induced acute pancreatitis without necrosis or infection Qualifiers: Acute pancreatitis complication: no infection or necrosis Qualified Code(s): K85.20 - Alcohol induced acute pancreatitis without necrosis or infection (2) Chronic alcohol abuse: Status: Chronic Code(s): F10.10 - Alcohol abuse, uncomplicated (3) Hyponatremia: Status: Acute Code(s): E87.1 - Hypo-osmolality and hyponatremia (4) Abdominal pain: Status: Acute Code(s): R10.9 - Unspecified abdominal pain Qualifiers: Abdominal location: epigastric Qualified Code(s): R10.13 - Epigastric pain Plan Patient is a 44-year-old gentleman who presented with abdominal pain diagnosed with alcoholic induced pancreatitis. Admitted to the regular nursing floor where patient is currently being managed 1. Alcohol induced pancreatitis ? Patient was managed conservatively initially with bowel rest and diet advance as tolerated in addition to IV fluids pain meds as well as PPI. Consult was placed to Dr. Hines with GI plans for patient to undergo endoscopic evaluation. He also recommended for patient to undergo MRCP which was ordered this morning EGD findings: Impressions : - Esophageal mucosal changes suspicious for short-segment Neves's esophagus. Acute gastritis. Biopsied. Acute alcoholic duodenitis. Biopsied. MRCP 03/10/24 08:41 IMPRESSION: a. No obvious cholelithiasis or choledocholithiasis. No evidence of biliary ductal dilatation. b. Peripancreatic edema without focal pancreatic lesion identified suggesting mild uncomplicated acute pancreatitis. 2. Chronic alcohol dependence ? Patient was managed with phenobarb taper 3. Hypokalemia -Corrected per protocol 4. Hypertriglyceridemia ? Patient was discharged on fenofibrate 5. DVT prophylaxis ? Low risk with encouraging ambulation Time spent in the patient's overall evaluation,decision-making process, review of diagnostic data, adjustment of management, discussion with other providers, nursing nursing and ancillary staff involved in patient's care documentation, 36 minutes Medications at Discharge Home Medications cyanocobalamin (vitamin B-12) 1,000 mcg tablet 1,000 mcg PO QDAY 02/25/24 fenofibrate nanocrystallized 145 mg tablet 145 mg PO DAILY #90 tabs 03/11/24 folic acid 1 mg tablet 1 mg PO QDAY #30 tabs 03/11/24 omeprazole 40 mg capsule,delayed release 40 mg PO BIDCM #120 caps 03/11/24 potassium chloride 20 mEq tablet,extended release(part/cryst) 40 meq (2 x 20 mEq) PO DAILYCM #60 tabs 03/11/24 thiamine HCl (vitamin B1) 100 mg tablet (Vitamin B-1) 100 mg PO DAILYCM 30 days #30 tabs 03/11/24 Physical Exam Narrative GENERAL: cooperative HEENT: Atraumatic; normocephalic EYES; Anicteric, Normal Conjunctiva NECK; supple, normal thyroid, RESPIRATORY: Diminished to auscultation CARDIOVASCULAR: Regular S1 S2, GI: soft, normoactive bowel sounds, : No Renal angle tenderness; EXTREMITIES: No edema, no clubbing, MUSCULOSKELETAL: no muscle wasting NEURO: Awake; no lateralizing signs. SKIN: No Rash PSYCH; Flat affect Weight / BMI Weight Weight: 73.6 kg Body Mass Index (BMI) 27.0 ABG / Lab / Microbiology Data 03/10/24 05:07 03/10/24 05:07 Laboratory: Laboratory Results - last 24 hr 03/07/24 19:55: Diff Path Review Reviewed, Sodium 125 L, Potassium 4.1, Chloride 87 L, Carbon Dioxide 24.0, Anion Gap 14, BUN 8, Creatinine 1.43 H, Estim Creat Clear Calc 56.15, Est GFR (MDRD) Af Amer 69, Est GFR (MDRD) Non-Af 57 L, B UN/Creatinine Ratio 5.6 L, Glucose 276 H, Calcium 7.9 L, Total Bilirubin 1.80 H, AST 178 H, ALT TNP, Alkaline Phosphatase 199 H, Total Protein 7.4, Albumin 3.2, Globulin 4.2, Albumin/Globulin Ratio 0.8 L, Lipase 354 H Radiography Diagnostic Testing: Radiology Impression MRCP 03/10/24 08:41 IMPRESSION: 1. No obvious cholelithiasis or choledocholithiasis. No evidence of biliary ductal dilatation. 2. Peripancreatic edema without focal pancreatic lesion identified suggesting mild uncomplicated acute pancreatitis. Electronically Signed: Efraín ScalesShital CamDO azul at 19:51 EDT , D/C Instructions Discharge Diet: No restrictions Discharge Activity: Return to Normal Activity Call your doctor if you observe: Fever of 101 or Higher, Shortness of breath, Fainting spells and Chest pain Meaningful Use Info Meaningful Use Meaningful Use Diagnoses (Choose all that apply): None applicable Ischemic Stroke Statin Dosing Therapy Reference: STATIN DOSE THERAPY REFERENCE: * Patients > 75 years receive moderate or high dose statin therapy. * Patients 75 years or YOUNGER should receive HIGH intensity statin dose unless contraindicated. You will be required to document reason for non-treatment if statin daily dose does not meet guidelines. HIGH DOSE STATIN THERAPY DAILY Atorvastatin > than or = to 40 mg Rosuvastatin > than or = to 20 mg Amlodipine + Atorvastatin > than or = to 2.5/40 mg Ezetimibe + Simvastatin 10/80 mg Simvastatin 80mg Discharge Plan Admission Admit Date/Time: 03/08/24 00:09 Attending Provider: Star Da Silva Primary Care Provider: Wilbert Quiroz Consulting Providers: Star Khalil; Mark Hines; Elvin Burnette Discharge Orders/Prescriptions Prescriptions: New potassium chloride 20 mEq Tablet,Er Particles/Crystals 40 meq PO DAILYCM Qty: 60 0RF fenofibrate nanocrystallized 145 mg Tablet 145 mg PO DAILY Qty: 90 0RF Continued cyanocobalamin (vitamin B-12) 1,000 mcg tablet 1,000 mcg PO QDAY thiamine HCl (vitamin B1) [Vitamin B-1] 100 mg Tablet 100 mg PO DAILYCM 30 Days Qty: 30 0RF folic acid 1 mg tablet 1 mg PO QDAY Qty: 30 0RF Changed omeprazole 40 mg capsule,delayed release(DR/EC) 40 mg PO BIDCM Qty: 120 0RF Referrals / Follow Up: Wilbert Quiroz MD [Primary Care Provider] - Within 1 Week Disposition Disposition (needs filled in before D/C Order can be placed): Home, Self Care Charges/Coding Visit Charges Inpatient E&M: 50527 Disch Hosp >30min
--- NOTE | 2024-06-04 16:42 | CASEMGMT ---
KAI BROWNING NOTE: VM received from pt asking for documentation for need of a walker from a hospital in-patient visit in February. Pt states he is trying to get on disability and they are the ones requesting this information. Pt states he never ended up picking up the walker and has not been using one since he was in the hospital in February. He also states he has went to a few OP therapy sessions, but they did not have him use a walker, although he is still interested in getting one. KAI BROWNING advised pt to f/u with his PCP for re-evaluation for need of a walker, as it has been about 3 months since he has been seen by the physician @ [facility], and if PCP feels he needs a walker, further documentation can be provided at that time to support this. He voices understanding. Harry MARCOS RN, CM
== END 2024-03-11 12:03 | disposition home or self-care (01) | DRG 282 ==
LOC: ED 23:13 → MS3 03-08 00:24
PROVIDERS: Family Medicine; Internal Medicine Gastroenterology; Admitting Provider Internal Medicine; Emergency Provider Emergency Medicine; PCP Internal Medicine; Visit Provider Internal Medicine
PROC: 0DJ08ZZ Inspection of Upper Intestinal Tract, Via Natural or Artificial Opening Endoscopic (ICD-10-PCS; CPT 43235; principal; 2024-03-10 12:55)
DX: K85.20 Alcohol induced acute pancreatitis without necrosis or infection (principal); E87.1 Hypo-osmolality and hyponatremia; F10.20 Alcohol dependence, uncomplicated; K86.1 Other chronic pancreatitis; K21.9 Gastro-esophageal reflux disease without esophagitis; F17.200 Nicotine dependence, unspecified, uncomplicated; E78.5 Hyperlipidemia, unspecified; K29.80 Duodenitis without bleeding; K29.00 Acute gastritis without bleeding; E87.6 Hypokalemia; K22.70 Barrett's esophagus without dysplasia; F41.1 Generalized anxiety disorder; E88.810 Metabolic syndrome; Y90.9 Presence of alcohol in blood, level not specified
CPT/HCPCS: 36415; 74177; 74181; 80048; 80053; 80061; 80074; 81001; 83605; 83690; 83735; 83930; 83935; 84100; 84443; 85025; 88305; 88312; 88342; 94668; 99252; 99284; 99406; J7030; J7040; Q9967; A4216; G0463; J2405

== ENCOUNTER → 2024-03-13 | Outpatient (CLI) | payer MEDICAID, SELFPAY ==
--- NOTE | 2024-03-13 16:36 | MRI_ITS ---
STUDY: MRI LEFT SHOULDER REASON FOR EXAM: Male, 44 years old. Pain, assess for cuff tear TECHNIQUE: Standardized fat and water weighted pulse sequences were obtained in all 3 orthogonal planes. COMPARISON: X-ray January 24, 2024. FINDINGS: There is 1.3 cm full-thickness tear of the supraspinatus tendon, series 5 through 10. Normal infraspinatus tendon. There is tendinosis of the subscapularis tendon. Normal teres minor tendon. Normal supraspinatus muscle. Normal infraspinatus muscle. Normal subscapularis muscle. Normal teres minor muscle. Normal glenohumeral articulation. There is small joint effusion. Normal humeral head and visualized proximal humerus. Normal biceps labral complex. Normal intracapsular long biceps tendon. There is tear of the superior labrum adjacent to the biceps anchor, series 4 image 9. Normal capsulo- ligamentous complex. Normal rotator interval. There is mild osteoarthritis of the acromioclavicular articulation. There is a Type II morphology (curved) acromion, with a neutral orientation. There is mild subacromial-subdeltoid bursal fluid. Normal visualized coracohumeral and coracoacromial ligaments. Normal quadrilateral space. Normal axillary space. Normal deltoid muscle. Normal trapezius muscle. MRI/Upper Ext Joint Only(Routine) IMPRESSION: Rotator cuff tear of the supraspinatus tendon. SLAP tear of the superior labrum. Joint effusion. Subacromial subdeltoid bursitis. Electronically Signed: Carter Fierro MD at 19:17 EDT ,
== END | disposition home or self-care (01) ==
LOC: MRI 16:10
PROVIDERS: PCP Internal Medicine; Referring Provider Orthopaedic Surgery Sports Medicine; Visit Provider Orthopaedic Surgery Sports Medicine
DX: M25.512 Pain in left shoulder (principal)
CPT/HCPCS: 73221

== ENCOUNTER 2024-06-16 12:00 | Outpatient (RCR) | payer MEDICAID, SELFPAY ==
--- NOTE | 2024-06-02 17:51 | HP.OTEVAL_ITS ---
Patient's Visit Information Visit Information Visit Information: IDA HOLLINGSWORTH is a 44 year old M, referred to Occupational Therapy by CRISTÓBAL Stock, with a diagnosis of partial thickness burn of left elbow/ cellulitis. Date of Evaluation: 06/02/24 Occupational Therapist: Angely Pierre, SHIRLEY/Ann, CHT Subjective Subjective: this 43-year-old male arrives w dx of L elbow partial thickness burn of left elbow- June 06 was burned at work on L elbow and got infected went to ER for infection. Had swelling and infection of entire LUE treated for infection. 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 Has not worked since accident. Pt has limited ROM and strength in L shoulder and elbow. Has pain with ROM. Pt not doing anything for LUE currently. Pt is R handed and uses LUE as little as possible. Denies numbness and tingling. Pt is not driving. States has pain in shoulder found Slap tear and will have left shoulder sx on . Pt states since the colder weather he feels his left elbow ins not bending as well and has a feeling of tightness. 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 Pain left elbow pain: Current Pain Intensity: 2 Pain Intensity Range: 0 and 4 ROM Elbow: right 0/130 left 0/130 Forearm: right/left WNL Strength Home Health Manager: right 85# left 100# no elbow pain Lateral Pinch: right 30# left 22# Tripod Pinch: right 22# left 30# Sensation Sensation Comments: pt denies tingling or numbness in fingers Quick DASH-Disab of Arm,Shoulder& Hand Quick DASH Score: 60.0000 Goals Goal:ROM equal to unaffected hand: Yes Goal:Full use of affected hand in daily activities including work: Yes Other Goal: pt will report a decrease in feeling of stiffness by 40% or greater by d.c Rehabilitation General Assessment: pt demo ROM is WFL- however pt reports feeling of tightness with ROM- so much so he feels the tightness ( not all the time- noticed it more with a decrease in external temperature) therapist ed. pt on use of compression sleeve to assist in circulation: ed, pt on end range stretch of both flexion and extension- along with alternating biceps flexion with triceps to see if this improves feeling of tightness. ( pt is having left shoulder sx on 2024) pt would like to have as much therapy as he can prior to the sx. Therapist ed. pt to use compression sleeve to help with feeling of stiffness- pt receptive. ( its possible pts residual feeling of tightness is due to dx of his cellulitis and or is RCT) - pt demo understanding and agrees to POC. Rehabilitation Potential: Good Anticipated Interventions Anticipated Interventions: A/AAROM/PROM, Triggerpoint Release, Modalities, Joint Protection/Energy Conservation, Ergonomic Education, Education re assistive Equipment and Education re Diagnosis Visit Plan Frequency: 2-3x /Week Duration: 4-6 Weeks General Plan: pt to get compression sleeve end range stretch of elbow flex and forearm sup/pron TEXT: Thank you for the opportunity to evaluate your patient. For Medicare and Medicare HMO plans, please review the plan of care and approve it. It will need to be FAXED BACK to us at [phone] for Medicare purposes. Please let me know if there are questions or concerns regarding this plan of care. Physician Signature: Date:
--- NOTE | 2024-06-27 11:32 | HP.OTDCSUM ---
Discharge Summary D/C Summary: It has been my pleasure to treat IDA HOLLINGSWORTH under orders from CRISTÓBAL Stock, for the diagnosis of partial thickness burn of left elbow/ cellulitis for a total of 6 visit(s). Please see the following information for a summary of their discharge status. Overall Improvement % Improvement: 75 Objective Objective/Function: left elbow 0/140 pt demo full ROM pt demo to have sx on left shoulder OT is d.c at this time. Goals Patient Goals: Decrease Swelling/Stiffness and Use Hand/Wrist/Arm Normally Again Goal:ROM equal to unaffected hand: Yes Goal Progress: Goal Met Goal Progress: Goal Met Goal:Full use of affected hand in daily activities including work: Yes Other Goal: pt will report a decrease in feeling of stiffness by 40% or greater by d.c (goal met) Plan Plan: d/c note D/C Information d/c sentence: If there are questions or concerns regarding this patient's occupational therapy, please fell free to call me at [phone]. Thank you for the referral of this patient. Sincerely, Angely Pierre, OTR/L, CHT
== END 2024-06-16 19:00 | disposition home or self-care (01) ==
LOC: OT 12:00
PROVIDERS: PCP Internal Medicine; Referring Provider Physician Assistant; Visit Provider Physician Assistant
DX: T22.222D Burn of second degree of left elbow, subsequent encounter (principal)
CPT/HCPCS: 97110; 97166

== ENCOUNTER 2024-06-18 07:16 | Day surgery (SDC) | payer MEDICAID, SELFPAY ==
[2024-06-05 15:29] LABS: Hematocrit 39.4 % (40-54); Hemoglobin 13.1 g/dL (13.0-16.5); Mean Corp Hgb Conc 33.2 g/dL (32-36); Mean Corpuscular Hgb 30.6 pg (27.0-32.0); Mean Corpuscular Volume 92.1 fL (80-94); Mean Platelet Vol. 8.6 fl (6.2-12.0); Platelet Count 306 K/mm3 (150-450); RBC Distribution Width CV 12.4 % (11.6-14.6); RBC Distribution Width SD 41.9 fl (35.1-43.9); Red Blood Count 4.28 M/mm3 (4.6-6.2); White Blood Count 6.3 K/mm3 (4.4-11.0)
[2024-06-05 15:38] LABS: International Normalized Ratio 1.1; Prothrombin Time (Protime)PT. 14.1 SECONDS (11.7-14.9)
[2024-06-05 15:39] LABS: Partial Thromboplast Time 23.7 Seconds (24.1-36.2)
[2024-06-05 16:27] LABS: AST(SGOT) 29 U/L (15-37); Alanine Aminotransfer ALT/SGPT 27 U/L (16-61); Albumin, Serum 3.4 g/dL (3.2-5.0); Alkaline Phosphatase 46 U/L (45-117); Anion Gap 5 (5-15); BUN 15 mg/dL (7-18); BUN/Creat Ratio 11.5 RATIO (10-20); Bilirubin, Direct 0.12 mg/dL (0.00-0.30); Chloride 104 mmol/L (98-107); Creatinine, Serum 1.31 mg/dL (0.70-1.30); EST Glomerular Filtration Rate 63 mL/min (>60); Est Glom Filt Rate - Afr Amer 76 mL/min (>60); Globulin 3.8 g/dL (2.2-4.2); Glucose 106 mg/dL (74-106); Potassium 4.1 mmol/L (3.5-5.1); Protein, Total 7.2 g/dL (6.4-8.2); Sodium Level 137 mmol/L (136-145)
[2024-06-18] VITALS (11 sets, daily range): BP systolic 105–124; BP diastolic 80–92; PULSE 85–106; RESP 15–18; TEMP 36.1–36.6; O2SAT 93–100; BMI 30.4
--- NOTE | 2024-06-18 | TESH_PTH ---
PATIENT: IDA HOLLINGSWORTH LOC: [facility] [place] U#:[id number] AGE/SX: 44/M ROOM: RE06/18/[address]: Dr. Elvis Botello MD : 1980 BED: DIS: 06/18/2024 SPEC #: [id number] RECD: 06/18/24 13:15 STATUS: JOVON JANKI #: [id number] JAVIER: 06/18/24 00:[address]: Elvis Botello DEPT: SURGICAL PATHOLOGY RECD BY: Tobi Amos ENTERED: 06/18/24 13:15 SP TYPE: TENDON OTHR DR: Dr. Wilbert Quiroz MD Tissues: Tendon and tendon sheath, NOS Procedures: Surgery Specimen Level III HEADER OPERATION: Left shoulder arthroplasty, subacromial decompression PRE-OP DIAGNOSIS: Impingement of left shoulder, bursitis of left shoulder, superior labrum anterior to posterior tear of left shoulder, left rotator cuff tear TISSUE SUBMITTED: Left biceps tendon MICROSCOPIC DIAGNOSIS Left bicep tendon, excision: A piece of dense fibroconnective tissue and synovial tissue with reactive, degenerative changes and chronic inflammation. 06/19/2024 MICROSCOPIC DESCRIPTION Slides are reviewed. GROSS DESCRIPTION Received in fixative is one container labeled with the patient's name and designated Left bicep tendon. The specimen consists of a piece of duarte indurated tissue measuring 7.2 x 1 x 0.4cm. Sports Medicine Trainer sections are submitted in one cassette. 06/18/2024 TC:5 CPT:49702
[2024-06-18] MEDS: 0.9% Normal Saline (1000mL) 1,000 ML 15 ML IV (07:34)
--- NOTE | 2024-06-18 07:43 | PRE.ANES_ITS ---
ASA Classification* ASA Classification ASA Classification: 2 Assessment & Plan Anesthesia* Anesthesia Assessment Anesthesia Assessment: Discussed sedation and/or anesthesia options, risks, benefits, and alternatives with patient/parents/legal guardian/POA. Questions invited. The patient/parents/legal guardian/POA seems to understand and agrees to proceed with anesthesia plan. Reviewed the physical assessment, medical history, allergy history and patient home medications list prior to surgery/procedure/anesthetic and documented any changes. Performed airway and anesthesia risk assessments. Anesthesia Type Anesthesia Type: General and Block History Source History Obtained from:: Patient and Chart Anesthesia Focused Assessment* Temperature: 97.4 F Pulse Rate: 95 Blood Pressure: 124/86 Respiratory Rate: 18 Pulse Ox: 100 Oxygen Delivery Method: Room Air Airway Assessment Mouth opens: >3 cm Mallampati Score: II Teeth Condition: Chipped/Broken Neck Range of motion (ROM): Full ROM Focused Labs Anesthesia Preop lab: CBC WBC 6.3 K/mm3 (4.4-11.0) 06/05/24 15:11 RBC 4.28 M/mm3 (4.6-6.2) L 06/05/24 15:11 Hgb 13.1 g/dL (13.0-16.5) 06/05/24 15:11 Hct 39.4 % (40-54) L 06/05/24 15:11 Plt Count 306 K/mm3 (150-450) 06/05/24 15:11 CHEMISTRY Potassium 4.1 mmol/L (3.5-5.1) 06/05/24 15:11 Sodium 137 mmol/L (136-145) 06/05/24 15:11 Magnesium 1.7 mg/dL (1.6-2.6) 03/08/24 05:35 Phosphorus 2.4 mg/dL (2.5-4.9) L 03/08/24 05:35 BUN 15 mg/dL (7-18) 06/05/24 15:11 Creatinine 1.31 mg/dL (0.70-1.30) H 06/05/24 15:11 Glucose 106 mg/dL (74-106) 06/05/24 15:11 POC Glucose 106 mg/dL (74-106) 07/05/23 17:47 TSH 2.310 uIU/mL (0.358-3.740) 03/08/24 05:35 COAG PT 14.1 SECONDS (11.7-14.9) 06/05/24 15:11 Pre-Assessment Diagnosis/Proposed Procedure Planned Operative Procedure(s): (L) Left shoulder Arthroscopy, subacromial decompression, rotator cuff repair, biceps tenodesis Anesthesia History Anesthesia History - technology coach: Anesthesia History - technology coach Hx Hospitalization Yes: PANCREATITIS 02/202406/04/24 13:26 Any Problems With Anesthesia No 06/04/24 13:26 Cholinesterase deficiency No 06/04/24 13:26 You/Your Family Experience No 06/04/24 13:26 fever (hyperthermia) with Relationship Recent Exposure to Contagious No 06/18/24 07:30 Disease Does patient have nerve No 06/04/24 13:26 stimulator Patient instructed to have device shut off --Does patient have Pacemaker No 06/18/24 07:30 or ICD? When Was Last Pacemaker Check QUESTION #4 FULL TEXT: You/Your Family Experience fever (hyperthermia) with Anesthesia Last Oral Intake Last Oral intake: Last Oral Intake NPO since 20:00 06/18/24 07:30 Meds taken in AM with sips of Yes 06/18/24 07:30 water? Meds patient instructed to omeprazole 06/18/24 07:30 take am of surgery PONV PONV - technology coach: PONV - technology coach Female No 06/04/24 13:26 HX of Motion Sickness No 06/04/24 13:26 HX of N/V After Surgery No 06/04/24 13:26 Non-Smoker No 06/04/24 13:26 Duration of Surgery greater Yes 06/04/24 13:26 than 60 minutes Number of Risk Factors 1 06/04/24 13:26 PONV Score Low Risk 06/04/24 13:26 Height & Weight Height & Weight: Anesthesia: Height & Weight Height 5 ft 5 in 06/18/24 07:30 Weight: 83 kg 06/18/24 07:30 Body Mass Index (BMI) 30.4 06/18/24 07:30 Respiratory Assessment Respiratory Assessment - technology coach: Respiratory Tract Infection Hx - technology coach Hx Respiratory Tract Infection No 06/04/24 13:26 STOP Sleep Apnea STOP Sleep Apnea - technology coach: STOP Sleep Apnea - technology coach Hx Hypertension No 06/04/24 13:26 Hx Sleep Apnea No 06/04/24 13:26 CPAP No 03/10/24 13:16 BIPAP Do you snore loudly (louder No 06/04/24 13:26 than talking or can be heard Do you often feel tired/ No 06/04/24 13:26 fatigued/ sleepy during daytime? Has anyone observed you stop No 06/04/24 13:26 breathing during sleep? STOP Results Negative 06/04/24 13:26 QUESTION #5 FULL TEXT : Do you snore loudly (louder than talking or can be heard through closed doors)? Tobacco Use History Tobacco Use History - technology coach: Tobacco Use History - technology coach Tobacco Use Smoking Status Light Smoker (<10/day) 06/04/24 13:26 Hx Tobacco Use Yes 06/04/24 13:26 Years Smoking Packs Smoked per Day Smoking Cessation Date was within the last 15 years Hx Smoking Cessation Date Hx Smoking Cessation Counseling Hematologic Medial History Hematologic Hx - technology coach: Hematologic Medical Hx - documentation clerk Hx of Blood Transfusion No 06/04/24 13:26 Hx of Transfusion in last 3 No 06/04/24 13:26 Months Date of Last Transfusion (if within last 3 months) Ever experience any problems No 06/04/24 13:26 with transfusion(s)? Specify any problems Hx of Preganancy in last 3 N/A 06/04/24 13:26 Months Nurse Filling Out Transfusion NBUCHER 06/04/24 13:26 & Questions: Date: 06/04/24 06/04/24 13:26 Time: 13:28 06/04/24 13:26 Patient unable to answer at this time (ie. confused, unrespo /Reproduction History /Reproductive History - technology coach: /Reproductive Hx- technology coach Hx Now No 06/04/24 13:26 Gestational Age (in weeks): EDC: Hx Hx Para Hx Section SAB No 06/04/24 13:26 Active Medications Active Medications: Current Medications Generic Name Dose Route Start Last Admin Trade Name Freq PRN Reason Stop Dose Admin Cefazolin Sodium 2 gm/ N/A 20 mls @ 400 mls/hr 06/18/24 09:10 IV 06/18/24 09:12 PREOP ONE Sodium Chloride 1,000 mls @ 15 mls/hr 06/18/24 07:20 06/18/24 07:34 IV 06/23/24 20:39 15 mls/hr .Q48H ROBERTH Administration Protocol [facility] Medical History Wears hearing aid Loss of hearing Depression Alcohol use Fatty liver High cholesterol GERD (gastroesophageal reflux disease) Smoker Impingement of left shoulder Bursitis of left shoulder Superior labrum pvrvdzpf-cj-haybfwfqk (SLAP) tear of left shoulder Left rotator cuff tear Left shoulder pain Chronic alcohol abuse Dyslipidemia History of patellar fracture Bimalleolar ankle fracture Generalized anxiety disorder with panic attacks Back pain Bloody stool Abnormal bruising Asthma Fatigue Stomach ulcer Shoulder pain SOB (shortness of breath) Arthritis Home Medications ?Medication ?Instructions ?Recorded ?Last Taken ?Type cyanocobalamin (vitamin B-12) 1,000 mcg PO QDAY 02/25/24 06/17/24 History 1,000 mcg tablet fenofibrate nanocrystallized 145 145 mg PO DAILY #90 tabs 03/11/24 06/17/24 Rx mg tablet folic acid 1 mg tablet 1 mg PO QDAY #30 tabs 03/11/24 06/17/24 Rx omeprazole 40 mg capsule,delayed 40 mg PO BIDCM #120 caps 03/11/24 06/18/24 Rx release potassium chloride 20 mEq 40 meq (2 x 20 mEq) PO DAILYCM #60 03/11/24 06/16/24 Rx tablet,extended release(part/cryst) tabs thiamine HCl (vitamin B1) 100 mg 100 mg PO DAILYCM 30 days #30 tabs 03/11/24 06/17/24 Rx tablet (Vitamin B-1) escitalopram oxalate 5 mg tablet 5 mg PO QDAY #30 tabs 05/14/24 06/17/24 Rx Allergy/AdvReac Type Severity Reaction Status Date / Time No Known Allergies Allergy Verified 06/18/24 07:29 Family History Mother Diabetes Heart disease Hypertension Father Diabetes Heart disease Hypertension Surgical History History of wisdom tooth extraction History of oral surgery History of esophagogastroduodenoscopy (EGD) History of hernia surgery Social History household members: none Smoking Status: Light Smoker (<10/day) alcohol intake: current alcohol intake frequency: 3 or more drinks per day Alcohol type: beer substance use type: does not use Addt'l Information Additional Findings: EKG NSR Review of Systems (Anesthesia) ROS Narrative System reviewed and no additional complaints, except as documented.
--- NOTE | 2024-06-18 07:57 | PCM.HP.STD ---
HPI - General HPI Narrative IDA HOLLINGSWORTH, is a 44 M who presents for left shoulder arthroscopy, subacromial decompression, rotator cuff repair, biceps tenodesis. no changes to h and p. Left shoulder marked. Risks alternatives benefits as well as postoperative recovery and follow-up instructions given. Narcotic counseling done. Plan for preoperative LOC. The patient understands okay to proceed no further questions or concerns. [facility] [address] [place] [address] 5 [place] [address] OFFICE VISIT Date of Service: 04/07/24 MR#: [id number] Acct: [id number] Name: IDA HOLLINGSWORTH Rep #: [id number] : 1980 Provider: Dr. Elvis Botello MD Age/Sex: 44/M Location: [facility] [place] Status: Signed Intake Vital Signs 03/08/2412:40 Height 5 ft 5 in Intake Visit Reasons: shoulder pain Chief Complaint: discuss surgery Accompanied by: Self Is patient in pain?: Yes Pain scale (1-10): 8 Allergies No Known Allergies Allergy (Verified 04/07/24 13:02) Medications ?Medication ?Instructions ?Recorded ?Confirmed ?Type cyanocobalamin (vitamin B-12) 1,000 mcg PO QDAY 02/25/24 04/07/24 History 1,000 mcg tablet fenofibrate nanocrystallized 145 145 mg PO DAILY #90 tabs 03/11/24 04/07/24 Rx mg tablet folic acid 1 mg tablet 1 mg PO QDAY #30 tabs 03/11/24 04/07/24 Rx omeprazole 40 mg capsule,delayed 40 mg PO BIDCM #120 caps 03/11/24 04/07/24 Rx release potassium chloride 20 mEq 40 meq (2 x 20 mEq) PO DAILYCM #60 03/11/24 04/07/24 Rx tablet,extended release(part/cryst) tabs thiamine HCl (vitamin B1) 100 mg 100 mg PO DAILYCM 30 days #30 tabs 03/11/24 04/07/24 Rx tablet (Vitamin B-1) [facility] Medical History Impingement of left shoulder Bursitis of left shoulder Superior labrum pjpwxxqq-js-hiwzwzqyn (SLAP) tear of left shoulder Left rotator cuff tear Chronic alcohol abuse Left shoulder pain Dyslipidemia History of patellar fracture Bimalleolar ankle fracture Generalized anxiety disorder with panic attacks Back pain Bloody stool Abnormal bruising Asthma Fatigue Stomach ulcer Shoulder pain SOB (shortness of breath) Arthritis Surgical History History of ankle surgery History of hernia surgery Family History Mother Diabetes Heart disease HypertensionFather Diabetes Heart disease Hypertension Social History household members: none Smoking Status: Light Smoker (<10/day) alcohol intake: current alcohol intake frequency: 3 or more drinks per day Alcohol type: beer substance use type: does not use HPI shoulder pain Details: This documentation accurately reflects the service provided and the decisions made by me, Dr. Elvis Botello MD 04/07/24 1300. Part of today?s visit was documented by [ ], acting as scribe. IDA HOLLINGSWORTH is a 44 year old M here today for FU L shoulder pain, RC tear, slap tear, impingement. Patient has been changing his insurance and not running this through work currently still having laterally based shoulder pain and worse with lifting. The patient has not yet started physical therapy because of this but he is more interested in a definitive surgical solution. Ortho Exam General General: Yes no acute distress Neurologic: Yes alert and Yes oriented x3 Psychologic: Yes reasonable and appropriate Left Shoulder Skin/Wound: Yes CDI, No ecchymosis, No erythema and No swelling Testing: Yes Hawkin's, Yes Neer's, Yes Speed's, Yes TTP Biceps and Yes empty can SHOULDER: normal motor and sens to axillary N, MRU and AIN/PIN. Hand warm well perfused normal radial pulse AFE 90, PFE 140, ER 25. IR back pocket strength fe 4+/5, er 5/5. Supplemental Info [facility] Imaging Services [address] [place] [address] Upper Ext Joint Only(Routine) MR#: [id number] Acct: [id number] Name: IDA HOLLINGSWORTH Rep #: [id number] : 1980 M 44 From: Carter Fierro MD PCP: Dr. Wilbert Quiroz MD Status: REG CLI Study: Upper Ext Joint Only(Routine) Date of Exam: 03/13/24 Exam# [id number] Ordering Dr: Elvis Botello MD STUDY: MRI LEFT SHOULDER REASON FOR EXAM: Male, 44 years old. Pain, assess for cuff tear TECHNIQUE: Standardized fat and water weighted pulse sequences were obtained in all 3 orthogonal planes. COMPARISON: X-ray January 24, 2024. FINDINGS: There is 1.3 cm full-thickness tear of the supraspinatus tendon, series 5 through 10. Normal infraspinatus tendon. There is tendinosis of the subscapularis tendon. Normal teres minor tendon. Normal supraspinatus muscle. Normal infraspinatus muscle. Normal subscapularis muscle. Normal teres minor muscle. Normal glenohumeral articulation. There is small joint effusion. Normal humeral head and visualized proximal humerus. Normal biceps labral complex. Normal intracapsular long biceps tendon. There is tear of the superior labrum adjacent to the biceps anchor, series 4 image 9. Normal capsulo- ligamentous complex. Normal rotator interval. There is mild osteoarthritis of the acromioclavicular articulation. There is a Type II morphology (curved) acromion, with a neutral orientation. There is mild subacromial-subdeltoid bursal fluid. Normal visualized coracohumeral and coracoacromial ligaments. Normal quadrilateral space. Normal axillary space. Normal deltoid muscle. Normal trapezius muscle. MRI/Upper Ext Joint Only(Routine) IMPRESSION: Rotator cuff tear of the supraspinatus tendon. SLAP tear of the superior labrum. Joint effusion. Subacromial subdeltoid bursitis. Electronically Signed: Carter Fierro MD at 19:17 EDT , Coding Level of Care Code Off vis,est,level 4 Diagnoses Impingement of left shoulder M25.812 Bursitis of left shoulder M75.52 Superior labrum dlyfvbmk-yj-sszkahmtq (SLAP) tear of left shoulder S43.432A Left rotator cuff tear M75.102 Assessment and Plan Assessment and Plan (1) Impingement of left shoulder: Status: Acute Plan: 44-year-old man with left shoulder rotator cuff tear small tear 1 cm as well as a SLAP tear and impingement syndrome. Patient counseled on the diagnosis prognosis different treatment options available include but not limited to rest ice anti-inflammatories active modification subacromial cortisone injections as well as surgery. Tear do not heal on their own but may improve with conservative management. Went over the pros and cons risk and benefits as well as postoperative recovery associate with that. Patient wishes to proceed with surgery and this will be in the form of left shoulder arthroscopy, subacromial decompression, rotator cuff repair, biceps tenodesis. We discussed cervical recovery associate with this 2 to 3 weeks in a sling 3 to 6 months for full recovery the patient understands wished to proceed signed the consent form for surgery as well as possible need for blood products. Patient is an occasional smoker and uses chewing tobacco I did caution him that this can increase the chance of infection and other postoperative complications as well as decreases the healing rate of rotator cuff repairs. The patient understood I counselled him to quit or cut back all tobacco use. Pros and cons risks and benefits were discussed with the patient including but not limited to infection, pain, stiffness, bleeding, damage to surrounding structures, neurovascular injury, recurrence or retear, failure or wear of hardware or fixation, instability, fracture, deep vein thrombosis and pulmonary embolism, anesthetic risks, , patient dissatisfaction, need for further surgery and other risks. Patient understood and wished to proceed with surgery, and signed the informed consent documentation. (2) Bursitis of left shoulder: Status: Acute (3) Superior labrum arndxiog-zq-gqxwgolwp (SLAP) tear of left shoulder: Status: Acute (4) Left rotator cuff tear: Status: Acute [facility] Medical History Wears hearing aid Loss of hearing Depression Alcohol use Fatty liver High cholesterol GERD (gastroesophageal reflux disease) Smoker Impingement of left shoulder Bursitis of left shoulder Superior labrum rojohtqy-ym-ugtwxgnal (SLAP) tear of left shoulder Left rotator cuff tear Left shoulder pain Chronic alcohol abuse Dyslipidemia History of patellar fracture Bimalleolar ankle fracture Generalized anxiety disorder with panic attacks Back pain Bloody stool Abnormal bruising Asthma Fatigue Stomach ulcer Shoulder pain SOB (shortness of breath) Arthritis Home Medications ?Medication ?Instructions ?Recorded ?Last Taken ?Type cyanocobalamin (vitamin B-12) 1,000 mcg PO QDAY 02/25/24 06/17/24 History 1,000 mcg tablet fenofibrate nanocrystallized 145 145 mg PO DAILY #90 tabs 03/11/24 06/17/24 Rx mg tablet folic acid 1 mg tablet 1 mg PO QDAY #30 tabs 03/11/24 06/17/24 Rx omeprazole 40 mg capsule,delayed 40 mg PO BIDCM #120 caps 03/11/24 06/18/24 Rx release potassium chloride 20 mEq 40 meq (2 x 20 mEq) PO DAILYCM #60 03/11/24 06/16/24 Rx tablet,extended release(part/cryst) tabs thiamine HCl (vitamin B1) 100 mg 100 mg PO DAILYCM 30 days #30 tabs 03/11/24 06/17/24 Rx tablet (Vitamin B-1) escitalopram oxalate 5 mg tablet 5 mg PO QDAY #30 tabs 05/14/24 06/17/24 Rx Allergy/AdvReac Type Severity Reaction Status Date / Time No Known Allergies Allergy Verified 06/18/24 07:29 Family History Mother Diabetes Heart disease Hypertension Father Diabetes Heart disease Hypertension Surgical History History of wisdom tooth extraction History of oral surgery History of esophagogastroduodenoscopy (EGD) History of hernia surgery Social History household members: none Smoking Status: Light Smoker (<10/day) alcohol intake: current alcohol intake frequency: 3 or more drinks per day Alcohol type: beer substance use type: does not use Vital Signs Vital Signs Vital Signs: 06/18/24 07:30 06/18/24 07:30 06/18/24 07:50 Temperature 97.4 F L 97.4 F L Temperature Source Temporal Pulse Rate 95 95 Respiratory Rate 18 18 Respiratory Pattern Normal Blood Pressure 124/86 H 124/86 H Blood Pressure Mean 98 Blood Pressure Source Monitor Blood Pressure Position Semi-Fowlers Blood Pressure Location Right Arm Pulse Ox 100 100 Oxygen Delivery Method Room Air Room Air Weight Weight: 182 lb 15.739 oz Body Mass Index (BMI) 30.4 Results Lab / Micro Data 06/05/24 15:11 06/05/24 15:11
[2024-06-18] MEDS: Cefazolin 2 GM in Syringe IV (08:20)
[2024-06-18] MEDS: Epinephrine (1 mg/ml) 1 MG/ML VIAL (08:40)
--- NOTE | 2024-06-18 09:05 | PCM.PRE.AN2 ---
ASA Classification* ASA Classification ASA Classification: 2 Assessment & Plan Anesthesia* Anesthesia Assessment Anesthesia Assessment: Discussed sedation and/or anesthesia options, risks, benefits, and alternatives with patient/parents/legal guardian/POA. Questions invited. The patient/parents/legal guardian/POA seems to understand and agrees to proceed with anesthesia plan. Reviewed the physical assessment, medical history, allergy history and patient home medications list prior to surgery/procedure/anesthetic and documented any changes. Performed airway and anesthesia risk assessments. Anesthesia Type Anesthesia Type: General and Block History Source History Obtained from:: Patient Anesthesia Focused Assessment* Temperature: 97.4 F Pulse Rate: 95 Blood Pressure: 124/86 Respiratory Rate: 18 Pulse Ox: 100 Oxygen Delivery Method: Room Air Airway Assessment Mouth opens: 2 cm Mallampati Score: II Teeth Condition: Intact and Chipped/Broken Neck Range of motion (ROM): Full ROM Focused Labs Anesthesia Preop lab: CBC WBC 6.3 K/mm3 (4.4-11.0) 06/05/24 15:11 RBC 4.28 M/mm3 (4.6-6.2) L 06/05/24 15:11 Hgb 13.1 g/dL (13.0-16.5) 06/05/24 15:11 Hct 39.4 % (40-54) L 06/05/24 15:11 Plt Count 306 K/mm3 (150-450) 06/05/24 15:11 CHEMISTRY Potassium 4.1 mmol/L (3.5-5.1) 06/05/24 15:11 Sodium 137 mmol/L (136-145) 06/05/24 15:11 Magnesium 1.7 mg/dL (1.6-2.6) 03/08/24 05:35 Phosphorus 2.4 mg/dL (2.5-4.9) L 03/08/24 05:35 BUN 15 mg/dL (7-18) 06/05/24 15:11 Creatinine 1.31 mg/dL (0.70-1.30) H 06/05/24 15:11 Glucose 106 mg/dL (74-106) 06/05/24 15:11 POC Glucose 106 mg/dL (74-106) 07/05/23 17:47 TSH 2.310 uIU/mL (0.358-3.740) 03/08/24 05:35 COAG PT 14.1 SECONDS (11.7-14.9) 06/05/24 15:11 Pre-Assessment Diagnosis/Proposed Procedure Planned Operative Procedure(s): (L) Left shoulder Arthroscopy, subacromial decompression, rotator cuff repair, biceps tenodesis Anesthesia History 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 When Was Last Pacemaker Check QUESTION #4 FULL TEXT: You/Your Family Experience fever (hyperthermia) with Anesthesia Any additional information?: No Last Oral Intake Last Oral intake: Last Oral Intake NPO since 20:00 06/18/24 07:30 Meds taken in AM with sips of Yes 06/18/24 07:30 water? Meds patient instructed to omeprazole 06/18/24 07:30 take am of surgery Any additional information?: No PONV PONV - oil filters inspector: PONV - oil filters inspector Female No 06/04/24 13:26 HX of Motion Sickness No 06/04/24 13:26 HX of N/V After Surgery No 06/04/24 13:26 Non-Smoker No 06/04/24 13:26 Duration of Surgery greater Yes 06/04/24 13:26 than 60 minutes Number of Risk Factors 1 06/04/24 13:26 PONV Score Low Risk 06/04/24 13:26 Any additional information?: No Height & Weight Height & Weight: Anesthesia: Height & Weight Height 5 ft 5 in 06/18/24 07:30 Weight: 83 kg 06/18/24 07:30 Body Mass Index (BMI) 30.4 06/18/24 07:30 Respiratory Assessment Respiratory Assessment - oil filters inspector: Respiratory Tract Infection Hx - oil filters inspector Hx Respiratory Tract Infection No 06/04/24 13:26 Any additional information?: No STOP Sleep Apnea STOP Sleep Apnea - oil filters inspector: STOP Sleep Apnea - oil filters inspector Hx Hypertension No 06/04/24 13:26 Hx Sleep Apnea No 06/04/24 13:26 CPAP No 03/10/24 13:16 BIPAP Do you snore loudly (louder No 06/04/24 13:26 than talking or can be heard Do you often feel tired/ No 06/04/24 13:26 fatigued/ sleepy during daytime? Has anyone observed you stop No 06/04/24 13:26 breathing during sleep? STOP Results Negative 06/04/24 13:26 QUESTION #5 FULL TEXT : Do you snore loudly (louder than talking or can be heard through closed doors)? 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 Specify any problems Hx of Preganancy in last 3 N/A 06/04/24 13:26 Months Nurse Filling Out Transfusion NBUCHER 06/04/24 13:26 & Questions: Date: 06/04/24 06/04/24 13:26 Time: 13:28 06/04/24 13:26 Patient unable to answer at this time (ie. confused, unrespo Any additional information?: No /Reproduction History /Reproductive History - oil filters inspector: /Reproductive Hx- oil filters inspector Hx Now No 06/04/24 13:26 Gestational Age (in weeks): EDC: Hx Hx Para Hx Section SAB No 06/04/24 13:26 Any additional information?: No Active Medications Active Medications: Current Medications Generic Name Dose Route Start Last Admin Trade Name Freq PRN Reason Stop Dose Admin Cefazolin Sodium 2 gm/ N/A 20 mls @ 400 mls/hr 06/18/24 09:10 06/18/24 08:23 IV 06/18/24 09:12 Infused PREOP ONE Infusion Sodium Chloride 1,000 mls @ 15 mls/hr 06/18/24 07:20 06/18/24 07:34 IV 06/23/24 20:39 15 mls/hr .Q48H [facility] Administration Protocol COUNT INCLUDES THE [facility] Medical History Wears hearing aid Loss of hearing Depression Alcohol use Fatty liver High cholesterol GERD (gastroesophageal reflux disease) Smoker Impingement of left shoulder Bursitis of left shoulder Superior labrum rqmeshka-eo-xijpcyzsz (SLAP) tear of left shoulder Left rotator cuff tear Left shoulder pain Chronic alcohol abuse Dyslipidemia History of patellar fracture Bimalleolar ankle fracture Generalized anxiety disorder with panic attacks Back pain Bloody stool Abnormal bruising Asthma Fatigue Stomach ulcer Shoulder pain SOB (shortness of breath) Arthritis Home Medications ?Medication ?Instructions ?Recorded ?Last Taken ?Type cyanocobalamin (vitamin B-12) 1,000 mcg PO QDAY 02/25/24 06/17/24 History 1,000 mcg tablet fenofibrate nanocrystallized 145 145 mg PO DAILY #90 tabs 03/11/24 06/17/24 Rx mg tablet folic acid 1 mg tablet 1 mg PO QDAY #30 tabs 03/11/24 06/17/24 Rx omeprazole 40 mg capsule,delayed 40 mg PO BIDCM #120 caps 03/11/24 06/18/24 Rx release potassium chloride 20 mEq 40 meq (2 x 20 mEq) PO DAILYCM #60 03/11/24 06/16/24 Rx tablet,extended release(part/cryst) tabs thiamine HCl (vitamin B1) 100 mg 100 mg PO DAILYCM 30 days #30 tabs 03/11/24 06/17/24 Rx tablet (Vitamin B-1) escitalopram oxalate 5 mg tablet 5 mg PO QDAY #30 tabs 05/14/24 06/17/24 Rx Allergy/AdvReac Type Severity Reaction Status Date / Time No Known Allergies Allergy Verified 06/18/24 07:29 Family History Mother Diabetes Heart disease Hypertension Father Diabetes Heart disease Hypertension Surgical History History of wisdom tooth extraction History of oral surgery History of esophagogastroduodenoscopy (EGD) History of hernia surgery Social History household members: none Smoking Status: Light Smoker (<10/day) alcohol intake: current alcohol intake frequency: 3 or more drinks per day Alcohol type: beer substance use type: does not use Review of Systems (Anesthesia) ROS Narrative System reviewed and no additional complaints, except as documented.
--- NOTE | 2024-06-18 10:18 | OP.PCM_ITS ---
Problems Associated Problem List Diagnoses (1) Impingement of left shoulder: (2) Bursitis of left shoulder: (3) Superior labrum cpjhxdsd-hs-rixnkbayy (SLAP) tear of left shoulder: (4) Left rotator cuff tear: Procedures Musculoskeletal [id number]: Other Procedure See Report Operative Report (Standard) Operative Information Date of Procedure: 06/18/24 Pre-Operative Diagnosis: Left shoulder impingement syndrome rotator cuff tear and SLAP tear Post-Operative Diagnosis: Same Surgery/Procedure Performed: Left shoulder arthroscopy, subacromial decomp ression, rotator cuff repair, open biceps tenodesis media reconciliation specialist: Yes Marine Equipment Design Engineer: fidelia Tasks completed by first aid instructor: Other Additional administrative personal assistant?: No Type of Anesthesia: Block,Regional and General RN Documented Start/Stop Times: Operation Date: 06/18/24 09:10 Case Time Into Pre-Op 06/18/24 07:20 Anesthesia Start 06/18/24 08:18 Into Room 06/18/24 08:18 Procedure Start 06/18/24 08:40 Procedure End 06/18/24 10:18 Procedure Start Time: 08:40 Procedure Stop Time: 10:18 Select all DRAINS/GRAFTS/IMPLANTS that apply: Implanted device Implanted device details: arthrex sviwelock anchor or biceps tension tight button Estimated Blood Loss: 50 Specimen collected: No Description of surgery: Patient was brought to the operating room theater. They were administered 2 g of IV Ancef prior to the start of the procedure. Placed supine on the operating room table. General anesthesia induced. Patient placed left side up lateral decubitus with the aid of the beanbag positioner. Axillary roll was used all bony prominences padded. SCDs on the legs. Operative extremity prepped and draped in the usual sterile fashion with chlorhexidine-based prep solution allowing over 3 minutes drying time prior to draping. 10 pounds of inline traction with the arm in 30 degrees of abduction was used. Preoperative timeout performed to confirm the site patient and the surgery. I began by inserting the arthroscope into the intra-articular portion of the shoulder through a standard arthroscopic posterior portal. Cartilage on the glenoid and humeral head was normal. Axillary recess was normal. Biceps had hypertrophic degenerative changes as well as a SLAP tear type II. I made an inside-out anterior portal through the rotator interval using spinal needle localization. I performed an intra-articular biceps tenotomy. There is an anterior full-thickness leading edge tear of the supraspinatus tendon 1 cm x 1 cm. There is also an upper third border of the subscapularis Lafosse type I. I placed a cannula. I used the power pick instrument for multiple trephination's send to stimulate bleeding healing at the base of the subscapularis upper third. Used 2 fiber link sutures and then inserted those into a 4.75 mm Arthrex swivel lock anchor. This achieved good s olid fixation of the subscapularis tear. Next I placed the arthroscope into the subacromial space. Bursectomy performed minor amount of bursitis. I performed a subacromial decompression for about 4 mm down to flat margins. Identified the anterior leading edge tear this was mobile. I cleared away the tissue on the greater tuberosity as well as using the power pick instrument for multiple trephination's. Tear was mobile. First I attempted to place knotless fiber tack anchors along the medial aspect of the footprint but these ended up not getting good purchase and actually pulling out of the bone. I debrided gently that area. I attempted to then place a swivel lock into the same area but again this was quite poor bone or cystic bone. Therefore I changed my tactic to an inverted horizontal mattress fiber tape suture to one 4.75 mm swivel lock lateral to the greater tuberosity footprint which achieved reasonable good purchase. This did repair the tear nicely down to the footprint. Arthroscopy pictures taken and saved throughout the case. An extra my attention to perform the biceps tenodesis. I made a small longitudinal incision centered over the upper proximal medial aspect of the humerus over the long head of the biceps tendon. Carried the dissection down through skin and subcutaneous tissue achieved meticulous hemostasis. I delivered the biceps tendon long head through the incision. I shorten this. I used the biceps Arthrex tension tight included suture loop lifted around using a locking loop configuration on the past the suture just distal to this from anterior to posterior just proximal to the musculotendinous junction. I then drilled a bicortical hole as a unicortical hole was too shallow. I irrigated any bone dust. I passed the button flipped the button and delivered the tendon down and an onlay technique. This is stable and solid appropriately tensioned. Suture cut short wound thoroughly irrigated. Subcutaneous tissue closed with 2-0 Vicryl suture and skin with 3-0 Monocryl. Steri-Strips were applied after the skin was cleaned and dried. Xeroform gauze abdominal pad dressings and tape was then applied with a sling to the upper extremity. Patient woken up from general anesthetic transferred off the operating room table and taken to postanesthetic care unit in stable condition. All sponge needle instrument counts were correct no complications. Plan for the patient to be discharged home according to day surgery criteria when they are comfortable. Appropriate narcotic counseling given and follow-up in the office in 2 days time. Range of motion will be pendulum exercises as well as hand wrist and elbow exercises 4 times a day. cpt 69255, [id number], [id number] Surgical Findings: as above Complications Complications: No Admit VTE Documentation VTE Present on Admission: No VTE Pharm Prophylaxis ordered?: No Reason prophylaxis not ordered: Treatment Not Indicated
--- NOTE | 2024-06-18 10:28 | DCINST_ITS ---
Discharge Instructions Diet Discharge Diet: No restrictions Activity Ice area for (Minutes): 10 Lifting Restrictions: no lifting over 1 pound Additional Activity Instructions:: pendulums only. Dressing / Incision Call your doctor if your incision/area has: Continuous Slow Oozing, Sudden Increased Bleeding, Increased Pain/ Swelling, Increased Redness, Foul Smelling Discharge and Swelling at the incision site Call your doctor if you observe: Fever of 101 or Higher, Coldness, Increased Pain and Numbness or Tingling Change Dressing in: leave in place till F/U Cleanse incision/area with: Do not get Incision Wet Follow Up Care Please Follow Up With: Elvis Botello MD When: 2 days, or next week Test Results: Test results from this visit will be discussed in further detail at your follow- up appointment, if applicable. Discharge Plan Admission Attending Provider: Elvis Botello Primary Care Provider: Wilbert Quiroz Instructions Print Language: Faroese Discharge Orders/Prescriptions Prescriptions: New oxycodone-acetaminophen [Percocet] 5-325 mg tablet 1 tab PO Q4H MDD 6 PRN (Reason: pain) 5 Days Qty: 30 0RF No Action cyanocobalamin (vitamin B-12) 1,000 mcg tablet 1,000 mcg PO QDAY escitalopram oxalate 5 mg tablet 5 mg PO QDAY Qty: 30 1RF potassium chloride 20 mEq Tablet,Er Particles/Crystals 40 meq PO DAILYCM Qty: 60 0RF fenofibrate nanocrystallized 145 mg Tablet 145 mg PO DAILY Qty: 90 0RF thiamine HCl (vitamin B1) [Vitamin B-1] 100 mg Tablet 100 mg PO DAILYCM 30 Days Qty: 30 0RF omeprazole 40 mg capsule,delayed release(DR/EC) 40 mg PO BIDCM Qty: 120 0RF folic acid 1 mg tablet 1 mg PO QDAY Qty: 30 0RF Referrals / Follow Up: Elvis Botello MD [Med Staff - Active Staff] - Wilbert Quiroz MD [Primary Care Provider] - Disposition Disposition (needs filled in before D/C Order can be placed): Home, Self Care
--- NOTE | 2024-06-18 11:03 | PCM.POST.ANE ---
Anesthesia: Postop Eval I Current Vital Signs Temperature: 98 F Pulse Rate: 99 Blood Pressure: 112/87 Respiratory Rate: 15 Pulse Ox: 93 Oxygen Delivery Method: Room Air Assessment Airway patent: Yes Spontaneous unlabored respirations: Yes Mental status: Awake and Calm nausea: No Vomiting: No Anesthesia Complication: No Fluid Hydration Crystalloid volume administer (ml): 800 Total IV fluid infused: 800 Progress Note Anesthesia document: Postop Eval 1 completed: Yes
--- NOTE | 2024-06-18 11:05 | PCM.POSTANE2 ---
Anesthesia Postop Eval I Sum Postop Eval Completion status Anesthesia document: Postop Eval 1 completed: Yes Anesthesia Postop Eval I Summary Anesthesia Postop Eval I Summary: Anesthesia Postop Eval I: Assessment Summary Airway patent Yes 06/18/24 11:05 Spontaneous unlabored Yes 06/18/24 11:05 respirations Mental status Awake,Calm 06/18/24 11:05 nausea No 06/18/24 11:05 Vomiting No 06/18/24 11:05 Anesthesia Postop Eval I: Fluid Summary Crystalloid volume administer 800 06/18/24 11:05 (ml) Colloids volume administered ( ml) Blood Product volume administered (ml) Total IV fluid infused 800 06/18/24 11:05 Anesthesia Postop Eval I: Summary Notes Anesthesia Complication No 06/18/24 11:05 Anesthesia Complication Comment: Post-operative progress note Anesthesia: Postop Eval II Evaluation Mental status: Awake Pain Level: 2 nausea: No Vomiting: No Complications Anesthesia Complication: No
[2024-06-18] MEDS: HYDROcodone Bitartrate/Apap 5/325 Tablet PO (11:32)
== END 2024-06-18 12:25 | disposition home or self-care (01) ==
LOC: SDC 07:17 → AC 07:19
PROVIDERS: Anesthesiology; PCP Internal Medicine; Referring Provider Orthopaedic Surgery Sports Medicine; Visit Provider Orthopaedic Surgery Sports Medicine
PROC: (CPT 29805; principal; 2024-06-18 08:50)
DX: S43.432A Superior glenoid labrum lesion of left shoulder, initial encounter (principal); E78.5 Hyperlipidemia, unspecified; F17.200 Nicotine dependence, unspecified, uncomplicated; M19.019 Primary osteoarthritis, unspecified shoulder; M75.52 Bursitis of left shoulder; M75.102 Unspecified rotator cuff tear or rupture of left shoulder, not specified as traumatic; M25.812 Other specified joint disorders, left shoulder
CPT/HCPCS: 29826; 29827; 23430; 01630; 36415; 80048; 80076; 85027; 85610; 85730; 88304; C1713

== ENCOUNTER 2024-11-18 10:00 | Outpatient (RCR) | payer MEDICAID, SELFPAY ==
--- NOTE | 2024-07-17 13:48 | HP.PTEVAL ---
Patient's Visit Information Visit Information Visit Information: IDA HOLLINGSWORTH is a 44 year old M referred to Physical Therapy by Dr. Elvis Botello MD with a diagnosis of L shoulder pain s/p RCR biceps tenodesis, SAD and RCR around . Date of Evaluation: 07/17/24 Physical Therapist: Ilia Barnes, DPT, OCS, CSCS Visit Plan Frequency: 1-2x /Week Duration: 2 Months Plan: 1-2x/week for 4-8 weeks Care with active elbow flexion slowly. AAROM to aROM of L shoulder, scap, ROM L elbow. Mobs grade 1. Progression of isometrics and PREs if motion full around 08/04. ice as needed scar massage education management of condition IE HEP supine stick flexion adn er 10x 3x/day, scap circles 15x 3x/day adn elbow PROM flex/ext 10x3x/day adn continue pendulums Subjective Subjective: L RCT s/p surgery 4 weeks ago. insidious onset. Hurt it originally at work earlier last year. Also has slap tear in bicep. Elbow is fine now. Since surgery: sling for 3 weeks then weaned out, wears it to bed. Sleep is OK in recliner. HEP: pendulum. Employed: not since may last year. They let him go. Spends day helping parents with yard work. Putting on a shirt was popping prior to surgery. Liftin was hard . Basic ADLS anow: dresses with compensation on L arm and cuts sleeves out., Bathroom/shower I but hard to clean under L arm. Hobbies: fishing/golfing. Not lately. Wants to lift weights but not in 6 months Pain L shoulder: Pain Intensity (Out of 10): 1 Pain Intensity Range: 0 and 5 Comment: if moves it wrong. Objective Objective: Walks into PT with L elbow held flexed adn stiff but I. Transfers table adn chair are I without L arm usage. cervical aROM is WFL and just some end range extension pain. scapular ROM is slow on L but full , difficulty with retraction and depression posturally and B. wrist adn hand AROM B WFL R UE AROM WFL and strength at 4/5 L elbow flexion AROM to 80 and extension -20, PROM to 70 flexion and -10 oext limited by discomfort. PROM L shoulder 100 flexion, 33 er limited by pain but no real endfeel. Balance/Special Test Scores Quick DASH Score: 72.7250 Goals Goal 1:: ST: AROM 155 flexion, 60 er, L5 IR to help with ADLs Goal Time Frame: 2-4 Weeks Goal 2:: ST: sleep in bed without waking due to pain Goal Time Frame: 2-4 Weeks Goal 3:: LT: shave head adn put on shirt without noticing L shoulder Goal Time Frame: 6-8 Weeks Goal 4:: LT: pt feel shoulder is 90% back to normal. Goal Time Frame: 6-8 Weeks Goal 5:: Pain in L shoulder 1/10 at worst and tolerable Goal Time Frame: 6-8 Weeks Goal 6:: quickdash score 15 or better Goal Time Frame: 6-8 Weeks Rehabilitation Potential Physical Therapy Diagnosis: l shoulder disuse, weakness, stiffness limiting funciton Rehabilitation Potential: Good Anticipated Interventions Patient/Client Instruction: Educate patient on: Condition and Plan of Care For the Purpose of:: To decrease pain, To increase ROM, To improve nutrient delivery to tissue, To improve muscle performance and motor function and To increase tolerance to activity/condition/position Therapeutic Exercise to Include: Postural training, Flexibilty training, Passive ROM and Active ROM For the Purpose of:: To decrease pain, To increase ROM, To improve nutrient delivery to tissue, To improve muscle performance and motor function, To increase tolerance to activity/condition/position and To improve ability of physical actions for home/community/work/leisure Manual Therapy Techniques to Include: Scar massage, Mobilization, Passive ROM and Soft tissue mobilization For the Purpose of:: To increase ROM, To improve nutrient delivery to tissue, To improve muscle performance and motor function, To improve ability to perform ADL's and To increase tolerance to activity/condition/position Cryotherapy (ice pack, ice massage): Yes For the Purpose of:: To decrease pain and To decrease swelling/inflammation Text: Thank you for the opportunity to evaluate your patient. For Medicare and Medicare HMO plans, please review the plan of care and approve it. It will need to be FAXED BACK to us at [phone] for Medicare purposes. For Medicare only, by signing this I certify the plan of care. Please let me know if there are questions or concerns regarding this plan of care. Physician Signature: Date:
--- NOTE | 2024-09-11 13:44 | HP.PTREVAL ---
Re-Evaluation Intro: Dr. Elvis Botello MD, It has been my pleasure to treat IDA HOLLINGSWORTH over the last 7 visits for L shoulder pain s/p RCR biceps tenodesis, SAD and RCR around . Please see the progress note below for an update on the physical therapy plan of care! Subjective Subjective: Getting there. Hard to swing golf club L handed . Still sore L shoulder intermittently. Comfortable at rest but hurts reach behind and OH will hurt 2/10. Will see Ayan soon. Sleep is going OK. Hurts if rolls on L. Activities: Normal with light duties. Avoids heavir lifting. Not very active due to neuropathy. Doing what he neeeds to do at home. HEP: pendulum, stick exercises. Still feels weak. Objective Objective/Function: 132 AROM flexion L, 50 er, to L5 IR. strength is 4- er and IR on L vs 4 on R, flexion adn abduction are 3+ L and 4- R. Overall pain is whre I expect it to be as is ROM, still expectedly weak, appropriate for one more months of ex progression to I. Fair prognosis and goals appropriate Plan Plan Plan: 1-2x/week fro 4 weeks to ensure ROM improving and progress to final home strengthening exercises. Give phase 3 at home and manaul for PROM and progress to elevation and WB ex. Balance/Gait/Functional tests Balance/Special Test Scores Quick DASH Score: 27.2725 Goals Goals Goal 1:: ST: AROM 155 flexion, 60 er, L5 IR to help with ADLs Goal Time Frame: 2-4 Weeks Goal Progress: Progressing 150 with pain Goal 2:: ST: sleep in bed without waking due to pain Goal Time Frame: 2-4 Weeks Goal Progress: Goal Met Goal 3:: LT: shave head adn put on shirt without noticing L shoulder Goal Time Frame: 6-8 Weeks Goal Progress: Progressing, able w pain Goal 4:: LT: pt feel shoulder is 90% back to normal. Goal Time Frame: 6-8 Weeks Goal Progress: Progressing Goal 5:: Pain in L shoulder 1/10 at worst and tolerable Goal Time Frame: 6-8 Weeks Goal Progress: Progressing Goal 6:: quickdash score 15 or better Goal Time Frame: 6-8 Weeks Goal Progress: Progressing Anticipated Interventions Anticipated Interventions Patient/Client Instruction: Educate patient on: Condition and Plan of Care For the Purpose of:: To decrease pain, To increase ROM, To improve nutrient delivery to tissue, To improve muscle performance and motor function and To increase tolerance to activity/condition/position Therapeutic Exercise to Include: Postural training, Flexibilty training, Passive ROM and Active ROM For the Purpose of:: To decrease pain, To increase ROM, To improve nutrient delivery to tissue, To improve muscle performance and motor function, To increase tolerance to activity/condition/position and To improve ability of physical actions for home/community/work/leisure Manual Therapy Techniques to Include: Scar massage, Mobilization, Passive ROM and Soft tissue mobilization For the Purpose of:: To increase ROM, To improve nutrient delivery to tissue, To improve muscle performance and motor function, To improve ability to perform ADL's and To increase tolerance to activity/condition/position Cryotherapy (ice pack, ice massage): Yes For the Purpose of:: To decrease pain and To decrease swelling/inflammation Re-Evaluation Ending Re-evaluation ending: Please do not hesitate to contact me at [phone] by phone or if you have questions or concerns regarding this new plan of care! Sincerely, Ilia Barnes, DPT, OCS, CSCS
--- NOTE | 2024-10-06 14:12 | HP.PTEVAL2_ITS ---
Patient's Visit Information Visit Information Visit Information: IDA HOLLINGSWORTH is a 44 year old M referred to Physical Therapy by Dr. Elvis Botello MD with a diagnosis of IDD, R ankle instability. Date of Evaluation: 10/06/24 Physical Therapist: Ilia Barnes, DPT, OCS, CSCS Visit Plan Frequency: 2x /Week Duration: 4 Weeks Plan: 2x/week for 4 weeks for IE HEP R gastroc streetchi into DF 30 4x, PPu 10x 6+x/day and posture. Resume wall flexion for shoulder and towel IR to end ranges. Please treat with : 1. LB ROM and mat based core strngth for core to I HEP. 2. R ankle TB and proprioception ex to HEP Do this in addition to primary shoulder chart Subjective Subjective: Back pain is hit and miss. Was helping dad with brakes last week adn it hurt. Gets a twinge in his back every now and then for years and years. No treatment for LB maybe a chiropractor a few times. Bending makes him worse. Xrays show DDD in LB. Dr. Carranza said just PT, no other treatments. Not taking anything for back week, nor did he last week when it was bad. Basic ADLs all I. No o numbness in legs but has neuropathy in feet from alcholism. Falls sometimes and has walker that he uses some days. Not employed, trying for disability. Lies in bed a lot and watches phone. 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 Cold weather worse, On it a lot is worse. Pain LBP: Intensity: 0 Pain Intensity Range: 0 and 8 Comment: used walker last week b/c he could not walk L ankle medial.: Intensity: 1 Pain Intensity Range: 0 and 10 Comment: inconsistent, Objective Objective: LB AROM ext max limited and painful centrally, flexion OK and pinches. R SB adn L SB are OK. PPU hurts centrally pinch. flat lordosis in posture. Kyphotic t/s. reflexes patella adn achilles 2/3 sensation B feet diminished to gross lgiht touch. strength hips 3+/5, knees 4-/5, ankles 4-/5 with pain R medial inversion. Not tender today. AROM R ankle -3 DF, 50 PF, 20 inv and 12 eversion, L side slightly better, no pain either side today. - slump, - SLR. core strength abs 3+ and ext 3 I gait but avoiding push off on R which he says is typical over the last 12 years for him. sSays he cannot go up on toes but proceeds to go up on toes, needs to hold wall but good and strong here. hyperemphasis on neuropathy and chronic unpredictable nature of his back pain and how it limits him. Goals Goal 1:: I appropriate ex for ankle stability adn LB ROM, posture and core strength to manage condition Goal Time Frame: 2-4 Weeks Goal 2:: No incidence of LB flare ups limiting funciton Goal Time Frame: 2-4 Weeks Goal 3:: Pain in LB and ankle 1/10 at worst and 75% better and manageable Goal Time Frame: 2-4 Weeks Goal 4:: oswestry score 8 or better Goal Time Frame: 2-4 Weeks Rehabilitation Potential Physical Therapy Diagnosis: weakness and poorly managed degeneeration limiting comfortable funciton periodically. Rehabilitation Potential: Fair Anticipated Interventions Patient/Client Instruction: Educate patient on: Condition and Plan of Care For the Purpose of:: To decrease pain, To increase ROM, To improve nutrient delivery to tissue, To improve muscle performance and motor function and To increase tolerance to activity/condition/position Therapeutic Exercise to Include: Strength training, Postural training, Flexibilty training, Passive ROM and Active ROM For the Purpose of:: To decrease pain, To increase ROM, To improve nutrient delivery to tissue, To improve muscle performance and motor function, To increase tolerance to activity/condition/position and To increase flexibility/RO M text: Thank you for the opportunity to evaluate your patient. For Medicare and Medicare HMO plans, please review the plan of care and approve it. It will need to be FAXED BACK to us at [phone] for Medicare purposes. For Medicare only, by signing this I certify the plan of care. Please let me know if there are questions or concerns regarding this plan of care. Physician Signature: Date:
--- NOTE | 2024-11-18 11:10 | HP.PTDCSUM ---
Discharge Summary D/C summary: It has been my pleasure to treat IDA HOLLINGSWORTH referred by Dr. Elvis Botello MD, with the diagnosis of L shoulder pain s/p RCR biceps tenodesis, SAD and RCR around for a total of 12 visit(s). Discharge Date: 11/18/24 Please see the following information for a summary of their discharge status. Subjective Subjective: Comfortable at rest in shoulder. Attempting to swim makes it painful. painful to lift arm above 100 degrees. Sleep is OK. Will f/u with Dr. Botello. Can't play sports like softball or golf, is L handed. I am not the best at dong my exercises at home. Pain L shoulder: Pain Intensity (Out of 10): 4 Overall Improvement % Improvement: 50 Objective Objective/Function: 130 flexion, abd limited by pain, sometimes sharp but transient. 150 PROM flexion abd. 55 er and L4 IR leeft without much probleem. strength flexion 4, abd 4 both painful, er 4 with pain, IR 4+ no pain. Biceps 4, triceps 4+. Still hasrd time lifting OH without pain and this frustrates him. Goals Goal 1:: ST: AROM 155 flexion, 60 er, L5 IR to help with ADLs Goal Progress: Progressing 150 with pain Goal 2:: ST: sleep in bed without waking due to pain Goal Progress: Goal Met Goal 3:: LT: shave head adn put on shirt without noticing L shoulder Goal Progress: Not Progressing Goal 4:: LT: pt feel shoulder is 90% back to normal. Goal Progress: 50% Goal 5:: Pain in L shoulder 1/10 at worst and tolerable Goal Progress: Not Progressing Goal 6:: quickdash score 15 or better Goal Progress: Not Progressing Plan Plan: d/c to HEP emphasis and f/u with doctor. D/C Information Discharge Comments: pt to continue HPE and f/u with doctor next month per plan. d/c sentence: If there are questions or concerns regarding this patient's physical therapy, please feel free to call me at [phone]. Thank you for the referral of this patient. Sincerely, Ilia Barnes, DPT, OCS, CSCS Balance/Gait/Functional tests Balance/Special Test Scores Oswestry Low Back Score: 34 Quick DASH Score: 50.0000 Improvement % Improvement: 50
--- NOTE | 2024-11-18 11:22 | HP.PTDCS(2) ---
Discharge Summary D/C Summary: It has been my pleasure to treat IDA HOLLINGSWORTH referred by Dr. Elvis Botello MD, with the diagnosis of IDD, R ankle instability for a total of 2 visit(s). Discharge Date: 11/18/24 Please see the following information for a summary of their discharge status. Subjective Subjective: To [facility] for ankle Sunday. Ankle still hurts to walk alot 2/10 with walking alot. sitting is comfortable. Uneven surfaces make it hurt. Not great Back is pinching in middle with extension. hard to sit too long or stand too long. Pain is middle of LB up to 5/10 , needs to move adn it feels better. Not doing back exercises. Overall Improvement % Improvement: 0 Objective Objective/Function/Assessment: LB flexion adn SB are OK but extension still limited and tender centrally. Ankle aROM is WFL, SLS R 5 seconds with appropriate proprioceptive movements but painful. Walking normally outside of hunched FW today. overall not compliant with any exercises outside of PT and expectation of improvement is low due to this. he seems nonchalant about not doing his exercises. Goals Patient Goals: Other Other Goals: fix back Goal 1:: I appropriate ex for ankle stability adn LB ROM, posture and core strength to manage condition Goal Progress: met, noncompliant Goal 2:: No incidence of LB flare ups limiting funciton Goal Progress: Progressing Goal 3:: Pain in LB and ankle 1/10 at worst and 75% better and manageable Goal Progress: Not Progressing Goal 4:: oswestry score 8 or better Goal Progress: Not Progressing Plan Plan: d/c to HEP, compliance will be an issue, will f/u with doctors as directed. D/C Information d/c sentence: If there are questions or concerns regarding this patient's physical therapy, please feel free to call me at [phone]. Thank you for the referral of this patient. Sincerely, Ilia Barnes, DPT, OCS, CSCS Balance/Special Test Scores Improvement % Improvement: 0
== END 2024-11-18 19:00 | disposition home or self-care (01) ==
LOC: PT 10:00
PROVIDERS: PCP Internal Medicine; Referring Provider Orthopaedic Surgery Sports Medicine; Visit Provider Orthopaedic Surgery Sports Medicine
DX: M25.812 Other specified joint disorders, left shoulder (principal); M75.52 Bursitis of left shoulder; M75.102 Unspecified rotator cuff tear or rupture of left shoulder, not specified as traumatic; S43.432D Superior glenoid labrum lesion of left shoulder, subsequent encounter
CPT/HCPCS: 97110; 97140; 97161; 97164; 97530

== ENCOUNTER → 2025-02-10 | Outpatient (CLI) | payer MEDICAID, SELFPAY ==
--- NOTE | 2025-02-10 08:52 | MRI_ITS ---
PROCEDURE: SPINE LUMBAR (ROUTINE) 02/10/2025 REASON FOR EXAM: PAIN, DDD TECHNIQUE: Procedure Code: MRISPL Modality: MR Procedure: SPINE LUMBAR (ROUTINE) COMPARISON: Lumbar spine MRI 07/16/2023. FINDINGS: Vertebrae: Preserved in height and signal. Alignment: Unremarkable. Conus Medullaris: Unremarkable. L1-2: No foraminal or canal stenosis. L2-3: No foraminal or canal stenosis. L3-4: Disc desiccation. Disc bulge. Annular fissure. Mild inferior bilateral foramina stenosis. Mild canal stenosis. L4-5: Disc desiccation. Disc bulge. Annular fissure. A central disc protrusion measures 3 mm. Mild bilateral foramina stenosis. No canal stenosis. L5-S1: Disc desiccation. Disc bulge. Facet joint arthropathy. No significant foraminal or canal stenosis Sacrum: Unremarkable. MRI/Spine Lumbar (Routine) IMPRESSION: Disc bulge with small central disc protrusion and annular fissure at L4-L5 caus ing bilateral mild foramina stenosis. Mild canal stenosis. Disc bulge with annular fissure. Mild inferior bilateral foramina stenosis and mild canal stenosis at L3-L4. No significant progression of degenerate changes compared to MRI 07/16/2023. Reading Location: [id number]
== END | disposition home or self-care (01) ==
LOC: MRI 08:48
PROVIDERS: PCP Internal Medicine; Referring Provider Internal Medicine; Visit Provider Student in an Organized Health Care Education/Training Program
DX: M51.360 Other intervertebral disc degeneration, lumbar region with discogenic back pain only (principal)
CPT/HCPCS: 72148

== ENCOUNTER 2025-05-13 15:58 | Emergency (ER) | payer MEDICAID, SELFPAY ==
[2025-05-13] VITALS (7 sets, daily range): BP systolic 96–172; BP diastolic 62–93; PULSE 99–145; RESP 14–18; TEMP 36.3–37.1; O2SAT 94–98
--- NOTE | 2025-05-13 16:07 | EKG12_ITS ---
Test Reason : Blood Pressure : */* mmHG Vent. Rate : 129 BPM Atrial Rate : 129 BPM P-R Int : 148 ms QRS Dur : 80 ms QT Int : 304 ms P-R-T Axes : 10 -25 37 degrees QTcB Int : 445 ms Sinus tachycardia Otherwise normal ECG Confirmed by Prieto Nelson ([id number]), editor trade journal CELIA GAGNON ([id number]) on 05/15/2025 10:27:49 AM Referred By: Confirmed By: Prieto Nelson
--- NOTE | 2025-05-13 16:24 | CT_ITS ---
PROCEDURE: ABDOMEN/PELVIS W IV CONT ONLY 05/13/2025 REASON FOR EXAM: RIGHT SIDED ABDOMINAL PAIN TECHNIQUE: Procedure Code: [id number] Modality: CT Procedure: ABDOMEN/PELVIS W IV CONT ONLY Coronal and Sagittal reconstruction series were generated. CONTRAST: Isovue 370 VOLUME: 98 mL One or more dose reduction techniques were used (e.g., Automated exposure control, adjustment of the mA and/or kV according to patient size, use of iterative reconstruction technique. RADIATION DOSE SUMMARY: CTDlvol: 6.65+ 15.12 mGy DLP: 839.82 mGycm COMPARISON: 03/10/2024 FINDINGS: Lung bases: Minimal lingular atelectasis/scarring. Liver: Unremarkable. Spleen: Unremarkable. Gallbladder/biliary: Unremarkable. Pancreas: Unremarkable. Adrenals: Unremarkable. Kidneys: Unremarkable. Bowel: Very mild diverticulosis. Normal caliber appendix. Lymph nodes: Unremarkable. Vasculature: Trace atherosclerosis. Peritoneum: Unremarkable. Bladder: Unremarkable. Reproductive Organs: Unremarkable. Body Wall: Suspect umbilical hernia repair with mesh. Bones: Mild degenerative findings. Old RIGHT rib fractures.. CT/Abdomen/Pelvis W IV Cont ONLY IMPRESSION: 1. No acute findings. 2. Additional description as above. Reading Location: [id number]
[2025-05-13 16:26] LABS: Hematocrit 38.6 % (40-54); Hemoglobin 13.6 g/dL (13.0-16.5); Immature Granulocytes Count 0.040 X10^3/uL (0.0-0.0); Mean Corp Hgb Conc 35.2 g/dL (32-36); Mean Corpuscular Volume 88.5 fL (80-94); Mean Platelet Vol. 8.4 fl (6.2-12.0); NRBC Flagged by Analyzer 0 % (0-5); Platelet Count 367 K/mm3 (150-450); RBC Distribution Width CV 12.7 % (11.6-14.6); RBC Distribution Width SD 41.7 fl (35.1-43.9); Red Blood Count 4.36 M/mm3 (4.6-6.2); White Blood Count 8.1 K/mm3 (4.4-11.0)
[2025-05-13] MEDS: 0.9% Normal Saline (1000mL) 1,000 ML 999 ML IV ×2 (16:29→18:42)
[2025-05-13 16:33] LABS: Color, Urine Yellow (Yellow); Glucose, Dipstick Normal (Normal); Ketone-Dipstick Negative (Negative); Leukocyte Esterase-Dipstick Negative /ul (Negative); Mucous, Urine 0 SEEN /hpf (<or=2+); Nitrite-Dipstick Negative (Negative); Occult Blood-Urine Negative /ul (Negative); Protein-Dipstick Negative (Negative); Red Blood Cells-Urine 0 SEEN /hpf (0-5); Specific Gravity, Urine 1.010 (1.002-1.030); Squamous Epithelial Cells - UA 0 SEEN /hpf (0-5); Urine Bilirubin Dipstick Negative (Negative)
--- NOTE | 2025-05-13 16:34 | EX.ED.DYSGE1 ---
HPI History of Present Illness Chief Complaint: Dizziness Narrative Narrative: Patient was seen and examined after presenting to ED for dizziness has history of alcohol use states that he feels off because of his heart rate but during exam denied having any abdominal pain but ended up being tender. [facility] Medical History Wears hearing aid Loss of hearing Depression Alcohol use Fatty liver High cholesterol GERD (gastroesophageal reflux disease) Smoker Impingement of left shoulder Bursitis of left shoulder Superior labrum [id number] (SLAP) tear of left shoulder Left rotator cuff tear Left shoulder pain Chronic alcohol abuse Dyslipidemia History of patellar fracture Bimalleolar ankle fracture Generalized anxiety disorder with panic attacks Back pain Bloody stool Abnormal bruising Asthma Fatigue Stomach ulcer Shoulder pain SOB (shortness of breath) Arthritis Home Medications ?Medication ?Instructions ?Recorded ?Last Taken ?Type cyanocobalamin (vitamin B-12) 1,000 mcg PO QDAY 02/25/24 06/17/24 History 1,000 mcg tablet fenofibrate nanocrystallized 145 145 mg PO DAILY #90 tabs 03/11/24 06/17/24 Rx mg tablet folic acid 1 mg tablet 1 mg PO QDAY #30 tabs 03/11/24 06/17/24 Rx omeprazole 40 mg capsule,delayed 40 mg PO BIDCM #120 caps 03/11/24 06/18/24 Rx release potassium chloride 20 mEq 40 meq (2 x 20 mEq) PO DAILYCM #60 03/11/24 06/16/24 Rx tablet,extended release(part/cryst) tabs thiamine HCl (vitamin B1) 100 mg 100 mg PO DAILYCM 30 days #30 tabs 03/11/24 06/17/24 Rx tablet (Vitamin B-1) gabapentin 300 mg capsule 300 mg PO TID 12/15/24 Unknown History methocarbamol 500 mg tablet 500 mg PO TID PRN pain/spasms #30 12/15/24 Unknown Rx tabs clonidine HCl 0.1 mg tablet 0.1 mg PO BID PRN anxiety #60 tabs 04/16/25 Unknown Rx fluoxetine 10 mg capsule 10 mg PO QDAY #30 caps 04/16/25 Unknown Rx hydroxyzine HCl 25 mg tablet 25 mg PO TID PRN anxiety #90 tabs 04/16/25 Unknown Rx Allergy/AdvReac Type Severity Reaction Status Date / Time No Known Allergies Allergy Verified 05/13/25 16:01 Family History Mother Diabetes Heart disease Hypertension Father Diabetes Heart disease Hypertension Surgical History History of wisdom tooth extraction History of oral surgery History of esophagogastroduodenoscopy (EGD) History of hernia surgery Social History household members: none Smoking Status: Light Smoker (<10/day) alcohol intake: current alcohol intake frequency: 3 or more drinks per day Alcohol type: beer substance use type: does not use ROS ROS ED ROS Narrative Pertinent Positives: Dizziness history of alcohol use reports history of pancreatitis on multiple occasions Pertinent Negatives: Fevers chills vomiting black or bloody stools chest pain pressure shortness of breath history of DVT or PE use of anticoagulation The remainder of review of systems negative unless otherwise stated in the HPI above. Systems reviewed including constitutional, psychiatric, cardiovascular, respiratory, integument, HENT, gastrointestinal. EXAM Physical Exam Narrative Exam Narrative: Patient is afebrile blood pressure is appropriate as and is not hypotensive but he is tachycardic and sinus tachycardia in the 120s and 130s on the monitor normal heart and lung sounds abdomen is soft nondistended tender in the right lower quadrant however. Intact and equal MSPs in the lower extremity edema or calf tenderness. Const Vital Signs: 05/13/25 15:58 05/13/25 16:58 05/13/25 17:00 Temperature 98.7 F Temperature Source Oral Pulse Rate 145 H 113 H 113 H Respiratory Rate 18 14 14 Blood Pressure 172/93 H 132/84 H 132/84 H Blood Pressure Mean 119 100 100 Pulse Ox 98 97 97 Oxygen Delivery Method Room Air Room Air Room Air 05/13/25 18:00 05/13/25 19:00 05/13/25 20:00 Temperature Temperature Source Pulse Rate 111 H 104 H 99 Respiratory Rate 15 16 15 Blood Pressure 101/66 101/66 96/62 Blood Pressure Mean 77 77 73 Pulse Ox 94 95 94 Oxygen Delivery Method Room Air Room Air 05/13/25 20:37 Temperature 97.3 F L Temperature Source Pulse Rate 99 Respiratory Rate 15 Blood Pressure 96/62 Blood Pressure Mean 73 Pulse Ox 94 Oxygen Delivery Method MDM MDM MDM Narrative Medical decision making narrative: Nursing notes, triage notes, available previous documentation, and vital signs were reviewed. Any discrepancies noted were addressed. Differential Diagnoses: Need to consider pancreatitis cholecystitis appendicitis low suspicion for PE cardiac causes Interventions: normal saline Labs Reviewed: No leukocytosis leukopenia or anemia platelets at 367. No significant electrolyte abnormality renal insufficiency transaminitis lipase was 58 alcohol level was 357 urine was without evidence of infection vomiting Imaging Reviewed: CT abdomen and pelvis without acute pathology EKG: Sinus tachycardia rate of [address] segment elevation. EKG interpretation is noted and agreed to in the EMR. The interpretation of this patient's EKG contributed directly to the care and management of this patient. Previous Documentation Reviewed: None available or applicable at this time. ED Course: Patient presenting with symptoms as stated above we will get a CT of the abdomen pelvis because of the right-sided abdominal pain we will also give fluids. 2039: Patient has metabolized he is calling for a ride from his mom states he is feeling better patient will be discharged home with return precautions follow-up recommendations heart rate has also improved. This note was made utilizing voice recognition software. All attempts were made to correct spelling or other errors prior to note completion. However, due to the fast-paced nature of emergency medicine, some errors may still be present. Lab Data Labs: Laboratory Results - last 24 hr 05/13/25 05/13/25 15:43 16:25 WBC 8.1 RBC 4.36 L Hgb 13.6 Hct 38.6 L MCV 88.5 MCH 31.2 MCHC 35.2 RDW Std Deviation 41.7 RDW Coeff of Lilian 12.7 Plt Count 367 MPV 8.4 Immature Gran % (Auto) 0.500 Neut % (Auto) 42.9 L Lymph % (Auto) 49.3 H [place] % (Auto) 5.7 Eos % (Auto) 1.0 Baso % (Auto) 0.6 Absolute Neuts (auto) 3.5 Absolute Lymphs (auto) 3.99 Nucleated RBC % 0 Sodium 132 L Potassium 3.4 Chloride 92 L Carbon Dioxide 24.0 Anion Gap 16 H BUN 11 Creatinine 1.06 Est GFR (MDRD) Non-Af 87 BUN/Creatinine Ratio 10.0 Glucose 105 H Calcium 8.8 Total Bilirubin 0.21 AST 48 H ALT 25 Alkaline Phosphatase 48 Total Protein 7.7 Albumin 4.8 Globulin 2.8 Albumin/Globulin Ratio 1.7 Lipase 59 Urine Color Yellow Urine Clarity Clear Urine pH 7.0 Ur Specific [place] 1.010 Urine Protein Negative Urine Glucose (UA) Normal Urine Ketones Negative Urine Occult Blood Negative Urine Nitrite Negative Urine Bilirubin Negative Urine Urobilinogen Normal Ur Leukocyte Esterase Negative Urine RBC 0 SEEN Urine WBC 0 SEEN Ur Squamous Epith Cells 0 SEEN Urine Bacteria 0 SEEN Urine Mucus 0 SEEN Ethyl Alcohol 337.0 H* Radiography Diagnostic Testing: Clinical Impression(s) from Imaging Studies Abdomen/Pelvis CT 05/13/25 16:24 IMPRESSION: 1. No acute findings. 2. Additional description as above. Reading Location: [id number] Discharge Plan Triage Chief Complaint: Dizziness ED Provider: Jany Mckoy Dx/Rx/DC Orders Clinical Impression: Sinus tachycardia, Abdominal pain, Alcohol intoxication Instructions: ED Dehydration (Adult) Prescriptions: No Action cyanocobalamin (vitamin B-12) 1,000 mcg tablet 1,000 mcg PO QDAY gabapentin 300 mg capsule 300 mg PO TID methocarbamol 500 mg tablet 500 mg PO TID PRN (Reason: pain/spasms) Qty: 30 0RF fluoxetine 10 mg capsule 10 mg PO QDAY Qty: 30 1RF clonidine HCl 0.1 mg tablet 0.1 mg PO BID PRN (Reason: anxiety) Qty: 60 1RF hydroxyzine HCl 25 mg tablet 25 mg PO TID PRN (Reason: anxiety) Qty: 90 1RF potassium chloride 20 mEq Tablet,Er Particles/Crystals 40 meq PO DAILYCM Qty: 60 0RF fenofibrate nanocrystallized 145 mg Tablet 145 mg PO DAILY Qty: 90 0RF thiamine HCl (vitamin B1) [Vitamin B-1] 100 mg Tablet 100 mg PO DAILYCM 30 Days Qty: 30 0RF omeprazole 40 mg capsule,delayed release(DR/EC) 40 mg PO BIDCM Qty: 120 0RF folic acid 1 mg tablet 1 mg PO QDAY Qty: 30 0RF Primary Care Provider: Wilbert Quiroz Referrals: Wilbert Quiroz MD [Primary Care Provider, Internal Medicine] Print Language: Greek Disposition Disposition: Home, Self Care Discharge Date/Time: 05/13/25 20:38
[2025-05-13 17:13] LABS: Alcohol, Blood (Medical)-Serum 337.0 mg/dL (<=10.0)
[2025-05-13 17:19] LABS: AST(SGOT) 48 U/L (<=37); Alanine Aminotransfer ALT/SGPT 25 U/L (<=46); Albumin, Serum 4.8 g/dL (3.5-5.0); Alkaline Phosphatase 48 U/L (40-129); Anion Gap 16 (5-15); BUN 11 mg/dL (4-19); BUN/Creat Ratio 10.0 RATIO (10-20); Calcium,Total 8.8 mg/dL (7.6-11.0); Carbon Dioxide 24.0 mmol/L (21.0-32.0); Chloride 92 mmol/L (98-108); Globulin 2.8 g/dL (2.2-4.2); Glucose 105 mg/dL (70-99); Lipase 59 U/L (13-75); Potassium 3.4 mmol/L (3.3-5.1)
== END 2025-05-13 20:38 | disposition home or self-care (01) ==
LOC: ED 16:42
PROVIDERS: Emergency Provider Specialist/Technologist Athletic Trainer; PCP Internal Medicine; Visit Provider Specialist/Technologist Athletic Trainer
DX: R00.0 Tachycardia, unspecified (principal); R10.9 Unspecified abdominal pain; F10.129 Alcohol abuse with intoxication, unspecified; F17.200 Nicotine dependence, unspecified, uncomplicated; E78.00 Pure hypercholesterolemia, unspecified; R42 Dizziness and giddiness; K21.9 Gastro-esophageal reflux disease without esophagitis
CPT/HCPCS: 74177; 80053; 81001; 82077; 83690; 85025; 93005; 96360; 96361; 99285; Q9967